=== PATIENT | female | born 1940 | race Caucasian/White ===

== ENCOUNTER 2024-02-14 12:08 | Emergency (ER) | payer MEDICARE, SELFPAY ==
--- NOTE | 2024-02-14 | ECG_ITS ---
Test Reason : WEAKNESS Blood Pressure : / mmHG Vent. Rate : 075 BPM Atrial Rate : 079 BPM P-R Int : 000 ms QRS Dur : 120 ms QT Int : 426 ms P-R-T Axes : 000 266 063 degrees QTc Int : 475 ms Ventricular-paced rhythm Abnormal ECG When compared with ECG of 31-JUL-2003 21:35, Electronic ventricular pacemaker has replaced Sinus rhythm Referred By: Juliana Cunningham Electronically Signed By:Hair Mendoza
--- NOTE | ~2024-02-14 | XR_ITS ---
EXAMINATION: XR CHEST CLINICAL INFORMATION: Weakness COMPARISON: None available. TECHNIQUE: 2 views of the chest were obtained. FINDINGS: No consolidation, pleural effusion or pneumothorax. Low lung volume. Cardiomediastinal silhouette is normal in size. Left-sided pacemaker with intact electrode leads. There is a catheter left in the right hemithorax and right upper abdomen. Multilevel spondylosis and a S-shaped curvature of the thoracolumbar spine. Kyphotic deformity, thoracic spine. Vascular clips right upper quadrant abdomen and likely prior cholecystectomy. XR/XR chest 2V IMPRESSION: No acute airspace disease. Scoliosis and kyphosis. Electronically signed by: Jay Ritchie MD 02/14/2024 03:09 PM EDT RP
--- NOTE | ~2024-02-14 | CT_ITS ---
EXAMINATION: CT HEAD WITHOUT CONTRAST CLINICAL INFORMATION: fall, unknown HS, on thinners COMPARISON: None available. TECHNIQUE: Contiguous axial imaging was performed from the skull base to vertex without intravenous administration of contrast. This CT examination was performed using dose optimization techniques as appropriate, variously including the following: *Automated exposure control *Adjustment of mA and/or kV according to patient size (this includes techniques or standardized protocols for targeted exams where dose is matched to indication/reason for exam; i.e. extremities or head) *Use of iterative reconstruction technique DLP: 584 mGy-cm FINDINGS: No acute intracranial hemorrhage. Status post shunt catheter placement via right parietal miya hole defect extends through the right parietal soft tissues anteriorly to the third ventricle and projecting (midline into the left frontal horn. There is prominent lateral and third ventricles. Focal encephalomalacia at the right parietal deep white matter shunt catheter tract. Bilateral multifocal patchy and confluent deep periventricular white matter hypodensity involving centrum semiovale and pritchard radiata. No midline shift. No herniation. Prominence of the extra-axial CSF spaces cerebral sulci and ventricles. Intracranial vascular calcifications both anterior and posterior circulation. Bony calvarium is intact. Skull base is intact. Fluid levels in the posterior right mastoid air cells. Tympanic cavities are aerated. No air-fluid levels in the paranasal sinuses. CT/CT head/brain wo IV con IMPRESSION: No acute intracranial hemorrhage or acute fracture, bony calvarium. Status post shunt catheter placement with prominent lateral ventricular and third ventricular system. Recommend correlation with prior CT brain. Small vessel occlusive disease. Electronically signed by: Jay Ritchie MD 02/14/2024 02:00 PM EDT
[2024-02-14 12:14] VITALS: BP 146/62; BP 154/60; PULSE 69; PULSE 99; RESP 16; TEMP 36.8; O2SAT 97; O2SAT 98; BMI 32.6
--- NOTE | 2024-02-14 12:22 | ED_ITS ---
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 The fall was unwitnessed and she does not recall falling. Cannot say if she had any preceding symptoms prior to the fall or if she lost balance. The last thing she remembers is sitting on her bedroom floor next to her bed and was unable to stand up secondary to weakness in her lower extremities. Her , whom she lives with, called EMS for further assistance. Patient states she is unsure if she hit her head. She is currently anticoagulated on coumadin. She admits to increasing generalized weakness over the last few weeks. She has seen her primary care physician for this who recommended exercise. She completed a few sessions of physical therapy last week and felt this was helping her. She denies any physical complaints at present. Related Data Home Medications ?Medication ?Instructions ?Recorded ?Confirmed Lactobacillus rhamnosus GG 10 1 cap PO DAILY 02/14/24 02/14/24 billion cell capsule acetaminophen 650 mg tablet 650 mg PO Q6H PRN Pain 02/14/24 02/14/24 aspirin 81 mg capsule,delayed 81 mg PO DAILY 02/14/24 02/14/24 release atorvastatin 40 mg tablet 40 mg PO DAILY 02/14/24 02/14/24 azelaic acid 15 % topical gel 1 appl topical DAILY 02/14/24 02/14/24 calcium carbonate 600 mg PO DAILY 02/14/24 02/14/24 cholecalciferol (vitamin D3) 25 25 mcg PO DAILY 02/14/24 02/14/24 mcg (1,000 unit) capsule (Vitamin D3) cyanocobalamin (vitamin B-12) 1,000 mcg PO DAILY 02/14/24 02/14/24 1,000 mcg tablet famotidine 20 mg tablet 20 mg PO BID 02/14/24 02/14/24 fluticasone propionate 50 1 spray intranasal DAILY 02/14/24 02/14/24 mcg/actuation nasal spray,suspension hydrocortisone 0.25 % topical cream 1 appl topical BID 02/14/24 02/14/24 lactase 9,000 unit tablet 9,000 unit PO DAILY 02/14/24 02/14/24 loperamide 2 mg capsule 2 mg PO DAILY 02/14/24 02/14/24 losartan 25 mg tablet 25 mg PO DAILY 02/14/24 02/14/24 metoprolol succinate 50 mg 50 mg PO DAILY 02/14/24 02/14/24 tablet,extended release 24 hr nitroglycerin 0.4 mg sublingual 0.4 mg sublingual Q5M PRN cp 02/14/24 02/14/24 tablet nystatin 100,000 unit/gram topical 1 appl topical TID 02/14/24 02/14/24 powder polyethylene glycol 1 ea miscellaneous DAILY 02/14/24 02/14/24 polyvinyl alcohol-povidon(PF) 1 drp INTRAOCUL NEEDED 02/14/24 02/14/24 spironolactone 25 mg tablet 25 mg PO DAILY 02/14/24 02/14/24 warfarin 5 mg tablet 5 mg PO DIRECTED 02/14/24 02/14/24 Allergies Allergy/AdvReac Type Severity Reaction Status Date / Time No Known Allergies Allergy Verified 02/14/24 12:24 Review of Systems 2 Review of Systems: Constitutional: No fever, chills, fatigue, night sweats, weight changes ENT/Mouth: No ear pain, hearing loss, nasal congestion, sinus pain, rhinorrhea, sore throat Eyes: No eye pain, swelling, redness, vision changes, discharge Cardio: No chest pain, palpitations, DELUCA, orthopnea, peripheral edema Pulm: No SOB, cough, sputum, wheezing, dyspnea, hemoptysis GI: No nausea, vomiting, hematemesis, abdominal pain, diarrhea, constipation, hematochezia, melena : No irregular bleeding, dysuria, frequency, urgency, hesitancy, hematuria, flank pain, urinary flow changes, urinary incontinence or retention MSK: No back pain, neck pain, joint pain, myalgias Skin: No lesions, rashes Neuro: No weakness, numbness, paresthesias, LOC, dizziness, headache Psych: No anxiety/panic, depression, SI/HI, AH/VH All other systems reviewed and are negative. [facility] Past Medical History Attestation statement: The following information was validated with the patient. Source: old records reviewed and nursing notes reviewed Social History Social History Smoked in Last 30 Days: No Use of substances other than those prescribed or required for medical reasons: No Advance Directives: No Advance Directives Information Provided: Yes Physical Exam ED Vital Signs: Vital Signs - 24 hr 02/14/24 12:14 02/14/24 14:13 02/14/24 16:00 Temperature 98.2 F 97.8 F 98.3 F Pulse Rate 69 72 70 Respiratory Rate 16 16 12 Blood Pressure 146/62 H 147/58 H 131/55 L Pulse Oximetry 97 99 97 Oxygen Delivery Method Room Air Room Air Room Air 02/14/24 18:00 02/14/24 18:26 02/14/24 18:26 Temperature 99.5 F Pulse Rate 70 Respiratory Rate 17 Blood Pressure 173/82 H 173/82 H 173/82 H Pulse Oximetry 98 Oxygen Delivery Method Room Air 02/14/24 18:27 Temperature Pulse Rate 73 Respiratory Rate Blood Pressure 173/82 H Pulse Oximetry Oxygen Delivery Method BMI result Body Mass Index 32.6 General: Well appearing, in no acute distress. Skin: Warm, dry, intact. No rashes or lesions. Head: Normocephalic, atraumatic. no palpable skull fracture or signs of trauma. EENT: Hearing is intact b/l. Conjunctiva clear. Pupils constricted, reactive to light. EOM intact. Moist mucous membranes.? Neck: Supple without LAD. FROM. Trachea midline.? Cardiac: Chest wall symmetric. RRR. No MRG. No JVD. Lungs: Normal respiratory effort without accessory muscle use. CTA bilaterally. Abdomen: Soft, non-tender, non-distended. No rebound tenderness or guarding. Positive BS x4. Back: No midline spinous or paraspinal tenderness. No step off deformity. Ext: Upper and lower extremities atraumatic, without tenderness, deformity, swelling or erythema. Full ROM throughout. Capillary refill <2 seconds in all extremities. Pulses 2+ equal and bilateral. Neuro: AOX2 (person, place). Normal speech.Strength 4/5 throughout. No saddle anesthesia. Sensation intact to light touch. NV intact distally. Psych: Appropriate mood and affect. Responds appropriately to questions. Course Course Course Narrative: 1431 -- CBC without leukocytosis or left shift. No anemia. H&H stable. Chemistry without acute electrolyte abnormality requiring intervention. No ANGELINA. Normal liver function. Troponin 3.2. Will repeat for delta. CK WNL at 61. Rhabdomyolysis unlikely. Urine with moderate amount of leukocyte esterase, 11- 20 WBCs, 6-10 squamous epithelial cells and 1+ urine bacteria. Negative nitrites. will start on ceftin for UTI. negative for COVID, flu, RSV. ekg showing ventricular paced rhythm with a rate of 75 beats per minute, QT 426, QTC 475. No acute ischemic changes or ST elevations. And CTA without intracranial hemorrhage, bony fracture or mass. > will add on CXR to rule out pneumonia. 1522 -- CXR without pneumonia. Given generalized weakness, will place consultation for PT/CM. Physician observation initialed. Medications Administered Generic Name Dose Route Start Last Admin Trade Name Freq PRN Reason Stop Dose Admin Atorvastatin Calcium 40 mg 02/14/24 17:30 02/14/24 18:26 Atorvastatin Calcium 40 Mg Tablet PO 40 mg DAILY BLAIRE Administration Cefuroxime Axetil 500 mg 02/14/24 14:45 02/14/24 15:11 Cefuroxime Axetil 500 Mg Tablet PO 500 mg BID BLAIRE Administration Cyanocobalamin 1,000 mcg 02/14/24 17:30 02/14/24 18:27 Cyanocobalamin (Vitamin B-12) 1,000 Mcg Tablet PO 1,000 mcg DAILY BLAIRE Administration Loperamide HCl 2 mg 02/14/24 17:30 02/14/24 18:26 Loperamide Hcl 2 Mg Capsule PO 2 mg DAILY BLAIRE Administration Losartan Potassium 25 mg 02/14/24 17:30 02/14/24 18:26 Losartan Potassium 25 Mg Tablet PO 25 mg DAILY BLAIRE Administration Protocol Metoprolol Succinate 50 mg 02/14/24 17:30 02/14/24 18:27 Metoprolol Succinate Er 50 Mg Tab.Er.24h PO 50 mg DAILY BLAIRE Administration Protocol Spironolactone 25 mg 02/14/24 17:30 02/14/24 18:26 Spironolactone 25 Mg Tablet PO 25 mg DAILY BLAIRE Administration Protocol Vitamin D 25 mcg 02/14/24 17:30 02/14/24 18:26 Cholecalciferol (Vitamin D3) 25 Mcg Tablet PO 25 mcg DAILY BLAIRE Administration Medical Decision Making Medical Decision Making [facility] Narrative: 83 year old female with pmhx significant for dementia and HTN presents to the ED today from home 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 Hypertensive to 147/58, vitals otherwise wnl. She is nontoxic appearing and in NAD. Pupils are consticted but equal and reactive to light. No palpable skull fracture. No signs of trauma. Exam is nonfocal. She has global weakness w/ 4/5 strength throughout. NV intact distally. Differential diagnosis includes anemia, electrolyte abnormality, dehydration, rhabdomyolysis, ACS, arrhythmia, pneumonia, urinary tract infection. Will obtain CT head/brain to r/o bleed or mass although less likely. Plan for labs, UA, CXR, re-evaluation. Patient will likely require PT/CM. Differential Diagnosis Differential Diagnoses: The differential diagnosis associated with the presentation includes as above. Admission/Observation Consideration of admission/observation: Escalation of care including admission/observation considered Lab Data [facility] Lab Attestation statement: I reviewed the patient's lab results. as above 02/14/24 12:49 02/14/24 12:49 Labs: Lab Results 02/14/24 02/14/24 Range/Units 12:49 13:54 WBC 9.7 (4.8-10.8) X10*3/uL RBC 3.84 L (4.20-5.50) X10*6/uL Hgb 13.2 (12.0-16.0) g/dl Hct 38.6 (37.0-47.0) % MCV 100.5 H (80.0-98.0) fL MCH 34.4 H (27.0-33.0) pg MCHC 34.2 (31.0-35.0) g/dl RDW 12.9 (11.0-16.0) % Plt Count 189 (160-400) X10*3/uL MPV 11.5 (9.4-12.3) fL Immature Gran % (Auto) 0.4 (0.0-0.4) % Neut % (Auto) 77.8 H (45-73) % Lymph % (Auto) 14.7 L (20-40) % Bullitt % (Auto) 4.9 (2-11) % Eos % (Auto) 1.8 (0-4) % Baso % (Auto) 0.4 (0-2) % Lymph # (Auto) 1.4 (1.2-4.9) X10*3/uL Bullitt # (Auto) 0.5 (0.1-1.2) X10*3/uL Eos # (Auto) 0.2 (0.0-0.4) X10*3/uL Baso # (Auto) 0.0 (0.0-0.2) X10*3/uL Abs Immat Gran (auto) 0.04 H (0.00-0.03) X10*3/uL Absolute Neuts (auto) 7.5 (2.0-8.3) x10*3/uL Absolute Nucleated RBC 0.000 (0.0-0.012) X10*3/uL Nucleated RBC % (auto) 0.0 (0.0-0.2) /100WBC PT 20.1 H (10.9-12.4) SEC INR 1.7 H (0.9-1.1) Sodium 141 (135-145) mmol/L Potassium 3.8 (3.3-5.1) mmol/L Chloride 108 (96-108) mmol/L Carbon Dioxide 27 (22-29) mmol/L Anion Gap 10 L (12-20) BUN 14 (9-16) mg/dL Creatinine 0.87 (0.5-1.4) mg/dL Estim Creat Clear Calc 46.1 Estimated GFR > 60 Random Glucose 112 (60-115) mg/dL Calcium 9.6 (8.4-10.2) mg/dL Magnesium 1.9 (1.6-2.6) mg/dL Total Bilirubin 0.5 (0.0-1.0) mg/dL AST 27 (5-31) U/L ALT 20 (0-31) U/L Alkaline Phosphatase 81 (39-117) U/L Total Creatine Kinase 61 (26-140) U/L Troponin I High Sens 3.2 (<3.5-17.0) ng/L Total Protein 6.4 L (6.5-8.0) g/dL Albumin 3.8 (3.5-5.0) g/dL Urine Color Yellow Urine Appearance Clear Urine pH 7.0 (5.0-9.0) Ur Specific [place] 1.020 (1.005-1.025) Urine Protein Negative (Neg-Trace) mg/dL Urine Glucose (UA) Negative (Negative) mg/dL Urine Ketones Negative (Negative) mg/dL Urine Blood Negative (Negative) Urine Nitrite Negative (Negative) Ur Leukocyte Esterase Moderate (2+) H (Negative) Urine RBC 0-2 (0-2) /HPF Urine WBC 11-20 H (0-5) /HPF Ur Squamous Epith Cells 6-10 (0-2) /HPF Urine Bacteria 1+ (None Seen) Hyaline Casts 3-5 (0-2) /LPF Influenza Type A (PCR) NEGATIVE (Negative) Influenza Type B (PCR) NEGATIVE (Negative) RSV RNA Qual (PCR) NEGATIVE (Negative) SARS-CoV-2 RNA (RT-PCR) NEGATIVE (Negative) Independent Interpretation I performed an independent interpretation of an: EKG, Plain X-Ray and CT Scan Interpretation: EKG showing ventricularly paced rhythm with a rate of 75 beats per minute, QT 426, QTC 475, no acute ischemic changes or ST elevations. Chest x-ray without infiltrate or consolidation, agree with radiologist's interpretation. CT head/brain without intracranial bleed, agree with radiologist's interpretation. Radiology Impression Discussion of test interpretation with radiology: I have reviewed the radiologist's reading. Radiologist Impression: EXAMINATION: XR CHEST CLINICAL INFORMATION: Weakness COMPARISON: None available. TECHNIQUE: 2 views of the chest were obtained. FINDINGS: No consolidation, pleural effusion or pneumothorax. Low lung volume. Cardiomediastinal silhouette is normal in size. Left-sided pacemaker with intact electrode leads. There is a catheter left in the right hemithorax and right upper abdomen. Multilevel spondylosis and a S-shaped curvature of the thoracolumbar spine. Kyphotic deformity, thoracic spine. Vascular clips right upper quadrant abdomen and likely prior cholecystectomy. XR/XR chest 2V IMPRESSION: No acute airspace disease. Scoliosis and kyphosis. Electronically signed by: Jay Ritchie MD 02/14/2024 03:09 PM EDT EXAMINATION: CT HEAD WITHOUT CONTRAST CLINICAL INFORMATION: fall, unknown HS, on thinners COMPARISON: None available. TECHNIQUE: Contiguous axial imaging was performed from the skull base to vertex without intravenous administration of contrast. This CT examination was performed using dose optimization techniques as appropriate, variously including the following: *Automated exposure control *Adjustment of mA and/or kV according to patient size (this includes techniques or standardized protocols for targeted exams where dose is matched to indication/reason for exam; i.e. extremities or head) *Use of iterative reconstruction technique DLP: 584 mGy-cm FINDINGS: No acute intracranial hemorrhage. Status post shunt catheter placement via right parietal miya hole defect extends through the right parietal soft tissues anteriorly to the third ventricle and projecting (midline into the left frontal horn. There is prominent lateral and third ventricles. Focal encephalomalacia at the right parietal deep white matter shunt catheter tract. Bilateral multifocal patchy and confluent deep periventricular white matter hypodensity involving centrum semiovale and pritchard radiata. No midline shift. No herniation. Prominence of the extra-axial CSF spaces cerebral sulci and ventricles. Intracranial vascular calcifications both anterior and posterior circulation. Bony calvarium is intact. Skull base is intact. Fluid levels in the posterior right mastoid air cells. Tympanic cavities are aerated. No air-fluid levels in the paranasal sinuses. CT/CT head/brain wo IV con IMPRESSION: No acute intracranial hemorrhage or acute fracture, bony calvarium. Status post shunt catheter placement with prominent lateral ventricular and third ventricular system. Recommend correlation with prior CT brain. Small vessel occlusive disease. Electronically signed by: Jay Ritchie MD 02/14/2024 02:00 PM EDT Independent Historian Clinical information obtained from an independent historian. History obtained from or confirmed by: EMS External Record Review External record reviewed: Inpatient record Prescription Management I considered prescription management with: Antibiotic (Ceftin) Chronic Conditions Patient?s care impacted by: Hypertension and Other (dementia) Social Determinants Patient?s care significantly limited by Social Determinants of Health including: Other Social Determinant of Health Critical Care Time Critical Care Time Critical Care Time: No Discharge Plan Discharge Clinical Impression: Generalized weakness, Urinary tract infection Patient Disposition: Still a Patient Prescriptions: No Action atorvastatin 40 mg Tablet 40 mg PO DAILY cyanocobalamin (vitamin B-12) 1,000 mcg Tablet 1,000 mcg PO DAILY acetaminophen 650 mg Tablet 650 mg PO Q6H PRN (Reason: Pain) aspirin 81 mg Capsule,Delayed Release(Dr/Ec) 81 mg PO DAILY calcium carbonate 600 mg calcium (1,500 mg) Tablet 600 mg PO DAILY lactase 9,000 unit Tablet 9,000 unit PO DAILY hydrocortisone 0.25 % Cream 1 appl TOPICAL BID Lactobacillus rhamnosus GG 10 billion cell Capsule 1 cap PO DAILY fluticasone propionate 50 mcg/actuation Gilson,Suspension 1 spray INTRANASAL DAILY Rx Instructions: administer into each nostril cholecalciferol (vitamin D3) [Vitamin D3] 25 mcg (1,000 unit) Capsule 25 mcg PO DAILY azelaic acid 15 % Gel 1 appl TOPICAL DAILY loperamide 2 mg Capsule 2 mg PO DAILY metoprolol succinate 50 mg Tablet Extended Release 24 Hr 50 mg PO DAILY spironolactone 25 mg Tablet 25 mg PO DAILY warfarin 5 mg Tablet 5 mg PO DIRECTED Rx Instructions: Take 1 tablet (5mg) daily x 3 days/week. Take 1/2 tablet (2.5mg) daily x 4 days/week. losartan 25 mg Tablet 25 mg PO DAILY nitroglycerin 0.4 mg Tablet, Sublingual 0.4 mg SUBLINGUAL Q5M PRN (Reason: cp) Rx Instructions: do not exceed 3 doses per episode polyethylene glycol Powder 1 ea MISCELLANEOUS DAILY polyvinyl alcohol-povidon(PF) 1 drp INTRAOCUL NEEDED famotidine 20 mg Tablet 20 mg PO BID nystatin 100,000 unit/gram Powder 1 appl TOPICAL TID Print Language: Bhutanese
[2024-02-14 13:13] LABS: MANUAL DIFF FLAG NO
[2024-02-14 13:16] LABS: Basophils Percent Auto 0.4 % (0-2); Eosinophils Absolute Auto 0.2 X10*3/uL (0.0-0.4); Eosinophils Percent Auto 1.8 % (0-4); Hematocrit 38.6 % (37.0-47.0); Hemoglobin 13.2 g/dl (12.0-16.0); Imm Gran Abs Auto 0.04 X10*3/uL (0.00-0.03); Imm Gran Pct Auto 0.4 % (0.0-0.4); Lymphocytes Absolute Auto 1.4 X10*3/uL (1.2-4.9); Lymphocytes Percent Auto 14.7 % (20-40); Mean Corpuscular HGB Conc 34.2 g/dl (31.0-35.0); Mean Corpuscular Hemoglobin 34.4 pg (27.0-33.0); Mean Corpuscular Volume 100.5 fL (80.0-98.0); Mean Platelet Volume 11.5 fL (9.4-12.3); Monocytes Absolute Auto 0.5 X10*3/uL (0.1-1.2); Monocytes Percent Auto 4.9 % (2-11); Neutrophils Absolute Auto 7.5 x10*3/uL (2.0-8.3); Neutrophils Percent Auto 77.8 % (45-73); Platelet Count 189 X10*3/uL (160-400); Red Blood Count 3.84 X10*6/uL (4.20-5.50); Red Cell Distribution Width 12.9 % (11.0-16.0); White Blood Count 9.7 X10*3/uL (4.8-10.8)
[2024-02-14 13:20] LABS: INTERNATIONAL NORM RATIO 1.7 (0.9-1.1); Prothrombin Time 20.1 SEC (10.9-12.4)
[2024-02-14 13:31] LABS: Alanine Aminotransferase 20 U/L (0-31); Albumin Level 3.8 g/dL (3.5-5.0); Alkaline Phosphatase 81 U/L (39-117); Anion Gap 10 (12-20); Aspartate Amino Transferase 27 U/L (5-31); Bilirubin Total 0.5 mg/dL (0.0-1.0); Blood Urea Nitrogen 14 mg/dL (9-16); Calcium 9.6 mg/dL (8.4-10.2); Carbon Dioxide 27 mmol/L (22-29); Chloride 108 mmol/L (96-108); Creatinine Clr Calc Pharmacy 46.1; Estimated Glomerular Filt Rate > 60; Glucose Random 112 mg/dL (60-115); Potassium 3.8 mmol/L (3.3-5.1); Sodium 141 mmol/L (135-145); Total Protein 6.4 g/dL (6.5-8.0)
[2024-02-14 13:32] LABS: Magnesium 1.9 mg/dL (1.6-2.6)
[2024-02-14 13:38] LABS: Troponin-I High Sensitivity 3.2 ng/L (<3.5-17.0)
[2024-02-14 13:52] LABS: Influenza A PCR NEGATIVE (Negative); Influenza B PCR NEGATIVE (Negative); Resp Syncy Virus RNA Qual PCR NEGATIVE (Negative); SARS COV2 PCR INHOUSE NEGATIVE (Negative)
--- NOTE | 2024-02-14 14:00 | PC.NURSE ---
pt declined straight cath, one assist onto bedpan, clean catch urine collected and sent to lab. pt pending CT scan results.
[2024-02-14 14:02] LABS: Appearance Urine Clear; Color Urine Yellow; Glucose Urine UA Negative (Negative); Leukocyte Esterase Urine Moderate (2+) (Negative); Nitrite Urine Negative (Negative); UMIC TRIGGER UACC YES; Urine Blood Negative (Negative); Urine Ketones Negative (Negative); Urine Protein Negative (Neg-Trace)
[2024-02-14 14:11] LABS: Bacteria Urine 1+ (None Seen); RBC Urine 0-2 /HPF (0-2); UACC Culture Trigger YES
[2024-02-14 14:13] VITALS: BP 147/58; PULSE 72; RESP 16; TEMP 36.6; O2SAT 99
--- NOTE | 2024-02-14 14:28 | PHA.MEDREC ---
Addendum entered by Kiah Mcdaniel RPh 02/15/24 09:52: called back to confirm Warfarin dosinmg on Sunday, Sunday, Sunday and 2.5mg on Sunday, Sunday, , Sunday Original Note: Pharmacy Consult ? Medication Reconciliation Pharmacy has completed the medication reconciliation, utilized list provided by patient from [facility] medical record.
[2024-02-14] MEDS: cefuroxime axetiL 500 MG TABLET PO ×2 (15:11→20:16)
[2024-02-14 16:00] VITALS: BP 131/55; PULSE 70; RESP 12; TEMP 36.8; O2SAT 97
--- NOTE | 2024-02-14 16:43 | MHC.CM.ED ---
Received case management consult from Juliana CHRIS. Patient came to the ER due to weakness. Physical therapy eval is ordered and pending. Met with patient and , Davon, in regards to discharge planning. Patient lives with Davon and their granddaughter Verónica, uses a walker for mobility and had no services prior to coming to the ER. PCP verified. Both are aware that patient will stay overnight for physical therapy eval. If STR is recommended, patient and Davon are agreeable to referral being broadcasted locally to all facilities contracted with patient's insurance. Patient has never been to STR. Continue to monitor for d/c needs.
--- NOTE | 2024-02-14 17:59 | PC.NURSE ---
Assumed care at 1759. Eriberto placed patient incontinent of urine. Awaiting verification of medications from pharmacy.
[2024-02-14 18:00] VITALS: BP 173/82; PULSE 70; RESP 17; TEMP 37.5; O2SAT 98
[2024-02-14 18:26] VITALS: BP 173/82
[2024-02-14] MEDS: Losartan Potassium 25 MG TABLET PO (18:26)
[2024-02-14] MEDS: Spironolactone 25 MG TABLET PO (18:26)
[2024-02-14] MEDS: Atorvastatin Calcium 40 MG TABLET PO (18:26)
[2024-02-14] MEDS: Cholecalciferol (Vitamin D3) 25 MCG TABLET PO (18:26)
[2024-02-14] MEDS: Loperamide HCl 2 MG CAPSULE PO (18:26)
[2024-02-14 18:27] VITALS: BP 173/82; PULSE 73
[2024-02-14] MEDS: Cyanocobalamin (Vitamin B-12) 1,000 MCG TABLET 1000 MCG PO (18:27)
[2024-02-14] MEDS: Metoprolol Succinate ER 50 MG TAB.ER.24H PO (18:27)
[2024-02-14] MEDS: Fluticasone Propionate Nasal 16 GM SPRAY 1 SPRAY NOSTRIL-B (19:20)
[2024-02-14] MEDS: Famotidine 20 MG TABLET PO (20:16)
[2024-02-14] MEDS: Warfarin Sodium 2.5 MG TABLET PO (21:06)
--- NOTE | 2024-02-14 21:24 | PC.NURSE ---
Assumed care for patient at 1900. Pt resting at the bedside. No apparent distress noted. Reports no pain/discomfort at this time. Medicated as per JUN. Pt tolerated well. Monitoring is ongoing.
[2024-02-15] VITALS: BP 145/66; PULSE 70; RESP 16; TEMP 36.9; O2SAT 98
[2024-02-15 06:00] VITALS: BP 131/63; PULSE 70; RESP 16; TEMP 36.5; O2SAT 97
[2024-02-15 08:42] VITALS: BP 131/63; PULSE 70; O2SAT 97
[2024-02-15] MEDS: Lactase TABLET 3 TAB PO (08:55)
[2024-02-15] MEDS: Famotidine 20 MG TABLET PO ×2 (08:56→20:17)
[2024-02-15] MEDS: Aspirin 81 MG TAB.CHEW PO (08:56)
[2024-02-15] MEDS: Cholecalciferol (Vitamin D3) 25 MCG TABLET PO (08:56)
[2024-02-15] MEDS: Atorvastatin Calcium 40 MG TABLET PO (08:57)
[2024-02-15] MEDS: cefuroxime axetiL 500 MG TABLET PO ×2 (08:57→20:17)
[2024-02-15] MEDS: Cyanocobalamin (Vitamin B-12) 1,000 MCG TABLET 1000 MCG PO (08:57)
[2024-02-15] MEDS: Calcium Carbonate 750 MG TAB.CHEW PO (08:57)
[2024-02-15] MEDS: Spironolactone 25 MG TABLET PO (08:58)
[2024-02-15] MEDS: Metoprolol Succinate ER 50 MG TAB.ER.24H PO (08:58)
[2024-02-15] MEDS: Losartan Potassium 25 MG TABLET PO (08:58)
[2024-02-15 10:32] LABS: INTERNATIONAL NORM RATIO 1.9 (0.9-1.1); Prothrombin Time 21.8 SEC (10.9-12.4)
--- NOTE | 2024-02-15 10:45 | MHC.CM.ED ---
Addendum entered by Chioma Francisco 02/15/24 10:51: Physical therapy eval completed. Short term rehab is recommended. Referral sent to all facilities contracted with patient's insurance within 15 miles of patient's home. Original Note: Patient remains in ER. Physical therapy eval is still pending. New HCP completed, signed and witnessed at patient's request. Original given to patient. Copy placed in chart. Continue to monitor for d/c needs.
--- NOTE | 2024-02-15 12:34 | MHC.CM.ED ---
Spoke with patient's , aDvon, via telephone at [phone]. [facility]. [facility]. [facility], [facility], [facility] on [place], [address], [facility], [facility] and [facility] is able to offer a bed. Davon accepts a bed at [facility]. [facility] has been made aware and asked to obtain insurance auth. Continue to monitor for d/c needs.
[2024-02-15 14:09] VITALS: BP 112/55; PULSE 69; RESP 17; O2SAT 97
[2024-02-15] MEDS: Warfarin Sodium 2.5 MG TABLET PO (17:40)
--- NOTE | 2024-02-15 21:04 | PC.NURSE ---
patient cleansed and linen changed for comfort. Patient alert and oriented x1 at this time.
[2024-02-15 21:09] VITALS: BP 138/67; PULSE 77; RESP 16; TEMP 36.8; O2SAT 96
[2024-02-16 05:49] VITALS: BP 137/68; PULSE 70; RESP 16; TEMP 36.8; O2SAT 97
[2024-02-16 07:11] VITALS: BP 140/71; PULSE 72; RESP 18; TEMP 36.4; O2SAT 97
[2024-02-16] MEDS: Calcium Carbonate 750 MG TAB.CHEW PO (08:34)
[2024-02-16] MEDS: Aspirin 81 MG TAB.CHEW PO (08:34)
[2024-02-16] MEDS: Cholecalciferol (Vitamin D3) 25 MCG TABLET PO (08:35)
[2024-02-16] MEDS: Atorvastatin Calcium 40 MG TABLET PO (08:35)
[2024-02-16 08:36] VITALS: BP 140/71
[2024-02-16] MEDS: Spironolactone 25 MG TABLET PO (08:36)
[2024-02-16] MEDS: Famotidine 20 MG TABLET PO (08:36)
[2024-02-16 08:37] VITALS: BP 140/71; PULSE 72
[2024-02-16] MEDS: Metoprolol Succinate ER 50 MG TAB.ER.24H PO (08:37)
[2024-02-16] MEDS: Losartan Potassium 25 MG TABLET PO (08:37)
[2024-02-16] MEDS: cefuroxime axetiL 500 MG TABLET PO (08:37)
[2024-02-16] MEDS: Cyanocobalamin (Vitamin B-12) 1,000 MCG TABLET 1000 MCG PO (08:38)
[2024-02-16] MEDS: Lactase TABLET 3 TAB PO (08:38)
[2024-02-16] MEDS: Fluticasone Propionate Nasal 16 GM SPRAY 1 SPRAY NOSTRIL-B (08:39)
--- NOTE | 2024-02-16 08:45 | PC.NURSE ---
report received from previous RN, patient resting comfortably on stretcher at this time, provided with breakfast tray and medicated with am medications per MAR, patient remains slightly confused, alert to self but cooperative with care at this time. not offering any complaints to this RN.
[2024-02-16 10:44] LABS: INTERNATIONAL NORM RATIO 2.1 (0.9-1.1)
--- NOTE | 2024-02-16 14:14 | MHC.EDTECH ---
patient 1 assist to camode ADL's were done gave patient a full bed bath changed linen put on a purewick patient comb her own hair and brush her own teeth
[2024-02-16 14:23] VITALS: BP 137/71; PULSE 70; RESP 18; TEMP 36.7; O2SAT 97
[2024-02-16 15:46] VITALS: BP 137/71; PULSE 70; RESP 18; TEMP 36.7; O2SAT 97
== END 2024-02-16 16:08 ==
PROVIDERS: Physician Assistant Medical; Emergency Provider Emergency Medicine; PCP Internal Medicine
DX: N39.0 Urinary tract infection, site not specified (principal); R26.2 Difficulty in walking, not elsewhere classified; R94.31 Abnormal electrocardiogram [ECG] [EKG]; I10 Essential (primary) hypertension; Z03.818 Encounter for observation for suspected exposure to other biological agents ruled out; Z79.899 Other long term (current) drug therapy; Z79.01 Long term (current) use of anticoagulants
CPT/HCPCS: 0241U; 36415; 51701; 70450; 71046; 80053; 81001; 82550; 83735; 84484; 85025; 85610; 87086; 93005; 97161; 99285

== ENCOUNTER → 2024-02-14 12:40 | Outpatient (BNV) | payer MEDICARE, SELFPAY | PROVIDERS: Emergency Provider Emergency Medicine; PCP Internal Medicine; Visit Provider Radiology Diagnostic Radiology | DX: R53.1 Weakness (principal) | CPT/HCPCS: 70450; 71046 ==

== ENCOUNTER → 2024-02-14 12:53 | Outpatient (BNV) | payer MEDICARE, SELFPAY | PROVIDERS: Emergency Provider Emergency Medicine; PCP Internal Medicine; Visit Provider Internal Medicine Cardiovascular Disease | DX: R53.1 Weakness (principal); R94.31 Abnormal electrocardiogram [ECG] [EKG] | CPT/HCPCS: 93010 ==

== ENCOUNTER 2024-07-02 12:51 | Emergency (ER) | payer MEDICARE, SELFPAY ==
--- NOTE | ~2024-07-02 | CT_ITS ---
EXAMINATION: CT HEAD WITHOUT IV CONTRAST HISTORY: fall, on AC. TECHNIQUE: Unenhanced helical CT of the head was performed per standard departmental protocol. Coronal and sagittal reformats of the head were also evaluated. One or more of the following techniques was used for dose reduction: Automated exposure control, adjustment of the mA and/or kV according to patient size, use of iterative reconstruction technique. DLP: 643.33 mGy-cm COMPARISON: Comparison is made with the prior examination dated 02/14/2024. FINDINGS: BRAIN: Again seen is a ventriculostomy catheter from a right parietal approach with its tip in the anterior horn of the left lateral ventricle without change. There is diffuse prominence of the ventricular system and cortical sulci, consistent with atrophy. Periventricular and subcortical white matter hypodensities are noted which are nonspecific, but often seen in the setting of small vessel ischemic disease. There is no mass effect or midline shift. No intra- or extra-axial fluid collections are identified. SINUSES: The visualized paranasal sinuses are clear. The mastoid air cells and middle ear cavities are well pneumatized. ORBITS: The visualized orbits are unremarkable. BONES/SOFT TISSUES: The extracranial soft tissues are unremarkable. The calvarium is intact. No suspicious lytic or sclerotic lesions. CT/CT head/brain wo IV con IMPRESSION: No acute intracranial abnormality. Electronically signed by: Julio Cesar Nguyen MD 07/02/2024 03:20 PM EDT
--- NOTE | ~2024-07-02 | CT_ITS ---
EXAMINATION: CT CERVICAL SPINE WITHOUT IV CONTRAST HISTORY: fall. TECHNIQUE: Helical CT of the cervical spine was performed per standard departmental protocol. Coronal and sagittal reformatted images were also evaluated. One or more of the following techniques was used for dose reduction: Automated exposure control, adjustment of the mA and/or kV according to patient size, use of iterative reconstruction technique. DLP: 351.36 mGy-cm COMPARISON: There are no prior studies for comparison. FINDINGS: CERVICAL SPINE: The vertebral bodies maintain normal height and alignment without evidence of fracture or subluxation. There is diffuse mild to moderate degenerative disc disease with disc space narrowing and osteophyte formation. Evaluation for disc pathology is limited by lack of intrathecal contrast material, however. BRAIN: The visualized portion of the brain is unremarkable. SINUSES: The visualized paranasal sinuses, mastoid air cells and middle ear cavities are unremarkable. LUNG APICES: The visualized lung apices are clear. SOFT TISSUES: There is calcification of the internal carotid arteries. A shunt catheter is seen in the right neck. CT/CT cervical spine wo IV con IMPRESSION: No evidence of fracture or malalignment of the cervical spine. Electronically signed by: Julio Cesar Nguyen MD 07/02/2024 03:23 PM EDT
--- NOTE | 2024-07-02 13:46 | ED.GENADULT ---
HPI - General Adult General Chief complaint: Fall Stated complaint: WEAK,SLIP OOB ,CONFUSED,SLOW ANSWERS PER EMS Time Seen by Provider: 07/02/24 13:46 Source: patient, EMS and RN notes reviewed Mode of arrival: EMS Limitations: no limitations History of Present Illness ED Provider: Kylie [place] PA-C HPI narrative: This is a 83-year-old female, significant for dementia,a fib with pacemaker with stents on coumadin currently being followed by Cardiology at [facility], hypertension, hyperlipidemia, who presents emergency department via EMS with concerns for increased generalized weakness. Pt reports that this morning she was getting up from her bed, and accidentally slid down her bed while trying to get up. She states that her attempted to get her back up from the ground however due to his health he was unable to do so and called 911. Denies hitting her head or having any LOC. She has no current complaints however her , patient has had a decreasing cognitive and mental status, and has increased weakness. Patient reports that she lives at home with her . She does not have any visiting nursing aids that comes to the house. She states that she has family typically helps. She denies any chest pain, shortness of breath, headache, dizziness, blurred vision, abdominal pain, nausea, vomiting or diarrhea. Denies any other complaints or concerns at this time. MD complaint: Generalized weakness, fall Relieving factors: none Exacerbating factors: none Associated symptoms: denies other symptoms Treatments prior to arrival: none Related Data Home Medications ?Medication ?Instructions ?Recorded ?Confirmed Lactobacillus rhamnosus GG 10 1 cap PO DAILY 02/14/24 07/03/24 billion cell capsule atorvastatin 40 mg tablet 40 mg PO DAILY 02/14/24 07/03/24 calcium carbonate 600 mg PO DAILY 02/14/24 07/03/24 cholecalciferol (vitamin D3) 25 25 mcg PO DAILY 02/14/24 07/03/24 mcg (1,000 unit) capsule (Vitamin D3) cyanocobalamin (vitamin B-12) 1,000 mcg PO DAILY 02/14/24 07/03/24 1,000 mcg tablet famotidine 20 mg tablet 20 mg PO BID 02/14/24 07/03/24 loperamide 2 mg capsule 2 mg PO DAILY PRN Diarrhea 02/14/24 07/03/24 metoprolol succinate 50 mg 50 mg PO DAILY 02/14/24 07/03/24 tablet,extended release 24 hr nitroglycerin 0.4 mg sublingual 0.4 mg sublingual Q5M PRN cp 02/14/24 07/03/24 tablet spironolactone 25 mg tablet 25 mg PO DAILY 02/14/24 07/03/24 warfarin 5 mg tablet 5 mg PO MO 02/14/24 07/03/24 acetaminophen 325 mg tablet 650 mg PO Q6H PRN Pain 07/03/24 07/03/24 aspirin 81 mg tablet,delayed 81 mg PO DAILY 07/03/24 07/03/24 release warfarin 5 mg tablet 2.5 mg PO [id number] 07/03/24 07/03/24 Allergies Allergy/AdvReac Type Severity Reaction Status Date / Time No Known Allergies Allergy Verified 07/02/24 14:11 Review of Systems Review of Systems: Yes all other systems are reviewed and are negative Constitutional: Constitutional: Reports as per HPI Neurologic: Denies Abnormal speech present [facility] Past Medical History Attestation statement: The following information was validated with the patient. Social History Social History Smoked in Last 30 Days: No Use of substances other than those prescribed or required for medical reasons: No Advance Directives: No Advance Directives Information Provided: Yes Do you have a plan to hurt others: No Plan Physical Exam ED Vital Signs: Vital Signs - 24 hr 07/02/24 17:25 07/02/24 18:29 07/03/24 03:50 Temperature 98.2 F 97.9 F Pulse Rate 68 92 84 Respiratory Rate 18 18 20 Blood Pressure 140/55 H 140/76 H Pulse Oximetry 97 96 98 Oxygen Delivery Method Room Air Room Air Room Air 07/03/24 05:53 07/03/24 14:25 Temperature 97.5 F 97.3 F Pulse Rate 70 70 Respiratory Rate 14 16 Blood Pressure 157/80 H 133/66 Pulse Oximetry 99 98 Oxygen Delivery Method Room Air Room Air BMI result Body Mass Index 33.5 Const General: cooperative, comfortable and no acute distress Orientation/consciousness: patient oriented x3 Limitations: no limitations HENMT Head: Yes normal to inspection, Yes normocephalic and Yes atraumatic Ears: hearing grossly normal bilaterally General nose exam: Normal external nose present Face and sinus: Yes normal facial exam Mouth: Normal oral and palatal mucosa present, oropharynx normal and moist mucous membranes Throat: Yes posterior oropharynx normal Eyes General: appearance normal, both eyes and all related structures Eyelids: Yes eyelids normal Conjunctivae: conjunctivae normal Sclerae: sclerae normal Pupils: Equal, round and reactive pupils present EOM: EOMs intact bilaterally Neck Neck: Yes normal visual inspection, Yes full ROM and Yes no lymphadenopathy Lymphatic: no lymphadenopathy noted Chest Chest palpation & inspection: normal inspection of the chest Resp Effort & Inspection: normal respiratory effort and able to speak in complete sentences Auscultation: clear to auscultation bilaterally, no crackles, no rales, no rhonchi and no wheezes Cardio Rate: regular rate Rhythm: regular rhythm Heart sounds: S1 normal heart sound present and S2 normal heart sound present GI Inspection: Yes normal to inspection Skin General skin exam: no rashes or lesions noted Trauma: no lacerations or abrasions Wounds: no wounds Neuro General: patient oriented x3, moves all extremities, no focal motor deficits and CN's II-XI intact bilaterally Cranial nerves: Yes CN's II-XII intact bilaterally, Yes Equal, round and reactive pupils present and Yes Midline tongue present Cognition (Neuro): normal cognition Speech: No Abnormal speech present Gait exam (Neuro): Normal gait present Motor exam (neuro): 5/5 motor strength present throughout and Pronator motor function not present Coordination: lapyem-or-lfpy test normal Extrem General: Yes normal to inspection Right upper extremity: normal to inspection Left upper extremity: normal to inspection Right lower extremity: normal to inspection Left lower extremity: normal to inspection Course Reevaluation(s) Reevaluation #1: Attempted to reach out to patient's healthcare proxy to obtain more medical history however no answer. Will try again and 45 minutes. Time: 15:14 Reevaluation #2: CT head and neck with no acute findings. Still awaiting phone call back family member to verify medical history. Still awaiting UA. Patient will likely be made into PT Case Management for further evaluation. Will repeat troponin in 2 hours. We will continue to monitor Time: 15:31 Reevaluation #3: 1537 - attempted to make 2nd call out to patient's for medical history. Awaiting UA and repeat troponin. Additional Reevaluation(s): 1600 -Patient's , Bill at bedside. reports that patient has a pacemaker with stents, currently being followed by Cardiology at [facility], atrial fibrillation on Coumadin, hypertension, hyperlipidemia. She does not have any artificial valves. Discussed overall workup today with patient and . He states that when he has extra help with his niece and fiancee he is able to take care of her however states that this does not always occur as the niece and fiance have jobs during the day. reports that he has noticed a steady decline in her physical health and would benefit from PT evaluation. Discussed that patient will be kept overnight for PT evaluation in the morning. Will also consult with case management. Patient is agreeable. >> does report that he has a eye procedure tomorrow, states that he has an eye injury that occurred several days ago after attempting to pick patient up after a fall. reports that today he was hesitant to pick patient back up due to further injuring himself. He states that he will be back in the ER around early afternoon. His cell phone number is [phone]. 07/03/24--8925--Physician observation completed at 1700. Patient does not meet medical necessity for hospitalization. patient will discharge to [facility] for short-term rehab at 17:00 Final disposition discussed with patient and family who verbalized understanding and are in agreement. Medications Administered Discontinued Medications Generic Name Dose Route Start Last Admin Trade Name Nilam PRN Reason Stop Dose Admin Aspirin 81 mg 07/03/24 16:30 07/03/24 17:12 Aspirin Enteric Coated 81 Mg Tablet. PO 81 mg DAILY BLAIRE Administration Atorvastatin Calcium 40 mg 07/03/24 16:30 07/03/24 17:12 Atorvastatin Calcium 40 Mg Tablet PO 40 mg DAILY BLAIRE Administration Cyanocobalamin 1,000 mcg 07/03/24 16:30 07/03/24 17:12 Cyanocobalamin (Vitamin B-12) 1,000 Mcg Tablet PO 1,000 mcg DAILY BLAIRE Administration Sodium Chloride 500 mls @ 500 mls/hr 07/02/24 17:04 07/02/24 20:55 Ns IV 07/02/24 18:03 Infused .Q1H ONE Infusion Metoprolol Succinate 50 mg 07/03/24 16:30 07/03/24 17:12 Metoprolol Succinate Er 50 Mg Tab.Er.24h PO 50 mg DAILY BLAIRE Administration Protocol Spironolactone 25 mg 07/03/24 16:30 07/03/24 17:12 Spironolactone 25 Mg Tablet PO 25 mg DAILY BLAIRE Administration Protocol Vitamin D 25 mcg 07/03/24 16:30 07/03/24 17:12 Cholecalciferol (Vitamin D3) 25 Mcg Tablet PO 25 mcg DAILY BLAIRE Administration Warfarin Sodium 2.5 mg 07/02/24 18:15 07/02/24 18:41 Warfarin Sodium 2.5 Mg Tablet PO 07/02/24 18:16 2.5 mg ONCE@1800 ONE Administration Warfarin Sodium 2.5 mg 07/03/24 18:00 07/03/24 17:12 Warfarin Sodium 2.5 Mg Tablet PO 2.5 mg [id number]@1800 BLAIRE Administration Medical Decision Making Medical Decision Making [facility] Narrative: This is a 83-year-old female, significant for dementia, and hypertension (unable to report any other past medical history however per EMS note as well as external med list, patient is on warfarin), who presents emergency department via EMS with concerns for increased generalized weakness. On arrival, blood pressure elevated at 188/83, all other vital signs within normal limits. Head is normocephalic atraumatic. Patient has an NIH score of 0. Denies head strike or LOC. She states that she was feeling well. Per EMS, reported that he has had trouble with taking care of patient as at times she does fall and he was unable to pick herself back up. Patient has no current complaints. We will obtain CT head and neck to rule out any intracranial pathology or C-spine fracture. Will also obtain basic labs, coags, EKG. We will continue to closely monitor pending workup Differential Diagnosis Differential Diagnoses: The differential diagnosis associated with the presentation includes ICH, SDH, cervical spine fracture, electrolyte derangement. ACS, ANGELINA, Admission/Observation Consideration of admission/observation: Escalation of care including admission/observation considered Lab Data [facility] Lab Attestation statement: I reviewed the patient's lab results. Patient has no leukocytosis, stable H&H, chemistry with no significant electrolyte derangement. First troponin 5.4. Viral swabs negative. 07/02/24 14:26 07/02/24 14:26 Labs: Lab Results 07/02/24 07/02/24 07/02/24 Range/Units 14:26 19:09 20:20 WBC 10.3 (4.8-10.8) X10*3/uL RBC 4.19 L (4.20-5.50) X10*6/uL Hgb 14.3 (12.0-16.0) g/dl Hct 42.4 (37.0-47.0) % MCV 101.2 H (80.0-98.0) fL MCH 34.1 H (27.0-33.0) pg MCHC 33.7 (31.0-35.0) g/dl RDW 13.3 (11.0-16.0) % Plt Count 215 (160-400) X10*3/uL MPV 10.9 (9.4-12.3) fL Immature Gran % (Auto) 0.5 H (0.0-0.4) % Neut % (Auto) 69.1 (45-73) % Lymph % (Auto) 23.4 (20-40) % Bath % (Auto) 5.4 (2-11) % Eos % (Auto) 0.9 (0-4) % Baso % (Auto) 0.7 (0-2) % Lymph # (Auto) 2.4 (1.2-4.9) X10*3/uL [place] # (Auto) 0.6 (0.1-1.2) X10*3/uL Eos # (Auto) 0.1 (0.0-0.4) X10*3/uL Baso # (Auto) 0.1 (0.0-0.2) X10*3/uL Abs Immat Gran (auto) 0.05 H (0.00-0.03) X10*3/uL Absolute Neuts (auto) 7.1 (2.0-8.3) x10*3/uL Absolute Nucleated RBC 0.000 (0.0-0.012) X10*3/uL Nucleated RBC % (auto) 0.0 (0.0-0.2) /100WBC PT 13.9 H D (10.9-12.4) SEC INR 1.2 H (0.9-1.1) Sodium 144 (135-145) mmol/L Potassium 5.0 D (3.3-5.1) mmol/L Chloride 113 H (96-108) mmol/L Carbon Dioxide 22 (22-29) mmol/L Anion Gap 14 (12-20) BUN 21 H (9-16) mg/dL Creatinine 0.75 (0.5-1.4) mg/dL Estim Creat Clear Calc 54.2 Estimated GFR > 60 Random Glucose 102 (60-115) mg/dL Calcium 9.9 (8.4-10.2) mg/dL Magnesium 2.1 (1.6-2.6) mg/dL Total Bilirubin 0.5 (0.0-1.0) mg/dL Direct Bilirubin 0.1 (0.0-0.5) mg/dL AST 29 (5-31) U/L ALT 24 (0-31) U/L Alkaline Phosphatase 77 (39-117) U/L Total Creatine Kinase 61 (26-140) U/L Troponin I High Sens 5.4 D 7.2 (<3.5-17.0) ng/L Total Protein 7.4 (6.5-8.0) g/dL Albumin 4.0 (3.5-5.0) g/dL Lipase 34 (8-78) U/L Urine Color Yellow Urine Appearance Clear Urine pH 6.5 (5.0-9.0) Ur Specific [place] >= 1.030 H (1.005-1.025) Urine Protein Negative (Neg-Trace) mg/dL Urine Glucose (UA) Negative (Negative) mg/dL Urine Ketones Negative (Negative) mg/dL Urine Blood Negative (Negative) Urine Nitrite Negative (Negative) Ur Leukocyte Esterase Negative (Negative) Influenza Type A (PCR) NEGATIVE (Negative) Influenza Type B (PCR) NEGATIVE (Negative) RSV RNA Qual (PCR) NEGATIVE (Negative) SARS-CoV-2 RNA (RT-PCR) NEGATIVE (Negative) 07/03/24 Range/Units 06:07 WBC (4.8-10.8) X10*3/uL RBC (4.20-5.50) X10*6/uL Hgb (12.0-16.0) g/dl Hct (37.0-47.0) % MCV (80.0-98.0) fL MCH (27.0-33.0) pg MCHC (31.0-35.0) g/dl RDW (11.0-16.0) % Plt Count (160-400) X10*3/uL MPV (9.4-12.3) fL Immature Gran % (Auto) (0.0-0.4) % Neut % (Auto) (45-73) % Lymph % (Auto) (20-40) % Bath % (Auto) (2-11) % Eos % (Auto) (0-4) % Baso % (Auto) (0-2) % Lymph # (Auto) (1.2-4.9) X10*3/uL [place] # (Auto) (0.1-1.2) X10*3/uL Eos # (Auto) (0.0-0.4) X10*3/uL Baso # (Auto) (0.0-0.2) X10*3/uL Abs Immat Gran (auto) (0.00-0.03) X10*3/uL Absolute Neuts (auto) (2.0-8.3) x10*3/uL Absolute Nucleated RBC (0.0-0.012) X10*3/uL Nucleated RBC % (auto) (0.0-0.2) /100WBC PT 12.9 H (10.9-12.4) SEC INR 1.1 (0.9-1.1) Sodium (135-145) mmol/L Potassium (3.3-5.1) mmol/L Chloride (96-108) mmol/L Carbon Dioxide (22-29) mmol/L Anion Gap (12-20) BUN (9-16) mg/dL Creatinine (0.5-1.4) mg/dL Estim Creat Clear Calc Estimated GFR Random Glucose (60-115) mg/dL Calcium (8.4-10.2) mg/dL Magnesium (1.6-2.6) mg/dL Total Bilirubin (0.0-1.0) mg/dL Direct Bilirubin (0.0-0.5) mg/dL AST (5-31) U/L ALT (0-31) U/L Alkaline Phosphatase (39-117) U/L Total Creatine Kinase (26-140) U/L Troponin I High Sens (<3.5-17.0) ng/L Total Protein (6.5-8.0) g/dL Albumin (3.5-5.0) g/dL Lipase (8-78) U/L Urine Color Urine Appearance Urine pH (5.0-9.0) Ur Specific [place] (1.005-1.025) Urine Protein (Neg-Trace) mg/dL Urine Glucose (UA) (Negative) mg/dL Urine Ketones (Negative) mg/dL Urine Blood (Negative) Urine Nitrite (Negative) Ur Leukocyte Esterase (Negative) Influenza Type A (PCR) (Negative) Influenza Type B (PCR) (Negative) RSV RNA Qual (PCR) (Negative) SARS-CoV-2 RNA (RT-PCR) (Negative) Radiology Impression Discussion of test interpretation with radiology: I have reviewed the radiologist's reading. Radiologist Impression: [place] [id number] CT Scan Report Signed Patient: Lita Garrett MR#: [id number] : 1940 Acct:[id number] Age/Sex: 83 / F ADM Date: 07/02/24 Loc: .ED Attending Dr: Ordering Physician: Kylie [place] Date of Service: 07/02/24 Procedure(s): CT cervical spine wo IV con Accession Number(s): [id number] cc: Kylie [place]; Physician,Unknown ~ Report Number: [id number]: Total DLP = 1004.94 mGy-cm EXAMINATION: CT CERVICAL SPINE WITHOUT IV CONTRAST HISTORY: fall. TECHNIQUE: Helical CT of the cervical spine was performed per standard departmental protocol. Coronal and sagittal reformatted images were also evaluated. One or more of the following techniques was used for dose reduction: Automated exposure control, adjustment of the mA and/or kV according to patient size, use of iterative reconstruction technique. DLP: 351.36 mGy-cm COMPARISON: There are no prior studies for comparison. FINDINGS: CERVICAL SPINE: The vertebral bodies maintain normal height and alignment without evidence of fracture or subluxation. There is diffuse mild to moderate degenerative disc disease with disc space narrowing and osteophyte formation. Evaluation for disc pathology is limited by lack of intrathecal contrast material, however. BRAIN: The visualized portion of the brain is unremarkable. SINUSES: The visualized paranasal sinuses, mastoid air cells and middle ear cavities are unremarkable. LUNG APICES: The visualized lung apices are clear. SOFT TISSUES: There is calcification of the internal carotid arteries. A shunt catheter is seen in the right neck. CT/CT cervical spine wo IV con IMPRESSION: No evidence of fracture or malalignment of the cervical spine. Electronically signed by: Julio Cesar Nguyen MD 07/02/2024 03:23 PM EDT RP Dictated By: Julio Cesar Nguyen MD HISTORY: fall, on AC. TECHNIQUE: Unenhanced helical CT of the head was performed per standard departmental protocol. Coronal and sagittal reformats of the head were also evaluated. One or more of the following techniques was used for dose reduction: Automated exposure control, adjustment of the mA and/or kV according to patient size, use of iterative reconstruction technique. DLP: 643.33 mGy-cm COMPARISON: Comparison is made with the prior examination dated 02/14/2024. FINDINGS: BRAIN: Again seen is a ventriculostomy catheter from a right parietal approach with its tip in the anterior horn of the left lateral ventricle without change. There is diffuse prominence of the ventricular system and cortical sulci, consistent with atrophy. Periventricular and subcortical white matter hypodensities are noted which are nonspecific, but often seen in the setting of small vessel ischemic disease. There is no mass effect or midline shift. No intra- or extra-axial fluid collections are identified. SINUSES: The visualized paranasal sinuses are clear. The mastoid air cells and middle ear cavities are well pneumatized. ORBITS: The visualized orbits are unremarkable. BONES/SOFT TISSUES: The extracranial soft tissues are unremarkable. The calvarium is intact. No suspicious lytic or sclerotic lesions. CT/CT head/brain wo IV con IMPRESSION: No acute intracranial abnormality. Electronically signed by: Julio Cesar Nguyen MD 07/02/2024 03:20 PM EDT RP Dictated By: Julio Cesar Nguyen MD Discharge Plan Discharge Clinical Impression: Weakness, Fall Patient Disposition: [facility] Transfer Details: [facility] Additional Instructions: continue home prescribed medications. Follow up with her doctor Prescriptions: No Action atorvastatin 40 mg Tablet 40 mg PO DAILY cyanocobalamin (vitamin B-12) 1,000 mcg Tablet 1,000 mcg PO DAILY calcium carbonate 600 mg calcium (1,500 mg) Tablet 600 mg PO DAILY Lactobacillus rhamnosus GG 10 billion cell Capsule 1 cap PO DAILY cholecalciferol (vitamin D3) [Vitamin D3] 25 mcg (1,000 unit) Capsule 25 mcg PO DAILY loperamide 2 mg Capsule 2 mg PO DAILY PRN (Reason: Diarrhea) metoprolol succinate 50 mg Tablet Extended Release 24 Hr 50 mg PO DAILY spironolactone 25 mg Tablet 25 mg PO DAILY warfarin 5 mg Tablet 5 mg PO MO Rx Instructions: Take 1 tablet (5mg) daily x 3 days/week. Take 1/2 tablet (2.5mg) daily x 4 days/week. nitroglycerin 0.4 mg Tablet, Sublingual 0.4 mg SUBLINGUAL Q5M PRN (Reason: cp) Rx Instructions: do not exceed 3 doses per episode famotidine 20 mg Tablet 20 mg PO BID acetaminophen 325 mg Tablet 650 mg PO Q6H PRN (Reason: Pain) aspirin [Aspir-81] 81 mg Tablet,Delayed Release (Dr/Ec) 81 mg PO DAILY warfarin 5 mg tablet 2.5 mg PO SAM Referrals: Livia Garnica [Outside] Interventions: ED Discharge Assessment Last Done: 07/03/24 17:14 Discharge Date/Time: 07/03/24 17:38 Print Language: Cameroonian
[2024-07-02 13:53] VITALS: BP 188/83; PULSE 71; RESP 16; TEMP 36.6; O2SAT 98; BMI 33.5
--- NOTE | 2024-07-02 14:09 | ECG_ITS ---
Test Reason : fall Blood Pressure : */* mmHG Vent. Rate : 71 BPM Atrial Rate : 357 BPM P-R Int : * ms QRS Dur : 118 ms QT Int : 434 ms P-R-T Axes : * 257 57 degrees QTcB Int : 471 ms Ventricular-paced rhythm Abnormal ECG When compared with ECG of 14-Feb-2024 12:53, Vent. rate has decreased by 4 bpm Referred By: Kylie [place] Electronically Signed By: JULIO C ESTRELLA
[2024-07-02 14:29] LABS: MANUAL DIFF FLAG NO
[2024-07-02 14:31] LABS: Basophils Absolute Auto 0.1 X10*3/uL (0.0-0.2); Basophils Percent Auto 0.7 % (0-2); Eosinophils Absolute Auto 0.1 X10*3/uL (0.0-0.4); Eosinophils Percent Auto 0.9 % (0-4); Hematocrit 42.4 % (37.0-47.0); Hemoglobin 14.3 g/dl (12.0-16.0); Imm Gran Abs Auto 0.05 X10*3/uL (0.00-0.03); Imm Gran Pct Auto 0.5 % (0.0-0.4); Lymphocytes Absolute Auto 2.4 X10*3/uL (1.2-4.9); Lymphocytes Percent Auto 23.4 % (20-40); Mean Corpuscular HGB Conc 33.7 g/dl (31.0-35.0); Mean Corpuscular Hemoglobin 34.1 pg (27.0-33.0); Mean Corpuscular Volume 101.2 fL (80.0-98.0); Mean Platelet Volume 10.9 fL (9.4-12.3); Monocytes Absolute Auto 0.6 X10*3/uL (0.1-1.2); Monocytes Percent Auto 5.4 % (2-11); Neutrophils Absolute Auto 7.1 x10*3/uL (2.0-8.3); Neutrophils Percent Auto 69.1 % (45-73); Platelet Count 215 X10*3/uL (160-400); Red Blood Count 4.19 X10*6/uL (4.20-5.50); Red Cell Distribution Width 13.3 % (11.0-16.0); White Blood Count 10.3 X10*3/uL (4.8-10.8)
[2024-07-02 14:47] LABS: INTERNATIONAL NORM RATIO 1.2 (0.9-1.1); Prothrombin Time 13.9 SEC (10.9-12.4)
[2024-07-02 14:57] LABS: Troponin-I High Sensitivity 5.4 ng/L (<3.5-17.0)
[2024-07-02 15:00] LABS: Alanine Aminotransferase 24 U/L (0-31); Anion Gap 14 (12-20); Aspartate Amino Transferase 29 U/L (5-31); Bilirubin Direct 0.1 mg/dL (0.0-0.5); Bilirubin Total 0.5 mg/dL (0.0-1.0); Blood Urea Nitrogen 21 mg/dL (9-16); Calcium 9.9 mg/dL (8.4-10.2); Carbon Dioxide 22 mmol/L (22-29); Chloride 113 mmol/L (96-108); Creatinine Clr Calc Pharmacy 54.2; Estimated Glomerular Filt Rate > 60; Glucose Random 102 mg/dL (60-115); Lipase 34 U/L (8-78); Magnesium 2.1 mg/dL (1.6-2.6); Sodium 144 mmol/L (135-145); Total Protein 7.4 g/dL (6.5-8.0)
[2024-07-02 15:15] LABS: Influenza A PCR NEGATIVE (Negative); Influenza B PCR NEGATIVE (Negative); Resp Syncy Virus RNA Qual PCR NEGATIVE (Negative); SARS COV2 PCR INHOUSE NEGATIVE (Negative)
[2024-07-02 15:28] LABS: Alkaline Phosphatase 77 U/L (39-117)
--- OUTSIDE RECORDS SUMMARY | 2024-07-02 17:17 | XMS_ITS | Encounter Summary ---
Author Organization [facility] Address [address] [place] [address] Care Team Providers Care Cryogenics Repairer Name Role Phone Mani Nation MD Primary Care Provider [phone] Encounter Details Date Type Department Care Team (Late Contact Info) Description 05/02/2022 myChart Message [facility] [address] [place] [address] Wing Jeffery MD PhD [address] [place] [address] Your Recent Visit Social History Tobacco Use Types Packs/Day Years Used Date Smoking Tobacco: Never Smokeless Tobacco: Never Alcohol Use Standard Drinks/Week Comments No 0 (1 standard drink = 0.6 oz pur e alcohol) Comments No Sex and Gender Information Value Date Recorded Sex Assigned at Female 05/23/2022 6:27 PM EST Legal Sex Female 9:41 AM EDT Gender Identity Female 12/27/2017 4:11 PM EDT Sexual Orientation Straight 05/23/2022 6: 27 PM EST documented as of this encounter Plan of Treatment Upcoming Encounters Date Type Department Care Team (Late Contact Info) Description 08/28/2024 1:00 PM EDT Follow-Up [facility] 4th floor Cardiology Medicine [address] [place] [address] Smoking Tobacco Packer Hand: Abbe Og MD [address] [place] [id number] 05/08/2025 2:15 PM EST Appointment [facility] [address] [place] [address] Wing Jeffery MD PhD [address] [place] [address] Scheduled Procedures Name Priority Associated Diagnoses Date/Ti me COLONOSCOPY SCREENING, HIGH RISK WITH POSSIBLE MODERATE SEDATION Diarrhea, unspecified type documented as of this encounter Visit Diagnoses Not on filedocumented in this encounter Additional Health Concerns Infection Onset Date Last Indicated Resolved Time COVID-19 - Suspected infection 2022 2022 2022 9:55 PM EDT documented as of this encounter Care Teams Cryogenics Repairer Relationship Specialty Start Date End Date Mani Nation MD [address] [place] [address], [address] [place] [address] PCP - General 11/09/16 documented as of this encounter
--- OUTSIDE RECORDS SUMMARY | 2024-07-02 17:17 | XMS_ITS | Encounter Summary ---
Author Organization [facility] Address [address] [place] [address] Care Team Providers Care Career Consultant Name Role Phone Mani Nation MD Primary Care Provider [phone] Reason for Visit * Reason Onset Date Comments PAC RX Refill 06/16/2024 Encounter Details Date Type Department Care Team (Late st Contact Info) Description 06/16/2024 Telephone [facility] 4th floor Cardiology Medicine [address] [place] [address] [phone] Machinist 2Nd Shift: Ana Woods Telephone Intake, Staff PAC RX Refill Social History Tobacco Use Types Packs/Day Years Used Date Smoking Tobacco: Never Passive Smoke Exposure: Past Smokeless Tobacco: Never Comments:Second hand smoke e xposure Alcohol Use Standard Drinks/Week Comments No 0 (1 standard drink = 0.6 oz pur e alcohol) Comments No Sex and Gender Information Value Date Recorded Sex Assigned at Female 05/23/2022 6:27 PM EST Legal Sex Female 9:41 AM EDT Gender Identity Female 12/27/2017 4:11 PM EDT Sexual Orientation Straight 05/23/2022 6: 27 PM EST documented as of this encounter Miscellaneous Notes * Telephone Encounter - Lizz Zamora - 06/16/2024 1:45 PM EST Spoke with patient's and rescheduled appointment to 08/28/2024 * Telephone Encounter - Kelly Hayward - 06/16/2024 1:06 PM EST Hi, Pt of Dr. Batres. I called to book a fu appt for her med refill. Her let me know that BP keo432/113. He would like some BP parameters. He let me know it is very difficult to get her here. They live about 90 [place] away and she has dementia. He would also like to know if the January visit couldbe done in August the same day he will see Dr. Batres. He can be reached at [phone]. Slava, Krupa * Telephone Encounter - Kelly Hayward - 06/16/2024 1:03 PM EST Hi, Pt has dementia and is not able to easily get her here. * Telephone Encounter - Ruth Osorio - 06/16/2024 10:04 AM EST Prescription Request Drug name(s): losartan (COZAAR) 25 mg tablet Date Last Filled: 10/08/23 Quantity: 90 days Ordering provider: Alondra Baker NP Refill? (yes or no): yes [facility]/pharmacy [address] [address] Thank you documented in this encounter Plan of Treatment Upcoming Encounters Date Type Department Care Team (Late st Contact Info) Description 08/28/2024 1:00 PM EDT Follow-Up [facility] 4th floor Cardiology Medicine [address] [place] [address] [phone] Machinist 2Nd Shift: Abbe Og MD [address] [place] [address] 05/08/2025 2:15 PM EST Appointment [facility] Heart Station [address] [place], [place] [phone] Wing Jeffery MD PhD [address] [place], [place] [phone] Scheduled Procedures Name Priority Associated Diagnoses Date/Ti me COLONOSCOPY SCREENING, HIGH RISK WITH POSSIBLE MODERATE SEDATION Diarrhea, unspecified type documented as of this encounter Visit Diagnoses Not on filedocumented in this encounter Care Teams Career Consultant Relationship Specialty Start Date End Date Mani Nation MD [address] [place] [address], [address] [place] [address] PCP - General 11/09/16 documented as of this encounter
--- OUTSIDE RECORDS SUMMARY | 2024-07-02 17:17 | XMS_ITS | Encounter Summary ---
Author Organization [facility] Address [address] [place] [address] Care Team Providers Care Medical Esthetician Name Role Phone Mani Nation MD Primary Care Provider [phone] Encounter Details Date Type Department Care Team (Late Contact Info) Description 05/19/2022 myChart Message [facility] Heart and Vascular Interventional Lab [address] [place] [address] Wing Jeffery MD PhD [address] [place] [address] Your Recent Visit Social History Tobacco Use [...] Info) Description 08/28/2024 1:00 PM EDT Follow-Up [facility] 4th floor Cardiology Medicine [address] [place] [address] Shear Operator: Abbe Og MD [address] [place] [address] 05/08/2025 2:15 PM EST Appointment [facility] Heart [facility] [address] [place] [address] Wing Jeffery MD PhD [address] [place] [address] Scheduled Procedures Name Priority Associated Diagnoses Date/Ti me COLONOSCOPY SCREENING, HIGH RISK WITH POSSIBLE MODERATE SEDATION Diarrhea, unspecified type documented as of this encounter Visit Diagnoses Not on filedocumented in this encounter Additional Health Concerns Infection Onset Date Last Indicated Resolved Time COVID-19 - Suspected infection 2022 2022 2022 9:55 PM EDT documented as of this encounter Care Teams Medical Esthetician Relationship Specialty Start Date End Date Mani Nation MD [address] [place] [address], [address] [place] [address] PCP - General 11/09/16 documented as of this encounter
--- OUTSIDE RECORDS SUMMARY | 2024-07-02 17:17 | XMS_ITS | Clinical Summary ---
Author Organization [address] Address [address] [place] [address] Phone Care Team Providers Care Unified Communications Architect Name Role Phone Huang Oviedo MD Primary Care Provider [phone] Social History Tobacco Use Types Packs/Day Years Used Date Smoking Tobacco: Never Assessed Comments Unknown Sex and Gender Information Value Date Recorded Sex Assigned at Not on file Legal Sex Female 4:03 PM EST Gender Identity Not on file Sexual Orientation Not on file Plan of Treatment Health Maintenance Due Date Last Done Comments DTaP,Tdap,and Td Vaccines (1 - Tdap) 1961 Pneumococcal Vaccine: 50+ Ye ars (1 of 1 - PCV) 1992 Zoster Vaccines (1 of 2) 1992 RSV Immunization Patients 60 + Years Old (1 - 1-dose 75+ series) 2017 COVID-19 Vaccine (2023-2 5 season) 2023 Influenza Vaccine (#1) 2023 Depression Screening 03/10/2024 Falls Risk Assessment 03/10/2024 Medicare Annual Wellness Visit 03/10/2024 Osteoporosis Screening (Bone Density Screening) 03/10/2024 Social Influencers of Health Screening 03/10/2024 HIB Vaccines Aged Out No longer eligi ble based on patient's age to complete this topic HPV Vaccines Aged Out No longer eligi ble based on patient's age to complete this topic Hepatitis A Vaccines Aged Out No long er eligible based on patient's age to complete this topic Hepatitis B Vaccines Aged Out No long er eligible based on patient's age to complete this topic IPV Vaccines Aged Out No longer eligi ble based on patient's age to complete this topic MMR Vaccines Aged Out No longer eligi ble based on patient's age to complete this topic Meningococcal ACWY Vaccine Aged Out N o longer eligible based on patient's age to complete this topic Meningococcal B Vacine Aged Out No lo nger eligible based on patient's age to complete this topic RSV Immunization Patients Un pascale 20 months Aged Out No longer eligible b ased on patient's age to complete this topic Varicella Vaccines Aged Out No longer eligible based on patient's age to complete this topic Insurance [employer] MEDICARE ADVANTAGE Care Teams Unified Communications Architect Relationship Specialty Start Date End Date Huang Oviedo MD [address] [place] [phone] PCP - General Internal Medicine 03/10/24
--- OUTSIDE RECORDS SUMMARY | 2024-07-02 17:17 | XMS_ITS | Encounter Summary ---
Author Organization [facility] Address [address] [place] [address] Care Team Providers Care Exhaust And Muffler Repairer Name Role Phone Mani Nation MD Primary Care Provider [phone] Encounter Details Date Type Department Care Team (Late Contact Info) Description 05/17/2022 myChart Message [facility] Heart and Vascular Interventional Lab [address] [place] [address] Wing Jeffery MD PhD [address] [place] [address] Your Recent Visit Social History Tobacco Use [...] Info) Description 08/28/2024 1:00 PM EDT Follow-Up [facility] 4th floor Cardiology Medicine [address] [place] [address] Forklift Technician: Abbe Og MD [address] [place] [address] 05/08/2025 2:15 PM EST Appointment [facility] Heart [facility] [address] [place] [address] Wing Jeffery MD PhD [address] [place] [address] Scheduled Procedures Name Priority Associated Diagnoses Date/Ti me COLONOSCOPY SCREENING, HIGH RISK WITH POSSIBLE MODERATE SEDATION Diarrhea, unspecified type documented as of this encounter Visit Diagnoses Not on filedocumented in this encounter Additional Health Concerns Infection Onset Date Last Indicated Resolved Time COVID-19 - Suspected infection 2022 2022 2022 9:55 PM EDT documented as of this encounter Care Teams Exhaust And Muffler Repairer Relationship Specialty Start Date End Date Mani Nation MD [address] [place] [address], [address] [place] [address] PCP - General 11/09/16 documented as of this encounter
--- OUTSIDE RECORDS SUMMARY | 2024-07-02 17:17 | XMS_ITS | Encounter Summary ---
Author Organization [facility] Address [address] [place] [address] Care Team Providers Care Drain Cleaner Plumber Name Role Phone Mani Nation MD Primary Care Provider [phone] Encounter Details Date Type Department Care Team (Late Contact Info) Description 05/17/2022 myChart Message [facility] Heart and Vascular Interventional Lab [address] [place] [address] Wing Jeffery MD PhD [address] [place] [address] Your Recent Visit Social History Tobacco Use [...] Info) Description 08/28/2024 1:00 PM EDT Follow-Up [facility] 4th floor Cardiology Medicine [address] [place] [address] Ore Miner: Abbe Og MD [address] [place] [address] 05/08/2025 2:15 PM EST Appointment [facility] Heart [facility] [address] [place] [address] Wing Jeffery MD PhD [address] [place] [address] Scheduled Procedures Name Priority Associated Diagnoses Date/Ti me COLONOSCOPY SCREENING, HIGH RISK WITH POSSIBLE MODERATE SEDATION Diarrhea, unspecified type documented as of this encounter Visit Diagnoses Not on filedocumented in this encounter Additional Health Concerns Infection Onset Date Last Indicated Resolved Time COVID-19 - Suspected infection 2022 2022 2022 9:55 PM EDT documented as of this encounter Care Teams Drain Cleaner Plumber Relationship Specialty Start Date End Date Mani Nation MD [address] [place] [address], [address] [place] [address] PCP - General 11/09/16 documented as of this encounter
--- OUTSIDE RECORDS SUMMARY | 2024-07-02 17:17 | XMS_ITS | Encounter Summary ---
Author Organization [facility] Address [address] [place] [address] Care Team Providers Care Reservations Sales Agent Name Role Phone Mani Nation MD Primary Care Provider [phone] Reason for Visit * Reason Onset Date Comments Needs f/u with Dr Fox after PFT 01/25/2021 Encounter Details Date Type Department Care Team (Late st Contact Info) Description 01/25/2021 Telephone [facility] Central Scheduling Department [address] [place] [phone] Telephone Intake, Staff Needs f/u with Dr Fox after PFT Social History Tobacco Use Types Packs/Day Years Used Date Smoking Tobacco: Never Smokeless Tobacco: Never Alcohol Use Standard Drinks/Week Comments No 0 (1 standard drink = 0.6 oz pur e alcohol) Comments Unknown Sex and Gender Information Value Date Recorded Sex Assigned at Female 05/23/2022 6:27 PM EST Legal Sex Female 9:41 AM EDT Gender Identity Female 12/27/2017 4:11 PM EDT Sexual Orientation Straight 05/23/2022 6: 27 PM EST documented as of this encounter Miscellaneous Notes * Telephone Encounter - Niurka Chen - 01/25/2021 1:19 PM EDT Patient had to reschedule her PFT because she did not have her covid test. First avail was not until 02/21. She now needs to reschedule with Dr Che Collado. Appt's would not populate. She can be reached at [phone] documented in this encounter Plan of Treatment Upcoming Encounters Date Type Department Care Team (Late st Contact Info) Description 08/28/2024 1:00 PM EDT Follow-Up [facility] 4th floor Cardiology Medicine [address] [place] [address] Manager Contract: Abbe Og MD [address] [place] [address] 05/08/2025 2:15 PM EST Appointment [facility] Heart Station [address] [place] [address] Wing Jeffery MD PhD [address] [place] [address] Scheduled Procedures Name Priority Associated Diagnoses Date/Ti me COLONOSCOPY SCREENING, HIGH RISK WITH POSSIBLE MODERATE SEDATION Diarrhea, unspecified type documented as of this encounter Visit Diagnoses Not on filedocumented in this encounter Additional Health Concerns Infection Onset Date Last Indicated Resolved Time R/O C.diff 02/16/2022 02/16/2022 02/23/2022 10:3 2 PM EDT COVID-19 - Suspected infection 2022 2022 2022 9:55 PM EDT documented as of this encounter Care Teams Reservations Sales Agent Relationship Specialty Start Date End Date Mani Nation MD [address] [place] [address], [address] [place] [address] PCP - General 11/09/16 documented as of this encounter
--- OUTSIDE RECORDS SUMMARY | 2024-07-02 17:17 | XMS_ITS | Encounter Summary ---
Author Organization [facility] Address [address] [place] [address] Care Team Providers Care Assistant Principal Name Role Phone Huang Oviedo MD Primary Care Provider [phone] Encounter Details Date Type Department Care Team (Late st Contact Info) Description 02/27/[address] [facility] - Main Lab [address] [facility] [place] [address] Huang Oviedo MD [address] [place], [place] [phone] Unspecified atrial fibrillation (CMS/HCC) Social History Tobacco Use Types Packs/Day Years Used Date Smoking Tobacco: Never Assessed Comments Unknown Sex and Gender Information Value Date Recorded Sex Assigned at Not on file Legal Sex Female 4:03 PM EST Gender Identity Not on file Sexual Orientation Not on file documented as of this encounter Plan of Treatment Not on file documented as of this encounter Visit Diagnoses Diagnosis Unspecified atrial fibrillation (CMS/HCC) documented in this encounter Care Teams Assistant Principal Relationship Specialty Start Date End Date Huang Oviedo MD [address] [place], [place] [phone] PCP - General Internal Medicine 03/10/24 documented as of this encounter
--- OUTSIDE RECORDS SUMMARY | 2024-07-02 17:17 | XMS_ITS | Encounter Summary ---
Author Organization [facility] Address [address] [place] [address] Care Team Providers Care Floor Runner Name Role Phone Huang Oviedo MD Primary Care Provider [phone] Encounter Details Date Type Department Care Team (Late st Contact Info) Description 02/23/2024 Lab Requisition [facility] - Main Lab [address] [place] [address] Huang Oviedo MD [address] [place] [address] [phone] Unspecified atrial fibrillation (CMS/HCC) Social History Tobacco Use Types Packs/Day Years Used Date Smoking Tobacco: Never Assessed Comments Unknown Sex and Gender Information Value Date Recorded Sex Assigned at Not on file Legal Sex Female 4:03 PM EST Gender Identity Not on file Sexual Orientation Not on file documented as of this encounter Plan of Treatment Scheduled Orders Name Type Priority Associated Diagnoses Orde r Schedule Travel phlebotomy fee Lab Routine Unspecified atrial fibrillation (CMS/HCC) Ordered: 02/25/2024 documented as of this encounter Procedures Procedure Name Priority Date/Time Associated Diagnosis Comments PROTHROMBIN TIME WITH INR Routine 02/25/2024 5:38 AM EST Unspecified atrial fibrillation (CMS/HCC) documented in this encounter Results * (ABNORMAL) Prothrombin time with INR (02/25/2024 5:38 AM EST) Protime 24.9(H) 10.6 - 13.9 sec LAB COAGULATION METHOD 02/25/2024 10:40 AM EST [facility] INR 2.0 LAB COAGULATION METHOD 02/25/2024 10:40 AM EST [facility] Blood Venous blood specimen / Unknown Venipuncture / Unknown 02/25/2024 5:38 AM EST 02/25/2024 10:40 AM EST us Huang Oviedo MD LAB BLOOD ORDERABLES Final Res ult [facility] [address] [place] [address], documented in this encounter Visit Diagnoses Diagnosis Unspecified atrial fibrillation (CMS/HCC) documented in this encounter Care Teams Floor Runner Relationship Specialty Start Date End Date Huang Oviedo MD [address] [place] [address] PCP - General Internal Medicine 03/10/24 documented as of this encounter
--- OUTSIDE RECORDS SUMMARY | 2024-07-02 17:17 | XMS_ITS | Clinical Summary ---
Author Organization [facility] Address [address] [place] [address] Care Team Providers Care Pathology Technologist Name Role Phone Mani Nation MD Primary Care Provider [phone] Allergies Active Allergy Reactions Criticality Noted Date Comments Amoxicillin Rash Patient states has currently taking amoxicillan Meclizine Hypersomnolence 07/27/2021 Cevimeline Hcl Unknown 11/21/2016 Other reaction(s): Unknown Lactose Abdominal Pain 10/16/2018 Latex Rash Other Itching 04/25/2022 Electrodes for EKG monitoring/tele monitoring Oxycodone-Acetaminophen Dyspnea High Tetracyclines Unknown Tramadol Vomiting 06/06/2018 Medications cholecalciferol (VITAMIN D3) 1,000 unit tablet Take 1,000 Units by mouth once a day. Active calcium carbonate-vitamin D3 600 mg(1,500mg) -200 unit per tablet Take 1 tablet by mouth daily. Active Lactobacillus rhamnosus GG 15 billion cell capsule, sprinkle Take 1 capsule by mouth once a day. Active cyanocobalamin (VITAMIN B12) 500 mcg tablet Dissolve 500 mcg in the mouth daily. Active acetaminophen (TYLENOL) 325 mg tablet Take 2 tablets (650 mg total) by mouth every 6 hours as needed for pain. 09/02/19 18 Active lactase 9,000 unit tablet Take 9,000 Units by mouth 3 times daily with meals as needed. Active azelaic acid 15 % gel Apply 1 application. topically to the affected area 2 times a day as needed. After skin is thoroughly washed and patted dry, gently but thoroughly massage a thin film of azelaic acid cream into the affected area twice daily, in the morning and evening. Active nitroglycerin (NITROSTAT) 0.[address] 1 tablet (0.4 mg total) under the tongue every 5 minutes as needed for chest pain. May repeat 1 tab every 5 min, up to 3 doses total 25 tablet 1 11/18/19 Active Additional Information Patient not taking.Reported on 06/12/2023 famotidine (PEPCID) 20 mg tablet Take 20 mg by mouth 2 times a day. Active albuterol (ProAir HFA) 90 mcg inhaler Inhale 2 puffs (180 mcg total) by mouth every 4 hours as needed for wheezing or shortness of breath. Use with spacer. 8.5 g 5 08/03/19 Active inhalational spacing device Use as directed. 1 each 1 09/04/19 Active fluticasone propionate (FLONASE) 50 mcg/actuation nasal spray Administer 1 spray into each nostril once a day. Active hydrocortisone 2.5% cream Apply 1 application. topically to the affected area 2 times a day as needed for rash. Active carboxymethylcellu lose (CELLUVISC) 1% ophthalmic solution Instill 1 drop into both eyes 3 times a day. Active nystatin (MYCOSTATIN) 100,000 unit/gram powder Apply 1 application topically to the affected area 2 times a day. Under breasts Active warfarin (COUMADIN) 5 mg tablet Take 5 mg by mouth daily. 11/03/19 Active wheat dextrin (Benefiber Sugar Free, dextrin,) 3 gram/4 gram powder in packet Take by mouth once a day. 05/23/19 23 Active aspirin 81 mg EC tablet Take 1 tablet (81 mg total) by mouth once a day. 30 tablet 01/01/20 23 Active fluticasone propionate (Flovent HFA) 220 mcg inhaler INHALE 2 PUFFS BY MOUTH TWICE A DAY RINSE MOUTH WITH WATER AFTER USE. DO NOT SWALLOW 12 g 5 02/09/20 23 Active losartan (COZAAR) 25 mg tablet TAKE 1 TABLET BY MOUTH ONCE A DAY 90 tablet 1 10/08/19 24 Active atorvastatin (LIPITOR) 40 mg tabletIndications: Mixed hyperlipidemia TAKE 1 TABLET BY MOUTH ONCE A DAY 90 tablet 3 11/15/19 24 Active metoprolol succinate XL (TOPROL XL) 50 mg tablet TAKE 1 TABLET BY MOUTH EVERY DAY 90 tablet 3 11/19/19 24 Active spironolactone (ALDACTONE) 25 mg tablet TAKE 1 TABLET BY MOUTH ONCE A DAY 90 tablet 3 11/19/19 24 Active Active Problems Problem Noted Date Diagnosed Date Dilated cardiomyopathy 01/01/2023 Assessment & Plan (02/20/2023 4:14 PM EDT): 82 year old female with documented history of dilated cardiomyopathy (LVEF 30- 35%) concern for possible leadless PPM dyssynchrony. Now s/p successful Bi-V PPM placement with Dr Jeffery. PT returned to cardiac shortstay in HD stable condition. Left chest wall access site remained complication free, no evidence of oozing ecchymosis or hematoma. Post procedural interrogation finds normal intervals and impedances. Post procedural CXR finds leads in appropriate position, no evidence of pneumothorax (Dr Tyron MD, radiology). - Same day DC per cardiac shortstay protocol - Continue home medications - Anticoagulation: Coumadin per clinic guidance, continue. - Outpatient follow up: Vero Frazier NP 03/07/23 Acute decompensated heart failure 12/24/2022 Assessment & Plan (12/29/2022 3:41 PM EDT): Home medications: Losartan 25mg daily, atorvastatin 40mg daily The patient's last TTE in December 15, 2021 showed low normal LV systolic function with EF 50 to 55% in setting of afib with HR 110s, concentric LV remodeling, mildly dilated LA, and normal RV size and systolic function. She now presents with pulmonary crackles, LE edema, BNP > 600, and CXR w/ bilateral pleural effusions and pulmonary edema consistent with acute decompensated heart failure. Repeat TTE this admission on 12/27 shows decreased LVEF of 30-35% and evidence of ischemic cardiomyopathy. The patient's volume status is now close to euvolemia following diuresis. Plan to start additional GDMT for new HFrEF and perform cardiac cath w/ potential revascularization. - continue diuresis as tolerated; plan to transition to PO regimen - daily weights and I&Os - cardiac diet with 1800 mL fluid restriction - continue losartan 50 mg PO daily - continue spironolactone 25 mg PO daily - continue metoprolol succinate 25 mg PO - high co-pays for SGLT2i, ARNI - cardiac cath planned for 12/29 Heart failure 2022 Atrial fibrillation 11/04/2021 Assessment & Plan (12/27/2022 2:36 PM EDT): Home medication: Warfarin 5 mg daily Patient with history of persistent A-fib refractory to prior ablation in 2015 and escalation of AV chucky blocking agents. Subsequently underwent Micra PPM implant and AV node ablation by Dr. Yonny Jeffery on May 24, 2022. - daily INR - holding warfarin for cardiac cath, trend INR to < 1.7 Assessment & Plan (05/25/2022 8:00 AM EST): Hx persistent A. fib (Eliquis) refractory to prior ablation (2015) and escalation of AV chucky blocking agents. Currently managed on diltiazem ER 300 mg daily, metoprolol succinate 75 mg twice daily, Eliquis 5 mg twice daily. [id number] Score 4 (sex, age, HTN). Followed by Dr. Jeffery. 05/24: s/p successful MICRA PPM implant and AVN ablation via right femoral vein (perclose). CXR: Adequate PPM placement per EP team. Device interrogation showed stable thresholds 0.25V @ 0.24ms. D/C diltiazem. Plan: -Cont Toprol and Eliquis -F/U Marli Ram NP 06/20 Assessment & Plan (04/18/2022 11:57 AM EST): Persistent afib on high doses of cardizem and metoprolol. S/p afib ablation back in apr. We discussed AV node plus pacemaker (MICRA) as well as the WATCHMAN today. Case request sent for av node and micra. Will consider watchman in the future. Case request submitted. Assessment & Plan (01/10/2022 9:20 AM EDT): Poorly tolerated persistent afib with RVR. At this point I suggested that AV node abaltion and pacemaker might be the best option. She is still struggling with diarrhea and is on large doses of metoprolol and cardizem. She remains on eliquis. Assessment & Plan (11/05/2021 7:00 PM EDT): 80-year-old female past medical history CAD as/P stent 2008( NSTEMI 2008 with NARCISO to LAD&PTCA of D2), A. fib( CHADSVASC of 5) not on ac follows with Dr. Fox (s/p succseful cryoablation with Dr. Jeffery 05/08), Sjogren's syndrome, mild obstructive lung disease, systemic sclerosis REHABILITATION DIRECTOR shunt for NPH, pulm htn that presents for rapid heart rate found to be in afib. She reports that she has been under a lot of stress for the past month. For the past 3 days she is felt that she has had a rapid heart rate, she has been speaking with a physician who has been telling her to drink plenty of fluids and take metoprolol and an extra dose last night. She endorses that this morning at 4 AM she was awoken with chest tightness, lasting 5 minutes approximately. She had some associated diaphoresis at that time resolved on its own. She denies any history of any anginal symptoms. She follows with Dr. Batres ordered a 30-day Holter for her and this morning notified her that she was in A. fib. In the ED Patient recievied a 500cc bolus and mutliple doses of iv metoprolol followed by 25mg metoprolol po. When she was seen her telemetry showed a heart rate of 90s in A. fib she was asymptomatic at the time. -Dilttiazem drip - Eliquis 5 mg twice daily - Telemetry - BMP daily: Replete mag to 2 and potassium 4 Spinal stenosis of lumbar region 12/29/2020 Assessment & Plan (04/20/2021 10:16 AM EST): Ongoing issue, MRI with spinal stenosis and is doing better at the present time -continue with daily activity --we have discussed that it is not the speed at which she walks which is important but the fact that she is doing it and also the duration for which she does it -to start PT in new year -re: contribution of vascular issue - we have discussed that the TTE was reassuring but that the LIA while felt not to be a big issue was at the same time not normal so potentially is playing some part in how the LE feel at this point in time Assessment & Plan (12/29/2020 4:58 PM EDT): Ongoing issue, on exam today there is evidence of decreased sensation to light touch in the medial aspect of the calf/thigh but not foot -refer to PT for balance/core strengthening -discussed that given the decreased sensation and in the context of known scoliosis, wonder about if some of this could be coming from the back --reports that has previously had an MRI locally with PCP but cannot remember exactly when --will try to obtain --if not in the past couple of years we will discuss role of repeat to look at relationship between spinal canal, nerve roots and spine Gastroesophageal reflux disease without esophagi tis 12/24/2019 Assessment & Plan (03/31/2020 3:47 PM EST): Sx have resolved with dietary/lifestyle adjustments. 1. Continue reflux measures. 2. Consider EGD if sx recurrent or dysphagia. Assessment & Plan (12/24/2019 10:56 AM EDT): Stable reflux sx. Given motility issues will need to put on PPI to minimize scarring/damage to the LES. 1. Omeprazole 2. EGD -- to exclude barretts Abdominal pain 10/01/2019 Assessment & Plan (12/24/2022 2:27 AM EDT): Patient with longstanding history of intermittent abdominal pain. She does have a REHABILITATION DIRECTOR shunt placed in 2018 that had been thought to be irritating her abdominal viscera. She was previously evaluated by neurosurgery for this. She was recently seen in the emergency room on November [address] scan at the time showed looping of the REHABILITATION DIRECTOR shunt catheter in the anterior subcutaneous region of the RUQ just with entry into the peritoneal cavity. She has an upcoming appointment with neurosurgery on 12/27 for evaluation of REHABILITATION DIRECTOR shunt. Also has a history of GERD and scleroderma. Recently started Benefiber which has improved her symptoms. Abdomen is soft, nontender, nondistended on exam. - Bowel regimen as needed Assessment & Plan (12/08/2019 11:43 AM EDT): Main focus last visit, question over whether the REHABILITATION DIRECTOR shunt tip was irritating her abdominal viscera but neurosurgery felt that this was not the issue. Known GERD and of course scleroderma can have many additional GI manifestations including issues with transit and motility. She does feel that regular bowel regime is helping -continue with docusate/miralax -follow up GI visit next month Assessment & Plan (10/01/2019 3:37 PM EDT): She reports that this started about 4 days ago. Partially relieved by bowel movements. She reports that it feels similar to when she was told that it was related to the shunt tip and contact with the abdominal viscera. -she will call Neurosurgery again and we will also contact office to see if they feel repeat imaging is warranted at this point --if not will plan to increase bowel regime as first step Age-related osteoporosis wit hout current pathological fracture 06/09/2019 Assessment & Plan (11/15/2022 11:27 AM EDT): DXA summer 2021 with osteoporosis by t-score. Reports was on ibandronate for <1 year early 2009 or so. No significant steroids and no fractures. Vit D 43 in May 2019. -continue with ca-vit D supplementation --discussed to aim for 1,000-1,200mg calcium a day -when she next comes to see cardiology, we will check baseline labs -we will refer to PT for core strengthening and balance -we will continue discussion about therapy for fracture risk reduction Assessment & Plan (01/25/2022 5:07 PM EDT): DXA summer 2021 with osteoporosis by t-score. Reports was on ibandronate for <1 year early 2009 or so. No significant steroids and no fractures. Vit D 43 in May 2019. -we will return to this after her cardiac procedures -continue with ca-vit D supplementation Assessment & Plan (07/27/2021 10:52 AM EDT): Reports DXA last at least 3 years ago with osteopenia. No significant steroids and no fractures. Vit D 43 in May 2019. -have asked to discuss with PCP timing of repeat Assessment & Plan (04/20/2021 10:13 AM EST): Reports DXA in the last 2-3 years with osteopenia. No significant steroids and no fractures. Vit D 43 in May 2019. -will return to at subsequent visit but would plan to have locally Assessment & Plan (12/29/2020 4:54 PM EDT): Reports DXA in the last 2-3 years with osteopenia. No significant steroids and no fractures. Vit D 43 in May 2019. -can discuss timing of future DXA with PCP Assessment & Plan (12/08/2019 7:33 AM EDT): Reports DXA in the last 2-3 years with osteopenia. No significant steroids and no fractures. Vit D 43 in May 2019. -can discuss timing of future DXA with PCP in time Assessment & Plan (10/01/2019 3:35 PM EDT): Reports DXA in the last 2-3 years with osteopenia. No significant steroids and no fractures. Vit D 43 in May 2019. -can discuss timing of future DXA with PCP in time Assessment & Plan (06/11/2019 7:14 AM EST): Reports DXA in the last 2-3 years with osteopenia. No significant steroids and no fractures. -check vit D -can discuss timing of future DXA with PCP in time Essential hypertension 03/03/2019 Assessment & Plan (05/25/2022 8:02 AM EST): Chronic, mildly elevated SBP 120-140s. Managed on diltiazem ER 300 mg daily, which was d/c'd post-AVN ablation and MICRA PPM placement. SBP's overnight & this AM 120-130's. Plan: -Cont Toprol -Monitor BP as outpt, consider addition of ACEi/ARB or CCB if needed Assessment & Plan (11/05/2021 7:00 PM EDT): Home: Amlodipine 2.5 mg daily, Lopressor 25 mg twice daily - Hold amlodipine 2.5 mg daily in setting of dilt NPH (normal pressure hydrocephalus) 08/21/2017 Overview (08/21/2017): Added automatically from request for surgery [id number] Assessment & Plan (12/28/2022 7:59 PM EDT): Patient with history of NPH s/p REHABILITATION DIRECTOR shunt placement 2017. Recent abdominal CT showing REHABILITATION DIRECTOR catheter within anterior subcutaneous region of the RUQ. Follows with Dr. Toth in neurosurgery. Missed neurosurgery appointment 12/27 for evaluation of REHABILITATION DIRECTOR shunt - neurosurgery consulted - XR REHABILITATION DIRECTOR shunt series - neurosurgery to coordinate outpatient follow up, no urgent inpatient evaluation necessary Abnormal brain MRI 05/11/2017 Memory problem 05/11/2017 Incontinence 05/11/2017 Sjogrens syndrome 12/01/2016 Hyperlipidemia 09/01/2016 Assessment & Plan (12/24/2022 2:10 AM EDT): Home medication: Atorvastatin 40 mg daily - Continue home medication Assessment & Plan (05/24/2022 6:26 PM EST): Chronic, managed on atorvastatin 40 mg daily >> continue. Hypothyroidism 07/23/2015 Asthma 06/18/2015 Partial tear of rotator cuff 02/25/2015 Left shoulder pain 02/18/2015 Nontoxic nodular goiter 10/10/2013 Scleroderma 07/28/2013 Assessment & Plan (12/24/2022 2:10 AM EDT): Home medication: Famotidine 20 mg twice daily Patient with history of scleroderma diagnosed approximately 10 years ago. Previously seen by Dr. García at . Seronegative. Manifestations include morphea and sclerodactyly of lower extremities as well as GERD. Previously managed on methotrexate however discontinued this medication years ago due to significant side effects. Now presenting with progressive dyspnea with concern for CHF exacerbation. - Continue home medications - TTE pending as above Assessment & Plan (11/15/2022 11:29 AM EDT): Previously seen by Dr. Echevarria at . Seronegative. Manifestations include morphea and sclerodactyly of the lower extremities as well as GERD. TTE with decline in EF but with afib now. -continue famotidine for reflux -continue follow up with pulm and interval PFTs Assessment & Plan (01/25/2022 5:08 PM EDT): Previously seen by Dr. Echevarria at . Seronegative. Manifestations include morphea and sclerodactyly of the lower extremities as well as GERD. PFT Fall 2020 stable. TTE with decline in EF but with afib now -continue famotidine for reflux -has repeat PFT scheduled by pulm for later in the year --they will call given it is only a few days after the ablation/PPM to see if best to postpone by a couple of weeks or similar Assessment & Plan (07/27/2021 10:53 AM EDT): Previously seen by Dr. Echevarria at . Seronegative. Manifestations include morphea and sclerodactyly of the lower extremities as well as GERD. TTE/PFT Fall 2020 stable. -continue famotidine for reflux -will consider repeat labs/TTE/PFT later in the year -continue activity - we have discussed that it is the amount of time that she partakes in the activity rather than a specific distance to cover Assessment & Plan (04/20/2021 10:13 AM EST): Previously seen by Dr. Echevarria at for the last 4-5 years. Seronegative. Manifestations include morphea and sclerodactyly of the lower extremities as well as GERD. TTE/PFT Fall 2020 stable. -continue famotidine for reflux Assessment & Plan (12/29/2020 4:58 PM EDT): Previously seen by Dr. Echevarria at for the last 4-5 years. Seronegative. Manifestations include morphea and sclerodactyly of the lower extremities as well as GERD. -await repeat PFT and TTE in the coming weeks -continue famotidine for reflux Assessment & Plan (12/08/2019 11:44 AM EDT): Previously seen by Dr. Echevarria at for the last 4-5 years. Seronegative. Manifestations include morphea and sclerodactyly of the lower extremities as well as GERD. -pulm already planning for repeat PFT and TTE in the coming months -continue famotidine for reflux -re: ABIs as first step to looking for PAD as a cause for her leg aching --she still reports this but wishes to postpone appointment until the urinary symptoms are settled -she is going to sign up for myChart and ask her daughter to take a picture of the bruising so that she can send it to us Assessment & Plan (10/01/2019 3:35 PM EDT): Previously seen by Dr. Echevarria at for the last 4-5 years. Seronegative. Manifestations include morphea and sclerodactyly of the lower extremities as well as GERD. -pulm already planning for repeat PFT and TTE in the coming months -continue famotidine for reflux -await ABIs as first step to looking for PAD as a cause for her leg aching Assessment & Plan (06/11/2019 7:16 AM EST): Previously seen by Dr. Echevarria at for the last 4-5 years. Manifestations include morphea and sclerodactyly of the lower extremities as well as GERD. Her main complaint today is more so leg pain which given her description sounding like claudication and her history of coronary artery disease could actually be peripheral arterial disease. -will check labs today including serologies -pulm already planning for repeat PFT and TTE in the coming months -continue famotidine for reflux -will check ABIs as first step to looking for PAD Arteriosclerosis of coronary artery 07/02/2012 Assessment & Plan (12/27/2022 2:36 PM EDT): Home medications: Atorvastatin 40 mg daily The patient has a history of NSTEMI in 2008 s/p NARCISO deployment to LAD and angioplasty of second diagonal branch. Nuclear perfusion study at [facility] in December 2018 showed no perfusion abnormalities. Patient was previously on Lopressor until recently when she was having excessive fatigue and this was discontinued. Repeat TTE this admission shows evidence of multi-vessel heart disease. Plan for cardiac catheterization for potential revascularization. - continue home atorvastatin 40 mg daily - no aspirin as patient is on warfarin - cardiac cath procedure once INR < 1.7, holding warfarin Assessment & Plan (11/05/2021 7:00 PM EDT): Home: Atorvastatin 40 mg daily, Lopressor 25 mg twice daily Patient s/p NARCISO to LAD and PTCA of D2 for NSTEMI in 2008. Nuclear perfusion study at [facility] in 2019 showed no perfusion abnormalities. -Atorvastatin 40 mg daily - hear rate control per afib section Abnormal PFT Abnormal PFTs Scleroderma Resolved Problems Problem Noted Date Diagnosed Date Resolved Date Other fatigue 08/23/2022 12/30/2022 Atrial flutter 11/29/2021 12/30/2022 Other constipation 12/24/2019 Assessment & Plan (03/31/2020 3:50 PM EST): Likely related to scleroderma. Doing well with Miralax. Reassured by normal Cologuard. 1. Continue Miralax. 2. Consider colonoscopy or virtual colonoscopy if sx worsen. Assessment & Plan (12/24/2019 10:52 AM EDT): Could be related to motility issues related to scleroderma. Reasonable to perform colonoscopy to make sure no obstructing lesion. 1. Continue colace/PEG 2. Colonoscopy Healthcare maintenance 06/09/201912/30 Assessment & Plan (12/28/2020 1:28 PM EDT): -Vaccines: Prevnar 13: to assess at subsequent visit Pneumovax: to assess at subsequent visit Zoster: to assess at subsequent visit Flu: not yet flu season COVID vaccine Assessment & Plan (12/08/2019 7:33 AM EDT): -Vaccines: Prevnar 13: to assess at subsequent visit Pneumovax: to assess at subsequent visit Zoster: to assess at subsequent visit Flu: not yet flu season Assessment & Plan (10/01/2019 9:10 AM EDT): -Vaccines: Prevnar 13: to assess at subsequent visit Pneumovax: to assess at subsequent visit Zoster: to assess at subsequent visit Flu: not yet flu season Assessment & Plan (06/11/2019 7:13 AM EST): -Vaccines: Prevnar 13: to assess at subsequent visit Pneumovax: to assess at subsequent visit Zoster: to assess at subsequent visit Flu: Jan 2019 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 Albumin and creatinine unrevealing recently. -we will await LE duplex -also await TTE Acute sinusitis 06/18/2015 12/30/2022 Shortness of breath 08/18/2013 12/31/19 23 Edema 05/30/2013 12/30/2022 Encounters Date Type Department Care Team Description 06/16/2024 Telephone [facility] 4th floor Cardiology Medicine [address] [place] [address] Cardboard Cutter: Ana Woods Telephone Intake, Staff PAC RX Refill 05/05/2024 2:45 PM EST - 05/05/2024 11:59 PM EST Hospital Encounter [facility] Heart Station [address] [place] [address] Wing Jeffery MD PhD Atrial fibrillation, unspecified type (HCC) Discharge Disposition: Home or Self Care () 04/22/[address] Cardiology Medicine [address] [place] [address] Cardboard Cutter: Alondra Gill NP from Last 3 Months Immunizations Immunization Administration Dates Next Due Covid-19, Pfizer, mRNA, [place] valent, PF 30 mcg/0.3 mL dose (for ages 12 and older) 06/24/2020,06/02/2020 Covid-19, Pfizer, mRNA, [place] valent, PF, 30 mcg/0.3 mL dose, judith-sucrose (COMIRNATY)(for ages 12 and older) 08/30/2021 Influenza Virus Vaccine, Uns pecified Formulation 02/01/2019,01/27/2010,02/18/2009 Influenza, High Dose Seasona l, Preservative Free 03/05/2015 Influenza, Injectable, Quadr ivalent Preservative Free 03/14/2021,01/07/2020 Influenza, Injectable, Quadr ivalent, Preservative Free 01/30/2018 Influenza, Trivalent, Adjuvanted, PF 01/30/2018, 01/05/2017,02/04/2016 Influenza, Trivalent, MDV, Injectable 01/05/2017 Novel Huxegtiis-[id number], All Formulations 2009 Pneumococcal Conjugate Vaccine, 13 Valent 2015 Pneumococcal Polysaccharide Vaccine, 23 Valent 12/10/2020 Tetanus Toxoid, Reduced Diph theria Toxoid, and Acellular Pertussis Vaccine, Adsorbed 11/06/2017 Family History Medical History Relation Name Comments Dementia Father Emphysema Father Heart disease Father Hyperlipidemia Father Hypertension Father Cancer Mother breast cancer Coronary artery disease Mother Heart disease Mother Hypertension Mother Relation Name Status Comments Father Mother Social History Tobacco Use Types Packs/Day Years Used Date Smoking Tobacco: Never Passive Smoke Exposure: Past Smokeless Tobacco: Never Tobacco Cessation:Counseling Given: Not Answered Comments:Second hand smoke exposure Alcohol Use Standard Drinks/Week Comments No 0 (1 standard drink = 0.6 oz pur e alcohol) Comments No Sex and Gender Information Value Date Recorded Sex Assigned at Female 05/23/2022 6:27 PM EST Legal Sex Female 9:41 AM EDT Gender Identity Female 12/27/2017 4:11 PM EDT Sexual Orientation Straight 05/23/2022 6: 27 PM EST Last Filed Vital Signs Vital Sign Reading Time Taken Comments Blood Pressure 136/77 08/14/2023 3:26 PM EDT Pulse 78 08/14/2023 3:26 PM EDT Temperature 37 ??C (98.6 ??F) 03/07/2023 12: 56 PM EST Respiratory Rate 18 08/14/2023 3:26 PM EDT Oxygen Saturation 98% 08/14/2023 3:26 PM EDT Inhaled Oxygen Concentration - - Weight 70.7 kg (155 lb 13.8 oz) 06/12/2023 3:56 PM EST Height 149.9 cm (4' 11 ) 06/12/2023 3:56 PM EST Body Mass Index 31.48 06/12/2023 3:56 PM EST Plan of Treatment Upcoming Encounters Date Type Department Care Team (Late st Contact Info) Description 08/28/2024 1:00 PM EDT Follow-Up [facility] 4th floor Cardiology Medicine [address], [place] [phone] Cardboard Cutter: Abbe Og MD [address], [place] [phone] 05/08/2025 2:15 PM EST Appointment [facility] Heart Station [address] [place] [address] Wing Jeffery MD PhD [address], [place] [phone] Scheduled Procedures Name Priority Associated Diagnoses Date/Ti me COLONOSCOPY SCREENING, HIGH RISK WITH POSSIBLE MODERATE SEDATION Diarrhea, unspecified type Health Maintenance Due Date Last Done Comments Zoster Vaccines (1 of 2) 1992 RSV Vaccine (60+ years old and patients) (1 - 1-dose 75+ series) 2017 COVID-19 Vaccine ( season) 2023 01/23/2023, 03/30/2022, 08/30/2021, Additional history exists Influenza Vaccine (#1) 2023 , 03/17/2022, 03/14/2021, Additional history exists Alcohol/Substance Use Screening 04/23/2024 Depression Screening and Follow-Up 04/23/2024 Health Care Proxy Review 04/23/2024 Social Drivers of Health Annual Screening 04/23/2024 Basic Metabolic Panel 11/09/2024 11/10/2023 , 07/19/2023, 07/18/2023, Additional history exists DTaP,Tdap,and Td Vaccines (2 - Td or Tdap) 11/07/2027 11/06/2017 Pneumococcal Vaccine: 50+ Years Completed 12/10/2020, 02/04/2016 Osteoporosis Screening Completed 09/28/2021 Hepatitis B Vaccines Aged Out No long er eligible based on patient's age to complete this topic Medical Devices Implanted Type Area Jawbone Puller Device Identifier Shelf Expiration Date Model / Serial / Lot Shunt Valve Programmable - [id number] Implanted:Qty: 1 on 08/29/2017 by Ben Toth MD at [facility] Implant Right: Brain CODMAN 04/22/2022 [id number] / / [id number] System Closure And Repair Suture-Mediated Perclose Prostyle - S0 - [id number] Implanted:Qty: 1 on 05/24/2022 by Wing Jeffery MD PhD at [facility] Implant Right: Groin [employer] [id number] 02/21/2024 35500-71 / 0 / [id number] System Closure And Repair Suture-Mediated Perclose Prostyle - S0 - [id number] Implanted:Qty: 1 on 05/24/2022 by Wing Jeffery MD PhD at [facility] Implant Right: Groin [employer] [id number] 02/21/2024 11901-77 / 0 / [id number] Lead Pacing Bipolare Straight 6fr 52cm Capsurefix Novus - [id number] - [id number] Implanted:Qty: 1 on 02/15/2023 by Wing Jeffery MD PhD at [facility] Lead Left: Right Ventricle Medtronic [id number] 10/16/2024 5076-52 / [id number] V / Lead Left Ventricular Quadripolar 88cm 5.3fr Attain Performa Mri Surescan - [id number] - [id number] Implanted:Qty: 1 on 02/15/2023 by Wing Jeffery MD PhD at [facility] Lead Left: Right Ventricle Medtronic [id number] 08/08/2024 [id number] / [id number] V / Transcatheter Pacing System Medtronic Micra Vr - [id number] - [id number] Implanted:Qty: 1 on 05/24/2022 by Wing Jeffery MD PhD at [facility] Pacemaker Right: Groin Medtronic [id number] 04/19/2023 [id number] / [id number] S / 0 1080 [id number] Micra Vr Tcp [id number] Implanted: 023 (Quantity not on file) Pacemaker Medtronic [id number] MICRA VR TCP / [id number] S / Pacemaker Mri Surescan Dual Chamber Resynchronization 53jsr44.5mm Percepta Quad - [id number] - [id number] Implanted:Qty: 1 on 02/15/2023 by Wing Jeffery MD PhD at [facility] Pacemaker Left: Chest Medtronic [id number] 06/20/2024 [id number] / [id number] S / Description:MICRA DEVICE SET TO VVI @30 Percepta Quad Call Center Director-P W4tr01 [id number] Implanted: 023 (Quantity not on file) Pacemaker Medtronic PERCEPTA QUAD TRANSMISSION SPECIALIST-P [id number] / [id number] S / Procedures * Due to [place] [employer] law, this organization might not be sharing negative HIV tests. Procedure Name Priority Date/Time Associated Diagnosis Comments PACEMAKER DUAL CHAMBER PROGRAMMING Routine 05/05/2024 3:06 PM EST Atrial fibrillation, unspecified type (HCC) PACEMAKER REMOTE ANALYSIS Routine 05/01/2024 11:26 AM EST Atrial fibrillation, unspecified type (HCC) BASIC METABOLIC PANEL Routine 12/30/2022 7:07 AM EDT DEXA BONE DENSITY AXIAL Routine 09/28/2021 1:50 PM EDT Osteopenia of multiple sites from Last 3 Months or Most Recently Relevant to Health Maintenance Results * Due to [place] [employer] law, this organization might not be sharing negative HIV tests. * PACEMAKER DUAL CHAMBER PROGRAMMING (05/05/2024 3:06 PM EST) Date Time Interrogation Session [id number] [facility] Implantable Pulse Generator Jawbone Puller MDT [facility] Implantable Pulse Generator Type Cardiac Resynchronization Therapy - Pacemaker [facility] Implantable Pulse Generator Model Percepta Quad TRANSMISSION SPECIALIST-P W4TR01 [facility] Implantable Pulse Generator Serial Number [id number] [facility] Implantable Pulse Generator Implant Date [id number] [facility] Battery Status SEE PDF [facility] Nathan Statistic RA Percent Paced 0.00 [facility] TRANSMISSION SPECIALIST Statistic TRANSMISSION SPECIALIST Percent Paced 99.90 [facility] Lead Channel Impedance Value 3,000 [facility] Lead Channel Sensing Intrinsic Amplitude 13.000 [facility] Lead Channel Setting Sensing Sensitivity 2.80 [facility] Lead Channel Impedance Value 399 [facility] Lead Channel Pacing Threshold Amplitude 0.630 [facility]CO Lead Channel Pacing Threshold Pulse Width 0.4 [facility] Lead Channel Measurements Date and Time [id number] [facility] Lead Channel Setting Pacing Amplitude 2.000 [facility] Lead Channel Setting Pacing Pulse Width 0.4 [facility] Lead Channel Impedance Value 551 [facility] Lead Channel Pacing Threshold Amplitude 1.250 [facility] Lead Channel Pacing Threshold Pulse Width 0.4 [facility] Lead Channel Measurements Date and Time [id number] [facility] Lead Channel Setting Pacing Amplitude 1.750 [facility] Lead Channel Setting Pacing Pulse Width 0.4 [facility] Nathan Setting Mode (NBG Code) VVIR [facility] Ventricular chambers paced during TRANSMISSION SPECIALIST pacing. LV->RV [facility] Nathan Setting Lower Rate Limit 70 [facility] Nathan Setting Maximum Sensor Rate 120 [facility] Zone Setting Type Category VT [facility] Zone Setting Status Monitor [facility] Zone Identifier 5 [facility] 05/05/2024 Impressions [facility] - 05/13/2024 7:38 AM EST Docket Date: 2024-05-05 Title: Normal In-Office: With Events * Normal VVIR-BIV Device Function * Events or Alerts: 2 * Battery: , 10.6 years * 2 non-sustained events both 1 sec * Possible Opti/Vol fluid accumulation 04/20/23 - ongoing * Biventricular pacing 99.9% Title: Normal In-Office: No Events Normal VVIR function with appropriate sensing and capture. Intrinsic rhythm was atrial fibrillation. Patient is on Warfarin. Battery status 9.9 years. Biv paced 99.8%. No malfunction seen. Narrative [facility] - 05/13/2024 7:38 AM EST This report includes 2 total transmissions that were received between 2023-04-24 and 2024-05-05. Battery was reviewed. Procedure Note Bill Lynch MD - 05/13/2024 This report includes 2 total transmissions that were received [id number] and 2024-05-05. Battery was reviewed. IMPRESSION: Docket Date: 2024-05-05 Title: Normal In-Office: With Events * Normal VVIR-BIV Device Function * Events or Alerts: 2 * Battery: , 10.6 years * 2 non-sustained events both 1 sec * Possible Opti/Vol fluid accumulation 04/20/23 - ongoing * Biventricular pacing 99.9% Title: Normal In-Office: No Events Normal VVIR function with appropriate sensing and capture. Intrinsic rhythm was atrial fibrillation. Patient is on Warfarin. Battery status 9.9 years. Biv paced 99.8%. No malfunction seen. us Wing Jeffery MD PhD CV CARDIAC SERVI REJI PROCEDURES Final Result [facility] * Pacemaker remote analysis (UNV) (05/01/2024 11:26 AM EST) Date Time Interrogation Session [id number] [facility] Type Interrogation Session Remote [facility] Implantable Pulse Generator Jawbone Puller T [facility] Implantable Pulse Generator Type Cardiac Resynchronization Therapy - Pacemaker [facility] Implantable Pulse Generator Model Percepta Quad TRANSMISSION SPECIALIST-P W4TR01 [facility] Implantable Pulse Generator Serial Number [id number] [facility] Implantable Pulse Generator Implant Date 20230215 [facility] Battery Remaining Longevity 117.0 [facility] Battery Voltage 3.020 [facility] Battery PLUGGER TrIgGer 2.595 [facility] Battery Status OK [facility] Nathan Statistic RA Percent Paced 0.00 [facility] Nathan Statistic RV Percent Paced 99.87 [facility] TRANSMISSION SPECIALIST Statistic LV Percent Paced 99.85 [facility] TRANSMISSION SPECIALIST Statistic TRANSMISSION SPECIALIST Percent Paced 99.84 [facility] Lead Channel Impedance Value 3,401 [facility] Lead Channel Sensing Intrinsic Amplitude 13.000 [facility] Lead Channel Setting Sensing Sensitivity 2.80 [facility] Lead Channel Impedance Value 380 [facility] Lead Channel Pacing Threshold Amplitude 0.625 [facility] Lead Channel Pacing Threshold Pulse Width 0.4 [facility] Lead Channel Measurements Date and Time [id number] [facility] Lead Channel Setting Pacing Amplitude 2.000 [facility] Lead Channel Setting Pacing Pulse Width 0.4 [facility] Lead Channel Impedance Value 532 [facility] Lead Channel Pacing Threshold Amplitude 1.125 [facility] Lead Channel Pacing Threshold Pulse Width 0.4 [facility] Lead Channel Measurements Date and Time [id number] [facility] Lead Channel Setting Pacing Amplitude 1.750 [facility] Lead Channel Setting Pacing Pulse Width 0.4 [facility] Nathan Setting Mode (NBG Code) VVIR [facility] Ventricular chambers paced during TRANSMISSION SPECIALIST pacing. BiV [facility] Nathan Setting Lower Rate Limit 70 [facility] Nathan Setting Maximum Sensor Rate 120 [facility] TRANSMISSION SPECIALIST LV-RV Delay 20 [facility] Zone Setting Type Category VT [facility] Rate 1 150 [facility] Zone Setting Status ENABLED [facility] Zone Identifier 6 [facility] 05/01/2024 11:2 6 AM EST Impressions [facility] - 05/13/2024 7:37 AM EST Docket Date: 2024-05-01 Title: Normal Remote: No Events * Normal VVIR Device Function * Alerts or events: None * Battery: OK, 9.75 yrs * No significant changes noted Narrative [facility] - 05/13/2024 7:37 AM EST This report includes 1 transmission that was received on 2024-05-01. Battery was reviewed. Procedure Note Bill Lynch MD - 05/13/2024 This report includes 1 transmission that was received on 2024-05-01.Battery was reviewed. IMPRESSION: Docket Date: 2024-05-01 Title: Normal Remote: No Events * Normal VVIR Device Function * Alerts or events: None * Battery: OK, 9.75 yrs * No significant changes noted us Wing Jeffery MD PhD CV CARDIAC SERVI REJI PROCEDURES Final Result [facility] * Basic Metabolic Panel (12/30/2022 7:07 AM EDT) NA 140 135 - 145 mmol/L 12/30/2022 8:22 AM EDT [facility] K 3.9 3.5 - 5.3 mmol/L 12/30/2022 8:22 AM EDT [facility] Cl 104 97 - 110 mmol/L 12/30/2022 8:22 AM EDT [facility] CO2 26 24 - 32 mmol/L 12/30/2022 8:22 AM EDT [facility] BUN 22 7 - 23 mg/dL 12/30/2022 8:22 AM EDT [facility] Creatinine 0.65 0.50 - 1.20 mg/dL 12/30/2022 8:22 AM EDT [facility] Glucose 96 70 - 99 mg/dL 12/30/2022 8:22 AM EDT [facility] Calcium 9.6 8.7 - 10.7 mg/dL 12/30/2022 8:22 AM EDT [facility] Anion Gap 10 5 - 15 12/30/2022 8:22 AM EDT [facility] eGFR 89 >=60 mL/min/1. 73m2 12/30/2022 8:22 AM EDT [facility] Comment:The estimated glomer ular filtration rate (eGFR) is calculated using a new formula developed by the NKF-ASN task force to eliminate race-based correction factors. The new formula uses serum/plasma creatinine, age, and gender to determine eGFR. A value below 60mls/min might indicate kidney disease and will be flagged. For additional information, see Rebecca et al, Am J Kidney Dis. 2021;79(2):268- 288, A Unifying Approach for GFR estimation: Recommendations of the NKF-ASN Task Force on Reassessing the Inclusion of Race in Diagnosing Kidney Disease . Blood Structure of peripheral vein / Unknown Venipuncture / Unknown 12/30/2022 7:07 AM EDT 12/30/2022 7:27 AM EDT us Shannon Santos MD LAB BLOOD ORDERABLES Final Res ult [facility] [address] [place] [phone], * DEXA Bone Density Axial (09/28/2021 1:50 PM EDT) Anatomical Region Laterality Modality Hip, L-spine Bone Densitometr y 09/28/2021 10:4 8 PM EDT Impressions 09/28/2021 10:49 PM EDT This patient has osteoporosis. Thank you for the courtesy of this referral. If this radiology report contains a blank impression section, it is an incomplete radiology report. ??Please contact the interpreting radiologist or applicable radiology division as soon as possible to obtain the completed interpretation. ? Workstation ID: [id number] Narrative 09/28/2021 10:49 PM EDT EXAM: ??BONE MINERAL DENSITY INDICATION: osteopenia M85.89 - I10 - Other specified disorders of bone density and structure, multiple sites PROCEDURE: ??The bone mineral density (BMD) of the spine and proximal right femur was determined using an external X-ray source([facility]). SITE: [facility] FINDINGS: L1-L4: ??BMD 0.76gm/cm2 ?? T-Score -2.6 ?Z-score: 0.0 Femoral neck: ??BMD 0.60gm/cm2 ?? T-Score -2.2 ?Z-score: 0.0 The World Health Organization (WHO) defines osteoporosis (as studied in post-menopausal women) as a T value of (-)2.5 or less at any site. ??Osteopenia is defined by a T value between (-)1.0 and (-)2.4. In general, it is recommended that patients receive approximately 1000 mg of calcium daily, either from dairy products or supplements (including multiple vitamin). Patients should consider supplementing with vitamin D. Vitamin D recommendations should be discussed with Health Care Provider and measurement of vitamin D levels should be considered. Careful weight-bearing exercise is also useful in maintaining bone mass and to help protect against falls. Resulting Agency Comment [id number] Procedure Note Julio Cesar Gordon MD - 09/28/2021 EXAM: BONE MINERAL DENSITY INDICATION: osteopenia M85.89 - I10 - Other specified disorders of bonedensity and structure, multiple sites PROCEDURE: The bone mineral density (BMD) of the spine and proximal rightfemur was determined using an external X-ray source([facility]). SITE: [place] FINDINGS: L1-L4: BMD 0.76gm/cm2 T-Score -2.6 Z-score: 0.0 Femoral neck: BMD 0.60gm/cm2 T-Score -2.2 Z-score: 0.0 The World Health Organization (WHO) defines osteoporosis (as studied inpost-menopausal women) as a T value of (-)2.5 or less at any site.Osteopenia is defined by a T value between (-)1.0 and (-)2.4. In general, it is recommended that patients receive approximately 1000 mgof calcium daily, either from dairy products or supplements (includingmultiple vitamin). Patients should consider supplementing with vitamin D.Vitamin D recommendations should be discussed with Health Care Providerand measurement of vitamin D levels should be considered. Carefulweight-bearing exercise is also useful in maintaining bone mass and tohelp protect against falls. IMPRESSION: This patient has osteoporosis. Thank you for the courtesy of this referral. If this radiology report contains a blank impression section, it is anincomplete radiology report. Please contact the interpreting radiologistor applicable radiology division as soon as possible to obtain thecompleted interpretation. Workstation ID: [id number] us Austin Mckeon MD IMG DXA PROCEDURES Final Re sult from Last 3 Months or Most Recently Relevant to Health Maintenance Insurance [facility] Advance Directives Documents on File Type Date Recorded Patient It Training Specialist Expl anation Health Care Proxy 05/30/2022 10:08 AM Devic e Implant Health Care Proxy 05/01/2017 10:16 AM Advance Directive 04/30/2015 12:00 AM Advan ce Care Directives Advance Directive 03/12/2015 12:00 AM Adv ance Care Directives Advance Directive 07/31/2014 12:00 AM Adva nce Care Directives Advance Directive 11/03/2013 12:00 AM sf M edical Dec Making (Adv.Dir) Advance Directive 08/13/2013 12:00 AM Adva nce Care Directives Advance Directive 08/12/2013 12:00 AM sf M edical Dec Making (Adv.Dir) Advance Directive 11/19/2007 12:00 AM sf M edical Dec Making (Adv.Dir) * Full Code (Latest Code Status on File) Date Activated Date Inactivated Comments 02/15/2023 8:59 AM 02/15/2023 8:13 PM * DNR/DNI Date Activated Date Inactivated Comments 12/29/2022 7:51 PM 12/30/2022 7:46 PM * Full Code Date Activated Date Inactivated Comments 12/29/2022 10:35 AM 12/29/2022 7:51 PM * DNR/DNI Date Activated Date Inactivated Comments 12/24/2022 4:46 AM 12/29/2022 10:35 AM * Full Code Date Activated Date Inactivated Comments 12/24/2022 12:57 AM 12/24/2022 4:46 AM Healthcare Agents on File Name Relationship Healthcare Agent Relationship Communication Davon Garrett Spouse Health Care Agent Yenijosephine Garrett Relative Alternate Hea lt Care Agent [email or web address] Care Teams Pathology Technologist Relationship Specialty Start Date End Date Mani Nation MD [address] [place] [address], [address] [place] [address] PCP - General 11/09/16
--- OUTSIDE RECORDS SUMMARY | 2024-07-02 17:18 | XMS_ITS | Encounter Summary ---
Author Organization [facility] Address [address] [place] [address] Care Team Providers Care Seedling Sorter Name Role Phone Mani Nation MD Primary Care Provider [phone] Encounter Details Date Type Department Care Team (Late Contact Info) Description 01/16/2023 myChart Message [facility] Interventional Lab [address] [place] [address] Wing Jeffery MD PhD [address] [place] [address] Your Recent Visit Social History Tobacco Use [...] Info) Description 08/28/2024 1:00 PM EDT Follow-Up [facility] 4th floor Cardiology Medicine [address] [place] [address] Inside Sales Supervisor: Abbe Og MD [address] [place] [phone] 05/08/2025 2:15 PM EST Appointment [facility] [address] [place] [address] Wing Jeffery MD PhD [address] [place] [address] Scheduled Procedures Name Priority Associated Diagnoses Date/Ti me COLONOSCOPY SCREENING, HIGH RISK WITH POSSIBLE MODERATE SEDATION Diarrhea, unspecified type documented as of this encounter Visit Diagnoses Not on filedocumented in this encounter Care Teams Seedling Sorter Relationship Specialty Start Date End Date Mani Nation MD [address] [place] [address], [address] [place] [address] PCP - General 11/09/16 documented as of this encounter
--- OUTSIDE RECORDS SUMMARY | 2024-07-02 17:18 | XMS_ITS | Encounter Summary ---
Author Organization [facility] Address [address] [place] [address] Care Team Providers Care Performance Improvement Manager Name Role Phone Mani Nation MD Primary Care Provider [phone] Encounter Details Date Type Department Care Team (Late Contact Info) Description 09/05/2023 [employer] Message [facility] - Actionable Findings [address] [place] [address] Tracsis, Generic Provider [phone] Follow Up [address] Incidental Finding Social History Tobacco Use Types Packs/Day Years [...] [facility] 4th floor Cardiology Medicine [address] [place] [phone] Power Press Supervisor: Abbe Og MD [address] [place] [phone] 05/08/2025 2:15 PM EST Appointment [facility] Heart [facility] [address] [place] [address] Wing Jeffery MD PhD [address] [place] [address] Scheduled Procedures Name Priority Associated Diagnoses Date/Ti me COLONOSCOPY SCREENING, HIGH RISK WITH POSSIBLE MODERATE SEDATION Diarrhea, unspecified type documented as of this encounter Visit Diagnoses Not on filedocumented in this encounter Care Teams Performance Improvement Manager Relationship Specialty Start Date End Date Mani Nation MD [address] [place] [address], [address] [place] [address] PCP - General 11/09/16 documented as of this encounter
--- OUTSIDE RECORDS SUMMARY | 2024-07-02 17:18 | XMS_ITS | Referral Summary ---
Author Organization [facility] Address [address] [place] [address] Care Team Providers Care Metal Fabricator Welder Name Role Phone Mani Nation MD Primary Care Provider [phone] Encounters Date Type Department Care Team Description 06/16/[address] Cardiology Medicine [address] [place] [address] Plant Engineer: Ana Woods Telephone Intake, Staff PAC RX Refill 05/05/2024 2:45 PM EST - 05/05/2024 11:59 PM EST Hospital Encounter [facility] Heart Station [address] [place] [address] Wing Jeffery MD PhD Atrial fibrillation, unspecified type (HCC) Discharge Disposition: Home or Self Care () 04/22/[address] Cardiology Medicine [address] [place] [address] Plant Engineer: Alondra Gill NP from Last 3 Months Allergies Active Allergy Reactions Criticality Noted Date [...] 3 doses total 25 tablet 1 11/18/19 20 Active Additional Information Patient not taking.Reported on 06/12/2023 famotidine (PEPCID) 20 mg tablet Take 20 mg by mouth 2 times a day. Active albuterol (ProAir HFA) 90 mcg inhaler Inhale 2 puffs (180 mcg total) by mouth every 4 hours as needed for wheezing or shortness of breath. Use with spacer. 8.5 g 5 08/03/19 21 Active inhalational spacing device Use as directed. 1 each 1 09/04/19 21 Active fluticasone propionate (FLONASE) 50 mcg/actuation nasal [...] Take by mouth once a day. 05/23/19 Active aspirin 81 mg EC tablet Take 1 tablet (81 mg total) by mouth once a day. 30 tablet 01/01/20 Active fluticasone propionate (Flovent HFA) 220 mcg [...] twice daily, Eliquis 5 mg twice daily. [id number] Score 4 (sex, age, HTN). Followed by [...] syndrome, mild obstructive lung disease, systemic sclerosis PROCESSES CHEMICAL DESIGN ENGINEER shunt for NPH, pulm htn that presents [...] intermittent abdominal pain. She does have a PROCESSES CHEMICAL DESIGN ENGINEER shunt placed in 2017 that had been thought to be irritating her abdominal viscera. She was previously evaluated by neurosurgery for this. She was recently seen in the emergency room on November [address] scan at the time showed looping of the PROCESSES CHEMICAL DESIGN ENGINEER shunt catheter in the anterior subcutaneous region of the RUQ just with entry into the peritoneal cavity. She has an upcoming appointment with neurosurgery on 12/27 for evaluation of PROCESSES CHEMICAL DESIGN ENGINEER shunt. Also has a history of GERD and scleroderma. Recently started Benefiber which has improved her symptoms. Abdomen is soft, nontender, nondistended on exam. 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 Recent abdominal CT showing PROCESSES CHEMICAL DESIGN ENGINEER catheter within anterior subcutaneous region of the RUQ. Follows with Dr. Toth in neurosurgery. Missed neurosurgery appointment 12/27 for evaluation of PROCESSES CHEMICAL DESIGN ENGINEER shunt - neurosurgery consulted - XR PROCESSES CHEMICAL DESIGN ENGINEER shunt series - neurosurgery to coordinate outpatient [...] second diagonal branch. Nuclear perfusion study at [facility] in December 2018 showed no perfusion abnormalities. [...] NSTEMI in 2008. Nuclear perfusion study at [facility] in 2018 showed no perfusion abnormalities. -Atorvastatin 40 mg daily - hear rate control per afib section Abnormal PFT Abnormal PFTs Scleroderma Resolved Problems Problem Noted Date Diagnosed Date Resolved Date Other fatigue 08/23/2022 12/30/2022 Atrial flutter 11/29/2021 12/30/2022 Other constipation 12/24/2019 3 Assessment & Plan (03/31/2020 3:50 PM EST): [...] breath 08/18/2013 12/31/19 23 Edema 05/30/2013 12/30/2022 Immunizations Immunization Administration Dates Next Due Covid-19, Pfizer, mRNA, Nobles valent, PF 30 mcg/0.3 mL dose (for ages 12 and older) 06/24/2020,06/02/2020 Covid-19, Pfizer, mRNA, Nobles valent, PF, 30 mcg/0.3 mL dose, judith-sucrose (COMIRNATY)(for ages 12 and older) 08/30/2021 Influenza Virus Vaccine, Uns pecified Formulation 02/01/2019,01/27/2010,02/18/2009 Influenza, High Dose Seasona l, Preservative Free 03/05/2015 Influenza, Injectable, Quadr ivalent Preservative Free 03/14/2021,01/07/2020 Influenza, Injectable, Quadr ivalent, Preservative Free 01/30/2018 Influenza, Trivalent, Adjuvanted, PF 01/30/2018, 01/05/2017,02/04/2016 Influenza, Trivalent, MDV, Injectable 01/05/2017 Novel Tuonlkyan-[id number], All Formulations 2009 Pneumococcal Conjugate Vaccine, 13 Valent 2015 Pneumococcal Polysaccharide Vaccine, 23 Valent 12/10/2020 Tetanus Toxoid, Reduced Diph theria Toxoid, and Acellular Pertussis Vaccine, Adsorbed 11/06/2017 Social History Tobacco Use Types Packs/Day Years [...] Info) Description 08/28/2024 1:00 PM EDT Follow-Up [facility] 4th floor Cardiology Medicine [address] [place] [address] Plant Engineer: Abbe Og MD [address] [place] [address] 05/08/2025 2:15 PM EST Appointment [facility] Station [address] [place] [address] Wing Jeffery MD PhD [address] [place] [address] [phone] Scheduled Procedures Name Priority Associated Diagnoses Date/Ti me COLONOSCOPY SCREENING, HIGH RISK WITH POSSIBLE MODERATE SEDATION Diarrhea, unspecified type Medical Devices Implanted Type Area Technical Healthcare Consultant Device Identifier Shelf Expiration Date Model / Serial / Lot Shunt Valve Programmable - [id number] Implanted:Qty: 1 on 08/29/2017 by Ben Toth MD at [facility] Implant Right: Brain CODMAN 04/22/2022 [id number] / / [id number] System Closure And Repair Suture-Mediated Perclose Prostyle - S0 - [id number] Implanted:Qty: 1 on 05/24/2022 by Wing Jeffery MD PhD at [facility] Implant Right: Groin [employer] [id number] 02/21/2024 [id number] System Closure And Repair Suture-Mediated Perclose Prostyle - S0 - [id number] Implanted:Qty: 1 on 05/24/2022 by Wing Jeffery MD PhD at [facility] Implant Right: Groin [employer] [id number] 02/21/2024 [id number] Lead Pacing Bipolare Straight 6fr 52cm Capsurefix Novus - [id number] - [id number] Implanted:Qty: 1 on 02/15/2023 by Wing Jeffery MD PhD at [facility] Lead Left: Right Ventricle Medtronic [id number] 10/16/2024 [id number] / [id number] V / Lead Left Ventricular Quadripolar 88cm 5.3fr Attain Performa Mri Surescan - [id number] - [id number] Implanted:Qty: 1 on 02/15/2023 by Wing Jeffery MD PhD at [facility] Lead Left: Right Ventricle Medtronic [id number] 08/08/2024 [id number] / [id number] V / Transcatheter Pacing System Medtronic Micra Vr - [id number] - [id number] Implanted:Qty: 1 on 05/24/2022 by Wing Jeffery MD PhD at [facility] Pacemaker Right: Groin Medtronic [id number] 04/19/2023 [id number] / [id number] S / 0 1080 [id number] Micra Vr Tcp [id number] Implanted: 023 (Quantity not on file) Pacemaker Medtronic [id number] MICRA VR TCP / [id number] S / Pacemaker Mri Surescan Dual Chamber Resynchronization 53ouo23.5mm Percepta Quad - [id number] - [id number] Implanted:Qty: 1 on 02/15/2023 by Wing Jeffery MD PhD at [facility] Pacemaker Left: Chest Medtronic [id number] 06/20/2024 [id number] / [id number] S / Description:MICRA DEVICE SET TO VVI @30 6-74 Percepta Quad Implementation Specialist-P [id number] [id number] Implanted: 023 (Quantity not on file) Pacemaker Medtronic PERCEPTA QUAD FISCAL ACCOUNTING CLERK-P [id number] / [id number] S / Procedures * Due to [place] state law, this organization might not be sharing [...] to Health Maintenance Results * Due to [place] state law, this organization might not be sharing negative HIV tests. * PACEMAKER DUAL CHAMBER PROGRAMMING (05/05/2024 3:06 PM EST) Date Time Interrogation Session [id number] [facility] Implantable Pulse Generator Technical Healthcare Consultant MDT [facility] Implantable Pulse Generator Type Cardiac Resynchronization Therapy - Pacemaker [facility] Implantable Pulse Generator Model Percepta Quad FISCAL ACCOUNTING CLERK-P [id number] [facility] Implantable Pulse Generator Serial Number [id number] [facility] Implantable Pulse Generator Implant Date 20230215 [facility] Battery Status SEE PDF [facility] Nathan Statistic RA Percent Paced 0.00 [facility] FISCAL ACCOUNTING CLERK Statistic FISCAL ACCOUNTING CLERK Percent Paced 99.90 [facility] Lead Channel Impedance Value 3,000 [facility] Lead Channel Sensing Intrinsic Amplitude 13.000 [facility] Lead Channel Setting Sensing Sensitivity 2.80 [facility] Lead Channel Impedance Value 399 [facility] Lead Channel Pacing Threshold Amplitude 0.630 [facility] Lead Channel Pacing Threshold Pulse Width 0.4 [facility] Lead Channel Measurements Date and Time 20240505 [facility] Lead Channel Setting Pacing Amplitude 2.000 [facility] Lead Channel Setting Pacing Pulse Width 0.4 [facility] Lead Channel Impedance Value 551 [facility] Lead Channel Pacing Threshold Amplitude 1.250 [facility] Lead Channel Pacing Threshold Pulse Width 0.4 [facility] Lead Channel Measurements Date and Time 20240505 [facility] Lead Channel Setting Pacing Amplitude 1.750 [facility] Lead Channel Setting Pacing Pulse Width 0.4 [facility] Nathan Setting Mode (NBG Code) VVIR [facility] Ventricular chambers paced during FISCAL ACCOUNTING CLERK pacing. LV->RV [facility] Nathan Setting Lower Rate Limit 70 [facility] Nathan Setting Maximum Sensor Rate 120 [facility] Zone Setting Type Category VT [facility] Zone Setting Status Monitor [facility] Zone Identifier 5 [facility] 05/05/2024 Impressions [facility] - 05/13/2024 7:38 AM EST [...] Biv paced 99.8%. No malfunction seen. Narrative [facility] - 05/13/2024 7:38 AM EST This report includes 2 total transmissions that were received between 2023-04-24 and 2024-05-05. Battery was reviewed. Procedure Note Bill Lynch MD - 05/13/2024 This report includes 2 total transmissions that were received [id number] and 2024-05-05. Battery was reviewed. IMPRESSION: Docket [...] CV CARDIAC SERVI REJI PROCEDURES Final Result [facility] * Pacemaker remote analysis (UNV) (05/01/2024 11:26 AM EST) Date Time Interrogation Session [id number] [facility] Type Interrogation Session Remote [facility] Implantable Pulse Generator Technical Healthcare Consultant MDT [facility] Implantable Pulse Generator Type Cardiac Resynchronization Therapy - Pacemaker [facility] Implantable Pulse Generator Model Percepta Quad FISCAL ACCOUNTING CLERK-P W4TR01 [facility] Implantable Pulse Generator Serial Number [id number] [facility] Implantable Pulse Generator Implant Date 20230215 [facility] Battery Remaining Longevity 117.0 [facility] Battery Voltage 3.020 [facility] Battery OPTIONS ADVISOR TrIgGer 2.595 [facility] Battery Status OK [facility] Nathan Statistic RA Percent Paced 0.00 [facility] Nathan Statistic RV Percent Paced 99.87 [facility] FISCAL ACCOUNTING CLERK Statistic LV Percent Paced 99.85 [facility] FISCAL ACCOUNTING CLERK Statistic FISCAL ACCOUNTING CLERK Percent Paced 99.84 [facility] Lead Channel Impedance Value 3,401 [facility] Lead Channel Sensing Intrinsic Amplitude 13.000 [facility] Lead Channel Setting Sensing Sensitivity 2.80 [facility] Lead Channel Impedance Value 380 [facility] Lead Channel Pacing Threshold Amplitude 0.625 [facility] Lead Channel Pacing Threshold Pulse Width 0.4 [facility] Lead Channel Measurements Date and Time 20240501 [facility] Lead Channel Setting Pacing Amplitude 2.000 [facility] Lead Channel Setting Pacing Pulse Width 0.4 [facility] Lead Channel Impedance Value 532 [facility] Lead Channel Pacing Threshold Amplitude 1.125 [facility] Lead Channel Pacing Threshold Pulse Width 0.4 [facility] Lead Channel Measurements Date and Time 20240501 [facility] Lead Channel Setting Pacing Amplitude 1.750 [facility] Lead Channel Setting Pacing Pulse Width 0.4 [facility] Nathan Setting Mode (NBG Code) VVIR [facility] Ventricular chambers paced during FISCAL ACCOUNTING CLERK pacing. BiV [facility] Nathan Setting Lower Rate Limit 70 [facility] Nathan Setting Maximum Sensor Rate 120 [facility] FISCAL ACCOUNTING CLERK LV-RV Delay 20 [facility] Zone Setting Type Category VT [facility] Rate 1 150 [facility] Zone Setting Status ENABLED [facility] Zone Identifier 6 [facility] 05/01/2024 11:2 6 AM EST Impressions [facility] - 05/13/2024 7:37 AM EST Docket Date: 2024-05-01 Title: Normal Remote: No Events * Normal VVIR Device Function * Alerts or events: None * Battery: OK, 9.75 yrs * No significant changes noted Narrative [facility] - 05/13/2024 7:37 AM EST [...] 9.75 yrs * No significant changes noted Wing Jeffery MD PhD CV CARDIAC SERVI REJI PROCEDURES Final Result [facility] * Basic Metabolic Panel (12/30/2022 7:07 AM EDT) NA 140 135 - 145 mmol/L 12/30/2022 8:22 AM EDT [facility] K 3.9 3.5 - 5.3 mmol/L 12/30/2022 8:22 AM EDT [facility] Cl 104 97 - 110 mmol/L 12/30/2022 8:22 AM EDT [facility] CO2 26 24 - 32 mmol/L 12/30/2022 8:22 AM EDT [facility] BUN 22 7 - 23 mg/dL 12/30/2022 8:22 AM EDT [facility] Creatinine 0.65 0.50 - 1.20 mg/dL 12/30/2022 8:22 AM EDT [facility] Glucose 96 70 - 99 mg/dL 12/30/2022 8:22 AM EDT [facility] Calcium 9.6 8.7 - 10.7 mg/dL 12/30/2022 8:22 AM EDT [facility] Anion Gap 10 5 - 15 12/30/2022 8:22 AM EDT [facility] eGFR 89 >=60 mL/min/1. 73m2 12/30/2022 8:22 AM EDT [facility] Comment:The estimated glomer ular filtration rate (eGFR) is calculated using a new formula developed by the NKF-ASN task force to eliminate race-based correction factors. The new formula uses serum/plasma creatinine, age, and gender to determine eGFR. A value below 60mls/min might indicate kidney disease and will be flagged. For additional information, see Fernandez et al, Am J Kidney Dis. 2021;79(2):268- 288, A Unifying Approach for GFR estimation: Recommendations of the NKF-ASN Task Force on Reassessing the Inclusion of Race in Diagnosing Kidney Disease . Blood Structure of peripheral vein / Unknown Venipuncture / Unknown 12/30/2022 7:07 AM EDT 12/30/2022 7:27 AM EDT us Shannon Santos MD LAB BLOOD ORDERABLES Final Res ult [facility] [address] [place] [address], * DEXA Bone Density Axial (09/28/2021 1:50 [...] obtain the completed interpretation. ? Workstation ID: [id number] Narrative 09/28/2021 10:49 PM EDT EXAM: ??BONE MINERAL DENSITY INDICATION: osteopenia M85.89 - I10 - Other specified disorders of bone density and structure, multiple sites PROCEDURE: ??The bone mineral density (BMD) of the spine and proximal right femur was determined using an external X-ray source([facility]). SITE: [facility] FINDINGS: L1-L4: ??BMD 0.76gm/cm2 ?? T-Score -2.6 [...] help protect against falls. Resulting Agency Comment [id number] Procedure Note Julio Cesar Gordon MD - 09/28/2021 EXAM: BONE MINERAL DENSITY INDICATION: osteopenia M85.89 - I10 - Other specified disorders of bonedensity and structure, multiple sites PROCEDURE: The bone mineral density (BMD) of the spine and proximal rightfemur was determined using an external X-ray source([facility]). SITE: [facility] FINDINGS: L1-L4: BMD 0.76gm/cm2 T-Score -2.6 Z-score: [...] possible to obtain thecompleted interpretation. Workstation ID: [id number] Austin Mckeon MD IMG DXA PROCEDURES Final Re sult from Last 3 Months or Most Recently Relevant to Health Maintenance Insurance [facility] Advance Directives Documents on File Type Date Recorded Patient Valve Steamer Expl anation Health Care Proxy 05/30/2022 10:08 [...] Communication Davon Garrett Spouse Health Care Agent Yeni Garrett Relative Alternate Hea lt Care Agent [email or web address] Care Teams Metal Fabricator Welder Relationship Specialty Start Date End Date Mani Nation MD [address] [place] [address], [address] [place] [address] PCP - General 11/09/16
--- OUTSIDE RECORDS SUMMARY | 2024-07-02 17:18 | XMS_ITS | Encounter Summary ---
Author Organization [facility] Address [address] [place] [address] Care Team Providers Care Boat Tender Name Role Phone Mani Nation MD Primary Care Provider [phone] Reason for Visit * Reason Onset Date Comments new issue 08/02/2020 Encounter Details Date Type Department Care Team (Late st Contact Info) Description 08/02/2020 Telephone [facility] Neurology Clinic [address] [place] [address] Telephone Intake, Staff new issue Social History Tobacco Use Types Packs/Day Years [...] encounter Miscellaneous Notes * Telephone Encounter - Darlene Alfaro - 08/02/2020 3:47 PM EDT Patient seen by Dr. Brooks at [address] [place] [address] previously for tremors. Patient now calling to schedule an appt for limb numbness/neuropathy. Says sometimes she feels like her leg is not there, and alsoher arm. Per DT new issue send TE. Patient cbr at [phone]. documented in this encounter Plan of Treatment Upcoming Encounters Date Type Department Care Team (Late st Contact Info) Description 08/28/2024 1:00 PM EDT Follow-Up [facility] 4th floor Cardiology Medicine [address] [place] [address] Supervisor Fish Processing: Abbe Og MD [address] [place] [address] 05/08/2025 2:15 PM EST Appointment [facility] Heart Station [address] [place] [address] Wing Jeffery MD PhD [address] [place] [address] Scheduled Procedures Name Priority Associated Diagnoses Date/Ti [...] documented as of this encounter Care Teams Boat Tender Relationship Specialty Start Date End Date Mani Nation MD [address] [place] [address], [address] [place] [address] PCP - General 11/09/16 documented as of this encounter
--- OUTSIDE RECORDS SUMMARY | 2024-07-02 17:18 | XMS_ITS | Encounter Summary ---
Author Organization [facility] Address [address] [place] [address] Care Team Providers Care Library Attendant Name Role Phone Mani Nation MD Primary Care Provider [phone] Encounter Details Date Type Department Care Team (Late Contact Info) Description 04/19/2022 myChart Message [facility] Interventional Lab [address] [place] [address] Wing Jeffery MD PhD [address] [place] [address] Your Recent Visit Social History Tobacco Use [...] Info) Description 08/28/2024 1:00 PM EDT Follow-Up [facility] 4th floor Cardiology Medicine [address] [place] [address] Granulator Machine Operator: Abbe Og MD [address] [place] [address] 05/08/2025 2:15 PM EST Appointment [facility] Heart [facility] [address] [place] [address] Wing Jeffery MD PhD [address] [place] [address] Scheduled Procedures Name Priority Associated Diagnoses Date/Ti me COLONOSCOPY SCREENING, HIGH RISK WITH POSSIBLE MODERATE SEDATION Diarrhea, unspecified type documented as of this encounter Visit Diagnoses Not on filedocumented in this encounter Additional Health Concerns Infection Onset Date Last Indicated Resolved Time COVID-19 - Suspected infection 2022 2022 2022 9:55 PM EDT documented as of this encounter Care Teams Library Attendant Relationship Specialty Start Date End Date Mani Nation MD [address] [place] [address], [address] [place] [address] PCP - General 11/09/16 documented as of this encounter
--- OUTSIDE RECORDS SUMMARY | 2024-07-02 17:18 | XMS_ITS | Encounter Summary ---
Author Organization [facility] Address [address] [place] [address] Care Team Providers Care Salt Grinder Name Role Phone Mani Nation MD Primary Care Provider [phone] Encounter Details Date Type Department Care Team (Late Contact Info) Description 04/09/2023 Wearable Intelligence Message [facility] [employer] Revenue [employer] Management [address] [place] [address] Casero, Generic Provider [address] [place], [place] [id number] Payment Agreement Social History Tobacco Use Types Packs/Day Years [...] Info) Description 08/28/2024 1:00 PM EDT Follow-Up [facility] 4th floor Cardiology Medicine [address] [place], [place] [phone] Cableman: Abbe Og MD [address] [place] [address] 05/08/2025 2:15 PM EST Appointment [facility] [address] [place] [address] Wing Jeffery MD PhD [address] [place] [address] Scheduled Procedures Name Priority Associated Diagnoses Date/Ti me COLONOSCOPY SCREENING, HIGH RISK WITH POSSIBLE MODERATE SEDATION Diarrhea, unspecified type documented as of this encounter Visit Diagnoses Not on filedocumented in this encounter Care Teams Salt Grinder Relationship Specialty Start Date End Date Mani Nation MD [address] [place] [address], [address] [place] [address] PCP - General 11/09/16 documented as of this encounter
--- OUTSIDE RECORDS SUMMARY | 2024-07-02 17:18 | XMS_ITS | Encounter Summary ---
Author Organization [facility] Address [address] [place] [address] Care Team Providers Care Extrusion Press Supervisor Name Role Phone Mani Nation MD Primary Care Provider [phone] Encounter Details Date Type Department Care Team (Late st Contact Info) Description 02/21/2021 Orders Only [facility] Pulmonary Function Lab [address] [place] [address] Cecille, Russel Montalvo RRT SOB (shortness of breath) (Primary Dx) Social History Tobacco Use Types Packs/Day Years [...] Info) Description 08/28/2024 1:00 PM EDT Follow-Up [facility] 4th floor Cardiology Medicine [address] [place] [address] General Superintendent: Abbe Og MD [address] [place] [address] 05/08/2025 2:15 PM EST Appointment [facility] Heart Station [address] [place] [address] Wing Jeffery MD PhD [address] [place] [address] Scheduled Procedures Name Priority Associated Diagnoses Date/Ti me COLONOSCOPY SCREENING, HIGH RISK WITH POSSIBLE MODERATE SEDATION Diarrhea, unspecified type documented as of this encounter Visit Diagnoses Diagnosis SOB (shortness of breath)- Primary Shortness of breath documented in this encounter Additional Health Concerns Infection Onset Date Last Indicated Resolved Time R/O C.diff 02/16/2022 02/16/2022 02/23/2022 10:3 2 PM EDT COVID-19 - Suspected infection 2022 2022 2022 9:55 PM EDT documented as of this encounter Care Teams Extrusion Press Supervisor Relationship Specialty Start Date End Date Mani Nation MD [address] [place] [address], [address] [place] [address] PCP - General 11/09/16 documented as of this encounter
--- OUTSIDE RECORDS SUMMARY | 2024-07-02 17:18 | XMS_ITS | Encounter Summary ---
Author Organization [facility] Address [address] [place] [address] Care Team Providers Care Retail Services Professional Name Role Phone Mani Nation MD Primary Care Provider [phone] Encounter Details Date Type Department Care Team (Late Contact Info) Description 11/03/2021 Telephone [facility] [address] [place] [address] Shasta Pedraza DO [address] [place] [address] [phone] Social History Tobacco Use Types Packs/Day Years [...] Info) Description 08/28/2024 1:00 PM EDT Follow-Up [facility] 4th floor Cardiology Medicine [address] [place] [address] [phone] Oracle Manager: Abbe Og MD [address] [place] [id number] 05/08/2025 2:15 PM EST Appointment [facility] [address] [place] [address] Wing Jeffery MD PhD [address] [place] [address] Scheduled Procedures Name Priority Associated Diagnoses Date/Ti [...] documented as of this encounter Care Teams Retail Services Professional Relationship Specialty Start Date End Date Mani Nation MD [address] [place] [address], [address] [place] [address] PCP - General 11/09/16 documented as of this encounter
[2024-07-02 17:25] VITALS: BP 140/55; PULSE 68; RESP 18; TEMP 36.8; O2SAT 97
[2024-07-02] MEDS: 0.9 % Sodium Chloride 500 ML IV (17:39)
[2024-07-02 18:29] VITALS: BP 140/76; PULSE 92; RESP 18; TEMP 36.6; O2SAT 96
[2024-07-02] MEDS: Warfarin Sodium 2.5 MG TABLET PO (18:41)
--- NOTE | 2024-07-02 19:34 | PC.NURSE ---
pt IV noted to be infiltrated in her hand. new iv access obtained, 20G in the right forearm. pt tolerated well. IV fluids continuing to run.
[2024-07-02 19:42] LABS: Troponin-I High Sensitivity 7.2 ng/L (<3.5-17.0)
[2024-07-02 20:30] LABS: Appearance Urine Clear; Color Urine Yellow; Glucose Urine UA Negative (Negative); Leukocyte Esterase Urine Negative (Negative); Nitrite Urine Negative (Negative); PH 6.5 (5.0-9.0); Specific Gravity - Urine >= 1.030 (1.005-1.025); Urine Blood Negative (Negative); Urine Ketones Negative (Negative); Urine Protein Negative (Neg-Trace)
--- NOTE | 2024-07-02 22:34 | PC.NURSE ---
pt noted to be trying to get out of bed. pt noted to be incontinent of stool. pt assisted with cleaning up and radha care. pt placed on hospital bed for comfort and safety. pt reports she has trouble ambulating at baseline. new purewick placed. bed alarm on.
[2024-07-03 03:50] VITALS: PULSE 84; RESP 20; O2SAT 98
--- NOTE | 2024-07-03 03:50 | PC.NURSE ---
pt resting in hospital bed, respirations even and unlabored.
[2024-07-03 05:53] VITALS: BP 157/80; PULSE 70; RESP 14; TEMP 36.4; O2SAT 99
--- NOTE | 2024-07-03 06:19 | PC.NURSE ---
pt assisted with bed change and radha care.
[2024-07-03 06:23] LABS: INTERNATIONAL NORM RATIO 1.1 (0.9-1.1); Prothrombin Time 12.9 SEC (10.9-12.4)
--- NOTE | 2024-07-03 07:58 | MHC.EDTECH ---
Patient ate 75% of breakfast. Call ramirez within reach. Resting, patient states she is comfortable.
--- NOTE | 2024-07-03 12:04 | MHC.CM.ED ---
Addendum entered by Chioma Francisco 07/03/24 12:46: [facility] is able to offer a bed and is in the process of obtaining insurance auth. Original Note: Received case management consult overnight. Paul came to the ER after a fall. Physical therapy eval completed. Short term rehab is recommended. Attempted to meet with patient in regards to discharge planning. Nursing care currently being provided. Spoke with patient's /HCP, Davon, via telephone at [phone]. Patient lives with Davon and their granddaughter, Verónica. PCP verified. Copy of HCP verified to be on file. Patient was at [facility] for short term rehab in the past. Referral made to [facility] via [facility]. Continue to monitor for d/c needs.
--- NOTE | 2024-07-03 13:34 | PHA.MEDREC ---
Addendum entered by Spencer Lopez [facility] 07/03/24 13:38: MED REC CHECKED BY [facility] Original Note: Pharmacy Consult ? Medication Reconciliation Pharmacy has completed the medication reconciliation. Spoke to patient Davon to confirm med list. Davon was able to name all of patients medications. He confirmed Warfarin 5 mg on Mondays and 2.5 mg all other days, however he doesn't know if the dose will be changing.
[2024-07-03 14:25] VITALS: BP 133/66; PULSE 70; RESP 16; TEMP 36.3; O2SAT 98
--- NOTE | 2024-07-03 15:29 | MHC.CM.ED ---
Patient remains in ER overflow. Insurance auth has been obtained by Livia Caceres. Patient can leave at 5pm. Nanci AMOR booked. Med nec with chart. Patient, spouse Basilia Mays RN and Mari CHRIS aware. Continue to monitor for d/c needs.
--- NOTE | 2024-07-03 16:23 | PC.NURSE ---
Report called to [facility] at 1615.
[2024-07-03] MEDS: Warfarin Sodium 2.5 MG TABLET PO (17:12)
[2024-07-03] MEDS: Aspirin Enteric Coated 81 MG TABLET.DR PO (17:12)
[2024-07-03] MEDS: Cholecalciferol (Vitamin D3) 25 MCG TABLET PO (17:12)
[2024-07-03] MEDS: Spironolactone 25 MG TABLET PO (17:12)
[2024-07-03] MEDS: Cyanocobalamin (Vitamin B-12) 1,000 MCG TABLET 1000 MCG PO (17:12)
[2024-07-03] MEDS: Metoprolol Succinate ER 50 MG TAB.ER.24H PO (17:12)
[2024-07-03] MEDS: Atorvastatin Calcium 40 MG TABLET PO (17:12)
[2024-07-03 17:14] VITALS: BP 138/82; PULSE 62; RESP 15; TEMP 36.6; O2SAT 96
== END 2024-07-03 17:38 | disposition skilled nursing facility (03) ==
PROVIDERS: Physician Assistant Medical; Emergency Provider Emergency Medicine Emergency Medical Services; PCP Internal Medicine
DX: R06.02 Shortness of breath (principal); S09.90XA Unspecified injury of head, initial encounter; R94.31 Abnormal electrocardiogram [ECG] [EKG]; F03.90 Unspecified dementia, unspecified severity, without behavioral disturbance, psychotic disturbance, mood disturbance, and anxiety; R51.9 Headache, unspecified; M54.2 Cervicalgia; I48.91 Unspecified atrial fibrillation; R11.0 Nausea; I10 Essential (primary) hypertension; R26.81 Unsteadiness on feet; W06.XXXA Fall from bed, initial encounter; Y93.9 Activity, unspecified; Y92.9 Unspecified place or not applicable; Y99.8 Other external cause status; Z79.899 Other long term (current) drug therapy; Z79.01 Long term (current) use of anticoagulants; Z03.818 Encounter for observation for suspected exposure to other biological agents ruled out
CPT/HCPCS: 0241U; 36415; 70450; 72125; 80048; 80076; 81003; 82550; 83690; 83735; 84484; 85025; 85610; 93005; 96360; 96361; 97162; 99285

== ENCOUNTER → 2024-07-02 14:09 | Outpatient (BNV) | payer MEDICARE, SELFPAY | PROVIDERS: Emergency Provider Emergency Medicine Emergency Medical Services; Visit Provider Radiology Diagnostic Radiology | DX: R53.1 Weakness (principal); R41.0 Disorientation, unspecified | CPT/HCPCS: 70450; 72125 ==

== ENCOUNTER → 2024-07-02 14:09 | Outpatient (BNV) | payer MEDICARE, SELFPAY | PROVIDERS: Emergency Provider Emergency Medicine Emergency Medical Services; Visit Provider Internal Medicine | DX: R94.31 Abnormal electrocardiogram [ECG] [EKG] (principal) | CPT/HCPCS: 93010 ==

== ENCOUNTER 2024-10-30 19:10 | Emergency (ER) | payer MEDICARE, SELFPAY ==
[2024-10-30 19:24] VITALS: BP 131/63; TEMP 37.1; BMI 30.7
--- NOTE | 2024-10-30 19:24 | ED.GENADULT ---
HPI - General Adult General Chief complaint: Fall Stated complaint: fall/lowered to ground by Time Seen by Provider: 10/30/24 19:23 Source: patient and family ( at bedside corroborating history) Mode of arrival: EMS Limitations: other (Dementia) History of Present Illness ED Provider: Radha Pelayo PA-C HPI narrative: 83-year-old female accompanied by , with medical history of significant for dementia,a fib with pacemaker with stents on coumadin currently being followed by Cardiology at [facility], hypertension, hyperlipidemia, who presents to the ED by EMS due to progressive weakness. Patient is poor historian and trails off with ideas. acting as historian as he takes care of patient at home. reports a progressive weakness over the last 3 days with increased difficulty walking. reports tonight after dinner, the patient was using walker to ambulate to the bathroom, when she became fatigued and needed to sit down abruptly while ambulating back to the couch. states he had to matson over to patient to help lower her to the ground when she could not make it to her chair. He states the patient did not fall but was lowered to the ground, did not have head strike and did not have LOC. is concerned over patients weakness and difficulty walking, states he needs help caring for her right now as their granddaughter is out of town and cannot help. is requesting short term rehab stay. Denies chest pain, SOB, nausea, vomiting, black/tarry stool, headache, visual changes Related Data Home Medications ?Medication ?Instructions ?Recorded ?Confirmed Lactobacillus rhamnosus GG 10 1 cap PO DAILY 02/14/24 10/31/24 billion cell capsule atorvastatin 40 mg tablet 40 mg PO DAILY 02/14/24 10/30/24 calcium carbonate 600 mg PO DAILY 02/14/24 10/31/24 cholecalciferol (vitamin D3) 25 25 mcg PO DAILY 02/14/24 10/31/24 mcg (1,000 unit) capsule (Vitamin D3) cyanocobalamin (vitamin B-12) 1,000 mcg PO DAILY 02/14/24 10/31/24 1,000 mcg tablet famotidine 20 mg tablet 20 mg PO DAILY 02/14/24 10/31/24 metoprolol succinate 50 mg 50 mg PO DAILY 02/14/24 10/30/24 tablet,extended release 24 hr spironolactone 25 mg tablet 25 mg PO DAILY 02/14/24 10/30/24 warfarin 5 mg tablet 5 mg PO MOFR@1800 02/14/24 10/31/24 acetaminophen 325 mg tablet 650 mg PO Q6H PRN Pain 07/03/24 10/31/24 aspirin 81 mg tablet,delayed 81 mg PO DAILY 07/03/24 10/31/24 release warfarin 5 mg tablet 2.5 mg PO SUTUWETHSA@1800 07/03/24 10/31/24 vit C 250 mg-E 90 mg-zinc 40 1 cap PO BID 10/31/24 10/31/24 mg-copper 2 mg-lutein 5 mg-zeaxan capsule (Theatro) Allergies Allergy/AdvReac Type Severity Reaction Status Date / Time No Known Allergies Allergy Verified 10/30/24 19:25 Review of Systems Review of Systems: CONST: Negative for fever, body aches and chills. HENT: Negative for neck pain/stiffness, headache, congestion, sore throat, swelling. EYES: Negative for discharge/pain or vision changes. RESP: Negative for cough/hemoptysis and shortness of breath. CV: Negative chest pain, difficulty breathing, palpitations. ABD: Negative pain, nausea, vomiting. : Negative increase frequency, dysuria, blood in urine or stool. MUSC: Negative for muscle aches, edema. SKIN: Negative rash, lesions/sores. NEURO: Negative headache, dizziness. POS weakness Yes all other systems are reviewed and are negative PMFSH Past Medical History Attestation statement: The following information was validated with the patient. Source: old records reviewed, obtained from family ( at bedside corroborating history) and nursing notes reviewed Social History Social History Smoked in Last 30 Days: No Advance Directives: Yes Advance Directives on File: Yes Advance Directives Date on File: 02/15/24 Physical Exam ED Vital Signs: Vital Signs - 24 hr 11/02/24 20:20 11/03/24 07:37 Temperature 98 F 97.1 F Pulse Rate 69 76 Respiratory Rate 17 16 Blood Pressure 147/62 H 149/61 H Pulse Oximetry 96 97 Oxygen Delivery Method Room Air Room Air BMI result Body Mass Index 30.7 GENERAL APPEARANCE: ?AxOx3, but patient trails off with ideas while talking with her and can become confused when asking her questions. Patient is poor historian due to dementia, no acute distress. HEENT: ?NC, AT. MMM. EOMI, clear conjunctiva, oropharynx clear. NECK: ?Supple without lymphadenopathy.? No stiffness or restricted ROM. HEART:? Normal rate and regular rhythm, normal S1/S1, no m/r/g LUNGS:? CTAB, moving air well. No crackles or wheezes are heard. ABDOMEN: ?Soft, nontender, nondistended with good bowel sounds heard. BACK: No CVAT, no obvious deformity. EXTREMITIES: ?Without cyanosis, clubbing or edema. NEUROLOGICAL: ?Grossly nonfocal. Alert and oriented, moving all 4 extremities. Cannot assess gait at this time due to patients weakness and increased difficulty walking. Skin: ?Warm and dry without any rash. Course Reevaluation(s) Reevaluation #1: Received a call from nursing an overflow, the patient has been having daily coags drawn, her INR is not therapeutic. We are changing the order to Q 2 days Time: 20:41 Time: 08:29 Reevaluation #3: 11/03/24 08:29 CRISTOPHER Rubi: Physician observation continued, no overnight events reported by nursing. Case management awaiting insurance authorization for short-term rehab placement, following for disposition. Vital stable. Time: 14:23 Additional Reevaluation(s): 11/03/24 14:23 CRISTOPHER Rubi: Per Chioma from , patient will be discharged to [facility] for short term rehab today. Observation care revealed that patient does not meet medical necessity for hospitalization. Final disposition discussed with patient. The patient completed observation care at 16:00 on 11/03/2024. Medications Administered Discontinued Medications Generic Name Dose Route Start Last Admin Trade Name Freq PRN Reason Stop Dose Admin Aspirin 81 mg 11/01/24 09:00 11/03/24 08:54 Aspirin Enteric Coated 81 Mg Tablet. PO 81 mg DAILY BLAIRE Administration Atorvastatin Calcium 40 mg 10/31/24 09:00 11/03/24 08:55 Atorvastatin Calcium 40 Mg Tablet PO 40 mg DAILY BLAIRE Administration Calcium Carbonate 750 mg 11/01/24 09:00 11/03/24 08:55 Calcium Carbonate 750 Mg Tab.Chew PO 750 mg DAILY BLAIRE Administration Cyanocobalamin 1,000 mcg 11/01/24 09:00 11/03/24 08:55 Cyanocobalamin (Vitamin B-12) 1,000 Mcg Tablet PO 1,000 mcg DAILY BLAIRE Administration Famotidine 20 mg 11/01/24 09:00 11/03/24 08:54 Famotidine 20 Mg Tablet PO 20 mg DAILY BLAIRE Administration Metoprolol Succinate 50 mg 10/31/24 09:00 11/03/24 08:54 Metoprolol Succinate Er 50 Mg Tab.Er.24h PO 50 mg DAILY BLAIRE Administration Protocol Spironolactone 25 mg 10/31/24 09:00 11/03/24 08:53 Spironolactone 25 Mg Tablet PO 25 mg DAILY BLAIRE Administration Protocol Vitamin D 25 mcg 11/01/24 09:00 11/03/24 08:55 Cholecalciferol (Vitamin D3) 25 Mcg Tablet PO 25 mcg DAILY BLAIRE Administration Warfarin Sodium 2.5 mg 11/02/24 18:00 11/02/24 21:19 Warfarin Sodium 2.5 Mg Tablet PO 2.5 mg SUTUWETHSA@1800 BLAIRE Administration Warfarin Sodium 5 mg 11/01/24 18:00 11/01/24 18:40 Warfarin Sodium 5 Mg Tablet PO 11/01/24 18:01 5 mg ONCE ONE Administration Medical Decision Making Medical Decision Making MDM Narrative: 83-year-old female accompanied by , with medical history of significant for dementia,a fib with pacemaker with stents on coumadin currently being followed by Cardiology at [facility], hypertension, hyperlipidemia, who presents to the ED by EMS due to progressive weakness. Patient is poor historian and trails off with ideas. acting as historian as he takes care of patient at home. reports a progressive weakness over the last 3 days with increased difficulty walking. reports tonight after dinner, the patient was using walker to ambulate to the bathroom, when she became fatigued and needed to sit down abruptly while ambulating back to the couch. states he had to matson over to patient to help lower her to the ground when she could not make it to her chair. He states the patient did not fall but was lowered to the ground, did not have head strike and did not have LOC. is concerned over patients weakness and difficulty walking, states he needs help caring for her right now as their granddaughter is out of town and cannot help. is requesting short term rehab stay. Patient has no physical complaints. VSS, in no acute distress, nontoxic appearing. Patient has worsening dementia, is poor historian, is oriented x3, but trails off with ideas and becomes confused while talking. at bedside, states dementia is getting worse. Physical exam benign, lungs clear to auscultation bilaterally, cardiac exam shows a normal rate and rhythm with no murmurs rubs or gallops. There is no lower extremity edema. No focal neurological deficits noted. Can not assess patient's gait as she is weak and having difficulty walking at this time. is requesting short-term rehab stay as he is having increased difficulty caring for her at home. Patient has no physical complaints. EKG shows a ventricular-paced rhythm without ST elevation/depression/T-wave abnormalities, initial troponin WNL- less likely ACS Labs WNL, PT/INR within ideal range. Awaiting UA. Case management and PT eval for A.M. as is requesting short term rehab stay. Course 04:40- Patient care being resumed by my colleague Dr. Sherin Garcia. Patient is sleeping comfortably at this time, awaiting PT eval and case management consult later in the morning. Time: 08:02 Date: 11/01/24 Provider: DOT Goodman Patient in physician observation for case management needs. No acute events reported overnight.? No current issues or complaints. VS stable. Patient was seen by Physical therapy, short-term rehab is recommended. Awaiting insurance authorization. Will continue to monitor pending case management disposition. Time: 15:27 Date: 11/02/24 Provider: DOT Goodman Patient in physician observation for case management needs. No acute events reported overnight.? No current issues or complaints. VS stable. Patient is pending placement at facility. Will continue to monitor. Differential Diagnosis Differential Diagnoses: The differential diagnosis associated with the presentation includes ACS Electrolyte abnormality Advancing dementia Failure to thrive Admission/Observation Consideration of admission/observation: Escalation of care including admission/observation considered Consult Healthcare Provider Management of the patient was discussed with: Chemical Project Engineer (PT eval/ Case management) Lab Data MDM Lab Attestation statement: I reviewed the patient's lab results. 10/30/24 21:10 10/30/24 21:10 Labs: Lab Results 10/30/24 10/31/24 10/31/24 Range/Units 21:10 08:58 10:03 WBC 8.8 (4.8-10.8) X10*3/uL RBC 4.14 L (4.20-5.50) X10*6/uL Hgb 14.3 (12.0-16.0) g/dl Hct 41.5 (37.0-47.0) % MCV 100.2 H (80.0-98.0) fL MCH 34.5 H (27.0-33.0) pg MCHC 34.5 (31.0-35.0) g/dl RDW 13.3 (11.0-16.0) % Plt Count 190 (160-400) X10*3/uL MPV 10.9 (9.4-12.3) fL Immature Gran % (Auto) 0.2 (0.0-0.4) % Neut % (Auto) 69.7 (45-73) % Lymph % (Auto) 22.7 (20-40) % [place] % (Auto) 5.2 (2-11) % Eos % (Auto) 1.6 (0-4) % Baso % (Auto) 0.6 (0-2) % Lymph # (Auto) 2.0 (1.2-4.9) X10*3/uL [place] # (Auto) 0.5 (0.1-1.2) X10*3/uL Eos # (Auto) 0.1 (0.0-0.4) X10*3/uL Baso # (Auto) 0.1 (0.0-0.2) X10*3/uL Abs Immat Gran (auto) 0.02 (0.00-0.03) X10*3/uL Absolute Neuts (auto) 6.2 (2.0-8.3) x10*3/uL Absolute Nucleated RBC 0.000 (0.0-0.012) X10*3/uL Nucleated RBC % (auto) 0.0 (0.0-0.2) /100WBC Hold Purple Top SEE NOTE PT 26.2 H D 21.9 H (10.9-12.4) SEC INR 2.3 H 1.9 H (0.9-1.1) Sodium 143 (135-145) mmol/L Potassium 4.4 (3.3-5.1) mmol/L Chloride 109 H (96-108) mmol/L Carbon Dioxide 25 (22-29) mmol/L Anion Gap 13 (12-20) BUN 24 H (9-16) mg/dL Creatinine 0.90 (0.5-1.4) mg/dL Estim Creat Clear Calc 46.8 Estimated GFR > 60 Random Glucose 128 H (60-115) mg/dL Calcium 9.3 D (8.4-10.2) mg/dL Magnesium 2.1 (1.6-2.6) mg/dL Total Bilirubin 0.2 (0.0-1.0) mg/dL AST 34 H (5-31) U/L ALT 39 H (0-31) U/L Alkaline Phosphatase 88 (39-117) U/L Troponin I High Sens 4.4 (<3.5-17.0) ng/L Total Protein 7.0 (6.5-8.0) g/dL Albumin 4.1 (3.5-5.0) g/dL Urine Color Urine Appearance Urine pH (5.0-9.0) Ur Specific [place] (1.005-1.025) Urine Protein (Neg-Trace) mg/dL Urine Glucose (UA) (Negative) mg/dL Urine Ketones (Negative) mg/dL Urine Blood (Negative) Urine Nitrite (Negative) Ur Leukocyte Esterase (Negative) Urine RBC (0-2) /HPF Urine WBC (0-5) /HPF Ur Squamous Epith Cells (0-2) /HPF Urine Bacteria (None Seen) Hyaline Casts (0-2) /LPF Influenza Type A (PCR) NEGATIVE (Negative) Influenza Type B (PCR) NEGATIVE (Negative) RSV RNA Qual (PCR) NEGATIVE (Negative) SARS-CoV-2 RNA (RT-PCR) NEGATIVE (Negative) 11/01/24 11/02/24 11/02/24 Range/Units 06:36 06:01 06:21 WBC (4.8-10.8) X10*3/uL RBC (4.20-5.50) X10*6/uL Hgb (12.0-16.0) g/dl Hct (37.0-47.0) % MCV (80.0-98.0) fL MCH (27.0-33.0) pg MCHC (31.0-35.0) g/dl RDW (11.0-16.0) % Plt Count (160-400) X10*3/uL MPV (9.4-12.3) fL Immature Gran % (Auto) (0.0-0.4) % Neut % (Auto) (45-73) % Lymph % (Auto) (20-40) % [place] % (Auto) (2-11) % Eos % (Auto) (0-4) % Baso % (Auto) (0-2) % Lymph # (Auto) (1.2-4.9) X10*3/uL [place] # (Auto) (0.1-1.2) X10*3/uL Eos # (Auto) (0.0-0.4) X10*3/uL Baso # (Auto) (0.0-0.2) X10*3/uL Abs Immat Gran (auto) (0.00-0.03) X10*3/uL Absolute Neuts (auto) (2.0-8.3) x10*3/uL Absolute Nucleated RBC (0.0-0.012) X10*3/uL Nucleated RBC % (auto) (0.0-0.2) /100WBC Hold Purple Top PT 17.9 H 15.0 H (10.9-12.4) SEC INR 1.6 H 1.3 H (0.9-1.1) Sodium (135-145) mmol/L Potassium (3.3-5.1) mmol/L Chloride (96-108) mmol/L Carbon Dioxide (22-29) mmol/L Anion Gap (12-20) BUN (9-16) mg/dL Creatinine (0.5-1.4) mg/dL Estim Creat Clear Calc Estimated GFR Random Glucose (60-115) mg/dL Calcium (8.4-10.2) mg/dL Magnesium (1.6-2.6) mg/dL Total Bilirubin (0.0-1.0) mg/dL AST (5-31) U/L ALT (0-31) U/L Alkaline Phosphatase (39-117) U/L Troponin I High Sens (<3.5-17.0) ng/L Total Protein (6.5-8.0) g/dL Albumin (3.5-5.0) g/dL Urine Color Yellow Urine Appearance Clear Urine pH 6.0 (5.0-9.0) Ur Specific [place] 1.025 (1.005-1.025) Urine Protein Negative (Neg-Trace) mg/dL Urine Glucose (UA) Negative (Negative) mg/dL Urine Ketones Trace (Negative) mg/dL Urine Blood Negative (Negative) Urine Nitrite Positive H (Negative) Ur Leukocyte Esterase Negative (Negative) Urine RBC 0-2 (0-2) /HPF Urine WBC 0-5 (0-5) /HPF Ur Squamous Epith Cells 0-2 (0-2) /HPF Urine Bacteria 4+ (None Seen) Hyaline Casts 0-2 (0-2) /LPF Influenza Type A (PCR) (Negative) Influenza Type B (PCR) (Negative) RSV RNA Qual (PCR) (Negative) SARS-CoV-2 RNA (RT-PCR) (Negative) 11/03/24 Range/Units 11:07 WBC (4.8-10.8) X10*3/uL RBC (4.20-5.50) X10*6/uL Hgb (12.0-16.0) g/dl Hct (37.0-47.0) % MCV (80.0-98.0) fL MCH (27.0-33.0) pg MCHC (31.0-35.0) g/dl RDW (11.0-16.0) % Plt Count (160-400) X10*3/uL MPV (9.4-12.3) fL Immature Gran % (Auto) (0.0-0.4) % Neut % (Auto) (45-73) % Lymph % (Auto) (20-40) % [place] % (Auto) (2-11) % Eos % (Auto) (0-4) % Baso % (Auto) (0-2) % Lymph # (Auto) (1.2-4.9) X10*3/uL [place] # (Auto) (0.1-1.2) X10*3/uL Eos # (Auto) (0.0-0.4) X10*3/uL Baso # (Auto) (0.0-0.2) X10*3/uL Abs Immat Gran (auto) (0.00-0.03) X10*3/uL Absolute Neuts (auto) (2.0-8.3) x10*3/uL Absolute Nucleated RBC (0.0-0.012) X10*3/uL Nucleated RBC % (auto) (0.0-0.2) /100WBC Hold Purple Top PT 19.1 H D (10.9-12.4) SEC INR 1.7 H (0.9-1.1) Sodium (135-145) mmol/L Potassium (3.3-5.1) mmol/L Chloride (96-108) mmol/L Carbon Dioxide (22-29) mmol/L Anion Gap (12-20) BUN (9-16) mg/dL Creatinine (0.5-1.4) mg/dL Estim Creat Clear Calc Estimated GFR Random Glucose (60-115) mg/dL Calcium (8.4-10.2) mg/dL Magnesium (1.6-2.6) mg/dL Total Bilirubin (0.0-1.0) mg/dL AST (5-31) U/L ALT (0-31) U/L Alkaline Phosphatase (39-117) U/L Troponin I High Sens (<3.5-17.0) ng/L Total Protein (6.5-8.0) g/dL Albumin (3.5-5.0) g/dL Urine Color Urine Appearance Urine pH (5.0-9.0) Ur Specific [place] (1.005-1.025) Urine Protein (Neg-Trace) mg/dL Urine Glucose (UA) (Negative) mg/dL Urine Ketones (Negative) mg/dL Urine Blood (Negative) Urine Nitrite (Negative) Ur Leukocyte Esterase (Negative) Urine RBC (0-2) /HPF Urine WBC (0-5) /HPF Ur Squamous Epith Cells (0-2) /HPF Urine Bacteria (None Seen) Hyaline Casts (0-2) /LPF Influenza Type A (PCR) (Negative) Influenza Type B (PCR) (Negative) RSV RNA Qual (PCR) (Negative) SARS-CoV-2 RNA (RT-PCR) (Negative) Independent Interpretation I performed an independent interpretation of an: EKG Interpretation: I independently interpreted the EKG: Vent. Rate : 71 BPM Atrial Rate : 72 BPM P-R Int : * ms QRS Dur : 116 ms QT Int : 432 ms P-R-T Axes : 61 -86 68 degrees QTcB Int : 469 ms Ventricular-paced rhythm, no significant change found when comparing with prior EKGs. Independent Historian Clinical information obtained from an independent historian. History obtained from or confirmed by: Spouse ( at bedside corroborating history) External Record Review External record reviewed: Inpatient record, Office record and Outpatient record Chronic Conditions Patient?s care impacted by: Other (AFib on Coumadin, dementia, HLD, HTN) Discharge Plan Discharge Clinical Impression: Weakness Patient Disposition: Xfer Inpatient Rehab Fac Transfer Details: to [facility] for [facility] Additional Instructions: Follow-up with your primary care provider. Return to the emergency department with new or worsening symptoms. Prescriptions: No Action atorvastatin 40 mg Tablet 40 mg PO DAILY cyanocobalamin (vitamin B-12) 1,000 mcg Tablet 1,000 mcg PO DAILY calcium carbonate 600 mg calcium (1,500 mg) Tablet 600 mg PO DAILY Lactobacillus rhamnosus GG 10 billion cell Capsule 1 cap PO DAILY cholecalciferol (vitamin D3) [Vitamin D3] 25 mcg (1,000 unit) Capsule 25 mcg PO DAILY metoprolol succinate 50 mg Tablet Extended Release 24 Hr 50 mg PO DAILY spironolactone 25 mg Tablet 25 mg PO DAILY warfarin 5 mg Tablet 5 mg PO MOFR@1800 Rx Instructions: Take 1 tablet (5mg) daily x 2 days/week on Mon & Sun. Take 1/2 tablet (2.5mg) daily x 5 days/week on ,,,,. famotidine 20 mg Tablet 20 mg PO DAILY acetaminophen 325 mg Tablet 650 mg PO Q6H PRN (Reason: Pain) aspirin [Aspir-81] 81 mg Tablet,Delayed Release (Dr/Ec) 81 mg PO DAILY warfarin 5 mg tablet 2.5 mg PO SUTUWETHSA@1800 Rx Instructions: Take 1 tablet (5mg) daily x 2 days/week on Mon & Fri. Take 1/2 tablet (2.5mg) daily x 5 days/week on ,,,,. Theatro 111-05-22-2-5 mg Capsule 1 cap PO BID Referrals: Lviia Garnica [Outside] Referral Note: [address], [place] [address] Mani Nation MD [Primary Care Provider, Medical] - 1 Week Interventions: ED Discharge Assessment Last Done: 11/03/24 16:47 Discharge Date/Time: 11/03/24 16:50 Print Language: Serbian
[2024-10-30 19:26] VITALS: BP 131/63; PULSE 75; RESP 16; TEMP 37.1; O2SAT 97
--- NOTE | 2024-10-30 19:27 | ECG_ITS ---
Test Reason : WEAKNESS Blood Pressure : */* mmHG Vent. Rate : 71 BPM Atrial Rate : 72 BPM P-R Int : * ms QRS Dur : 116 ms QT Int : 432 ms P-R-T Axes : 61 -86 68 degrees QTcB Int : 469 ms Ventricular-paced rhythm Abnormal ECG When compared with ECG of 02-Jul-2024 15:17, No significant change was found Referred By: Gita Garcia Electronically Signed By: Hair Mendoza
--- NOTE | 2024-10-30 20:59 | MHC.CM.ED ---
Addendum entered by Lyndsey Saleh 10/30/24 21:08: PCP and insurance verified. Pt has [employer] Medicare. Original Note: CM met with patient and her . A&Ox2. Pt has dementia. cares for her with the help of his granddaughter and her fiance. He has no other help in the home. They have been for 64 years last week. She uses a cane, rollator and commode. Pt is unable to answer most questions at this time. reports patient has been getting weaker over the past several days. She eats a regular diet and normally is continent and uses the bathroom independently. She sleeps 12-14 hours a day. HCP on file. /HCP #1 Davon ([phone]) and HCP #2/granddaughter Verónica Krishnamurthy. Verónica and her fiance both live in the home and help to care for this patient. Pt was hospitalized in June at [facility] and went to [facility] for rehab. She then had [facility] at home. is agreeable to PT evaluation in the morning. First choice for STR is [facility]. Will place referrals locally.
--- OUTSIDE RECORDS SUMMARY | 2024-10-30 21:05 | XMS_ITS | Encounter Summary ---
Author Organization [facility] Address [address] [place] [address] Care Team Providers Care Machine Edge Bander Name Role Phone Mani Nation MD Primary Care Provider [phone] Reason for Visit * Reason Onset Date Comments Needs f/u with Dr Fox after PFT 01/25/2021 Encounter Details Date Type Department Care Team (Late st Contact Info) Description 01/25/2021 Telephone [facility] Central Scheduling Department [address] [place] [id number] Telephone Intake, Staff Needs f/u with Dr [...] not populate. She can be reached at [phone] documented in this encounter Plan of Treatment Upcoming Encounters Date Type Department Care Team (Late st Contact Info) Description 05/08/2025 2:15 PM EST Appointment [facility] [address] [place] [address] Wing Jeffery MD PhD [address] [place] [address] Scheduled Procedures Name Priority Associated Diagnoses Date/Ti [...] documented as of this encounter Care Teams Machine Edge Bander Relationship Specialty Start Date End Date Mani Nation MD [address] [place] [address], [address] [place] [address] PCP - General 11/09/16 documented as of this encounter
--- OUTSIDE RECORDS SUMMARY | 2024-10-30 21:05 | XMS_ITS | Encounter Summary ---
Author Organization [facility] Address [address] [place] [address] Care Team Providers Care Supervisor Heat Treating Name Role Phone Huang Oviedo MD Primary Care Provider [phone] Encounter Details Date Type Department Care Team (Late st Contact Info) Description 02/27/2024 Lab Requisition [facility] - Main Lab [address] [facility] [place] [address] Huang Oviedo MD [address] [place] [address] Unspecified atrial fibrillation (CMS/HCC V24, CMS/HCC V28) Social History Tobacco Use Types Packs/Day Years [...] encounter Visit Diagnoses Diagnosis Unspecified atrial fibrillation (CMS/HCC V24, CMS/HCC V28) documented in this encounter Care Teams Supervisor Heat Treating Relationship Specialty Start Date End Date Huang Oviedo MD [address] [place] [address] PCP - General Internal Medicine 03/10/24 documented as of this encounter
[2024-10-30 21:16] LABS: MANUAL DIFF FLAG NO
[2024-10-30 21:17] LABS: Hematocrit 41.5 % (37.0-47.0); Hemoglobin 14.3 g/dl (12.0-16.0); Imm Gran Abs Auto 0.02 X10*3/uL (0.00-0.03); Imm Gran Pct Auto 0.2 % (0.0-0.4); Lymphocytes Absolute Auto 2.0 X10*3/uL (1.2-4.9); Mean Corpuscular HGB Conc 34.5 g/dl (31.0-35.0); Mean Corpuscular Hemoglobin 34.5 pg (27.0-33.0); Mean Corpuscular Volume 100.2 fL (80.0-98.0); NRBC Abs Auto 0.000 X10*3/uL (0.0-0.012); NRBC Pct Auto 0.0 /100WBC (0.0-0.2); Platelet Count 190 X10*3/uL (160-400); Red Blood Count 4.14 X10*6/uL (4.20-5.50); White Blood Count 8.8 X10*3/uL (4.8-10.8)
[2024-10-30 21:22] LABS: INTERNATIONAL NORM RATIO 2.3 (0.9-1.1); Prothrombin Time 26.2 SEC (10.9-12.4)
[2024-10-30 21:30] LABS: Potassium 4.4 mmol/L (3.3-5.1); Sodium 143 mmol/L (135-145)
[2024-10-30 21:31] LABS: Alanine Aminotransferase 39 U/L (0-31); Albumin Level 4.1 g/dL (3.5-5.0); Alkaline Phosphatase 88 U/L (39-117); Anion Gap 13 (12-20); Aspartate Amino Transferase 34 U/L (5-31); Blood Urea Nitrogen 24 mg/dL (9-16); Calcium 9.3 mg/dL (8.4-10.2); Carbon Dioxide 25 mmol/L (22-29); Chloride 109 mmol/L (96-108); Creatinine Clr Calc Pharmacy 46.8; Estimated Glomerular Filt Rate > 60; Magnesium 2.1 mg/dL (1.6-2.6); Total Protein 7.0 g/dL (6.5-8.0)
[2024-10-30 21:37] LABS: Troponin-I High Sensitivity 4.4 ng/L (<3.5-17.0)
[2024-10-31 05:32] VITALS: BP 143/67; PULSE 70; RESP 16; TEMP 36.6; O2SAT 98
[2024-10-31 09:43] LABS: Resp Syncy Virus RNA Qual PCR NEGATIVE (Negative); SARS COV2 PCR INHOUSE NEGATIVE (Negative)
--- NOTE | 2024-10-31 10:24 | PHA.MEDREC ---
Warfarin Dosing Pt has dementia. This [facility] called pt's to confirm warfarin dosinMG ON MO,FR; 2.5MG ON GUERRERO,,,,SA.
[2024-10-31 10:28] LABS: INTERNATIONAL NORM RATIO 1.9 (0.9-1.1); Prothrombin Time 21.9 SEC (10.9-12.4)
[2024-10-31 10:56] VITALS: BP 154/74; PULSE 71; RESP 17; TEMP 36.7; O2SAT 96
[2024-10-31] MEDS: Metoprolol Succinate ER 50 MG TAB.ER.24H PO (10:58)
[2024-10-31 12:30] VITALS: BP 154/74; PULSE 71; O2SAT 96
--- NOTE | 2024-10-31 12:36 | PHA.MEDREC ---
Pharmacy Consult ? Medication Reconciliation Pharmacy has completed the medication reconciliation. Spoke with pt's Davon to confirm medications. He states he may be best contacted at [phone].
--- NOTE | 2024-10-31 13:08 | MHC.CM.ED ---
Patient remains in ER overflow. Physical therapy eval completed. Short term rehab is recommended. [facility] is able to offer a bed and is in the process of obtaining insurance auth. Patient and , Davon aware. Unlikely to get auth today. Possible to obtain on Wednesday 11/01. Otherwise patient will remain in ER until Sunday. Continue to monitor for d/c needs.
--- NOTE | 2024-10-31 13:18 | PC.NURSE ---
83-year-old female with medical history of significant for dementia,a fib with pacemaker with stents on coumadin currently being followed by Cardiology at [facility], hypertension, hyperlipidemia, who presents to the ED by EMS due to progressive weakness. Patient is poor historian and trails off with ideas. acting as historian as he takes care of patient at home. reports a progressive weakness over the last 3 days with increased difficulty walking. reports tonight after dinner, the patient was using walker to ambulate to the bathroom, when she became fatigued and needed to sit down abruptly while ambulating back to the couch. states he had to matson over to patient to help lower her to the ground when she could not make it to her chair. He states the patient did not fall but was lowered to the ground. is concerned over patients weakness and difficulty walking, states he needs help caring for her right now as their granddaughter is out of town and cannot help. is requesting short term rehab stay. Patient alert an confused. Able to follow simple commands. Respirations even and non-labored. Abdomen soft, distened, non-tender with positive bowel sounds. Noted to incontinent of a large amount of urine. Incontinence care provided and purewick applied. Periarea noted to reddened. Positive pedal pulses with some LE edema noted. Pending STR.
[2024-10-31 14:00] VITALS: BP 154/72; PULSE 72; RESP 16; TEMP 36.1; O2SAT 99
--- NOTE | 2024-10-31 21:48 | PC.NURSE ---
assumed care of pt. Pt boosted in bed and reoriented to hospital setting, advised that her is aware she is here and should be back in the morning.
[2024-10-31 21:49] VITALS: BP 155/58; PULSE 80; RESP 18; TEMP 36.9; O2SAT 99
[2024-11-01 06:36] VITALS: BP 158/82; PULSE 73; RESP 18; TEMP 36.5; O2SAT 99
[2024-11-01 06:50] LABS: INTERNATIONAL NORM RATIO 1.6 (0.9-1.1); Prothrombin Time 17.9 SEC (10.9-12.4)
--- NOTE | 2024-11-01 07:24 | PC.NURSE ---
pt sleeping, wakes to verbal stimulus, rr equal/non labored- lungs clear/diminished, vitals previously stable, pure wick patient/draining, fall precautions intact, call ramierz within reach, plan of care ongoing.
[2024-11-01] MEDS: Aspirin Enteric Coated 81 MG TABLET.DR PO (10:18)
[2024-11-01 10:19] VITALS: BP 156/63
[2024-11-01 10:20] VITALS: BP 156/63; PULSE 76
[2024-11-01] MEDS: Metoprolol Succinate ER 50 MG TAB.ER.24H PO (10:20)
--- NOTE | 2024-11-01 12:52 | MHC.CM.PN ---
CM AWAITING INSURANCE AUTH FROM [facility], [facility] FOR STR PLACEMENT AT [facility]. CM CONTINUES TO FOLLOW.
[2024-11-01 14:11] VITALS: BP 155/81; PULSE 72; RESP 14; TEMP 36.2; O2SAT 99
--- NOTE | 2024-11-01 16:30 | PC.NURSE ---
pt awake but confused, pt requesting vodka, at bedside, vitals have been stable, pure wick patient/draining, pt turned/positioned per request, call ramirez within reach, plan of care ongoing.
[2024-11-01 21:56] VITALS: BP 137/78; PULSE 79; RESP 19; TEMP 36.8; O2SAT 95
--- NOTE | 2024-11-01 23:10 | PC.NURSE ---
Pt resting comfortably in bed with call ramirez in place. Pt declines offers of snacks and liquids. Pt confused at times, reoriented pt to time.
[2024-11-02 05:10] VITALS: BP 155/86; PULSE 70; RESP 16; TEMP 36.5; O2SAT 97
[2024-11-02 06:09] LABS: Appearance Urine Clear; Glucose Urine UA Negative (Negative); PH 6.0 (5.0-9.0); Specific Gravity - Urine 1.025 (1.005-1.025); UMIC TRIGGER UACC YES
[2024-11-02 06:14] LABS: UACC Culture Trigger YES
[2024-11-02 06:34] LABS: INTERNATIONAL NORM RATIO 1.3 (0.9-1.1); Prothrombin Time 15.0 SEC (10.9-12.4)
[2024-11-02 07:28] VITALS: BP 165/78; PULSE 69; RESP 14; TEMP 36.3; O2SAT 96
[2024-11-02] MEDS: Aspirin Enteric Coated 81 MG TABLET.DR PO (08:55)
[2024-11-02 08:57] VITALS: BP 166/64; PULSE 72
[2024-11-02] MEDS: Metoprolol Succinate ER 50 MG TAB.ER.24H PO (08:57)
[2024-11-02 09:01] VITALS: BP 166/64; PULSE 72; RESP 16; O2SAT 94
--- NOTE | 2024-11-02 16:15 | MHC.EDTECH ---
Pts skin on her inner thighs and labia area was red and irritated. Patient cleaned and barrier cream applied to the area. New purewick was placed. Pt states that she is more comfortable. RN aware.
[2024-11-02 20:20] VITALS: BP 147/62; PULSE 69; RESP 17; TEMP 36.6; O2SAT 96
--- NOTE | 2024-11-02 23:47 | PC.NURSE ---
Patient is confused to place, time, situation. Pleasant and cooperative with care but forgetful. She is weak and deconditioned and has not been oob d/t high falls risk. No issues swallowing. Her radha area is inflamed/excoriated, swollen labia. Her buttocks has dark pigment color but blanches. She had a cream administered to radha area and buttocks at some point that we wiped off. Will need triad or protective ointment, applied moisture barrier cream for now d/t incontinence. All other systems are neggative. She is currently sleeping. All safety measures are in place, rounding frequently to assess needs.
[2024-11-03 07:37] VITALS: BP 149/61; PULSE 76; RESP 16; TEMP 36.2; O2SAT 97
--- NOTE | 2024-11-03 07:56 | PC.NURSE ---
83-year-old female with medical history of significant for dementia,a fib with pacemaker with stents on coumadin currently being followed by Cardiology at [facility], hypertension, hyperlipidemia, who presents to the ED by EMS due to progressive weakness. Patient is poor historian and trails off with ideas. acting as historian as he takes care of patient at home. reports a progressive weakness over the last 3 days with increased difficulty walking. The patient was using walker to ambulate to the bathroom, when she became fatigued and needed to sit down abruptly while ambulating back to the couch. states he had to matson over to patient to help lower her to the ground when she could not make it to her chair. He states the patient did not fall but was lowered to the ground. is concerned over patients weakness and difficulty walking, states he needs help caring for her right now as their granddaughter is out of town and cannot help. is requesting short term rehab stay. Patient alert an confused. Able to follow simple commands. Respirations even and non-labored. Abdomen soft, distened, non-tender with positive bowel sounds. Noted to incontinent of a large amount of urine. Incontinence care provided. Periarea noted to be reddened. Positive pedal pulses with some LE edema noted. Pending STR.
[2024-11-03] MEDS: Aspirin Enteric Coated 81 MG TABLET.DR PO (08:54)
[2024-11-03] MEDS: Metoprolol Succinate ER 50 MG TAB.ER.24H PO (08:54)
--- NOTE | 2024-11-03 10:56 | MHC.CM.ED ---
Patient remains in ER overflow. Waiting for insurance auth for [facility]. Continue to monitor for d/c needs.
[2024-11-03 11:30] LABS: INTERNATIONAL NORM RATIO 1.7 (0.9-1.1); Prothrombin Time 19.1 SEC (10.9-12.4)
--- NOTE | 2024-11-03 12:07 | PC.NURSE ---
Patient incontinent of a large amount of urine. Incontinence care provided and purewick re-applied.
[2024-11-03 14:00] VITALS: BP 112/63; PULSE 70; RESP 18; TEMP 36.6; O2SAT 98
--- NOTE | 2024-11-03 14:10 | MHC.CM.ED ---
[facility] has obtained insurance auth. Patient can leave at 4pm. Nanci AMOR booked. Med nec with chart. Patient, Merlyn Mays RN and Constance NICHOLAS aware. Continue to monitor for d/c needs.
--- NOTE | 2024-11-03 14:40 | PC.NURSE ---
Report given to Toma TANNER at [facility]. Patient to transition to [facility] at 4pm
[2024-11-03 16:44] VITALS: BP 113/57; PULSE 71; RESP 18; TEMP 36.8; O2SAT 97
[2024-11-03 16:47] VITALS: BP 113/57; PULSE 71; RESP 18; TEMP 36.8; O2SAT 97
== END 2024-11-03 16:50 ==
PROVIDERS: Nurse Practitioner Family; Physician Assistant Medical; Emergency Provider Emergency Medicine Emergency Medical Services; PCP Internal Medicine
DX: R42 Dizziness and giddiness (principal); F03.90 Unspecified dementia, unspecified severity, without behavioral disturbance, psychotic disturbance, mood disturbance, and anxiety; I48.91 Unspecified atrial fibrillation; Z79.01 Long term (current) use of anticoagulants; Z95.0 Presence of cardiac pacemaker; I10 Essential (primary) hypertension; E78.5 Hyperlipidemia, unspecified; Z79.899 Other long term (current) drug therapy; Z03.818 Encounter for observation for suspected exposure to other biological agents ruled out
CPT/HCPCS: 36415; 80053; 81001; 83735; 84484; 85025; 85610; 87086; 87637; 93005; 97162; 99285

== ENCOUNTER → 2024-10-30 19:27 | Outpatient (BNV) | payer MEDICARE, SELFPAY | PROVIDERS: Emergency Provider Emergency Medicine Emergency Medical Services; PCP Internal Medicine; Visit Provider Internal Medicine Cardiovascular Disease | DX: R94.31 Abnormal electrocardiogram [ECG] [EKG] (principal); Z95.0 Presence of cardiac pacemaker | CPT/HCPCS: 93010 ==

== ENCOUNTER 2024-12-04 14:04 | Emergency (ER) | payer MEDICARE, SELFPAY ==
--- NOTE | ~2024-12-04 | XR_ITS ---
Examination: Chest 1 view sitting. Right forearm 2 views. Right wrist with scaphoid 4 views. CLINICAL INDICATION: Weakness. COMPARISON: Chest x-ray 02/14/2024. FINDINGS: Right wrist: 4 views of right wrist reveals no visible acute fracture or dislocation. There is calcification of triangle fibrocartilage. There is mild loss of first carpometacarpal joint space with periarticular spurring. Chest: The lungs are hypoexpanded and clear acute process. There is a right central venous catheter with its tip in mid to distal SVC. There are dual pacer electrodes in right atrium and right ventricle. There is a right anterior chest wall loop recorder. The lungs are expanded and clear. Heart size and pulmonary vascularity is normal. There is mild dextroscoliosis. No gross bony abnormality seen. Right forearm: Visualized entire radius and ulna appears intact. There is no visible acute fracture or bony abnormality. Mild vascular calcifications are present. XR/XR forearm RT 2V IMPRESSION: Unremarkable right forearm exam. 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 No acute fracture or dislocation seen. Unremarkable chest exam. Electronically signed by: Marino Mcclelland MD 12/04/2024 04:16 PM EDT
--- NOTE | ~2024-12-04 | XR_ITS ---
Examination: Chest 1 view sitting. Right forearm 2 views. Right wrist with scaphoid 4 views. CLINICAL INDICATION: Weakness. COMPARISON: Chest x-ray 02/14/2024. FINDINGS: Right wrist: 4 views of right wrist reveals no visible acute fracture or dislocation. There is calcification of triangle fibrocartilage. There is mild loss of first carpometacarpal joint space with periarticular spurring. Chest: The lungs are hypoexpanded and clear acute process. There is a right central venous catheter with its tip in mid to distal SVC. There are dual pacer electrodes in right atrium and right ventricle. There is a right anterior chest wall loop recorder. The lungs are expanded and clear. Heart size and pulmonary vascularity is normal. There is mild dextroscoliosis. No gross bony abnormality seen. Right forearm: Visualized entire radius and ulna appears intact. There is no visible acute fracture or bony abnormality. Mild vascular calcifications are present. XR/XR chest 1V IMPRESSION: Unremarkable right forearm exam. 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 No acute fracture or dislocation seen. Unremarkable chest exam. Electronically signed by: Marino Mcclelland MD 12/04/2024 04:16 PM EDT
--- NOTE | ~2024-12-04 | CT_ITS ---
CLINICAL HISTORY: fall on thinners CT head without contrast Comparison: CT/REG/AL/SR - CT HEAD WITHOUT IV CONTRAST - 07/02/24 14:44 EDT Findings: Right parietal approach ventriculostomy catheter with the tip in the left lateral ventricle, similar to prior. No acute intracranial hemorrhage, transcortical infarct or mass effect. Stable size and configuration of the ventricles. Diffuse volume loss. Periventricular and subcortical white matter hypoattenuation likely chronic small-vessel ischemic changes. Intracranial atherosclerosis. The visualized paranasal sinuses and mastoid air cells are normal. The orbits are unremarkable. No skull fracture. IMPRESSION: 1. No acute intracranial findings. This document has been electronically signed by: Gladis Frederick MD on 12/04/2024 18:20:19
--- NOTE | ~2024-12-04 | XR_ITS ---
Examination: Chest 1 view sitting. Right forearm 2 views. Right wrist with scaphoid 4 views. CLINICAL INDICATION: Weakness. COMPARISON: Chest x-ray 02/14/2024. FINDINGS: Right wrist: 4 views of right wrist reveals no visible acute fracture or dislocation. There is calcification of triangle fibrocartilage. There is mild loss of first carpometacarpal joint space with periarticular spurring. Chest: The lungs are hypoexpanded and clear acute process. There is a right central venous catheter with its tip in mid to distal SVC. There are dual pacer electrodes in right atrium and right ventricle. There is a right anterior chest wall loop recorder. The lungs are expanded and clear. Heart size and pulmonary vascularity is normal. There is mild dextroscoliosis. No gross bony abnormality seen. Right forearm: Visualized entire radius and ulna appears intact. There is no visible acute fracture or bony abnormality. Mild vascular calcifications are present. XR/XR wrist RT w scaphoid IMPRESSION: Unremarkable right forearm exam. 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 No acute fracture or dislocation seen. Unremarkable chest exam. Electronically signed by: Marino Mcclelland MD 12/04/2024 04:16 PM EDT
--- NOTE | 2024-12-04 14:22 | ED.GENADULT ---
HPI - General Adult General Chief complaint: General Medical Stated complaint: generalized weakness Time Seen by Provider: 12/04/24 14:12 Source: patient and family (Called on phone for more information) Mode of arrival: EMS Limitations: altered mental status (Dementia) History of Present Illness ED Provider: Radha Pelayo PA-C HPI narrative: 83-year-old female with medical history of dementia, a fib with pacemaker and stents on coumadin currently being followed by Cardiology at [facility], hypertension, hyperlipidemia, who presents to the ED by EMS due to progressive weakness. Patient is poor historian and trails off with ideas, she does not know what happened today. I called who was at home and is her caregiver, has been said patient has progressive weakness, was seen in the department recently for same and had a 3 week stay in short-term rehab, patient has been home for 2 weeks. states today when patient was walking to the bathroom she became weak and needed to sit down he could not get to her fast enough with the chair put his hands underneath her armpits to help lower her to the ground but she sat down with force onto her right arm, was complaining of right arm pain to has been. Has been states she did not hit her head or lose consciousness. Has been reports he has noticed a new tremor in her left hand over the last 3 days. is requesting long-term shelter as he is unable to care for her at home anymore. complaint: weakness Related Data Home Medications ?Medication ?Instructions ?Recorded ?Confirmed Lactobacillus rhamnosus GG 10 1 cap PO DAILY 02/14/24 12/05/24 billion cell capsule atorvastatin 40 mg tablet 40 mg PO DAILY 02/14/24 12/05/24 calcium carbonate 600 mg PO DAILY 02/14/24 12/05/24 cholecalciferol (vitamin D3) 25 25 mcg PO DAILY 02/14/24 12/05/24 mcg (1,000 unit) capsule (Vitamin D3) cyanocobalamin (vitamin B-12) 1,000 mcg PO DAILY 02/14/24 12/05/24 1,000 mcg tablet famotidine 20 mg tablet 20 mg PO DAILY 02/14/24 12/05/24 metoprolol succinate 50 mg 50 mg PO DAILY 02/14/24 12/05/24 tablet,extended release 24 hr spironolactone 25 mg tablet 25 mg PO DAILY 02/14/24 12/05/24 warfarin 5 mg tablet 5 mg PO MOFR@1800 02/14/24 12/05/24 acetaminophen 325 mg tablet 650 mg PO Q6H PRN Pain 07/03/24 12/05/24 aspirin 81 mg tablet,delayed 81 mg PO DAILY 07/03/24 12/05/24 release warfarin 5 mg tablet 2.5 mg PO SUTUWETHSA@1800 07/03/24 12/05/24 vit C 250 mg-E 90 mg-zinc 40 1 cap PO BID 10/31/24 12/05/24 mg-copper 2 mg-lutein 5 mg-zeaxan capsule (TVDeck) Allergies Allergy/AdvReac Type Severity Reaction Status Date / Time No Known Allergies Allergy Verified 12/04/24 14:29 Review of Systems Review of Systems: Unable to obtain accurate ROS as patient is demented, patient confused, states she does not have any physical complaints. Yes all other systems are reviewed and are negative PMFSH Past Medical History Attestation statement: The following information was validated with the patient. Source: old records reviewed and nursing notes reviewed Social History Social History Unable to assess alcohol history related to: Unknown Use of substances other than those prescribed or required for medical reasons: Unknown Advance Directives: Yes Advance Directives on File: Yes Advance Directives Date on File: 02/15/24 Physical Exam ED Vital Signs: Vital Signs - 24 hr 12/09/24 08:20 12/09/24 08:23 12/09/24 08:23 Temperature 97.8 F Pulse Rate 68 68 Respiratory Rate 16 Blood Pressure 132/55 L 132/55 L 132/55 L Pulse Oximetry 98 Oxygen Delivery Method Room Air 12/09/24 14:00 12/09/24 21:42 Temperature 97.9 F 97.3 F Pulse Rate 85 89 Respiratory Rate 16 17 Blood Pressure 115/66 115/53 L Pulse Oximetry 95 95 Oxygen Delivery Method Room Air Room Air BMI result Body Mass Index 28.9 GENERAL APPEARANCE: ?AxOx2 oriented to self, and place only, no acute distress. HEENT: ?NC, AT. MMM. EOMI, clear conjunctiva, oropharynx clear. Very small abrasion on the right cheek, patient does not know how she got this scratch. NECK: ?Supple without lymphadenopathy.? No stiffness or restricted ROM. HEART:? Normal rate and regular rhythm, normal S1/S2, no m/r/g LUNGS:? CTAB, moving air well. No crackles or wheezes are heard. ABDOMEN: ?Soft, nontender, nondistended with good bowel sounds heard. BACK: No CVAT, no obvious deformity. EXTREMITIES: ?Without cyanosis, clubbing or edema. TTP over right proximal radius, small ecchymosis over this area, no scaphoid tenderness, no bony abnormalities palpated. NEUROLOGICAL: ?Grossly nonfocal. Alert and oriented to self and place, moving all 4 extremities. Patient with weakness, uses walker at baseline. Skin: ?Warm and dry without any rash. Course Reevaluation(s) Reevaluation #1: Physician observation continued. Uneventful night. Vital signs stable. No complaints from nursing overnight. Med reconciliation reviewed and done. Pending disposition. Will continue to monitor. 12/06/2024 0909 Cora Stuart PA-C ---> Observation continues. Case management continues to follow. 12/07/2024 0921 Cora Stuart PA-C ---> Observation continues. Case management continues to follow. 9:30 AM 12/08/2024 (Kylie Patel PA-C): Physician observation continued, we will continue to monitor pending case management disposition. 11:17 AM 12/09/2024 (Kylie Patel PA-C): Physician observation continued, no overnight events per nursing staff. We will continue to monitor pending case management disposition. 12/10/2024 0808 Cora Stuart PA-C ---> Observation care revealed the the patient does not meet medical necessity for hospitalization. Final disposition [facility] discharge to [facility] discussed with the patient. Patient completed observation care at 0808 on 12/10/2024, total time spent in observation care was 5 days, 14 hours, and 41 minutes. Medications Administered Generic Name Dose Route Start Last Admin Trade Name Freq PRN Reason Stop Dose Admin Aspirin 81 mg 12/06/24 09:00 12/09/24 08:22 Aspirin Enteric Coated 81 Mg Tablet. PO 81 mg DAILY [facility] Administration Atorvastatin Calcium 40 mg 12/06/24 09:00 12/09/24 08:22 Atorvastatin Calcium 40 Mg Tablet PO 40 mg DAILY [facility] Administration Calcium Carbonate 750 mg 12/06/24 09:00 12/09/24 08:21 Calcium Carbonate 750 Mg Tab.Chew PO 750 mg DAILY [facility] Administration Cefuroxime Axetil 250 mg 12/05/24 21:00 12/09/24 21:25 Cefuroxime Axetil 250 Mg Tablet PO 250 mg BID [facility]LAIRE Administration Cyanocobalamin 1,000 mcg 12/06/24 09:00 12/09/24 08:22 Cyanocobalamin (Vitamin B-12) 1,000 Mcg Tablet PO 1,000 mcg DAILY [facility] Administration Famotidine 20 mg 12/06/24 06:30 12/10/24 06:19 Famotidine 20 Mg Tablet PO 20 mg DAILY@0630 [facility] Administration Metoprolol Succinate 50 mg 12/06/24 09:00 12/09/24 08:23 Metoprolol Succinate Er 50 Mg Tab.Er.24h PO 50 mg DAILY [facility] Administration Protocol Multivitamins/Vitamin C 1 tab 12/05/24 21:00 12/09/24 08:23 Multivitamin Tablet PO 1 tab DAILY [facility] Administration Spironolactone 25 mg 12/06/24 09:00 12/09/24 08:23 Spironolactone 25 Mg Tablet PO 25 mg DAILY [facility] Administration Protocol Vitamin D 25 mcg 12/06/24 09:00 12/09/24 08:21 Cholecalciferol (Vitamin D3) 25 Mcg Tablet PO 25 mcg DAILY [facility] Administration Warfarin Sodium 5 mg 12/08/24 18:00 12/08/24 18:26 Warfarin Sodium 5 Mg Tablet PO 5 mg MOFR@1800 [facility] Administration Warfarin Sodium 2.5 mg 12/06/24 18:00 12/09/24 19:06 Warfarin Sodium 2.5 Mg Tablet PO 2.5 mg SUTUWETHSA@1800 [facility] Administration Discontinued Medications Generic Name Dose Route Start Last Admin Trade Name Freq PRN Reason Stop Dose Admin Ceftriaxone Sodium 1 gm 12/04/24 16:29 12/04/24 17:49 Ceftriaxone Sodium 1 Gm Vial IVPUSH 12/04/24 16:30 1 gm ONCE ONE Administration Warfarin Sodium 5 mg 12/05/24 20:30 12/05/24 21:51 Warfarin Sodium 5 Mg Tablet PO 12/05/24 20:31 5 mg ONCE ONE Administration Medical Decision Making Medical Decision Making MDM Narrative: 83-year-old female with medical history of dementia, a fib with pacemaker and stents on coumadin currently being followed by Cardiology at [facility], hypertension, hyperlipidemia, who presents to the ED by EMS due to progressive weakness. Patient is poor historian and trails off with ideas, she does not know what happened today. I called who was at home and is her caregiver, has been said patient has progressive weakness, was seen in the department recently for same and had a 3 week stay in short-term rehab, patient has been home for 2 weeks. states today when patient was walking to the bathroom she became weak and needed to sit down he could not get to her fast enough with the chair put his hands underneath her armpits to help lower her to the ground but she sat down with force onto her right arm, was complaining of right arm pain to has been. Has been states she did not hit her head or lose consciousness. Has been reports he has noticed a new tremor in her left hand over the last 3 days. is requesting long-term shelter as he is unable to care for her at home anymore. Patient poor historian, poor insight to what happened today, or her progressive weakness. Plan: Labs, UA, wrist/forearm XR, CXR, CT head/brain Course 16:27- Labs reveal mild leukocytosis of 11.1, H&H stable, no evidence of electrolyte abnormality. UA with positive urine nitrites, 0-5 urine WBCs, 4+ urine bacteria- will treat with 1 g IV ceftriaxone now, and start cefuroxime 250 b.i.d. for treatment tomorrow. EKG shows a ventricular paced rhythm, no ST-elevation/depression, T-wave abnormality, initial troponin 5.3, will obtain 2nd troponin Viral serology negative CXR negative for acute cardiopulmonary processes, right wrist/forearm x-ray negative for fracture/dislocation Patient awaiting PT case management due to weakness, has been requesting placement in long-term nursing facility. Differential Diagnosis Differential Diagnoses: The differential diagnosis associated with the presentation includes Failure to thrive Electrolyte abnormality UTI Radial/ulnar fracture Admission/Observation Consideration of admission/observation: Escalation of care including admission/observation considered Lab Data [facility] Lab Attestation statement: I reviewed the patient's lab results. 12/04/24 15:36 12/04/24 15:36 Labs: Lab Results 12/04/24 12/05/24 12/06/24 Range/Units 15:36 05:47 10:30 WBC 11.1 H (4.8-10.8) X10*3/uL RBC 3.96 L (4.20-5.50) X10*6/uL Hgb 13.5 (12.0-16.0) g/dl Hct 40.1 (37.0-47.0) % MCV 101.3 H (80.0-98.0) fL MCH 34.1 H (27.0-33.0) pg MCHC 33.7 (31.0-35.0) g/dl RDW 13.8 (11.0-16.0) % Plt Count 209 (160-400) X10*3/uL MPV 11.0 (9.4-12.3) fL Immature Gran % (Auto) 0.3 (0.0-0.4) % Neut % (Auto) 81.7 H (45-73) % Lymph % (Auto) 11.6 L (20-40) % [place] % (Auto) 5.3 (2-11) % Eos % (Auto) 0.7 (0-4) % Baso % (Auto) 0.4 (0-2) % Lymph # (Auto) 1.3 (1.2-4.9) X10*3/uL [place] # (Auto) 0.6 (0.1-1.2) X10*3/uL Eos # (Auto) 0.1 (0.0-0.4) X10*3/uL Baso # (Auto) 0.1 (0.0-0.2) X10*3/uL Abs Immat Gran (auto) 0.03 (0.00-0.03) X10*3/uL Absolute Neuts (auto) 9.1 H (2.0-8.3) x10*3/uL Absolute Nucleated RBC 0.000 (0.0-0.012) X10*3/uL Nucleated RBC % (auto) 0.0 (0.0-0.2) /100WBC PT 24.6 H D 17.5 H D (10.9-12.4) SEC INR 2.1 H 1.5 H (0.9-1.1) Sodium 141 (135-145) mmol/L Potassium 4.4 (3.3-5.1) mmol/L Chloride 108 (96-108) mmol/L Carbon Dioxide 25 (22-29) mmol/L Anion Gap 12 (12-20) BUN 23 H (9-16) mg/dL Creatinine 1.00 (0.5-1.4) mg/dL Estim Creat Clear Calc 42.4 Estimated GFR 53 Random Glucose 110 (60-115) mg/dL Calcium 9.1 (8.4-10.2) mg/dL Magnesium 2.1 (1.6-2.6) mg/dL Total Bilirubin 0.3 (0.0-1.0) mg/dL AST 31 (5-31) U/L ALT 26 (0-31) U/L Alkaline Phosphatase 85 (39-117) U/L Troponin I High Sens 5.3 (<3.5-17.0) ng/L Total Protein 6.5 (6.5-8.0) g/dL Albumin 3.9 (3.5-5.0) g/dL Urine Color Yellow Urine Appearance Clear Urine pH 6.5 (5.0-9.0) Ur Specific [place] >= 1.030 H (1.005-1.025) Urine Protein Trace (Neg-Trace) mg/dL Urine Glucose (UA) Negative (Negative) mg/dL Urine Ketones 15 (Negative) mg/dL Urine Blood Negative (Negative) Urine Nitrite Negative (Negative) Ur Leukocyte Esterase Trace H (Negative) Urine RBC 0-2 (0-2) /HPF Urine WBC 0-5 (0-5) /HPF Ur Squamous Epith Cells 0-2 (0-2) /HPF Urine Bacteria None Seen (None Seen) Hyaline Casts 0-2 (0-2) /LPF Influenza Type A (PCR) NEGATIVE (Negative) Influenza Type B (PCR) NEGATIVE (Negative) RSV RNA Qual (PCR) NEGATIVE (Negative) SARS-CoV-2 RNA (RT-PCR) NEGATIVE (Negative) 12/07/24 12/08/24 12/09/24 Range/Units 07:30 09:48 11:19 WBC (4.8-10.8) X10*3/uL RBC (4.20-5.50) X10*6/uL Hgb (12.0-16.0) g/dl Hct (37.0-47.0) % MCV (80.0-98.0) fL MCH (27.0-33.0) pg MCHC (31.0-35.0) g/dl RDW (11.0-16.0) % Plt Count (160-400) X10*3/uL MPV (9.4-12.3) fL Immature Gran % (Auto) (0.0-0.4) % Neut % (Auto) (45-73) % Lymph % (Auto) (20-40) % [place] % (Auto) (2-11) % Eos % (Auto) (0-4) % Baso % (Auto) (0-2) % Lymph # (Auto) (1.2-4.9) X10*3/uL [place] # (Auto) (0.1-1.2) X10*3/uL Eos # (Auto) (0.0-0.4) X10*3/uL Baso # (Auto) (0.0-0.2) X10*3/uL Abs Immat Gran (auto) (0.00-0.03) X10*3/uL Absolute Neuts (auto) (2.0-8.3) x10*3/uL Absolute Nucleated RBC (0.0-0.012) X10*3/uL Nucleated RBC % (auto) (0.0-0.2) /100WBC PT 23.7 H D 25.7 H 28.1 H (10.9-12.4) SEC INR 2.1 H 2.2 H 2.4 H (0.9-1.1) Sodium (135-145) mmol/L Potassium (3.3-5.1) mmol/L Chloride (96-108) mmol/L Carbon Dioxide (22-29) mmol/L Anion Gap (12-20) BUN (9-16) mg/dL Creatinine (0.5-1.4) mg/dL Estim Creat Clear Calc Estimated GFR Random Glucose (60-115) mg/dL Calcium (8.4-10.2) mg/dL Magnesium (1.6-2.6) mg/dL Total Bilirubin (0.0-1.0) mg/dL AST (5-31) U/L ALT (0-31) U/L Alkaline Phosphatase (39-117) U/L Troponin I High Sens (<3.5-17.0) ng/L Total Protein (6.5-8.0) g/dL Albumin (3.5-5.0) g/dL Urine Color Urine Appearance Urine pH (5.0-9.0) Ur Specific [place] (1.005-1.025) Urine Protein (Neg-Trace) mg/dL Urine Glucose (UA) (Negative) mg/dL Urine Ketones (Negative) mg/dL Urine Blood (Negative) Urine Nitrite (Negative) Ur Leukocyte Esterase (Negative) Urine RBC (0-2) /HPF Urine WBC (0-5) /HPF Ur Squamous Epith Cells (0-2) /HPF Urine Bacteria (None Seen) Hyaline Casts (0-2) /LPF Influenza Type A (PCR) (Negative) Influenza Type B (PCR) (Negative) RSV RNA Qual (PCR) (Negative) SARS-CoV-2 RNA (RT-PCR) (Negative) 12/10/24 Range/Units 06:19 WBC (4.8-10.8) X10*3/uL RBC (4.20-5.50) X10*6/uL Hgb (12.0-16.0) g/dl Hct (37.0-47.0) % MCV (80.0-98.0) fL MCH (27.0-33.0) pg MCHC (31.0-35.0) g/dl RDW (11.0-16.0) % Plt Count (160-400) X10*3/uL MPV (9.4-12.3) fL Immature Gran % (Auto) (0.0-0.4) % Neut % (Auto) (45-73) % Lymph % (Auto) (20-40) % [place] % (Auto) (2-11) % Eos % (Auto) (0-4) % Baso % (Auto) (0-2) % Lymph # (Auto) (1.2-4.9) X10*3/uL [place] # (Auto) (0.1-1.2) X10*3/uL Eos # (Auto) (0.0-0.4) X10*3/uL Baso # (Auto) (0.0-0.2) X10*3/uL Abs Immat Gran (auto) (0.00-0.03) X10*3/uL Absolute Neuts (auto) (2.0-8.3) x10*3/uL Absolute Nucleated RBC (0.0-0.012) X10*3/uL Nucleated RBC % (auto) (0.0-0.2) /100WBC PT 28.5 H (10.9-12.4) SEC INR 2.5 H (0.9-1.1) Sodium (135-145) mmol/L Potassium (3.3-5.1) mmol/L Chloride (96-108) mmol/L Carbon Dioxide (22-29) mmol/L Anion Gap (12-20) BUN (9-16) mg/dL Creatinine (0.5-1.4) mg/dL Estim Creat Clear Calc Estimated GFR Random Glucose (60-115) mg/dL Calcium (8.4-10.2) mg/dL Magnesium (1.6-2.6) mg/dL Total Bilirubin (0.0-1.0) mg/dL AST (5-31) U/L ALT (0-31) U/L Alkaline Phosphatase (39-117) U/L Troponin I High Sens (<3.5-17.0) ng/L Total Protein (6.5-8.0) g/dL Albumin (3.5-5.0) g/dL Urine Color Urine Appearance Urine pH (5.0-9.0) Ur Specific [place] (1.005-1.025) Urine Protein (Neg-Trace) mg/dL Urine Glucose (UA) (Negative) mg/dL Urine Ketones (Negative) mg/dL Urine Blood (Negative) Urine Nitrite (Negative) Ur Leukocyte Esterase (Negative) Urine RBC (0-2) /HPF Urine WBC (0-5) /HPF Ur Squamous Epith Cells (0-2) /HPF Urine Bacteria (None Seen) Hyaline Casts (0-2) /LPF Influenza Type A (PCR) (Negative) Influenza Type B (PCR) (Negative) RSV RNA Qual (PCR) (Negative) SARS-CoV-2 RNA (RT-PCR) (Negative) Independent Interpretation I performed an independent interpretation of an: EKG Interpretation: I personally interpreted the EKG which shows a ventricular paced rhythm without ST elevation/depression, T-wave abnormality Vent. Rate : 100 BPM Atrial Rate : 100 BPM P-R Int : * ms QRS Dur : 112 ms QT Int : 378 ms P-R-T Axes : * 248 56 degrees QTcB Int : 487 ms Ventricular-paced rhythm Abnormal ECG When compared with ECG of 30-Oct-2024 19:35, Vent. rate has increased by 29 bpm I personally interpreted the CXR which did not reveal cardiomegaly, pleural effusion, pulmonary edema, infiltrates or consolidations, I agree with the radiologist's interpretation I personally interpreted the right forearm/wrist XR which was negative for dislocation or fracture, I agree with the radiologist's interpretation Radiology Impression Discussion of test interpretation with radiology: I have reviewed the radiologist's reading. Radiologist Impression: Right forearm XR Right wrist: 4 views of right wrist reveals no visible acute fracture or dislocation. There is calcification of triangle fibrocartilage. There is mild loss of first carpometacarpal joint space with periarticular spurring. Chest: The lungs are hypoexpanded and clear acute process. There is a right central venous catheter with its tip in mid to distal SVC. There are dual pacer electrodes in right atrium and right ventricle. There is a right anterior chest wall loop recorder. The lungs are expanded and clear. Heart size and pulmonary vascularity is normal. There is mild dextroscoliosis. No gross bony abnormality seen. Right forearm: Visualized entire radius and ulna appears intact. There is no visible acute fracture or bony abnormality. Mild vascular calcifications are present. XR/XR forearm RT 2V IMPRESSION: Unremarkable right forearm exam. 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 No acute fracture or dislocation seen. Unremarkable chest exam. Electronically signed by: Marino Mcclelland MD 12/04/2024 04:16 PM EDT Dictated By: Marino Mcclelland MD Signed By: <Electronically signed by Marino Mcclelland MD in OV> 12/04/24 1616 Right wrist XR FINDINGS: Right wrist: 4 views of right wrist reveals no visible acute fracture or dislocation. There is calcification of triangle fibrocartilage. There is mild loss of first carpometacarpal joint space with periarticular spurring. Chest: The lungs are hypoexpanded and clear acute process. There is a right central venous catheter with its tip in mid to distal SVC. There are dual pacer electrodes in right atrium and right ventricle. There is a right anterior chest wall loop recorder. The lungs are expanded and clear. Heart size and pulmonary vascularity is normal. There is mild dextroscoliosis. No gross bony abnormality seen. Right forearm: Visualized entire radius and ulna appears intact. There is no visible acute fracture or bony abnormality. Mild vascular calcifications are present. XR/XR wrist RT w scaphoid IMPRESSION: Unremarkable right forearm exam. 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 No acute fracture or dislocation seen. Unremarkable chest exam. Electronically signed by: Marino Mcclelland MD 12/04/2024 04:16 PM EDT Dictated By: Marino Mcclelland MD Signed By: <Electronically signed by Marino Mcclelland MD in OV> 12/04/24 1616 CXR FINDINGS: Right wrist: 4 views of right wrist reveals no visible acute fracture or dislocation. There is calcification of triangle fibrocartilage. There is mild loss of first carpometacarpal joint space with periarticular spurring. Chest: The lungs are hypoexpanded and clear acute process. There is a right central venous catheter with its tip in mid to distal SVC. There are dual pacer electrodes in right atrium and right ventricle. There is a right anterior chest wall loop recorder. The lungs are expanded and clear. Heart size and pulmonary vascularity is normal. There is mild dextroscoliosis. No gross bony abnormality seen. Right forearm: Visualized entire radius and ulna appears intact. There is no visible acute fracture or bony abnormality. Mild vascular calcifications are present. XR/XR chest 1V IMPRESSION: Unremarkable right forearm exam. 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 No acute fracture or dislocation seen. Unremarkable chest exam. Electronically signed by: Marino Mcclelland MD 12/04/2024 04:16 PM EDT Dictated By: Marino Mcclelland MD Signed By: <Electronically signed by Marino Mcclelland MD in OV> 12/04/24 [id number] External Record Review External record reviewed: Inpatient record, Office record and Outpatient record Chronic Conditions Patient?s care impacted by: Other (Dementia, AFib with pacemaker, HTN, HLD,) Discharge Plan Discharge Clinical Impression: Weakness Patient Disposition: Xfer Inpatient Rehab Fac Transfer Details: TO: [facility] Instructions: Weakness (ED) Additional Instructions: IF you are prescribed home medications and/or you are taking over the counter medications at home - it is very important you continue to do so as prescribed / directed unless told otherwise. Follow up with your primary care provider. Return to the emergency department immediately if your symptoms worsen or if you develop any numbness, tingling, dizziness, shortness of breath, difficulty breathing, chest pain, blurry vision, loss of vision, nausea, vomiting, abdominal pain, fever, chills, back pain, or any other complaints. Prescriptions: No Action atorvastatin 40 mg Tablet 40 mg PO DAILY cyanocobalamin (vitamin B-12) 1,000 mcg Tablet 1,000 mcg PO DAILY calcium carbonate 600 mg calcium (1,500 mg) Tablet 600 mg PO DAILY Lactobacillus rhamnosus GG 10 billion cell Capsule 1 cap PO DAILY cholecalciferol (vitamin D3) [Vitamin D3] 25 mcg (1,000 unit) Capsule 25 mcg PO DAILY metoprolol succinate 50 mg Tablet Extended Release 24 Hr 50 mg PO DAILY spironolactone 25 mg Tablet 25 mg PO DAILY warfarin 5 mg Tablet 5 mg PO MOFR@1800 Rx Instructions: Take 1 tablet (5mg) daily x 2 days/week on Sun & Sun. Take 1/2 tablet (2.5mg) daily x 5 days/week on ,,,,. famotidine 20 mg Tablet 20 mg PO DAILY acetaminophen 325 mg Tablet 650 mg PO Q6H PRN (Reason: Pain) aspirin [Aspir-81] 81 mg Tablet,Delayed Release (Dr/Ec) 81 mg PO DAILY warfarin 5 mg tablet 2.5 mg PO SUTUWETHSA@1800 Rx Instructions: Take 1 tablet (5mg) daily x 2 days/week on Mon & Sun. Take 1/2 tablet (2.5mg) daily x 5 days/week on ,,,,. TVDeck [id number] mg Capsule 1 cap PO BID Referrals: [facility] [place] [Outside] Mani Nation MD [Physician, Medical] Print Language: British
[2024-12-04 14:27] VITALS: BP 162/110; PULSE 94; O2SAT 95; BMI 28.9
[2024-12-04 14:28] VITALS: BP 149/58; PULSE 96; RESP 18; TEMP 36.6; O2SAT 93
--- NOTE | 2024-12-04 14:54 | ECG_ITS ---
Test Reason : fall Blood Pressure : */* mmHG Vent. Rate : 100 BPM Atrial Rate : 100 BPM P-R Int : * ms QRS Dur : 112 ms QT Int : 378 ms P-R-T Axes : * 248 56 degrees QTcB Int : 487 ms Ventricular-paced rhythm Abnormal ECG When compared with ECG of 30-Oct-2024 19:35, Vent. rate has increased by 29 bpm Referred By: Gita Garcia Electronically Signed By: Hair Mendoza
--- OUTSIDE RECORDS SUMMARY | 2024-12-04 15:39 | XMS_ITS | Encounter Summary ---
Author Organization [facility] Address [address] [place] [address] Care Team Providers Care [place] Supervisor Name Role Phone Huang Oviedo MD Primary Care Provider [phone] Encounter Details Date Type Department Care Team (Late st Contact Info) Description 02/27/2024 Lab Requisition [facility] - Main Lab [address] [facility] [employer] [place] [address] Huang Oviedo MD [address] [place] [address] Unspecified atrial fibrillation (CMS/HCC V24, CMS/HCC V28) [...] V28) documented in this encounter Care Teams [place] Supervisor Relationship Specialty Start Date End Date Huang Oviedo MD [address] [place] [address] PCP - General Internal Medicine 03/10/24 documented as of this encounter
--- OUTSIDE RECORDS SUMMARY | 2024-12-04 15:39 | XMS_ITS | Encounter Summary ---
Author Organization [facility] Address [address] [address] Phone Care Team Providers Care Geometry Professor Name Role Phone Mani Nation MD Primary Care Provider Mani Nation MD Unavailable [phone] Vero Marshall RN Unavailable Savannah Fontana Unavailable [phone] Mirian Locke RN Unavailable [phone] Vanessa Malik Unavailable [email or web address] Encounter Details Date Type Department Care Team (Late st Contact Info) Description 12/17/2017 Procedure Pass [facility], Ct Scan - [address] [address] Social History Tobacco Use Types Packs/Day Years [...] AM EDT documented as of this encounter Plan of [...] COVID-19 11/09/2023 11/09/2023 11/30/2023 1:22 AM EDT documented as of this encounter Care Teams Geometry Professor Relationship Specialty Start Date End Date Mani Nation MD [address] [place] [address], [address] [place] [address] PCP - General 02/08/17 Mani Nation MD [address] [place] [address] Insurance Assigned Provider 07/21/1701/01 Vero Marshall RN [address] [place] [address] [facility]/09[facility]19 Savannah Fontana [address] [place] [address] [facility] Community Health Worker 06/30/20 07/11/20 Mirian Locke RN [address] [place] [address] Registered Nurse 10/16/22 Vanessa Malik [address] [place] [id number] [email or web address] [facility] Community Maritime Engineer 06/12/24 06/12/24 documented as of this encounter Additional Source Comments The information contained in this document represents components of the legal health record. It is not the complete legal health record.[facility]
--- OUTSIDE RECORDS SUMMARY | 2024-12-04 15:39 | XMS_ITS | Encounter Summary ---
Author Organization [facility] Address [address] [place] [address] Care Team Providers Care Forge Press Operator Name Role Phone Mani Nation MD Primary Care Provider [phone] Encounter Details Date Type Department Care Team (Late Contact Info) Description 05/17/2022 myChart Message [facility] Heart [facility] Vascular Interventional Lab [address] [place] [address] Wing Jeffery MD PhD [address] [place] [address] Your Recent Visit Social History Tobacco Use [...] Department Care Team (Late Contact Info) Description 05/08/2025 2:15 PM EST Appointment [facility] Heart Station [address] [place] [address] Wing Jeffery MD PhD [address] [place] [address] Scheduled Procedures Name Priority Associated Diagnoses Date/Ti me COLONOSCOPY SCREENING, HIGH RISK WITH POSSIBLE MODERATE SEDATION Diarrhea, unspecified type documented as of this encounter Visit Diagnoses Not on filedocumented in this encounter Additional Health Concerns Infection Onset Date Last Indicated Resolved Time COVID-19 - Suspected infection 2022 2022 2022 9:55 PM EDT documented as of this encounter Care Teams Forge Press Operator Relationship Specialty Start Date End Date Mani Nation MD [address] [place] [address], [address] [place] [address] PCP - General 11/09/16 documented as of this encounter
[2024-12-04 15:42] LABS: MANUAL DIFF FLAG NO
[2024-12-04 15:49] LABS: Hematocrit 40.1 % (37.0-47.0); Hemoglobin 13.5 g/dl (12.0-16.0); INTERNATIONAL NORM RATIO 2.1 (0.9-1.1); Imm Gran Abs Auto 0.03 X10*3/uL (0.00-0.03); Imm Gran Pct Auto 0.3 % (0.0-0.4); Lymphocytes Absolute Auto 1.3 X10*3/uL (1.2-4.9); Mean Corpuscular HGB Conc 33.7 g/dl (31.0-35.0); Mean Corpuscular Hemoglobin 34.1 pg (27.0-33.0); Mean Corpuscular Volume 101.3 fL (80.0-98.0); NRBC Abs Auto 0.000 X10*3/uL (0.0-0.012); NRBC Pct Auto 0.0 /100WBC (0.0-0.2); Platelet Count 209 X10*3/uL (160-400); Prothrombin Time 24.6 SEC (10.9-12.4); Red Blood Count 3.96 X10*6/uL (4.20-5.50); White Blood Count 11.1 X10*3/uL (4.8-10.8)
[2024-12-04 15:56] LABS: Alanine Aminotransferase 26 U/L (0-31); Albumin Level 3.9 g/dL (3.5-5.0); Alkaline Phosphatase 85 U/L (39-117); Anion Gap 12 (12-20); Aspartate Amino Transferase 31 U/L (5-31); Blood Urea Nitrogen 23 mg/dL (9-16); Calcium 9.1 mg/dL (8.4-10.2); Carbon Dioxide 25 mmol/L (22-29); Chloride 108 mmol/L (96-108); Creatinine Clr Calc Pharmacy 42.4; Estimated Glomerular Filt Rate 53; Magnesium 2.1 mg/dL (1.6-2.6); Potassium 4.4 mmol/L (3.3-5.1); Sodium 141 mmol/L (135-145); Total Protein 6.5 g/dL (6.5-8.0)
[2024-12-04 16:04] LABS: Troponin-I High Sensitivity 5.3 ng/L (<3.5-17.0)
[2024-12-04 16:22] LABS: Resp Syncy Virus RNA Qual PCR NEGATIVE (Negative); SARS COV2 PCR INHOUSE NEGATIVE (Negative)
[2024-12-04 16:52] VITALS: BP 126/79; PULSE 90; RESP 18; TEMP 36.1; O2SAT 96
[2024-12-04 18:21] VITALS: BP 126/81; PULSE 67; RESP 18; TEMP 36.1; O2SAT 98
--- NOTE | 2024-12-04 18:42 | MHC.CM.ED ---
CM met with patient. She has dementia. She struggles to answer questions. Her memory is poor. She is able to answer about 50% of questions without prompting. She knows she fell today. She know her birthday-month and day only. She knows her PCP is Dr. Mani Nation. HCP is on file. HCP#1/ Davon Garrett. and HCP #2 Verónica Krishnamurthy ([phone]). JESUS called and spoke with Davon. He is very overwhelmed with caring for his . States he can no longer care for her. He wants her to live in a residential. He has no payor source. He cannot private pay. He thought his [employer] Medicare would pay for it. CM spoke to him about private pay and MH application. Davon states he has no funds to pay. CM referred him to [facility] financial services via E-mail. Davon tells CM he owns his home. His has S.S> $1200/month. There is no pension, no savings, no penitentiary accounts. JESUS explained that there is process to complete application and that he should receive a phone call for our financial services. PT is pending. If STR is recommended, he would like [facility] as his first choice. Pt will probably transition to LTC. Will place local referrals with [facility] #1.
[2024-12-04 19:50] VITALS: BP 133/65; PULSE 73; RESP 16; TEMP 36.9; O2SAT 97
[2024-12-04 21:56] VITALS: BP 112/68; PULSE 72; RESP 16; TEMP 36.9; O2SAT 98
[2024-12-05 01:53] VITALS: BP 141/49; PULSE 69; RESP 16; O2SAT 97
[2024-12-05 05:52] VITALS: BP 138/59; PULSE 69; RESP 16; TEMP 36.4; O2SAT 97
[2024-12-05 05:59] LABS: Appearance Urine Clear; Glucose Urine UA Negative (Negative); PH 6.5 (5.0-9.0); Specific Gravity - Urine >= 1.030 (1.005-1.025); UMIC TRIGGER UACC YES
--- NOTE | 2024-12-05 09:34 | MHC.CM.ED ---
Patient remains in ER overflow. Physical therapy eval completed. Short term rehab is recommended. [facility] is not able to offer a bed at this time. [facility], [facility], [facility], [facility], [facility], [facility] and [facility] are all still reviewing. [facility] has requested financial form be completed. Spoke with patient's , Davon, via telephone at [phone]. Davon will be on-site this morning. Will complete form then. Continue to monitor for d/c needs.
[2024-12-05 11:36] VITALS: BP 121/49; PULSE 69; RESP 15; TEMP 36.7; O2SAT 99
--- NOTE | 2024-12-05 12:03 | MHC.CM.ED ---
[facility], [facility] and [facility] are able to offer a bed. Spoke with patient's , Jose Armando, via telephone at [phone]. Bed offers presented to Jose Armando. Jose Armando accepts bed at [facility]. Facility made aware and asked to obtain insurance auth. Continue to monitor for d/c needs.
--- NOTE | 2024-12-05 12:10 | PC.NURSE ---
Spoke to PT Davon he stated she was DNR/DNI, pt to bring DNR/DNI form to give to provider.
--- NOTE | 2024-12-05 13:45 | PC.NURSE ---
patient was brought over from main ED to OF bed 3, provider was notified that the patient needs a code status. pharmacy to do med req. Patient awake/alert to person at times place. rr equal/non labored, denies pain/discomfort, fall precautions/bed alarm in tact, pure wick patient/draining call ramirez within reach, plan of care ongoing
[2024-12-05 14:00] VITALS: BP 123/58; PULSE 68; RESP 16; TEMP 37; O2SAT 98
--- NOTE | 2024-12-05 14:46 | PHA.MEDREC ---
Pharmacy Consult ? Medication Reconciliation Pharmacy has completed the medication reconciliation. Spoke with patient's spouse over the phone, he was able to confirm all their meds and states she last had them on Sunday.
--- NOTE | 2024-12-05 14:50 | PC.NURSE ---
med req provider notified med req was completed by the pharmacy and can order the patients home medications.
--- NOTE | 2024-12-05 15:00 | PC.NURSE ---
Addendum entered by Chiquita Doss RN 12/05/24 18:20: vitals are stable Original Note: patient brought over from ED to OF 3, pt awake/alert to person only, she is aware she is not at home but is unsure where she is at. rr equal/non labored, denies pain/discomfort purewick patient/draining, skin intact, fall precautions/bed alarm intact, call ramirez within reach, plan of care ongoing
--- NOTE | 2024-12-05 15:30 | MHC.EDTECH ---
pt was incontinent of urine was cleaned up
--- NOTE | 2024-12-05 18:54 | MHC.EDTECH ---
pt voided 100 ml with the assistance of the aurora
[2024-12-05 23:14] VITALS: BP 111/53; PULSE 76; RESP 17; TEMP 36.3; O2SAT 97
[2024-12-06 04:00] VITALS: BP 120/62; PULSE 71; RESP 17; TEMP 36.3; O2SAT 98
[2024-12-06] MEDS: Metoprolol Succinate ER 50 MG TAB.ER.24H PO (09:14)
[2024-12-06] MEDS: Aspirin Enteric Coated 81 MG TABLET.DR PO (09:14)
[2024-12-06 10:46] LABS: INTERNATIONAL NORM RATIO 1.5 (0.9-1.1); Prothrombin Time 17.5 SEC (10.9-12.4)
[2024-12-06 12:00] VITALS: BP 128/76; PULSE 72; RESP 15; TEMP 36.9; O2SAT 99
--- NOTE | 2024-12-06 13:59 | MHC.CM.PN ---
CM CONTINUES TO AWAIT INSURANCE AUTH FOR ADMISSION TO [facility]. CM WILL CONT. TO FOLLOW.
[2024-12-06 16:00] VITALS: BP 126/70; PULSE 70; RESP 15; TEMP 36.9; O2SAT 100
--- NOTE | 2024-12-06 18:33 | PC.NURSE ---
Pharmacy notified of missing coumadin dose. Dose requested
[2024-12-06 20:00] VITALS: BP 144/68; PULSE 69; RESP 16; TEMP 36.6; O2SAT 97
[2024-12-07] VITALS (7 sets, daily range): BP systolic 104–156; BP diastolic 53–76; PULSE 69–83; RESP 15–18; TEMP 36.1–36.8; O2SAT 96–100
[2024-12-07 07:49] LABS: INTERNATIONAL NORM RATIO 2.1 (0.9-1.1); Prothrombin Time 23.7 SEC (10.9-12.4)
[2024-12-07] MEDS: Metoprolol Succinate ER 50 MG TAB.ER.24H PO (09:47)
[2024-12-07] MEDS: Aspirin Enteric Coated 81 MG TABLET.DR PO (09:48)
--- NOTE | 2024-12-07 10:35 | PC.NURSE ---
Pt resting quietly in room; pt is alert, pleasantly confused, cooperative with care; skin intact; purewick in place; awaiting placement in LTC
[2024-12-08] VITALS (7 sets, daily range): BP systolic 93–140; BP diastolic 48–71; PULSE 61–84; RESP 14–18; TEMP 36.1–36.8; O2SAT 96–99
[2024-12-08] MEDS: Aspirin Enteric Coated 81 MG TABLET.DR PO (08:31)
[2024-12-08] MEDS: Metoprolol Succinate ER 50 MG TAB.ER.24H PO (08:33)
[2024-12-08 10:15] LABS: INTERNATIONAL NORM RATIO 2.2 (0.9-1.1); Prothrombin Time 25.7 SEC (10.9-12.4)
--- NOTE | 2024-12-08 10:52 | MHC.CM.ED ---
Patient remains in ER overflow. Will d/c to [facility] when ins auth obtained. Continue to monitor for d/c needs.
--- NOTE | 2024-12-08 12:49 | MHC.EDTECH ---
pt ate 100% of lunch tray
[2024-12-09 06:00] VITALS: BP 108/61; PULSE 71; RESP 16; TEMP 36.2; O2SAT 98
[2024-12-09 08:20] VITALS: BP 132/55; PULSE 68; RESP 16; TEMP 36.6; O2SAT 98
[2024-12-09] MEDS: Aspirin Enteric Coated 81 MG TABLET.DR PO (08:22)
[2024-12-09 08:23] VITALS: BP 132/55; PULSE 68
[2024-12-09] MEDS: Metoprolol Succinate ER 50 MG TAB.ER.24H PO (08:23)
--- NOTE | 2024-12-09 09:04 | MHC.CM.ED ---
Addendum entered by Chioma Francisco 12/09/24 15:04: Insurance auth obtained. Patient will d/c to [facility] via BLS tomorrow 12/10 at 9am. Nanci JACQUESS booked. Med [facility] with chart. Patient, Tj Suárez RN and Kylie CHRIS aware. Original Note: Patient remains in ER overflow. Waiting for ins auth for [facility]. Continue to monitor for d/c needs.
[2024-12-09 11:41] LABS: INTERNATIONAL NORM RATIO 2.4 (0.9-1.1); Prothrombin Time 28.1 SEC (10.9-12.4)
--- NOTE | 2024-12-09 13:24 | MHC.EDTECH ---
Pt ate 100% of lunch tray
[2024-12-09 14:00] VITALS: BP 115/66; PULSE 85; RESP 16; TEMP 36.6; O2SAT 95
--- NOTE | 2024-12-09 18:00 | PC.NURSE ---
Pharmacy contacted for warfarin dose, confirmed dosage and INR. Awaiting arrival of medication. Pt resting comfortably in bed, care ongoing.
[2024-12-09 21:42] VITALS: BP 115/53; PULSE 89; RESP 17; TEMP 36.3; O2SAT 95
--- NOTE | 2024-12-09 23:47 | PC.NURSE ---
assumed care for pt at this time. pt noted to be sleeping in the bed, symmetrical rise and fall of chest and unlabored respirations noted. plan of care ongoing
[2024-12-10 06:41] LABS: INTERNATIONAL NORM RATIO 2.5 (0.9-1.1); Prothrombin Time 28.5 SEC (10.9-12.4)
--- NOTE | 2024-12-10 07:38 | PC.NURSE ---
Patient is a 83-year-old female with medical history of dementia, a fib with pacemaker and stents on coumadin currently being followed by Cardiology at [facility], hypertension, hyperlipidemia, who presents to the ED by EMS due to progressive weakness. Patient is poor historian and trails off with ideas, she does not know what happened today. Patient has progressive weakness, was seen in the department recently for same and had a 3 week stay in short-term rehab, patient has been home for 2 weeks. states today when patient was walking to the bathroom she became weak and helped lower her to the ground but she sat down. is requesting long-term penitentiary as he is unable to care for her at home anymore. MD complaint: weakness. Patient alert and coopertive. Respirations even and non-labored. Abdomen soft, non-tender with positive bowel sounds. Purewick patent and draining yellow urine. Positive pedal pulses with no edema.
--- NOTE | 2024-12-10 07:48 | PC.NURSE ---
Report given to Tia RN at [facility]
[2024-12-10 08:00] VITALS: BP 132/62; PULSE 70; RESP 14; TEMP 36.3; O2SAT 97
[2024-12-10] MEDS: Metoprolol Succinate ER 50 MG TAB.ER.24H PO (08:40)
[2024-12-10] MEDS: Aspirin Enteric Coated 81 MG TABLET.DR PO (08:40)
== END 2024-12-10 10:35 ==
PROVIDERS: Emergency Provider Emergency Medicine
DX: R53.1 Weakness (principal); I48.91 Unspecified atrial fibrillation; I10 Essential (primary) hypertension; E78.5 Hyperlipidemia, unspecified; F03.90 Unspecified dementia, unspecified severity, without behavioral disturbance, psychotic disturbance, mood disturbance, and anxiety; Z79.01 Long term (current) use of anticoagulants; Z95.0 Presence of cardiac pacemaker; Z79.899 Other long term (current) drug therapy
CPT/HCPCS: 36415; 70450; 71045; 73090; 73110; 80053; 81001; 81003; 83735; 84484; 85025; 85610; 87637; 93005; 96374; 97162; 99285; J0696

== ENCOUNTER → 2024-12-04 14:54 | Outpatient (BNV) | payer MEDICARE, SELFPAY | PROVIDERS: Emergency Provider Emergency Medicine; Visit Provider Radiology Diagnostic Radiology | DX: S09.90XA Unspecified injury of head, initial encounter (principal); R53.1 Weakness; M18.11 Unilateral primary osteoarthritis of first carpometacarpal joint, right hand; M79.631 Pain in right forearm | CPT/HCPCS: 70450; 71045; 73090; 73110 ==

== ENCOUNTER → 2024-12-04 14:54 | Outpatient (BNV) | payer MEDICARE, SELFPAY | PROVIDERS: Emergency Provider Emergency Medicine; Visit Provider Internal Medicine Cardiovascular Disease | DX: R94.31 Abnormal electrocardiogram [ECG] [EKG] (principal); Z95.0 Presence of cardiac pacemaker | CPT/HCPCS: 93010 ==

== ENCOUNTER 2025-02-18 12:36 | Emergency (ER) | payer MEDICARE, SELFPAY ==
--- OUTSIDE RECORDS SUMMARY | 2022-12-19 18:10 | XMS_ITS | Encounter Summary ---
Author Organization [facility] Address [address] [place] [address] Phone Care Team Providers Care Legal Coordinator Name Role Phone Mani Nation MD Primary Care Provider [phone] Vero Marshall RN Unavailable [email or web address] Mirian Locke RN Unavailable [phone] Encounter Details Date Type Department Care Team (Late st Contact Info) Description 12/19/2022 6:10 PM EDT Hospital Encounter [facility] [address] [place] [address] [phone] Viviana Baron, LEAD PROGRAMMER [address] [place] [address] [email or web address] Social History Tobacco Use Types Packs/Day Years [...] 12:43 AM EDT Anu Galarza RN * [place] Suicide Severity Rating Scale (Screener/Recent Self-Report) Question [...] or pulmonary vascular congestion. us Viviana Baron LEAD PROGRAMMER IMG XR CHEST Final Resul t documented [...] documented as of this encounter Care Teams Legal Coordinator Relationship Specialty Start Date End Date Mani Nation MD [address] [facility] [place] [address] [email or web address] PCP - General 02/08/17 Vero Marshall, FLORES [address] [facility] [place] [address] [email or web address] Formula Clerk 04/09/19 Mirian Locke RN [address] [place] [address] Registered Nurse 10/16/22 documented as of this encounter Additional Source Comments The information contained in this document represents components of the legal health record. It is not the complete legal health record.[facility]
--- NOTE | 2025-02-18 | ECG_ITS ---
Test Reason : FALL/WEAKNESS Blood Pressure : */* mmHG Vent. Rate : 99 BPM Atrial Rate : 113 BPM P-R Int : * ms QRS Dur : 116 ms QT Int : 404 ms P-R-T Axes : * 254 65 degrees QTcB Int : 518 ms Artifact in tracing Ventricular-paced rhythm Premature ventricular complexes Abnormal ECG When compared with ECG of 04-Dec-2024 15:17, No significant changes seen Referred By: Generic ED Physician Electronically Signed By: JULIO C ESTRELLA
--- NOTE | ~2025-02-18 | XR_ITS ---
EXAMINATION: XR BILATERAL HIPS WITH AP PELVIS CLINICAL INFORMATION: b/l hip pain, weakness COMPARISON: None available. TECHNIQUE: AP view pelvis. AP and oblique views both hips. FINDINGS: Degenerative changes in the symphysis pubis. Bony pelvis is intact. Sclerosis and the sacroiliac joints. Degenerative changes in the hips without acute cortical disruption or gross malalignment. No lytic or blastic lesions. Spondylosis, L4-5 and L5-S1. There is a catheter in the lower abdomen and pelvis likely intraperitoneal. There is a urethral catheter. XR/XR hip BI w PEL1V IMPRESSION: Osteoarthrosis/osteoarthritis both hips without acute fracture or dislocation. Electronically signed by: Jay Ritchie MD 02/18/2025 03:16 PM EDT
--- NOTE | ~2025-02-18 | XR_ITS ---
EXAMINATION: XR CHEST CLINICAL INFORMATION: weakness COMPARISON: 12/04/2024 TECHNIQUE: Frontal view of the chest was obtained. FINDINGS: Right IJ central line terminates in the right atrium above the inferior cavoatrial junction. Defibrillating right ventricular pacer is present. Heart size is within normal limits. Lungs are clear. There is no sign of pleural effusion. XR/XR chest 1V IMPRESSION: No acute disease. Right IJ central line terminates in the right atrium above the inferior cavoatrial junction. Electronically signed by: Nader Brewer MD 02/18/2025 02:28 PM EDT
[2025-02-18 12:41] VITALS: BP 124/70; BP 180/98; PULSE 66; PULSE 72; RESP 17; TEMP 37; O2SAT 94
[2025-02-18 13:21] LABS: MANUAL DIFF FLAG NO
[2025-02-18 13:29] LABS: Hematocrit 41.9 % (37.0-47.0); Hemoglobin 13.9 g/dl (12.0-16.0); Imm Gran Abs Auto 0.03 X10*3/uL (0.00-0.03); Imm Gran Pct Auto 0.3 % (0.0-0.4); Lymphocytes Absolute Auto 1.8 X10*3/uL (1.2-4.9); Mean Corpuscular HGB Conc 33.2 g/dl (31.0-35.0); Mean Corpuscular Hemoglobin 34.1 pg (27.0-33.0); Mean Corpuscular Volume 102.7 fL (80.0-98.0); NRBC Abs Auto 0.000 X10*3/uL (0.0-0.012); NRBC Pct Auto 0.0 /100WBC (0.0-0.2); Platelet Count 230 X10*3/uL (160-400); Red Blood Count 4.08 X10*6/uL (4.20-5.50); White Blood Count 9.2 X10*3/uL (4.8-10.8)
--- NOTE | 2025-02-18 13:32 | ED.WEAKNESS ---
HPI - Weakness General Chief complaint: Weakness Stated complaint: INCREASED WEAKNESS,H/O DEMENTIA PER EMS Time Seen by Provider: 02/18/25 13:24 Source: patient, family () and EMS Mode of arrival: EMS Limitations: no limitations History of Present Illness ED Provider: JULIANA CUNNINGHAM PA-C HPI Narrative: 84 year old female with pmhx significant for HTN, HLD, atrial fibrillation s/p pacemaker and stenting, on Coumadin followed by cardiology at [facility], and dementia presents to the ED today via EMS for evaluation of generalized weakness x1 week. Patient is a poor historian secondary to her dementia. I have contacted her via telephone for collateral information. Her states that over the past week, she has been increasingly more weak. Complaining of bilateral hip pain. No injury/trauma/falls. Her states that he was assisting patient from her bed to the commode when she stated that she felt too weak to stand. He assisted her to the floor onto her bottom. No head strike. No LOC. She is anticoagulant on warfarin. Her checks her INR weekly at home. Her last INR one week ago was within therapeutic levels at 2.3. She currently lives with her , grand daughter and grand daughter's . Her reports it is becoming more difficult to care for her at home. He is requesting services and/brandin placement at facility. He verbalizes that she is a DNR/DNI with MOLST form on file. Related Data Home Medications ?Medication ?Instructions ?Recorded ?Confirmed Lactobacillus rhamnosus GG 10 1 cap PO DAILY 02/14/24 02/19/25 billion cell capsule atorvastatin 40 mg tablet 40 mg PO BEDTIME 02/14/24 02/19/25 cholecalciferol (vitamin D3) 25 25 mcg PO DAILY 02/14/24 02/19/25 mcg (1,000 unit) capsule (Vitamin D3) cyanocobalamin (vitamin B-12) 1,000 mcg PO DAILY 02/14/24 02/19/25 1,000 mcg tablet famotidine 20 mg tablet 20 mg PO DAILY 02/14/24 02/19/25 metoprolol succinate 50 mg 50 mg PO DAILY 02/14/24 02/19/25 tablet,extended release 24 hr spironolactone 25 mg tablet 25 mg PO DAILY 02/14/24 02/19/25 warfarin 5 mg tablet 5 mg PO MO@1800 02/14/24 02/19/25 acetaminophen 325 mg tablet 650 mg PO Q6H PRN Pain 07/03/24 02/19/25 aspirin 81 mg tablet,delayed 81 mg PO DAILY 07/03/24 02/19/25 release warfarin 5 mg tablet 2.5 mg PO SUTUWETHFRSA@1800 07/03/24 02/19/25 vit C 250 mg-E 90 mg-zinc 40 1 cap PO BID 10/31/24 02/19/25 mg-copper 2 mg-lutein 5 mg-zeaxan capsule ([employer]) Allergies Allergy/AdvReac Type Severity Reaction Status Date / Time No Known Allergies Allergy Verified 02/18/25 12:44 Review of Systems Review of Systems: Yes all other systems are reviewed and are negative [facility] Past Medical History Attestation statement: The following information was validated with the patient. Source: old records reviewed, obtained from family and nursing notes reviewed Social History Social History Smoked in Last 30 Days: No Use of substances other than those prescribed or required for medical reasons: No Advance Directives: Yes Advance Directives on File: Yes Advance Directives Date on File: 02/15/24 Do you have a plan to hurt others: No Plan Physical Exam Vital Signs: Vital Signs: Last Vital Signs Temp 97.1 F 02/20/25 06:02 Pulse 78 02/20/25 06:02 Resp 16 02/20/25 06:02 BP 139/69 02/20/25 06:02 Pulse Ox 96 02/20/25 06:02 O2 Del Method Room Air 02/20/25 06:02 BMI result Body Mass Index 30.0 Vital signs stable, afebrile General: Well appearing, in no acute distress Skin: Warm, dry, intact. No rashes or lesions. Head: Normocephalic, atraumatic. EENT: Hearing is intact b/l. Conjunctiva clear. Sclera is anicteric. PERRLA. EOM intact. Moist mucous membranes.? Neck: Supple without LAD. FROM. Trachea midline.? Cardiac: Chest wall symmetric. RRR Lungs: Normal respiratory effort without accessory muscle use. CTA bilaterally Abdomen: Soft, non-tender, non-distended. No rebound tenderness or guarding. Positive BS x4. Back: No midline spinous or paraspinal tenderness. No step off deformity. Ext: Upper and lower extremities atraumatic, without tenderness, deformity, swelling or erythema. Full ROM throughout. Neuro: Alert, oriented to person/place. No facial droop, slurred speech, pronator drift. global weakness, 3/5 throughout. Course Course Course Narrative: CBC without leukocytosis or left shift. No anemia. H&H stable. Chemistry without acute electrolyte abnormality requiring intervention. Renal function around baseline. Troponin WNL at 5. initial EKG reading concerning for complete heart block. I did discuss with my attending dr. grullon - given rate of 99 bpm, unlikely. there are no acute ischemic changes. we did repeat EKG which shows ventricular paced rhythm in the 70s. No heart block. UA without infection. negative viral swabs. CXR without infiltrate or consolidation. xr hips showing OA without fracture. > patient has been medically cleared. Discussed disposition with / patient. requesting PT/CM evals which I feel is reasonable. these have been ordered. patient placed in physician observation at this time. Reevaluation(s) Reevaluation #1: Time: 08:11 Date: 02/19/25 Provider: DOT Sarkar Patient in physician observation for case management needs. No acute events reported overnight.? No current issues or complaints. VS stable. Patient is pending PT/CM eval. Will continue to monitor. DOT Sarkar 02/19/25 1440 per case management, plan to discharge patient to [facility] tomorrow at 9:00 a.m. - [facility] rec reviewed and completed. Reevaluation #2: Time: 07:43 Date: 02/20/25 Provider: Ann Melgar PA-C Physician observation ended at 9 am. Patient has been cleared for discharge by the CARE team. Patient to be placed at a [facility] facility. Medications Administered Generic Name Dose Route Start Last Admin Trade Name Freq PRN Reason Stop Dose Admin Atorvastatin Calcium 40 mg 02/19/25 21:00 02/19/25 20:37 Atorvastatin Calcium 40 Mg Tablet PO 40 mg BEDTIME BLAIRE Administration Warfarin Sodium 2.5 mg 02/19/25 18:00 02/19/25 20:37 Warfarin Sodium 2.5 Mg Tablet PO 2.5 mg SAM@1800 [facility] Administration Medical Decision Making Medical Decision Making MDM Narrative: 84 year old female with pmhx significant for HTN, HLD, atrial fibrillation s/p pacemaker and stenting, on Coumadin followed by cardiology at [facility], and dementia presents to the ED today via EMS for evaluation of generalized weakness x1 week. Differential diagnosis includes anemia, electrolyte abnormality, dehydration, physical deconditioning, failure to thrive, dementia, UTI, pneumonia Plan for labs, UA, CXR, ekg, and re-evaluation. Differential Diagnosis Differential Diagnoses: The differential diagnosis associated with the presentation includes as above. Admission/Observation Consideration of admission/observation: Escalation of care including admission/observation considered Lab Data [facility] Lab Attestation statement: I reviewed the patient's lab results. as above. 02/18/25 13:14 02/18/25 13:14 Labs: Lab Results 02/18/25 02/18/25 02/18/25 Range/Units 13:14 14:29 14:30 WBC 9.2 (4.8-10.8) X10*3/uL RBC 4.08 L (4.20-5.50) X10*6/uL Hgb 13.9 (12.0-16.0) g/dl Hct 41.9 (37.0-47.0) % MCV 102.7 H (80.0-98.0) fL MCH 34.1 H (27.0-33.0) pg MCHC 33.2 (31.0-35.0) g/dl RDW 13.0 (11.0-16.0) % Plt Count 230 (160-400) X10*3/uL MPV 11.1 (9.4-12.3) fL Immature Gran % (Auto) 0.3 (0.0-0.4) % Neut % (Auto) 72.9 (45-73) % Lymph % (Auto) 19.5 L (20-40) % Avery % (Auto) 5.1 (2-11) % Eos % (Auto) 1.7 (0-4) % Baso % (Auto) 0.5 (0-2) % Lymph # (Auto) 1.8 (1.2-4.9) X10*3/uL Avery # (Auto) 0.5 (0.1-1.2) X10*3/uL Eos # (Auto) 0.2 (0.0-0.4) X10*3/uL Baso # (Auto) 0.1 (0.0-0.2) X10*3/uL Abs Immat Gran (auto) 0.03 (0.00-0.03) X10*3/uL Absolute Neuts (auto) 6.7 (2.0-8.3) x10*3/uL Absolute Nucleated RBC 0.000 (0.0-0.012) X10*3/uL Nucleated RBC % (auto) 0.0 (0.0-0.2) /100WBC PT 32.2 H (10.9-12.4) SEC INR 2.8 H (0.9-1.1) Sodium 142 (135-145) mmol/L Potassium 4.2 (3.3-5.1) mmol/L Chloride 112 H (96-108) mmol/L Carbon Dioxide 22 (22-29) mmol/L Anion Gap 12 (12-20) BUN 19 H (9-16) mg/dL Creatinine 0.78 (0.5-1.4) mg/dL Estim Creat Clear Calc 58.7 Estimated GFR > 60 Random Glucose 104 (60-115) mg/dL Calcium 9.3 (8.4-10.2) mg/dL Troponin I High Sens 5.0 (<3.5-17.0) ng/L Urine Color Urine Appearance Urine pH (5.0-9.0) Ur Specific Berne (1.005-1.025) Urine Protein (Neg-Trace) mg/dL Urine Glucose (UA) (Negative) mg/dL Urine Ketones (Negative) mg/dL Urine Blood (Negative) Urine Nitrite (Negative) Ur Leukocyte Esterase (Negative) Urine RBC (0-2) /HPF Urine WBC (0-5) /HPF Ur Squamous Epith Cells (0-2) /HPF Calcium Oxalate Crystal Urine Bacteria (None Seen) Hyaline Casts (0-2) /LPF COVID-19 (ABHINAV) Negative (Negative) COVID-19 Clin Com See Note Influenza Type A (DANIEL) Negative (Negative) Influenza Type B (DANIEL) Negative (Negative) Influenza A & B Note See Note 02/18/25 Range/Units 16:28 WBC (4.8-10.8) X10*3/uL RBC (4.20-5.50) X10*6/uL Hgb (12.0-16.0) g/dl Hct (37.0-47.0) % MCV (80.0-98.0) fL MCH (27.0-33.0) pg MCHC (31.0-35.0) g/dl RDW (11.0-16.0) % Plt Count (160-400) X10*3/uL MPV (9.4-12.3) fL Immature Gran % (Auto) (0.0-0.4) % Neut % (Auto) (45-73) % Lymph % (Auto) (20-40) % Avery % (Auto) (2-11) % Eos % (Auto) (0-4) % Baso % (Auto) (0-2) % Lymph # (Auto) (1.2-4.9) X10*3/uL Avery # (Auto) (0.1-1.2) X10*3/uL Eos # (Auto) (0.0-0.4) X10*3/uL Baso # (Auto) (0.0-0.2) X10*3/uL Abs Immat Gran (auto) (0.00-0.03) X10*3/uL Absolute Neuts (auto) (2.0-8.3) x10*3/uL Absolute Nucleated RBC (0.0-0.012) X10*3/uL Nucleated RBC % (auto) (0.0-0.2) /100WBC PT (10.9-12.4) SEC INR (0.9-1.1) Sodium (135-145) mmol/L Potassium (3.3-5.1) mmol/L Chloride (96-108) mmol/L Carbon Dioxide (22-29) mmol/L Anion Gap (12-20) BUN (9-16) mg/dL Creatinine (0.5-1.4) mg/dL Estim Creat Clear Calc Estimated GFR Random Glucose (60-115) mg/dL Calcium (8.4-10.2) mg/dL Troponin I High Sens (<3.5-17.0) ng/L Urine Color Yellow Urine Appearance Cloudy Urine pH 7.5 (5.0-9.0) Ur Specific Berne >= 1.030 H (1.005-1.025) Urine Protein Negative (Neg-Trace) mg/dL Urine Glucose (UA) Negative (Negative) mg/dL Urine Ketones Trace (Negative) mg/dL Urine Blood Negative (Negative) Urine Nitrite Negative (Negative) Ur Leukocyte Esterase Trace H (Negative) Urine RBC 0-2 (0-2) /HPF Urine WBC 0-5 (0-5) /HPF Ur Squamous Epith Cells 0-2 (0-2) /HPF Calcium Oxalate Crystal Present Urine Bacteria None Seen (None Seen) Hyaline Casts 0-2 (0-2) /LPF COVID-19 (ABHINAV) (Negative) COVID-19 Clin Com Influenza Type A (DANIEL) (Negative) Influenza Type B (DANIEL) (Negative) Influenza A & B Note Independent Interpretation I performed an independent interpretation of an: EKG and Plain X-Ray Interpretation: EKG showing ventricular paced rhythm, rate of 75 beats per minute, QT 430, QTC 480 Chest x-ray without infiltrate or consolidation xr bilateral hips without fracture Radiology Impression Discussion of test interpretation with radiology: I have reviewed the radiologist's reading. Radiologist Impression: Procedure(s): XR chest 1V Accession Number(s): [id number] cc: BETTINA MAKI MD; Juliana Cunningham~ Reason for Exam: weakness EXAMINATION: XR CHEST CLINICAL INFORMATION: weakness COMPARISON: 12/04/2024 TECHNIQUE: Frontal view of the chest was obtained. FINDINGS: Right IJ central line terminates in the right atrium above the inferior cavoatrial junction. Defibrillating right ventricular pacer is present. Heart size is within normal limits. Lungs are clear. There is no sign of pleural effusion. XR/XR chest 1V IMPRESSION: No acute disease. Right IJ central line terminates in the right atrium above the inferior cavoatrial junction. Electronically signed by: Nader Brewer MD 02/18/2025 02:28 PM EDT Procedure(s): XR hip BI w PEL1V Accession Number(s): [id number] cc: BETTINA MAKI MD; Juliana Cunningham~ Reason for Exam: b/l hip pain, weakness EXAMINATION: XR BILATERAL HIPS WITH AP PELVIS CLINICAL INFORMATION: b/l hip pain, weakness COMPARISON: None available. TECHNIQUE: AP view pelvis. AP and oblique views both hips. FINDINGS: Degenerative changes in the symphysis pubis. Bony pelvis is intact. Sclerosis and the sacroiliac joints. Degenerative changes in the hips without acute cortical disruption or gross malalignment. No lytic or blastic lesions. Spondylosis, L4-5 and L5-S1. There is a catheter in the lower abdomen and pelvis likely intraperitoneal. There is a urethral catheter. XR/XR hip BI w PEL1V IMPRESSION: Osteoarthrosis/osteoarthritis both hips without acute fracture or dislocation. Electronically signed by: Jay Ritchie MD 02/18/2025 03:16 PM EDT RP Independent Historian Clinical information obtained from an independent historian. History obtained from or confirmed by: Spouse and EMS External Record Review External record reviewed: Inpatient record Chronic Conditions Patient?s care impacted by: Other (dementia) Social Determinants Patient?s care significantly limited by Social Determinants of Health including: Other Social Determinant of Health Critical Care Time Critical Care Time Critical Care Time: No Discharge Plan Discharge Clinical Impression: Generalized weakness Patient Disposition: Xfer Inpatient Rehab Fac Instructions: Weakness (ED) Additional Instructions: YOu have been cleared medically. Due to you generalized weakness, you have been approved for a short term rehab. Prescriptions: No Action atorvastatin 40 mg Tablet 40 mg PO BEDTIME cyanocobalamin (vitamin B-12) 1,000 mcg Tablet 1,000 mcg PO DAILY Lactobacillus rhamnosus GG 10 billion cell Capsule 1 cap PO DAILY cholecalciferol (vitamin D3) [Vitamin D3] 25 mcg (1,000 unit) Capsule 25 mcg PO DAILY metoprolol succinate 50 mg Tablet Extended Release 24 Hr 50 mg PO DAILY spironolactone 25 mg Tablet 25 mg PO DAILY warfarin 5 mg Tablet 5 mg PO MO@1800 famotidine 20 mg Tablet 20 mg PO DAILY acetaminophen 325 mg Tablet 650 mg PO Q6H PRN (Reason: Pain) aspirin [Aspir-81] 81 mg Tablet,Delayed Release (Dr/Ec) 81 mg PO DAILY warfarin 5 mg tablet 2.5 mg PO SUTUWETHFRSA@1800 [employer] [id number] mg Capsule 1 cap PO BID Referrals: Livia Garnica [Outside] Referral Note: [phone] Print Language: Occitan
[2025-02-18 13:40] LABS: Anion Gap 12 (12-20); Blood Urea Nitrogen 19 mg/dL (9-16); Calcium 9.3 mg/dL (8.4-10.2); Carbon Dioxide 22 mmol/L (22-29); Chloride 112 mmol/L (96-108); Creatinine Clr Calc Pharmacy 58.7; Estimated Glomerular Filt Rate > 60; Potassium 4.2 mmol/L (3.3-5.1); Sodium 142 mmol/L (135-145)
[2025-02-18 14:31] VITALS: BP 128/47; PULSE 70; RESP 14; TEMP 36.8; O2SAT 96
[2025-02-18 14:50] LABS: COVID-19 Test Negative (Negative); IDNOW Serial# 58CA691E
[2025-02-18 14:51] LABS: INTERNATIONAL NORM RATIO 2.8 (0.9-1.1); Prothrombin Time 32.2 SEC (10.9-12.4)
[2025-02-18 14:54] LABS: IDNOW Serial# 55D5AD1C; Influenza B2 Negative (Negative)
--- NOTE | 2025-02-18 14:58 | ECG_ITS ---
Test Reason : WEAKNESS Blood Pressure : */* mmHG Vent. Rate : 75 BPM Atrial Rate : 500 BPM P-R Int : * ms QRS Dur : 102 ms QT Int : 430 ms P-R-T Axes : * -75 70 degrees QTcB Int : 480 ms Ventricular-paced rhythm Abnormal ECG When compared with ECG of 18-Feb-2025 12:56, Vent. rate has decreased by 24 bpm Referred By: Juliana Cunningham Electronically Signed By: JULIO C ESTRELLA
[2025-02-18 15:24] LABS: Troponin-I High Sensitivity 5.0 ng/L (<3.5-17.0)
[2025-02-18 16:39] LABS: Appearance Urine Cloudy; Glucose Urine UA Negative (Negative); PH 7.5 (5.0-9.0); Specific Gravity - Urine >= 1.030 (1.005-1.025); UMIC TRIGGER UACC YES
--- OUTSIDE RECORDS SUMMARY | 2025-02-18 17:15 | XMS_ITS | Encounter Summary ---
Author Organization [facility] Address [address] [place] [address] Care Team Providers Care Wage Conciliator Name Role Phone Mani Nation MD Primary Care Provider Encounter Details Date Type Department Care Team (Late Contact Info) Description 05/17/2022 myChart Message [facility] Heart and Vascular Interventional Lab [address] [place] [address] Wing Jeffery MD PhD [address] [place] [address] Your Recent Visit Social History Tobacco Use [...] Info) Description 05/08/2025 2:15 PM EST Appointment [facility] Heart Station [address] [place] [address] Wing Jeffery MD PhD [address] [place] [address] Scheduled Procedures Name Priority Associated Diagnoses Date/Ti me COLONOSCOPY SCREENING, HIGH RISK WITH POSSIBLE MODERATE SEDATION Diarrhea, unspecified type documented as of this encounter Visit Diagnoses Not on filedocumented in this encounter Additional Health Concerns Infection Onset Date Last Indicated Resolved Time COVID-19 - Suspected infection 2022 2022 2022 9:55 PM EDT documented as of this encounter Care Teams Wage Conciliator Relationship Specialty Start Date End Date Mani Nation MD [address] [place] [address], [address] [place] [address] PCP - General 11/09/16 documented as of this encounter
--- OUTSIDE RECORDS SUMMARY | 2025-02-18 17:15 | XMS_ITS | Encounter Summary ---
Author Organization [facility] Address [address] [place] [address] Care Team Providers Care Display Coordinator Name Role Phone Huang Oviedo MD Primary Care Provider [phone] Encounter Details Date Type Department Care Team (Late st Contact Info) Description 02/23/2024 Lab Requisition [facility] - Main Lab [address] [place] [address] Huang Oviedo MD [address] [place] [address] [phone] Unspecified atrial fibrillation (CMS/HCC V24, CMS/HCC V28) [...] LAB COAGULATION METHOD 02/25/2024 10:40 AM EST [facility] LAB INR 2.0 LAB COAGULATION METHOD 02/25/2024 10:40 AM EST [facility] Blood Venous blood specimen / Unknown Venipuncture / Unknown 02/25/2024 5:38 AM EST 02/25/2024 10:40 AM EST Huang Oviedo MD LAB BLOOD ORDERABLES Final Res ult [facility] LAB [address] [place] [address], documented in this encounter Visit Diagnoses Diagnosis Unspecified atrial fibrillation (CMS/HCC V24, CMS/HCC V28) documented in this encounter Care Teams Display Coordinator Relationship Specialty Start Date End Date Huang Oviedo MD [address] [place] [id number] PCP - General Internal Medicine 03/10/24 documented as of this encounter
--- OUTSIDE RECORDS SUMMARY | 2025-02-18 17:15 | XMS_ITS | Encounter Summary ---
Author Organization [facility] Address [address] [address] Phone Care Team Providers Care Bark Press Operator Name Role Phone Mani Nation MD Primary Care Provider [phone] Vero Marshall RN Unavailable [email or web address] Mirian Locke RN Unavailable [phone] Vanessa Malik Unavailable [email or web address] Naila Brandt RN Unavailable [phone] Encounter Details Date Type Department Care Team (Latest Contact Info) Description 01/23/2023 Transcribe Orders [facility] Laboratory [address] [place] [address] Oly Cali NP [address] [place] [address] Paroxysmal atrial fibrillation (Primary Dx); Acute heart failure, unspecified heart failure type; Cardiomyopathy, unspecified type Social History Tobacco Use Types Packs/Day Years [...] with a working camera? Not on file Comments Unknown Sex and Gender Information Value Date Recorded Sex Assigned at Female 08/11/2017 5:18 AM EDT Legal Sex Female 6:38 PM EST Gender Identity Female 08/11/2017 5:18 AM EDT Sexual Orientation Straight 08/11/2017 5: 18 AM EDT documented as of this encounter Plan of Treatment Not on file documented as of this encounter Results * (ABNORMAL) CBC (01/23/2023 2:08 PM EDT) WBC 8.06 4.00 - 11.00 K/uL [facility] RBC 4.55 3.72 - 5.30 M/uL [facility] HGB 14.5 11.4 - 15.9 g/dL [facility] HCT 44.7 34.2 - 46.8 % [facility] PLT 208 140 - 430 K/uL [facility] MCV 98.2(H) 78.0 - 97.0 fL [facility] MCH 31.9 25.0 - 33.0 pg [facility] MCHC 32.4 32.0 - 36.0 g/dL [facility] RDW 14.4 11.0 - 16.0 % [facility] MPV 11.9 8.4 - 12.8 [facility] Blood 01/23/2023 2:08 PM EDT 01/23/2023 2:13 PM EDT us Oly Cali [facility] LAB BLOOD ORDERABLES Final Result [facility] [address] [place] [address] * (ABNORMAL) Basic metabolic panel (01/23/2023 2:08 PM EDT) SODIUM 142 133 - 146 mmol/L [facility] CHLORIDE 101 96 - 108 mmol/L [facility] POTASSIUM 4.2 3.3 - 5.1 mmol/L [facility] CO2 30 21 - 35 mmol/L [facility] BUN 20(H) 6 - 19 mg/dL [facility] CREATININE 0.80 0.5 - 1.5 mg/dL [facility] GLUCOSE 82 70 - 99 mg/dL [facility] CALCIUM 9.7 8.4 - 10.3 mg/dL [facility] EGFR 74 >59 mL/min/1.7 3m2 [facility] Comment:Estimated glomerular filtration rate calculated using the CKD-EPI refit equation. ANION GAP 15 10 - 20 mmol/L [facility] Blood 01/23/2023 2:08 PM EDT 01/23/2023 2:13 PM EDT us Oly Cali NP LAB BLOOD ORDERABLES Final Result Performing Organization Address City/State/[facility] Co de Phone Number [facility] [address] [place] [address] documented in this encounter Visit Diagnoses Diagnosis Paroxysmal atrial fibrillation- Primary Atrial fibrillation Acute heart failure, unspecified heart failure type Cardiomyopathy, unspecified type documented in this encounter Additional Health Concerns [...] documented as of this encounter Care Teams Bark Press Operator Relationship Specialty Start Date End Date Mani Nation MD [address] [facility], [address] [place] [address] [email or web address] PCP - General 02/08/17 Vero Marshall, FLORES [address] [facility] [place] [address] [email or web address] PHCM Behavioral Health Aide 04/09/19 Mirian Locke RN [address] [place] [address] Registered Nurse 10/16/22 Vanessa Malik [address] [place] [address] [email or web address] PHCM [employer] Monitor 06/12/24 06/12/24 Naila Brandt, FLORES [address] [place] [address] [phone] [email or web address] PHCM Behavioral Health AideSearch Analyst 12/25/24 02/08/25 documented as of this encounter Additional Source Comments The information contained in this document represents components of the legal health record. It is not the complete legal health record.[facility]
--- OUTSIDE RECORDS SUMMARY | 2025-02-18 17:15 | XMS_ITS | Encounter Summary ---
Author Organization [facility] Address [address] [place] [address] Care Team Providers Care Stranding Supervisor Name Role Phone Huang Oviedo MD Primary Care Provider [phone] Encounter Details Date Type Department Care Team (Late st Contact Info) Description 02/27/2024 Lab Requisition [facility] - Main Lab [address] [facility] [place] [address] Huang Oviedo MD [address] [place] [address] Unspecified atrial fibrillation (CMS/HCC V24, CMS/HCC V28) [...] V28) documented in this encounter Care Teams Stranding Supervisor Relationship Specialty Start Date End Date Huang Oviedo MD [address] [place] [address] PCP - General Internal Medicine 03/10/24 documented as of this encounter
--- OUTSIDE RECORDS SUMMARY | 2025-02-18 17:15 | XMS_ITS | Encounter Summary ---
Author Organization [facility] Address [address] [place] [address] Care Team Providers Care Garbage Collector Driver Name Role Phone Mani Nation MD Primary Care Provider [phone] Encounter Details Date Type Department Care Team (Late st Contact Info) Description 01/28/2025 Telephone [facility] Heart Station [address] [place], [place] [phone] Abbe Batres MD [address] [place] [address] [phone] Social History Tobacco Use Types Packs/Day Years [...] encounter Miscellaneous Notes * Telephone Encounter - Emily Mcfadden Herman - 01/28/2025 8:20 AM EDT Alert from [email or web address] received 01/28/25- Possible OptiVol fluid accumulation: 17-Jan-2025 -- ongoing. A PDF copy of this result has been uploaded to [employer]. documented in this encounter Plan of Treatment Upcoming Encounters Date Type Department Care Team (Late st Contact Info) Description 05/08/2025 2:15 PM EST Appointment [facility] Heart Station [address] [place] [address] Wing Jeffery MD PhD [address] [place] [address] Scheduled Procedures Name Priority Associated Diagnoses Date/Ti me COLONOSCOPY SCREENING, HIGH RISK WITH POSSIBLE MODERATE SEDATION Diarrhea, unspecified type documented as of this encounter Visit Diagnoses Not on filedocumented in this encounter Care Teams Garbage Collector Driver Relationship Specialty Start Date End Date Mani Nation MD [address] [place] [address], [address] [place] [address] PCP - General 11/09/16 documented as of this encounter
--- OUTSIDE RECORDS SUMMARY | 2025-02-18 17:15 | XMS_ITS | Encounter Summary ---
Author Organization [facility] Address [address] [facility] [address] [place] [address] Phone Care Team Providers Care Supervisor Cereal Name Role Phone Mani Nation MD Primary Care Provider [phone] Vero Marshall RN Unavailable [email or web address] Mirian Locke RN Unavailable [phone] Vanessa Malik Unavailable [email or web address] Naila Brandt RN Unavailable Reason for Visit * Reason Onset Date Comments Breathing Problem 12/20/2022 Encounter Details Date Type Department Care Team (Late st Contact Info) Description 12/20/2022 Nurse Triage [address] [address] Mani Nation MD [address] [facility] [place] [address] [email or web address] Breathing Problem Social History Tobacco Use Types Packs/Day Years [...] AM EDT documented as of this encounter Progress Notes * Victoria Lynch, RN - 12/20/2022 10:29 AM EDT This RN spoke with pt last seen in yesterday 12/20/22 for cough and SOB, xray completed revealed pleural effusions. Pt reports she continues with ongoing non productive cough and SOB at rest despite compliance with prescribed inhaler. Pt denied fever, no known covid exposure, reports she has not tested at home for covid and also was never tested at urgent care as she reports they did not test because she did not have a fever. Pt was able to complete sentences over the phone however was coughing and reports continued wheezing and increased SOB, denied hemoptysis. Pt informed due to SOB at rest and worsening symptoms s/p eval yesterday advised to go to ED forurgent evaluation and treatment as soon as possible. Pt verbalized understanding, will transport her to [facility] ED, emergency expect note sent. Nurse Triage Encounter Note Reason for Triage Lita Salinas contacted office for Breathing Problem Call Disposition Go To Ed Now Patient/caregiver understands and will follow disposition: Yes Patient/caregiver understands and will follow care advice: Yes, Plans To Follow Advice Disposition Comments: Protocols used: Breathing Faowvbfvkq-Cydwm-Lh Initial Symptom Screening and Assessment IA None Care Advice Given Care Advice Patient/Caregiver understands and will follow care advice?: Yes, plans to follow advice GO TO ED NOW: * You need to be seen in the Emergency Department. * Go to the ED at [facility]. * Leave now. Drive carefully. FIRST AID ADVICE - BREATHING STOPPED OR CARDIAC ARREST HANDS-ONLY CPR * Call 911. * Push hard and fast on the center of the chest. Special Notes: * High quality CPR: Rescuers should push hard to a depth of at least 2 inches (5 cm), at a rate of 100-120 compressions per minute, allow full chest recoil, and minimize interruptions in chest compressions. The disco song 'Stayin' Alive' has the right beat for CPR. * The [place] [employer] provides a 1-minute instructional video on Hands-Only CPR at: https://cpr.heart.org/en/. Be prepared. Watch it now, before you need it! * The [place] [employer] provides a free Hands-Only CPR Efraín for the iPhone, PalmPre, and Android. * You are strongly encouraged to get training in CPR from the [place] or the [place] [employer]. 'It is critical for community members to recognize cardiac arrest, phone (or the local emergency response number), perform CPR (including, for untrained lay rescuers, compression-only CPR, and use an AED.' Source: 2020 AHA Guidelines for Cardiopulmonary Resuscitation and Emergency Cardiovascular Care. CPR BY TRAINED RESCUERS Trained (confident) rescuers should add ventilations to chest compressions while waiting for paramedics to arrive: * Call 911. * Perform chest compressions and dhxvy-qr-yqykh breathing in cycles of 30 compressions and then 2 breaths. Special Notes: * Rescuers should push hard to a depth of at least 2 inches (5 cm), at a rate of 100-120 compressions per minute, allow full chest recoil, and minimize interruptions in chest compressions. FIRST AID ADVICE FOR ANAPHYLAXIS - EPINEPHRINE * If the patient has an epinephrine autoinjector, GIVE IT NOW. Do not delay. * Use the autoinjector on the upper outer thigh. You may give it through clothing if needed. * Give epinephrine first, then call 911. Epinephrine is available in autoinjectors under trade names: EpiPen, EpiPen Jr, and Auvi-Q (Allerject in [place]). Auvi-Q has an audio chip and talks patients and caregivers through injection process. You may give a second (repeat) dose of epinephrine 10-15 minutes later, IF the person with anaphylaxis does not respond to the first dose AND ambulance arrival takes longer than 10 minutes. FIRST AID ADVICE FOR ANAPHYLAXIS - BENADRYL * Give antihistamine by mouth now if able to swallow. * Use Benadryl (diphenhydramine; adult dose 50 mg) or any other available antihistamine. FIRST AID ADVICE FOR CHOKING IF COUGHING AND BREATHING, encourage coughing. * As long as the adult is breathing and coughing, just encourage him to cough the material up by himself. (Reason: the cough reflex can usually clear the windpipe) * Don't offer anything to drink. (Reason: fluids take up space needed for air passage) IF BREATHING STOPS, perform ABDOMINAL THRUST (Heimlich) maneuver. * If the adult can't breathe, cough, or make a sound, proceed with high abdominal thrusts. * Grasp the adult from behind, just below the lower ribs but above the navel, in bear-hug fashion. Make a fist with one hand and fold the other hand over it. * Give a sudden upward and backward jerk (at a 45 angle) to try to squeeze all the air out of the chest and pop the lodged object out of the windpipe. * Repeat this upward abdominal thrust 10 times in rapid succession, until the object comes out. * If the adult is too heavy for you to suspend from your arms, lay him on his back on the floor. Put your hands on both sides of the abdomen, just below the ribs, and apply sudden, strong bursts of upward pressure. IF THE ADULT PASSES OUT, give ufveq-hz-oscxx breathing. * Quickly open the mouth and look inside to see if there is any object that can be removed with a sweep of your finger (usually there is not). Avoid 'blind' sweeps. * Then begin resuscitation. Air can usually be forced past the foreign object temporarily until help arrives. * If yayyv-il-finww breathing doesn't move the chest, repeat the abdominal thrusts or chest compressions. GENERAL CARE ADVICE FOR BREATHING DIFFICULTY: * Find position of greatest comfort. For most patients the best position is semi-upright (e.g., sitting up in a comfortable chair or lying back against pillows). * Elevate head of bed (e.g., use pillows or place blocks under bed). * Avoid smoke or fume exposure. * Create a draft (e.g., use a fan directed at the face, or open a window). * Keep room temperature slightly on the cool side. * Limit activities or space activities apart during the day. Prioritize activities. * Use a humidifier. FEVER MEDICINES: * For fevers above 101 F (38.3 C) take either acetaminophen or ibuprofen. * They are wuqw-fjz-gjraxep (OTC) drugs that help treat both fever and pain. You can buy them at the drugstore. * The goal of fever therapy is to bring the fever down to a comfortable level. Remember that fever medicine usually lowers fever 2 degrees F (1 - 1 1/2 degrees C). * ACETAMINOPHEN REGULAR STRENGTH TYLENOL: Take 650 mg (two 325 mg pills) by mouth every 4 to 6 hours as needed. Each Regular Strength Tylenol pill has 325 mg of acetaminophen. The most you should take each day is 3,250 mg (10 pills a day). * ACETAMINOPHEN - EXTRA STRENGTH TYLENOL: Take 1,000 mg (two 500 mg pills) every 8 hours as needed.Each Extra Strength Tylenol pill has 500 mg of acetaminophen. The most you should take each day is 3,000 mg (6 pills a day). * IBUPROFEN (E.G., MOTRIN, ADVIL): Take 400 mg (two 200 mg pills) by mouth every 6 hours. The most you should take each day is 1,200 mg (six 200 mg pills), unless your doctor has told you to take more. FEVER MEDICINES - EXTRA NOTES AND WARNINGS: * Use the lowest amount of medicine that makes your fever better. * Acetaminophen is thought to be safer than ibuprofen or naproxen in people over 65 years old. Acetaminophen is in many OTC and prescription medicines. It might be in more than one medicine that you are taking. You need to be careful and not take an overdose. An acetaminophen overdose can hurt the liver. * [employer], the company that makes Tylenol, has different dosage instructions for Tylenol in [place] and the [place]. In [place], the maximum recommended dose per day is 4,000 mg or twelve Regular-Strength (325 mg) pills. In the [place], [employer] recommends a maximum dose of ten Regular-Strength (325 mg) pills. * CAUTION: Do not take acetaminophen if you have liver disease. * CAUTION: Do not take ibuprofen if you have stomach problems, kidney disease, are , or have been told by your doctor to avoid this type of anti- inflammatory drug. Do not take ibuprofen for more than 7 days without consulting your doctor. * Before taking any medicine, read all the instructions on the package. CALL BACK IF: * Severe difficulty breathing occurs * Fever more than 100.4 F (38.0 C) * You become worse Patient will call back with additional questions or if symptoms change or worsen Victoria Lynch RN Reason for Disposition and Assessment Reason for Disposition ??? MODERATE difficulty breathing (e.g., speaks in phrases, SOB even at rest, pulse 100-120) of new-onset or worse than normal Protocols used: BREATHING [id number] * Prema Trejo - 12/20/2022 10:06 AM EDT Pt LVM stating she had been advised to follow up with her PCP after her UC visit. Pt stated that the xray showed fluid around her lungs and she is still having trouble breathing. Dr. Nation's next available FUV is 01/04. Please advise. documented in this encounter Plan of Treatment Not on [...] documented as of this encounter Care Teams Supervisor Cereal Relationship Specialty Start Date End Date Mani Nation MD [address] [facility], [address] [place] [address] PCP - General 02/08/17 Vero Marshall, FLORES [address] [facility] [place] [address] [email or web address] PHCM Guest Service Manager 04/09/19 Mirian Locke RN [address] [place] [address] Registered Nurse 10/16/22 Vanessa Malik [address] [place] [address] [email or web address] PHCM Community Irrigation Foreman 06/12/24 06/12/24 Naila Brandt, FLORES [address] [place] [address] [phone] [email or web address] PHCM Guest Service ManagerClinical Team Lead 12/25/24 02/08/25 documented as of this encounter Additional Source Comments The information contained in this document represents components of the legal health record. It is not the complete legal health record.[facility]
--- OUTSIDE RECORDS SUMMARY | 2025-02-18 17:15 | XMS_ITS | Encounter Summary ---
Author Organization [facility] Address [address] [place] [address] Care Team Providers Care System Development Engineer Name Role Phone Mani Nation MD Primary Care Provider [phone] Encounter Details Date Type Department Care Team (Late Contact Info) Description 04/19/2022 myChart Message [facility] Heart and Vascular Interventional Lab [address] [place] [address] Wing Jeffery MD PhD [address] [place] [address] Your Recent Visit Social History Tobacco Use [...] Info) Description 05/08/2025 2:15 PM EST Appointment [facility] Heart Station [address] [place] [address] Wing Jeffery MD PhD [address] [place] [address] Scheduled Procedures Name Priority Associated Diagnoses Date/Ti me COLONOSCOPY SCREENING, HIGH RISK WITH POSSIBLE MODERATE SEDATION Diarrhea, unspecified type documented as of this encounter Visit Diagnoses Not on filedocumented in this encounter Additional Health Concerns Infection Onset Date Last Indicated Resolved Time COVID-19 - Suspected infection 2022 2022 2022 9:55 PM EDT documented as of this encounter Care Teams System Development Engineer Relationship Specialty Start Date End Date Mani Nation MD [address] [place] [address], [address] [place] [address] PCP - General 11/09/16 documented as of this encounter
--- OUTSIDE RECORDS SUMMARY | 2025-02-18 17:15 | XMS_ITS | Encounter Summary ---
Author Organization [facility] Address [address] [place] [address] Care Team Providers Care Graduate Assistant Athletic Trainer Name Role Phone Mani Nation MD Primary Care Provider [phone] Encounter Details Date Type Department Care Team (Late st Contact Info) Description 02/11/2025 Telephone [facility] Heart Station [address] [place], [place] [phone] Crys Madsen NP [address] [place], [place] [phone] Social History Tobacco Use Types Packs/Day Years [...] encounter Miscellaneous Notes * Telephone Encounter - Sabina Dixon - 02/11/2025 10:09 AM EDT Pacemaker remote today reveals High Opti-Vol Fluid - ongoing. Sent to entertainment & media correspondent. documented in this encounter Plan of Treatment Upcoming Encounters Date Type Department Care Team (Late st Contact Info) Description 05/08/2025 2:15 PM EST Appointment [facility] Heart Station [address] [place] [address] Wing Jeffery MD PhD [address] [place] [address] Scheduled Procedures Name Priority Associated Diagnoses Date/Ti me COLONOSCOPY SCREENING, HIGH RISK WITH POSSIBLE MODERATE SEDATION Diarrhea, unspecified type documented as of this encounter Visit Diagnoses Not on filedocumented in this encounter Care Teams Graduate Assistant Athletic Trainer Relationship Specialty Start Date End Date Mani Nation MD [address] [place] [address], [address] [place] [address] PCP - General 11/09/16 documented as of this encounter
--- OUTSIDE RECORDS SUMMARY | 2025-02-18 17:15 | XMS_ITS | Encounter Summary ---
Author Organization [facility] Address [address] [place] [address] Phone Care Team Providers Care Roof Mechanic Name Role Phone Mani Nation MD Primary Care Provider [phone] Mani Nation MD Unavailable Vero Marshall RN Unavailable [email or web address] Savannah Fontana Unavailable [phone] Mirian Locke RN Unavailable [phone] Vanessa Malik Unavailable [email or web address] Naila Brandt RN Unavailable [phone] Encounter Details Date Type Department Care Team (Late st Contact Info) Description 12/17/2017 Procedure Pass [facility], Ct Scan - [address] [address] Social History Tobacco Use Types Packs/Day Years [...] documented as of this encounter Care Teams Roof Mechanic Relationship Specialty Start Date End Date Mani Nation MD [address] [place] [address], [address] [place] [address] [email or web address] PCP - General 02/08/17 Mani Nation MD [address] [place] [address], [address] [place] [address] [email or web address] Insurance Assigned Provider 07/21/1701/01 Vero Marshall, FLORES [address] [place] [address], [address] [address] [email or web address] PHCM Pouncing Machine Operator 04/09/19 Savannah Fontana [address] [place] [address] PHCM Community Health Worker 06/30/20 07/11/20 Mirian Locke RN [address] [place] [address] Registered Nurse 10/16/22 Vanessa Malik [address] [place] [address] [email or web address] PHCM Community Philatelic Consultant 06/12/24 06/12/24 Naila Brandt, RN [address] [place] [address] PHCM Pouncing Machine OperatorTire Finisher 12/25/24 02/08/25 documented as of this encounter Additional Source Comments The information contained in this document represents components of the legal health record. It is not the complete legal health record.[facility]
--- OUTSIDE RECORDS SUMMARY | 2025-02-18 17:15 | XMS_ITS | Encounter Summary ---
Author Organization [facility] Address [address] [place] [address] Care Team Providers Care Avionics Supervisor Name Role Phone Mani Nation MD Primary Care Provider [phone] Encounter Details Date Type Department Care Team (Late Contact Info) Description 05/02/2022 myChart Message [facility] Heart and Vascular Interventional Lab [address] [place] [address] Wing Jeffery MD PhD [address] [place] [address] Your Recent Visit Social History Tobacco Use [...] Info) Description 05/08/2025 2:15 PM EST Appointment [facility] Heart Station [address] [place] [address] Wing Jeffery MD PhD [address] [place] [address] Scheduled Procedures Name Priority Associated Diagnoses Date/Ti me COLONOSCOPY SCREENING, HIGH RISK WITH POSSIBLE MODERATE SEDATION Diarrhea, unspecified type documented as of this encounter Visit Diagnoses Not on filedocumented in this encounter Additional Health Concerns Infection Onset Date Last Indicated Resolved Time COVID-19 - Suspected infection 2022 2022 2022 9:55 PM EDT documented as of this encounter Care Teams Avionics Supervisor Relationship Specialty Start Date End Date aMni Nation MD [address] [place] [address], [address] [place] [address] PCP - General 11/09/16 documented as of this encounter
--- OUTSIDE RECORDS SUMMARY | 2025-02-18 17:15 | XMS_ITS | Encounter Summary ---
Author Organization [facility] Address [address] [place] [address] Care Team Providers Care Edi Programmer Analyst Name Role Phone Mani Nation MD Primary Care Provider [phone] Encounter Details Date Type Department Care Team (Late Contact Info) Description 11/03/2021 Telephone [facility] Heart [facility] [address] [place] [address] Shasta Pedraza DO [address] [place] [address] Social History Tobacco Use Types Packs/Day Years [...] Info) Description 05/08/2025 2:15 PM EST Appointment [facility] Heart Station [address] [place] [address] Wing Jeffery MD PhD [address] [place], [place] [phone] Scheduled Procedures Name Priority Associated Diagnoses Date/Ti [...] documented as of this encounter Care Teams Edi Programmer Analyst Relationship Specialty Start Date End Date Mani Nation MD [address] [place] [address], [address] [place] [address] PCP - General 11/09/16 documented as of this encounter
--- OUTSIDE RECORDS SUMMARY | 2025-02-18 17:15 | XMS_ITS | Encounter Summary ---
Author Organization [facility] Address [address] [place] [address] Care Team Providers Care Die Storage Clerk Name Role Phone Mani Nation MD Primary Care Provider [phone] Encounter Details Date Type Department Care Team (Late Contact Info) Description 05/19/2022 myChart Message [facility] Heart and Vascular Interventional Lab [address] [place] [address] Wing Jeffery MD PhD [address] [place] [address] Your Recent Visit Social History Tobacco Use [...] Info) Description 05/08/2025 2:15 PM EST Appointment [facility] Heart Station [address] [place] [address] Wing Jeffery MD PhD [address] [place] [address] Scheduled Procedures Name Priority Associated Diagnoses Date/Ti me COLONOSCOPY SCREENING, HIGH RISK WITH POSSIBLE MODERATE SEDATION Diarrhea, unspecified type documented as of this encounter Visit Diagnoses Not on filedocumented in this encounter Additional Health Concerns Infection Onset Date Last Indicated Resolved Time COVID-19 - Suspected infection 2022 2022 2022 9:55 PM EDT documented as of this encounter Care Teams Die Storage Clerk Relationship Specialty Start Date End Date Mani Nation MD [address] [place] [address], [address] [place] [address] PCP - General 11/09/16 documented as of this encounter
--- OUTSIDE RECORDS SUMMARY | 2025-02-18 17:15 | XMS_ITS | Encounter Summary ---
Author Organization [facility] Address [address] [place] [address] Care Team Providers Care Spinning Bath Person Name Role Phone Mani Nation MD Primary Care Provider [phone] Encounter Details Date Type Department Care Team (Late Contact Info) Description 05/17/2022 myChart Message [facility] V[facility] Interventional Lab [address] [place] [address] Wing Jeffery MD PhD [address] [place] [address] Your Recent Visit Social History Tobacco Use [...] Info) Description 05/08/2025 2:15 PM EST Appointment [facility] Heart Station [address] [place] [address] Wing Jeffery MD PhD [address] [place] [address] Scheduled Procedures Name Priority Associated Diagnoses Date/Ti me COLONOSCOPY SCREENING, HIGH RISK WITH POSSIBLE MODERATE SEDATION Diarrhea, unspecified type documented as of this encounter Visit Diagnoses Not on filedocumented in this encounter Additional Health Concerns Infection Onset Date Last Indicated Resolved Time COVID-19 - Suspected infection 2022 2022 2022 9:55 PM EDT documented as of this encounter Care Teams Spinning Bath Person Relationship Specialty Start Date End Date Mani Nation MD [address] [place] [address], [address] [place] [address] PCP - General 11/09/16 documented as of this encounter
--- OUTSIDE RECORDS SUMMARY | 2025-02-18 17:15 | XMS_ITS | Encounter Summary ---
Author Organization [facility] Address [address] [facility] [address] [place] [address] Phone Care Team Providers Care Debrander Name Role Phone Mani Nation MD Primary Care Provider [phone] Mirian Locke RN Unavailable [phone] Naila Brandt RN Unavailable [phone] Reason for Visit * Reason Onset Date Comments Forms & Paperwork 01/06/2025 Home Health Re ferral Caretenders Encounter Details Date Type Department Care Team (Late st Contact Info) Description 01/06/2025 Telephone [facility] [address] [place] [address] Darlene Naranjo MA [address] [place] [address] [email or web address] Forms & Paperwork (Home Health Referral Caretenders) Social History Tobacco Use Types Packs/Day Years [...] as of this encounter Progress Notes * Darlene Naranjo MA - 02/18/2025 12:51 PM EDT Faxed signed order [id number]. Placed in scan bin to be scanned into chart. * Darlene Naranjo MA - 02/17/2025 3:16 PM EDT Faxed signed order # [id number]. Placed in scan bin to be scanned into chart. * Darlene Naranjo MA - 02/16/2025 1:25 PM EDT Received order # [id number]. Placed in provider basket for signature. * Darlene Naranjo MA - 02/16/2025 1:22 PM EDT Received order # [id number]. Placed in provider basket for signature. * Darlene Naranjo MA - 01/22/2025 9:42 AM EDT Faxed signed order # [id number]. Placed in scan bin to be scanned into chart. * Darlene Naranjo MA - 01/21/2025 3:37 PM EDT Received order # [id number]. Placed in provider basket for signature. * Darlene Naranjo MA - 01/16/2025 10:38 AM EDT Received order # [id number]. Placed in provider basket for signature. * Darlene Naranjo MA - 01/13/2025 3:46 PM EDT Received order # [id number]. Placed in provider basket for signature. * Jessica Talamantes - 01/06/2025 1:00 PM EDT Care tenders call said pt is already on service. Central Support Supervisor Maintenance (Please do not reply to this user; this inbox is not monitored.) Thank you. * Darlene Naranjo MA - 01/06/2025 12:38 PM EDT Received forms from [facility] care tenders rapid referral for PT and OT services. Provider completed and signed. Faxed back. Placed in scan bin to be scanned into chart. documented in this encounter Plan of Treatment Not on file documented as of this encounter Visit Diagnoses Not on filedocumented in this encounter Additional Health Concerns Assessment Noted Time PHQ-2 Depression Total Score: 0 12/14/19 22 11:15 AM EDT documented as of this encounter Care Teams Debrander Relationship Specialty Start Date End Date Mani Nation MD 22 [facility], [address] [place] [address] PCP - General 02/08/17 Mirian Locke RN [address] [place] [address] Registered Nurse 10/16/22 Naila Brandt, RN [address] [place] [address] PHCM Beater LeadAssembly Member 12/25/24 02/08/25 documented as of this encounter Additional Source Comments The information contained in this document represents components of the legal health record. It is not the complete legal health record.[facility]
--- OUTSIDE RECORDS SUMMARY | 2025-02-18 17:15 | XMS_ITS | Clinical Summary ---
Author Organization 299 [facility] Address [address] [place] [address] Phone Care Team Providers Care Survey Researcher Name Role Phone Huagn Oviedo MD Primary Care Provider [phone] Encounters Date Type Department Care Team Description 11/26/2024 Lab Requisition [facility] Lab [address] [place] [phone] Yola Linares MD Unspecified atrial fibrillation (CMS/HCC V24, CMS/HCC V28) 11/24/2024 Lab Requisition [facility] Lab [address] [place] [phone] Yola Linares MD Unspecified atrial fibrillation (CMS/HCC V24, CMS/HCC V28) 11/21/2024 Lab Requisition [facility] Lab [address] [place] [phone] Yola Linares MD group home (current) use of anticoagulants from Last 3 Months Social History Tobacco Use Types Packs/Day Years Used Date Smoking Tobacco: Never Assessed Comments Unknown Sex and Gender Information Value Date Recorded Sex Assigned at Not on file Legal Sex Female 4:03 PM EST Gender Identity Not on file Sexual Orientation Not on file Plan of Treatment Health Maintenance Due Date Last Done Comments Zoster Vaccines (1 of 2) 1992 RSV Immunization Adult Patients (1 - 1-dose 75+ series) 2017 Falls Risk Assessment 03/10/2024 Medicare Annual Wellness Visit 03/10/2024 Social Influencers of Health Screening 03/10/2024 Depression Screening 04/23/2024 COVID-19 Vaccine ( season) 2024 08/30/2021, 06/24/2020, 06/02/2020 Influenza Vaccine (#1) 2024 2, 03/14/2021, 01/07/2020, Additional history exists Hypertension/CHF/CAD Annual BMP Blood Test 11/04/2025 11/04/2024, 07/11/2024, 07/04/2024, Additional history exists DTaP,Tdap,and Td Vaccines (2 - Td or Tdap) 11/07/2027 11/06/2017 Cholesterol Screening (Lipid Panel) 11/04/2029 11/04/2024, 07/04/2024 Osteoporosis Screening (Bone Density Screening) 09/29/2031 09/28/2021, 09/28/2021 Pneumococcal Vaccine: 50+ Years Completed 12/10/2020, 02/04/2016 HIB Vaccines Aged Out No longer eligi [...] age to complete this topic Meningococcal B Vaccine Aged Out No l onger eligible based on patient's age to complete this topic RSV Immunization Patients Under 20 months Aged Out No longer eligible based on patient's age to complete this topic Varicella Vaccines Aged Out No longer eligible based on patient's age to complete this topic Procedures Procedure Name Priority Date/Time Associated Diagnosis Comments PROTHROMBIN TIME WITH INR Routine 11/26/2024 6:51 AM EDT Unspecified atrial fibrillation (CMS/HCC V24, CMS/HCC V28) PROTHROMBIN TIME WITH INR Routine 11/24/2024 10:24 AM EDT Unspecified atrial fibrillation (CMS/HCC V24, CMS/HCC V28) PROTHROMBIN TIME WITH INR Routine 11/21/2024 6:03 AM EDT group home (current) use of anticoagulants COMPREHENSIVE METABOLIC PANEL Routine 11/04/2024 7:04 AM EDT Unspecified [facility] fibrillation ([facility], [facility] V28) Hyperlipidemia, unspecified Vitamin D deficiency, unspecified LIPID PANEL WITH REFLEX TO DIRECT LDL Routine 11/04/2024 7:04 AM EDT Unspecified atrial fibrillation ([facility] V24, [facility] V28) Hyperlipidemia, unspecified Vitamin D deficiency, unspecified from Last 3 Months or Most Recently Relevant to Health Maintenance Results * (ABNORMAL) Prothrombin time with INR (11/26/2024 6:51 AM EDT) Only the most recent of3 resultswithin the time period is included. Pathologist [facility] Protime 30.7(H) 10.6 - 13.9 sec LAB COAGULATION METHOD 11/26/2024 10:53 AM EDT [facility] INR 2.5 LAB COAGULATION METHOD 11/26/2024 10:53 AM EDT [facility] Blood Venous blood specimen / Unknown Venipuncture / Unknown 11/26/2024 6:51 AM EDT 11/26/2024 10:03 AM EDT us Yola Linares MD LAB BLOOD ORDERABLES Final Resul t [facility] [address] [place] [address], * (ABNORMAL) Lipid panel with reflex to direct LDL (11/04/2024 7:04 AM EDT) Pathologist [facility] Cholesterol 141 0 - 200 mg/dL LAB CHEMISTRY METHOD 11/04/2024 1:45 PM EDT [facility] Triglycerides 160(H) 0 - 150 mg/dL LAB CHEMISTRY METHOD 11/04/2024 1:45 PM EDT [facility] HDL 35(L) >=40 mg/dL LAB CHEMISTRY METHOD 11/04/2024 1:45 PM EDT [facility] LDL Calculated 74 0 - 100 mg/dL LAB CHEMISTRY METHOD 11/04/2024 1:45 PM EDT [facility] VLDL Cholesterol Rupesh 32 mg/dL LAB CHEMISTRY METHOD 11/04/2024 1:45 PM EDT [facility] Non HDL Chol. (LDL+VLDL) 106 <145 mg/dL LAB CHEMISTRY METHOD 11/04/2024 1:45 PM EDT [facility] Chol/HDL Ratio 4.0 0.0 - 4.4 LAB CHEMISTRY METHOD 11/04/2024 1:45 PM EDT [facility] Blood Venous blood specimen / Unknown Venipuncture / Unknown 11/04/2024 7:04 AM EDT 11/04/2024 11:12 AM EDT us Yola Linares MD LAB BLOOD ORDERABLES Final Resul t [facility] [address] [place] [address], * (ABNORMAL) Comprehensive metabolic panel (11/04/2024 7:04 AM EDT) Sodium 139 133 - 145 mmol/L LAB CHEMISTRY METHOD 11/04/2024 2:12 PM T [facility] Potassium 4.6 3.5 - 5.5 mmol/L LAB CHEMISTRY METHOD 11/04/2024 2:12 PM T [facility] Chloride 106 96 - 110 mmol/L LAB CHEMISTRY METHOD 11/04/2024 2:12 PM T [facility] CO2 27 21 - 32 mmol/L LAB CHEMISTRY METHOD 11/04/2024 2:12 PM [facility] Anion Gap 6 3 - 11 LAB CHEMISTRY METHOD 11/04/2024 2:12 PM EDT [facility] Glucose 85 70 - 100 mg/dL LAB CHEMISTRY METHOD 11/04/2024 2:12 PM [facility] BUN 17 5 - 25 mg/dL LAB CHEMISTRY METHOD 11/04/2024 2:12 PM [facility] Creatinine 0.82 0.50 - 1.10 mg/dL LAB CHEMISTRY METHOD 11/04/2024 2:12 PM [facility] eGFR 72 >=60 mL/min/1. 73m2 LAB CHEMISTRY METHOD 11/04/2024 2:12 PM [facility] Comment:Calculation based on the Chronic Kidney Disease Epidemiology Collaboration (CKD-EPI) equation refit without adjustment for race. BUN/Creatinine Ratio 20.7 LAB CHEMISTRY METHOD 11/04/2024 2:12 PM [facility] Calcium 9.5 8.5 - 10.5 mg/dL LAB CHEMISTRY METHOD 11/04/2024 2:12 PM [facility] AST (SGOT) 37 10 - 42 unit/L LAB CHEMISTRY METHOD 11/04/2024 2:12 PM [facility] ALT (SGPT) 61(H) 10 - 60 unit/L LAB CHEMISTRY METHOD 11/04/2024 2:12 PM [facility] Alkaline Phosphatase 100 42 - 121 unit/L LAB CHEMISTRY METHOD 11/04/2024 2:12 PM [facility] Total Protein 6.7 6.0 - 8.0 g/dL LAB CHEMISTRY METHOD 11/04/2024 2:12 PM [facility] Albumin 3.6 3.2 - 5.0 g/dL LAB CHEMISTRY METHOD 11/04/2024 2:12 PM [facility] Total Bilirubin 0.5 0.0 - 1.4 mg/dL LAB CHEMISTRY METHOD 11/04/2024 2:12 PM [facility] Blood Venous blood specimen / Unknown Venipuncture / Unknown 11/04/2024 7:04 AM EDT 11/04/2024 11:12 AM EDT us Yola Linares MD LAB BLOOD ORDERABLES Final Resul t [facility] [address] [place] [address], from Last 3 Months or Most Recently Relevant to Health Maintenance Insurance [employer] MED[employer]ARE [employer]VANTAGE Care Teams Survey Researcher Relationship Specialty Start Date End Date Huang Oviedo MD [address] [place] [address] PCP - General Internal Medicine 03/10/24
--- OUTSIDE RECORDS SUMMARY | 2025-02-18 17:15 | XMS_ITS | Encounter Summary ---
Author Organization [facility] Address [address] [place] [address] Care Team Providers Care Flap Lining Binder Name Role Phone Mani Nation MD Primary Care Provider [phone] Encounter Details Date Type Department Care Team (Late st Contact Info) Description 02/21/2021 Orders Only [facility] Pulmonary Function Lab [address] [place] [address] May, Russel Montalvo RRT SOB (shortness of breath) [...] Info) Description 05/08/2025 2:15 PM EST Appointment [facility] [address] [place] [address] Wing Jeffery MD PhD [address] [place] [address] Scheduled Procedures Name Priority Associated Diagnoses Date/Ti [...] documented as of this encounter Care Teams Flap Lining Binder Relationship Specialty Start Date End Date Mani Nation MD [address] [place] [address], [address] [place] [address] PCP - General 11/09/16 documented as of this encounter
--- OUTSIDE RECORDS SUMMARY | 2025-02-18 17:16 | XMS_ITS | Encounter Summary ---
Author Organization [facility] Address [address] [place] [address] Care Team Providers Care Apple Picker Name Role Phone Huang Oviedo MD Primary Care Provider [phone] Encounter Details Date Type Department Care Team (Late st Contact Info) Description 11/21/[address] [facility] - Main Lab [address] [facility] [place] [address] Yola Linares MD [address] [place], [place] [phone] residential (current) use of anticoagulants Social History Tobacco Use Types Packs/Day Years [...] Diagnosis Comments PROTHROMBIN TIME WITH INR Routine 11/21/2024 6:03 AM EDT residential (current) use of anticoagulants documented in this encounter Results * (ABNORMAL) Prothrombin time with INR (11/21/2024 6:03 AM EDT) Protime 14.5(H) 10.6 - 13.9 sec LAB COAGULATION METHOD 11/21/2024 11:58 AM EDT [facility] INR 1.2 LAB COAGULATION METHOD 11/21/2024 11:58 AM T [facility] Blood Venous blood specimen / Unknown Venipuncture / Unknown 11/21/2024 6:03 AM EDT 11/21/2024 10:52 AM EDT us Yoal Linares MD LAB BLOOD ORDERABLES Final Resul t 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
--- OUTSIDE RECORDS SUMMARY | 2025-02-18 17:16 | XMS_ITS | Encounter Summary ---
Author Organization [facility] Address [address] [place] [address] Care Team Providers Care Collaborative Physician Name Role Phone Huang Oviedo MD Primary Care Provider [phone] Encounter Details Date Type Department Care Team (Late st Contact Info) Description 07/19/2024 Lab Requisition [facility] - Main Lab 299 [facility] [place] [address] Yola Linares MD [address] [place], [place] [phone] Weakness; Unspecified atrial fibrillation (CMS/HCC V24, CMS/HCC V28); Unspecified dementia, unspecified severity, without behavioral disturbance, psychotic disturbance, mood disturbance, and anxiety (CMS/HCC V24, CMS/HCC V28) Social History Tobacco [...] as of this encounter Visit Diagnoses Diagnosis Weakness Other malaise and fatigue Unspecified atrial fibrillation (CMS/HCC V24, CMS/HCC V28) Unspecified dementia, unspecified severity, without behavioral disturbance, psychotic disturbance, mood disturbance, and anxiety (CMS/HCC V24, CMS/HCC V28) documented in this encounter Care Teams Collaborative Physician Relationship Specialty Start Date End Date Huang Oviedo MD [address] [place] [address] PCP - General Internal Medicine 03/10/24 documented as of this encounter
--- OUTSIDE RECORDS SUMMARY | 2025-02-18 17:16 | XMS_ITS | Encounter Summary ---
Author Organization [facility] Address [address] [address] Phone Care Team Providers Care Filing Clerk Name Role Phone Mani Nation MD Primary Care Provider [phone] Mani Nation MD Unavailable [phone] Vero Marshall RN Unavailable [email or web address] Mirian Locke RN Unavailable [phone] Vanessa Malik Unavailable [email or web address] Naila Brandt RN Unavailable [phone] Reason for Referral * Physical Therapy (Routine) - Closed Specialty Diagnoses / Procedures Referred By Ant finn Referred To Contact Physical Therapy Diagnoses Encounter for rehabilitation [place] Mckeon MD Phone: tel: fax: [facility] [address] [place] [address] Phone: tel: Referral ID Status Reason Start Date Expiration Date Visits Re quested Visits Authorized [id number] Closed 12/30/2020 12/30/2021 1 1 Encounter Details Date Type Department Care Team (Latest Contact Info) Description 12/30/2020 Transcribe Orders [facility] [address] [place] [address] [place] Mckeon MD [address] [place] [address] Encounter for rehabilitation (Primary Dx) Social History Tobacco Use Types [...] of this encounter Plan of Treatment Scheduled Referrals Name Type Priority Associated Diagnoses Orde r Schedule Ambulatory referral to [facility] Physical Therapy Outpatient Referral Routine Encounter for rehabilitation Ordered: 12/30/2020 documented as of this encounter Visit Diagnoses Diagnosis Encounter for rehabilitation- Primary documented in this encounter Additional Health Concerns [...] Noted Time PHQ-2 Depression Total Score: 0 05/08/19 1:55 PM EST documented as of this encounter Care Teams Filing Clerk Relationship Specialty Start Date End Date Mani Nation MD [address] [place] [address], [address] [place] [address] [email or web address] PCP - General 02/08/17 Mani Nation MD [address] [place] [address], [address] [place] [address] [email or web address] Insurance Assigned Provider 07/21/1701/01 Vero Marshall, FLORES [address] [place] [address], [address] [place] [address] [email or web address] PHCM Overhauler Helper 04/09/19 Mirian Locke RN [address] [place], [place] [phone] Registered Nurse 10/16/22 Vanessa Malik [address] [place] [address] [email or web address] PHCM Community Gum Mixer 06/12/24 06/12/24 Naila Brandt, FLORES [address] [place] [phone] [email or web address] PHCM Overhauler HelperJavascript Engineer 12/25/24 02/08/25 documented as of this encounter Additional Source Comments The information contained in this document represents components of the legal health record. It is not the complete legal health record.[facility]
--- OUTSIDE RECORDS SUMMARY | 2025-02-18 17:16 | XMS_ITS | Encounter Summary ---
Author Organization [facility] Address [address] [place] [address] Care Team Providers Care Gas Engine Operator Compressors Name Role Phone Huang Oviedo MD Primary Care Provider [phone] Encounter Details Date Type Department Care Team (Late st Contact Info) Description 11/26/2024 Lab Requisition [facility] - Main Lab 299 [facility] [place] [address] Yola Linares MD [address] [place], [place] [phone] Unspecified atrial fibrillation (CMS/HCC V24, CMS/HCC V28) [...] V24, CMS/HCC V28) documented in this encounter Results * (ABNORMAL) Prothrombin time with INR (11/26/2024 6:51 AM EDT) Protime 30.7(H) 10.6 - 13.9 sec LAB COAGULATION METHOD 11/26/2024 10:53 AM [facility] INR 2.5 LAB COAGULATION METHOD 11/26/2024 10:53 AM [facility] Blood Venous blood specimen / Unknown Venipuncture / Unknown 11/26/2024 6:51 AM EDT 11/26/2024 10:03 AM EDT Yola Linares MD LAB BLOOD ORDERABLES Final Resul t Performing Organization Address City/[facility]/ZIP Co de Phone Number [facility] [address] [place] [address], documented in this encounter Visit Diagnoses Diagnosis Unspecified atrial fibrillation (CMS/HCC V24, CMS/HCC V28) documented in this encounter Care Teams Gas Engine Operator Compressors Relationship Specialty Start Date End Date Huang Oviedo MD [address] [place] [address] PCP - General Internal Medicine 03/10/24 documented as of this encounter
--- OUTSIDE RECORDS SUMMARY | 2025-02-18 17:16 | XMS_ITS | Encounter Summary ---
Author Organization [facility] Address [address] [place] [address] Care Team Providers Care Pruner Name Role Phone Huang Oviedo MD Primary Care Provider [phone] Encounter Details Date Type Department Care Team (Late st Contact Info) Description 11/15/2024 Lab Requisition [facility] - Main Lab [address] [facility] [address] Yola Linares MD [address] [place], [place] [phone] Unspecified atrial fibrillation (CMS/HCC V24, CMS/HCC V28) [...] Diagnosis Comments PROTHROMBIN TIME WITH INR Routine 11/17/2024 6:11 AM EDT Unspecified atrial fibrillation (CMS/HCC V24, CMS/HCC V28) documented in this encounter Results * (ABNORMAL) Prothrombin time with INR (11/17/2024 6:11 AM EDT) Protime 21.9(H) 10.6 - 13.9 sec LAB COAGULATION METHOD 11/17/2024 11:04 AM [facility] INR 1.8 LAB COAGULATION METHOD 11/17/2024 11:04 AM [facility] Blood Venous blood specimen / Unknown Venipuncture / Unknown 11/17/2024 6:11 AM EDT 11/17/2024 10:14 AM EDT Yola Linares MD LAB BLOOD ORDERABLES Final Resul t Performing Organization Address City/[facility]/ZIP Co de Phone Number [facility] [address] [place] [address], documented in this encounter Visit Diagnoses Diagnosis Unspecified atrial fibrillation (CMS/HCC V24, CMS/HCC V28) documented in this encounter Care Teams Pruner Relationship Specialty Start Date End Date Huang Oviedo MD [address] [place] [address] PCP - General Internal Medicine 03/10/24 documented as of this encounter
--- OUTSIDE RECORDS SUMMARY | 2025-02-18 17:16 | XMS_ITS | Encounter Summary ---
Author Organization [facility] Address [address] [address] Phone Care Team Providers Care Dry Wall Installations Mechanic Name Role Phone Mani Nation MD Primary Care Provider [phone] Mani Nation MD Unavailable [phone] Vero Marshall RN Unavailable [email or web address] Unavailable [phone] Mirian Locke RN Unavailable Vanessa Malik Unavailable [email or web address] Naila Brandt RN Unavailable [phone] Encounter Details Date Type Department Care Team (Latest Contact Info) Description 10/09/2017 Transcribe Orders [facility] Specimen Processing [address] [place] [address] Sreedhar Mcmanus MD 22 [facility] Floor 1 [place] [address] [email or web address] Urinary frequency (Primary Dx) Social History Tobacco Use Types [...] documented as of this encounter Results * Urine culture (10/09/2017 6:34 PM EDT) Specimen Source/ Description URINE CLEAN CATCH URINE [facility] Special Requests None [facility] GRAM STAIN NO ORGANISMS SEEN [facility] Culture/Test 10,000 to 100,000 colony forming units per ml MIXED GIORGIO (3 OR MORE COLONY TYPES) Culture indicates contamination . Please resubmit if necessary. [facility] Report Status 10/11/2017 FINAL [facility] Urine (Urine) 10/09/2017 6:3 4 PM EDT 10/09/2017 6:45 PM EDT us Sreedhar Mcmanus MD MICROBIOLOGY - GENERA L ORDERABLES Final Result Performing Organization Address City/State/[facility] Co de Phone Number [address] [address] documented in this encounter Visit Diagnoses Diagnosis Urinary frequency- Primary documented in this encounter Additional Health [...] documented as of this encounter Care Teams Dry Wall Installations Mechanic Relationship Specialty Start Date End Date Mani Nation MD [address] [place] [address], [address] [place] [address] PCP - General 02/08/17 Mani Nation MD [address] [place] [address], [address] [place] [address] Insurance Assigned Provider 07/21/1701/01 Vero Marshall, FLORES [address] [place] [address], [address] [place] [address] [email or web address] PHCM Deck Hand 04/09/19 Savannah Fontana [address] [place] [phone] PHCM Community Health Worker 06/30/20 07/11/20 Mirian Locke RN [address] [place] [address] Registered Nurse 10/16/22 Vanessa Malik [address] [place] [address] [email or web address] Community Dry Cell Assembly Supervisor 06/12/24 06/12/24 Naila Brandt, RN [address] [place] [address] [phone] PHCM Deck HandWood Crafter 12/25/24 02/08/25 documented as of this encounter Additional Source Comments The information contained in this document represents components of the legal health record. It is not the complete legal health record.[facility]
--- OUTSIDE RECORDS SUMMARY | 2025-02-18 17:16 | XMS_ITS | Encounter Summary ---
Author Organization [facility] Address [address] [place] [address] Care Team Providers Care Bottle Sorter Name Role Phone Huang Oviedo MD Primary Care Provider [phone] Encounter Details Date Type Department Care Team (Late st Contact Info) Description 07/10/[address] [facility] - Main Lab [address] [facility] [place] [address] Yola Linares MD [address] [place], [place] [phone] Weakness; Unspecified atrial fibrillation (CMS/HCC V24, CMS/HCC [...] Diagnosis Comments PROTHROMBIN TIME WITH INR Routine 07/11/2024 8:21 AM EDT Weakness Unspecified atrial fibrillation (CMS/HCC) Unspecified dementia, unspecified severity, without behavioral disturbance, psychotic disturbance, mood disturbance, and anxiety (CMS/HCC) COMPLETE BLOOD COUNT Routine 07/11/2024 8:21 AM EDT Weakness Unspecified atrial fibrillation (CMS/HCC) Unspecified dementia, unspecified severity, without behavioral disturbance, psychotic disturbance, mood disturbance, and anxiety (CMS/HCC) BASIC METABOLIC PANEL Routine 07/11/2024 8:21 AM EDT Weakness Unspecified atrial fibrillation (CMS/HCC) Unspecified dementia, unspecified severity, without behavioral disturbance, psychotic disturbance, mood disturbance, and anxiety (CMS/HCC) documented in this encounter Results * (ABNORMAL) Prothrombin time with INR (07/11/2024 8:21 AM EDT) Protime 48.5(H) 10.6 - 13.9 sec LAB COAGULATION METHOD 07/11/2024 10:06 AM EDT [facility] INR 4.0 LAB COAGULATION METHOD 07/11/2024 10:06 AM [facility] Blood Venous blood specimen / Unknown Venipuncture / Unknown 07/11/2024 8:21 AM EDT 07/11/2024 9:52 AM EDT Yola Linares MD LAB BLOOD ORDERABLES Final Resul t [facility] [address] [place] [address], * (ABNORMAL) Basic metabolic panel (07/11/2024 8:21 AM EDT) Sodium 141 133 - 145 mmol/L LAB CHEMISTRY METHOD 07/11/2024 11:14 AM [facility] Potassium 4.0 3.5 - 5.5 mmol/L LAB CHEMISTRY METHOD 07/11/2024 11:14 AM [facility] Chloride 109 96 - 110 mmol/L LAB CHEMISTRY METHOD 07/11/2024 11:14 AM [facility] CO2 26 21 - 32 mmol/L LAB CHEMISTRY METHOD 07/11/2024 11:14 AM [facility] Anion Gap 6 3 - 11 LAB CHEMISTRY METHOD 07/11/2024 11:14 AM [facility] Glucose 102(H) 70 - 100 mg/dL LAB CHEMISTRY METHOD 07/11/2024 11:14 AM EDT [facility] BUN 14 5 - 25 mg/dL LAB CHEMISTRY METHOD 07/11/2024 11:14 AM EDT [facility] Creatinine 0.80 0.50 - 1.10 mg/dL LAB CHEMISTRY METHOD 07/11/2024 11:14 AM T [facility] eGFR 74 >=60 mL/min/1. 73m2 LAB CHEMISTRY METHOD 07/11/2024 11:14 AM EDT [facility] Comment:Calculation based on the Chronic Kidney Disease Epidemiology Collaboration (CKD-EPI) equation refit without adjustment for race. BUN/Creatinine Ratio 17.5 LAB CHEMISTRY METHOD 07/11/2024 11:14 AM [facility] Calcium 8.8 8.5 - 10.5 mg/dL LAB CHEMISTRY METHOD 07/11/2024 11:14 AM [facility] Blood Venous blood specimen / Unknown Venipuncture / Unknown 07/11/2024 8:21 AM EDT 07/11/2024 9:52 AM EDT us Yola Linares MD LAB BLOOD ORDERABLES Final Resul t [facility] [address] [place] [address], * (ABNORMAL) Complete blood count (07/11/2024 8:21 AM EDT) WBC 6.3 4.8 - 10.8 K/mcL LAB HEMETOLOGY METHOD 07/11/2024 10:05 AM EDT [facility] RBC 3.80 3.80 - 4.80 M/mcL LAB HEMETOLOGY METHOD 07/11/2024 10:05 AM T [facility] Hemoglobin 13.1 11.5 - 16.0 g/dL LAB HEMETOLOGY METHOD 07/11/2024 10:05 AM EDT [facility] Hematocrit 39.9 35.0 - 47.0 % LAB HEMETOLOGY METHOD 07/11/2024 10:05 AM EDT [facility] MCV 104.2(H) 79.0 - 98.0 FL LAB HEMETOLOGY METHOD 07/11/2024 10:05 AM [facility] MCH 34.2(H) 27.0 - 32.0 pcg LAB HEMETOLOGY METHOD 07/11/2024 10:05 AM EDT [facility] MCHC 32.8 32.0 - 37.0 g/dL LAB HEMETOLOGY METHOD 07/11/2024 10:05 AM [facility] RDW 13.3 11.0 - 15.0 % LAB HEMETOLOGY METHOD 07/11/2024 10:05 AM [facility] Platelets 214 130 - 400 K/mcL LAB HEMETOLOGY METHOD 07/11/2024 10:05 AM [facility] MPV 11.7(H) 7.0 - 11.0 FL LAB HEMETOLOGY METHOD 07/11/2024 10:05 AM [facility] NRBC 0.0 <1.0 % LAB HEMETOLOGY METHOD 07/11/2024 10:05 AM [facility] NRBC Absolute 0.00 <0.10 K/mcL LAB HEMETOLOGY METHOD 07/11/2024 10:05 AM [facility] Blood Venous blood specimen / Unknown Venipuncture / Unknown 07/11/2024 8:21 AM EDT 07/11/2024 9:52 AM EDT us Yola Linares MD LAB BLOOD ORDERABLES Final Resul t [facility] [address] [place] [address], [place] [phone] documented in this encounter Visit Diagnoses Diagnosis Weakness Other malaise and fatigue Unspecified atrial fibrillation ([facility] V24, [facility] V28) Unspecified dementia, unspecified severity, without behavioral disturbance, psychotic disturbance, mood disturbance, and anxiety ([facility] V24, [facility] V28) documented in this encounter Care Teams Bottle Sorter Relationship Specialty Start Date End Date Huang Oviedo MD [address] [place] [id number] PCP - General Internal Medicine 03/10/24 documented as of this encounter
--- OUTSIDE RECORDS SUMMARY | 2025-02-18 17:16 | XMS_ITS | Encounter Summary ---
Author Organization [facility] Address [address] [place] [address] Care Team Providers Care Manager Paid Name Role Phone Huang Oviedo MD Primary Care Provider [phone] Encounter Details Date Type Department Care Team (Late st Contact Info) Description 07/17/2024 Lab Requisition [facility] - Main Lab [address] [facility] [place] [address] Yola Linares MD [address] [place], [place] [phone] Weakness; Unspecified atrial fibrillation (CMS/HCC V24, CMS/HCC [...] Diagnosis Comments PROTHROMBIN TIME WITH INR Routine 07/18/2024 5:16 AM EDT Weakness Unspecified atrial fibrillation (CMS/HCC) Unspecified dementia, unspecified severity, without behavioral disturbance, psychotic disturbance, mood disturbance, and anxiety (CMS/HCC) documented in this encounter Results * (ABNORMAL) Prothrombin time with INR (07/18/2024 5:16 AM EDT) Protime 23.6(H) 10.6 - 13.9 sec LAB COAGULATION METHOD 07/18/2024 11:11 AM EDT [facility] INR 1.9 LAB COAGULATION METHOD 07/18/2024 11:11 AM EDT [facility] Blood Venous blood specimen / Unknown Venipuncture / Unknown 07/18/2024 5:16 AM EDT 07/18/2024 10:29 AM EDT us Yola Linares MD LAB BLOOD ORDERABLES Final Resul t [facility] [address] [place] [address], documented in this encounter Visit Diagnoses Diagnosis Weakness Other malaise and fatigue Unspecified atrial fibrillation (CMS/HCC V24, CMS/HCC V28) Unspecified dementia, unspecified severity, without behavioral disturbance, psychotic disturbance, mood disturbance, and anxiety (CMS/HCC V24, CMS/HCC V28) documented in this encounter Care Teams Manager Paid Relationship Specialty Start Date End Date Huang Oviedo MD [address] [place] [address] PCP - General Internal Medicine 03/10/24 documented as of this encounter
--- OUTSIDE RECORDS SUMMARY | 2025-02-18 17:16 | XMS_ITS | Encounter Summary ---
Author Organization [facility] Address [address] [place] [address] Care Team Providers Care Electrician Apprentice Name Role Phone Huang Oviedo MD Primary Care Provider [phone] Encounter Details Date Type Department Care Team (Late st Contact Info) Description 07/04/2024 Lab Requisition [facility] - Main Lab [address] [facility] [place] [address] Yola Linares MD [address] [place], [place] [phone] Essential (primary) hypertension; Unspecified atrial fibrillation (CMS/HCC V24, CMS/HCC V28); Vitamin D deficiency, unspecified; Weakness; Hyperlipidemia, unspecified; Vitamin B12 deficiency anemia, unspecified Social History Tobacco Use Types Packs/Day Years [...] Procedure Name Priority Date/Time Associated Diagnosis Comments LIPID PANEL WITH REFLEX TO DIRECT LDL Routine 07/04/2024 6:26 AM EDT Essential (primary) hypertension Unspecified atrial fibrillation (CMS/HCC V24, CMS/HCC V28) Vitamin D deficiency, unspecified Weakness Hyperlipidemia, unspecified Vitamin B12 deficiency anemia, unspecified CBC WITH AUTO DIFFERENTIAL Routine 07/04/2024 6:26 AM EDT Essential (primary) hypertension Unspecified atrial fibrillation (CMS/HCC V24, CMS/HCC V28) Vitamin D deficiency, unspecified Weakness Hyperlipidemia, unspecified Vitamin B12 deficiency anemia, unspecified VITAMIN D 25 HYDROXY Routine 07/04/2024 6:26 AM EDT Essential (primary) hypertension Unspecified atrial fibrillation (CMS/HCC V24, CMS/HCC V28) Vitamin D deficiency, unspecified Weakness Hyperlipidemia, unspecified Vitamin B12 deficiency anemia, unspecified PROTHROMBIN TIME WITH INR Routine 07/04/2024 6:26 AM EDT Essential (primary) hypertension Unspecified atrial fibrillation (CMS/HCC V24, CMS/HCC V28) Vitamin D deficiency, unspecified Weakness Hyperlipidemia, unspecified Vitamin B12 deficiency anemia, unspecified CBC AND DIFFERENTIAL Routine 07/04/2024 6:26 AM EDT Essential (primary) hypertension Unspecified atrial fibrillation (CMS/HCC V24, CMS/HCC V28) Vitamin D deficiency, unspecified Weakness Hyperlipidemia, unspecified Vitamin B12 deficiency anemia, unspecified FOLATE Routine 07/04/2024 6:26 AM EDT Essential (primary) hypertension Unspecified atrial fibrillation (CMS/HCC V24, CMS/HCC V28) Vitamin D deficiency, unspecified Weakness Hyperlipidemia, unspecified Vitamin B12 deficiency anemia, unspecified VITAMIN B12 Routine 07/04/2024 6:26 AM EDT Essential (primary) hypertension Unspecified atrial fibrillation (CMS/HCC V24, CMS/HCC V28) Vitamin D deficiency, unspecified Weakness Hyperlipidemia, unspecified Vitamin B12 deficiency anemia, unspecified COMPREHENSIVE METABOLIC PANEL Routine 07/04/2024 6:26 AM EDT Essential (primary) hypertension Unspecified atrial fibrillation (CMS/HCC V24, CMS/HCC V28) Vitamin D deficiency, unspecified Weakness Hyperlipidemia, unspecified Vitamin B12 deficiency anemia, unspecified documented in this encounter Results * (ABNORMAL) CBC auto differential (07/04/2024 6:26 AM EDT) [facility] WBC 6.4 4.8 - 10.8 K/[facility] LAB HEMETOLOGY METHOD 07/04/2024 11:10 AM EDT [facility] RBC 3.90 3.80 - 4.80 M/[facility] LAB HEMETOLOGY METHOD 07/04/2024 11:10 AM [facility] Hemoglobin 13.3 11.5 - 16.0 g/dL LAB HEMETOLOGY METHOD 07/04/2024 11:10 AM [facility] Hematocrit 40.8 35.0 - 47.0 % LAB HEMETOLOGY METHOD 07/04/2024 11:10 AM [facility] MCV 104.3(H) 79.0 - 98.0 FL LAB HEMETOLOGY METHOD 07/04/2024 11:10 AM [facility] MCH 34.0(H) 27.0 - 32.0 pcg LAB HEMETOLOGY METHOD 07/04/2024 11:10 AM [facility] MCHC 32.6 32.0 - 37.0 g/dL LAB HEMETOLOGY METHOD 07/04/2024 11:10 AM [facility] RDW 13.4 11.0 - 15.0 % LAB HEMETOLOGY METHOD 07/04/2024 11:10 AM [facility] Platelets 211 130 - 400 K/mcL LAB HEMETOLOGY METHOD 07/04/2024 11:10 AM [facility] MPV 11.7(H) 7.0 - 11.0 FL LAB HEMETOLOGY METHOD 07/04/2024 11:10 AM [facility] NRBC 0.0 <1.0 % LAB HEMETOLOGY METHOD 07/04/2024 11:10 AM [facility] NRBC Absolute 0.00 <0.10 K/mcL LAB HEMETOLOGY METHOD 07/04/2024 11:10 AM [facility] Neutrophils Relative 55.2 % LAB HEMETOLOGY METHOD 07/04/2024 11:10 AM [facility] Lymphocytes Relative 33.2 % LAB HEMETOLOGY METHOD 07/04[facility]2024 [facility] Monocytes Relative 7.0 % LAB HEMETOLOGY METHOD 07/04/2024 11:10 AM EDT [facility] Eosinophils Relative 3.6 % LAB HEMETOLOGY METHOD 07/04/2024 11:10 AM [facility] Basophils Relative 0.8 % LAB HEMETOLOGY METHOD 07/04/2024 11:10 [facility] Immature Granulocytes Relative 0.2 % LAB HEMETOLOGY METHOD 07/04/2024 11:10 [facility] Neutrophils Absolute 3.55 1.50 - 7.00 K/mcL LAB HEMETOLOGY METHOD 07/04/2024 11:10 AM [facility] Lymphocytes Absolute 2.13 1.00 - 5.00 K/mcL LAB HEMETOLOGY METHOD 07/04/2024 11:10 AM [facility] Monocytes Absolute 0.45 0.20 - 1.00 K/mcL LAB HEMETOLOGY METHOD 07/04/2024 11:10 AM [facility] Eosinophils Absolute 0.23 0.00 - 0.50 K/mcL LAB HEMETOLOGY METHOD 07/04/2024 11:10 AM [facility] Basophils Absolute 0.05 0.00 - 0.20 K/mcL LAB HEMETOLOGY METHOD 07/04/2024 11:10 AM [facility] Immature Granulocytes Absolute 0.01 0.00 - 0.03 K/mcL LAB HEMETOLOGY METHOD 07/04/2024 11:10 AM [facility] Blood Venous blood specimen / Unknown Venipuncture / Unknown 07/04/2024 6:26 AM EDT 07/04/2024 10:49 AM EDT Yola Linares MD LAB BLOOD ORDERABLES Final Resul t [facility] [address] [place] [address], [place] [phone] * Folate (07/04/2024 6:26 AM EDT) Folate 9.9 2.8 - 17.0 ng/ml LAB CHEMISTRY METHOD 07/04/2024 12:01 PM EDT [facility] Blood Venous blood specimen / Unknown Venipuncture / Unknown 07/04/2024 6:26 AM EDT 07/04/2024 10:49 AM EDT us Yola Linares MD LAB BLOOD ORDERABLES Final Resul t Performing Organization Address [facility] Co de Phone Number [facility] [address] [place] [address], [place] [phone] * Vitamin D 25 hydroxy (07/04/2024 6:26 AM EDT) Pathologist [facility] [place] Vit D, 25-Hydroxy 30.6 30.0 - 80.0 ng/mL LAB CHEMISTRY METHOD 07/04/2024 11:48 AM EDT [facility] Blood Venous blood specimen / Unknown Venipuncture / Unknown 07/04/2024 6:26 AM EDT 07/04/2024 10:49 AM EDT us Yola Linares MD LAB BLOOD ORDERABLES Final Resul t Performing Organization Address City/[facility]/ZIP Co de Phone Number [facility] [address] [place] [address], [place] [phone] * Vitamin B12 (07/04/2024 6:26 AM EDT) Pathologist [facility] [place] Vitamin B-12 785 250 - 900 pcg/mL LAB CHEMISTRY METHOD 07/04/2024 12:01 PM EDT [facility] Blood Venous blood specimen / Unknown Venipuncture / Unknown 07/04/2024 6:26 AM EDT 07/04/2024 10:49 AM EDT us Yola Linares MD LAB BLOOD ORDERABLES Final Resul t Performing Organization Address City/[facility]/ZIP Co de Phone Number [facility] [address] [place] [address], [place] [phone] * (ABNORMAL) Lipid panel with reflex to direct LDL (07/04/2024 6:26 AM EDT) Cholesterol 161 0 - 200 mg/dL LAB CHEMISTRY METHOD 07/04/2024 11:40 AM EDT [facility] Triglycerides 217(H) 0 - 150 mg/dL LAB CHEMISTRY METHOD 07/04/2024 11:40 AM EDT [facility] HDL 31(L) >=40 mg/dL LAB CHEMISTRY METHOD 07/04/2024 11:40 AM EDT [facility] LDL Calculated 87 0 - 100 mg/dL LAB CHEMISTRY METHOD 07/04/2024 11:40 AM EDT [facility] VLDL Cholesterol Rupesh 43.4 mg/dL LAB CHEMISTRY METHOD 07/04/2024 11:40 AM T [facility] Non HDL Chol. (LDL+VLDL) 130 <145 mg/dL LAB CHEMISTRY METHOD 07/04/2024 11:40 AM EDT [facility] Chol/HDL Ratio 5.2(H) 0.0 - 4.4 LAB CHEMISTRY METHOD 07/04/2024 11:40 AM T [facility] Blood Venous blood specimen / Unknown Venipuncture / Unknown 07/04/2024 6:26 AM EDT 07/04/2024 10:49 AM EDT us Yola Linares MD LAB BLOOD ORDERABLES Final Resul t [facility] [address] [place] [address], [place] [phone] * Comprehensive metabolic panel (07/04/2024 6:26 AM EDT) Sodium 141 133 - 145 mmol/L LAB CHEMISTRY METHOD 07/04/2024 11:40 AM [facility] Potassium 4.2 3.5 - 5.5 mmol/L LAB CHEMISTRY METHOD 07/04/2024 11:40 AM [facility] Chloride 108 96 - 110 mmol/L LAB CHEMISTRY METHOD 07/04/2024 11:40 AM [facility] CO2 26 21 - 32 mmol/L LAB CHEMISTRY METHOD 07/04/2024 11:40 AM [facility] Anion Gap 7 3 - 11 LAB CHEMISTRY METHOD 07/04/2024 11:40 AM [facility] Glucose 92 70 - 100 mg/dL LAB CHEMISTRY METHOD 07/04/2024 11:40 AM [facility] BUN 13 5 - 25 mg/dL LAB CHEMISTRY METHOD 07/04/2024 11:40 AM [facility] Creatinine 0.76 0.50 - 1.10 mg/dL LAB CHEMISTRY METHOD 07/04/2024 11:40 AM [facility] eGFR 79 >=60 mL/min/1. 73m2 LAB CHEMISTRY METHOD 07/04/2024 11:40 AM [facility] Comment:Calculation based on the Chronic Kidney Disease Epidemiology Collaboration (CKD-EPI) equation refit without adjustment for race. BUN/Creatinine Ratio 17.1 LAB CHEMISTRY METHOD 07/04/2024 11:40 AM [facility] Calcium 9.0 8.5 - 10.5 mg/dL LAB CHEMISTRY METHOD 07/04/2024 11:40 AM [facility] AST (SGOT) 20 10 - 42 unit/L LAB CHEMISTRY METHOD 07/04/2024 11:40 AM [facility] ALT (SGPT) 23 10 - 60 unit/L LAB CHEMISTRY METHOD 07/04/2024 11:40 AM EDT [facility] Alkaline Phosphatase 77 42 - 121 unit/L LAB CHEMISTRY METHOD 07/04/2024 11:40 AM EDT [facility] Total Protein 6.1 6.0 - 8.0 g/dL LAB CHEMISTRY METHOD 07/04/2024 11:40 AM EDT [facility] Albumin 3.3 3.2 - 5.0 g/dL LAB CHEMISTRY METHOD 07/04/2024 11:40 AM EDT [facility] Total Bilirubin 0.5 0.0 - 1.4 mg/dL LAB CHEMISTRY METHOD 07/04/2024 11:40 AM EDT [facility] Blood Venous blood specimen / Unknown Venipuncture / Unknown 07/04/2024 6:26 AM EDT 07/04/2024 10:49 AM EDT us Yola Linares MD LAB BLOOD ORDERABLES Final Resul t Performing Organization Address City/[facility]/ZIP Co de Phone Number [facility] [address] [place] [address], [place] [phone] * Prothrombin time with INR (07/04/2024 6:26 AM EDT) Protime 13.6 10.6 - 13.9 sec LAB COAGULATION METHOD 07/04/2024 11:22 AM EDT [facility] INR 1.1 LAB COAGULATION METHOD 07/04/2024 11:22 AM EDT [facility] Blood Venous blood specimen / Unknown Venipuncture / Unknown 07/04/2024 6:26 AM EDT 07/04/2024 10:49 AM EDT us Yola Linares MD LAB BLOOD ORDERABLES Final Resul t [facility] [address] [place] [address], documented in this encounter Visit Diagnoses Diagnosis Essential (primary) hypertension Unspecified essential hypertension Unspecified atrial fibrillation (CMS/HCC V24, CMS/[facility] V28) Vitamin D deficiency, unspecified Weakness Other malaise and fatigue Hyperlipidemia, unspecified Vitamin B12 deficiency anemia, unspecified documented in this encounter Care Teams Electrician Apprentice Relationship Specialty Start Date End Date Huang Oviedo MD [address] [place] [id number] PCP - General Internal Medicine 03/10/24 documented as of this encounter
--- OUTSIDE RECORDS SUMMARY | 2025-02-18 17:16 | XMS_ITS | Encounter Summary ---
Author Organization [facility] Address [address] [place] [address] Care Team Providers Care Recovery Operator Helper Name Role Phone Huang Oviedo MD Primary Care Provider [phone] Encounter Details Date Type Department Care Team (Late st Contact Info) Description 11/04/2024 Lab Requisition [facility] - Main Lab [address] [facility] [place] [address] Yola Linares MD [address] [place], [place] [phone] Unspecified atrial fibrillation (CMS/HCC V24, CMS/HCC V28) [...] Diagnosis Comments PROTHROMBIN TIME WITH INR Routine 11/05/2024 6:44 AM EDT Unspecified atrial fibrillation (CMS/HCC V24, CMS/HCC V28) documented in this encounter Results * (ABNORMAL) Prothrombin time with INR (11/05/2024 6:44 AM EDT) Protime 16.6(H) 10.6 - 13.9 sec LAB COAGULATION METHOD 11/05/2024 9:25 AM [facility] INR 1.3 LAB COAGULATION METHOD 11/05/2024 9:25 AM [facility] Blood Venous blood specimen / Unknown Venipuncture / Unknown 11/05/2024 6:44 AM EDT 11/05/2024 9:02 AM EDT Yola Linares MD LAB BLOOD ORDERABLES Final Resul t Performing Organization Address City/[facility]/ZIP Co de Phone Number [facility] [address] [place] [address], documented in this encounter Visit Diagnoses Diagnosis Unspecified atrial fibrillation (CMS/HCC V24, CMS/HCC V28) documented in this encounter Care Teams Recovery Operator Helper Relationship Specialty Start Date End Date Huang Oviedo MD [address] [place] [id number] PCP - General Internal Medicine 03/10/24 documented as of this encounter
--- OUTSIDE RECORDS SUMMARY | 2025-02-18 17:16 | XMS_ITS | Encounter Summary ---
Author Organization [facility] Address [address] [place] [address] Care Team Providers Care X Ray Equipment Servicer Name Role Phone Huang Oviedo MD Primary Care Provider [phone] Encounter Details Date Type Department Care Team (Late st Contact Info) Description 07/16/2024 Lab Requisition [facility] - Main Lab 299 [facility] [place] [address] Yola Linares MD [address] [place], [place] [phone] Unspecified atrial fibrillation (CMS/HCC V24, CMS/HCC V28) [...] Diagnosis Comments PROTHROMBIN TIME WITH INR Routine 07/16/2024 6:25 AM EDT Unspecified atrial fibrillation (CMS/HCC) documented in this encounter Results * (ABNORMAL) Prothrombin time with INR (07/16/2024 6:25 AM EDT) Protime 20.6(H) 10.6 - 13.9 sec LAB COAGULATION METHOD 07/16/2024 10:24 AM [facility] INR 1.7 LAB COAGULATION METHOD 07/16/2024 10:24 AM [facility] Blood Venous blood specimen / Unknown Venipuncture / Unknown 07/16/2024 6:25 AM EDT 07/16/2024 9:44 AM EDT us Yola Linares MD LAB BLOOD ORDERABLES Final Resul t [facility] [address] [place] [address], documented in this encounter Visit Diagnoses Diagnosis Unspecified atrial fibrillation (CMS/HCC V24, CMS/HCC V28) documented in this encounter Care Teams X Ray Equipment Servicer Relationship Specialty Start Date End Date Huang Oviedo MD [address] [place] [phone] PCP - General Internal Medicine 03/10/24 documented as of this encounter
--- OUTSIDE RECORDS SUMMARY | 2025-02-18 17:16 | XMS_ITS | Encounter Summary ---
Author Organization [facility] Address [address] [place] [address] Care Team Providers Care Faculty I On Call Medical Assistant Name Role Phone Huang Oviedo MD Primary Care Provider [phone] Encounter Details Date Type Department Care Team (Late st Contact Info) Description 11/24/2024 Lab Requisition [facility] - Main Lab [address] [facility] [place] [address] Yola Linares MD [address] [place], [place] [id number] Unspecified atrial fibrillation (CMS/HCC V24, CMS/HCC V28) [...] Diagnosis Comments PROTHROMBIN TIME WITH INR Routine 11/24/2024 10:24 AM EDT Unspecified atrial fibrillation (CMS/HCC V24, CMS/HCC V28) documented in this encounter Results * (ABNORMAL) Prothrombin time with INR (11/24/2024 10:24 AM EDT) Protime 15.6(H) 10.6 - 13.9 sec LAB COAGULATION METHOD 11/24/2024 12:00 PM [facility] INR 1.2 LAB COAGULATION METHOD 11/24/2024 12:00 PM [facility] Blood Venous blood specimen / Unknown Venipuncture / Unknown 11/24/2024 10:24 AM EDT 11/24/2024 11:29 AM EDT Yola Linares MD LAB BLOOD ORDERABLES Final Resul t Performing Organization Address City/[facility]/ZIP Co de Phone Number [facility] ([facility]) [facility] [address] [place] [address], documented in this encounter Visit Diagnoses Diagnosis Unspecified atrial fibrillation (CMS/HCC V24, CMS/HCC V28) documented in this encounter Care Teams Faculty I On Call Medical Assistant Relationship Specialty Start Date End Date Huang Oviedo MD [address] [place] [id number] PCP - General Internal Medicine 03/10/24 documented as of this encounter
--- OUTSIDE RECORDS SUMMARY | 2025-02-18 17:16 | XMS_ITS | Encounter Summary ---
Author Organization [facility] Address [address] [address] Phone Care Team Providers Care Wheelman Name Role Phone Mani Nation MD Primary Care Provider [phone] Vero Marshall RN Unavailable [email or web address] Mirian Locke RN Unavailable [phone] Vanessa Malik Unavailable [email or web address] Naila Brandt RN Unavailable [phone] Encounter Details Date Type Department Care Team (Late st Contact Info) Description 07/18/2023 Procedure Pass [facility], Ct Scan - [address] [address] Social History Tobacco Use Types Packs/Day Years [...] Date of Assessment Author No Risk Indicated 07/19/2023 1:00 AM EDT Ariadne Wolf RN * [place] Suicide Severity Rating Scale (Screener/Recent Self-Report) Question Answer Date of Assessment Author 1. Wish to be (Past 1 Month) No 024 1:00 AM EDT Ariadne Wolf RN 2. Non-Specific Active Suici sara Thoughts (Past 1 Month) No 07/19/2023 1:00 AM EDT Jolie Wolf RN 6. Suicidal Behavior (Lifetime) No 4 1:00 AM EDT Ariadne Wolf RN documented as of this encounter Plan of Treatment Not on file documented as of this encounter Visit Diagnoses Not on filedocumented in this encounter Additional Health Concerns Infection Onset Date Last Indicated Resolved Time CoV-Risk Comment:Per note documentation 07/18/2023 07/18/2023 7:16 [...] documented as of this encounter Care Teams Wheelman Relationship Specialty Start Date End Date Mani Nation MD [address] [place] [address], [address] [place] [address] PCP - General 02/08/17 Vero Marshall, RN [address] [facility], [address] [place] [address] [email or web address] PHCM Stereo Equipment Repairer 04/09/19 Mirian Locke RN [address] [place] [address] Registered Nurse 10/16/22 Vanessa Malik [address] [place] [id number] [email or web address] PHCM Community Computational Linguist 06/12/24 06/12/24 Naila Brandt, FLORES [address] [place] [address] [id number] PHCM Stereo Equipment RepairerStenotypist 12/25/24 02/08/25 documented as of this encounter Additional Source Comments The information contained in this document represents components of the legal health record. It is not the complete legal health record.[facility]
--- OUTSIDE RECORDS SUMMARY | 2025-02-18 17:16 | XMS_ITS | Encounter Summary ---
Author Organization [facility] Address [address] [place] [address] Care Team Providers Care Financial Accounting Manager Name Role Phone Huang Oviedo MD Primary Care Provider [phone] Encounter Details Date Type Department Care Team (Late st Contact Info) Description 07/14/2024 Lab Requisition [facility] - Main Lab 299 [facility] [place] [address] Yola Linares MD [address] [place], [place] [phone] Unspecified atrial fibrillation (CMS/HCC V24, CMS/HCC V28) [...] Diagnosis Comments PROTHROMBIN TIME WITH INR Routine 07/14/2024 7:42 AM EDT Unspecified atrial fibrillation (CMS/HCC) documented in this encounter Results * (ABNORMAL) Prothrombin time with INR (07/14/2024 7:42 AM EDT) Protime 29.0(H) 10.6 - 13.9 sec LAB COAGULATION METHOD 07/14/2024 11:33 AM [facility] INR 2.3 LAB COAGULATION METHOD 07/14/2024 11:33 AM [facility] Blood Venous blood specimen / Unknown Venipuncture / Unknown 07/14/2024 7:42 AM EDT 07/14/2024 10:41 AM EDT us Yola Linares MD LAB BLOOD ORDERABLES Final Resul t [facility] ([facility]) [facility] [address] [place] [address], documented in this encounter Visit Diagnoses Diagnosis Unspecified atrial fibrillation (CMS/HCC V24, CMS/HCC V28) documented in this encounter Care Teams Financial Accounting Manager Relationship Specialty Start Date End Date Huang Oviedo MD [address] [place] [address] PCP - General Internal Medicine 03/10/24 documented as of this encounter
--- OUTSIDE RECORDS SUMMARY | 2025-02-18 17:16 | XMS_ITS | Encounter Summary ---
Author Organization [facility] Address [address] [place] [address] Care Team Providers Care Seat Joiner Chainstitch Name Role Phone Huang Oviedo MD Primary Care Provider [phone] Encounter Details Date Type Department Care Team (Late st Contact Info) Description 07/09/2024 Lab Requisition [facility] - Main Lab 299 [facility] [place] [address] Yola Linares MD [address] [place], [place] [phone] Unspecified atrial fibrillation (CMS/HCC V24, CMS/HCC V28) [...] Diagnosis Comments PROTHROMBIN TIME WITH INR Routine 07/09/2024 6:23 AM EDT Unspecified atrial fibrillation (CMS/HCC) documented in this encounter Results * (ABNORMAL) Prothrombin time with INR (07/09/2024 6:23 AM EDT) Protime 39.9(H) 10.6 - 13.9 sec LAB COAGULATION METHOD 07/09/2024 11:46 AM [facility] INR 3.2 LAB COAGULATION METHOD 07/09/2024 11:46 AM [facility] Blood Venous blood specimen / Unknown Venipuncture / Unknown 07/09/2024 6:23 AM EDT 07/09/2024 10:37 AM EDT us Yola Linares MD LAB BLOOD ORDERABLES Final Resul t [facility] ([facility]) [facility] [address] [place] [address], documented in this encounter Visit Diagnoses Diagnosis Unspecified atrial fibrillation (CMS/HCC V24, CMS/HCC V28) documented in this encounter Care Teams Seat Joiner Chainstitch Relationship Specialty Start Date End Date Huang Oviedo MD [address] [place] [address] PCP - General Internal Medicine 03/10/24 documented as of this encounter
--- OUTSIDE RECORDS SUMMARY | 2025-02-18 17:17 | XMS_ITS | Encounter Summary ---
Author Organization [facility] Address [address] [place] [address] Care Team Providers Care Director Channel Name Role Phone Huang Oviedo MD Primary Care Provider [phone] Encounter Details Date Type Department Care Team (Late st Contact Info) Description 11/07/[address] [facility] - Main Lab 299 [facility] [place] [address] Yola Linares MD [address] [place], [place] [phone] Unspecified atrial fibrillation (CMS/HCC V24, CMS/HCC V28) [...] Diagnosis Comments PROTHROMBIN TIME WITH INR Routine 11/07/2024 6:52 AM EDT Unspecified atrial fibrillation (CMS/HCC V24, CMS/HCC V28) documented in this encounter Results * (ABNORMAL) Prothrombin time with INR (11/07/2024 6:52 AM EDT) Protime 25.0(H) 10.6 - 13.9 sec LAB COAGULATION METHOD 11/07/2024 10:10 AM [facility] INR 2.0 LAB COAGULATION METHOD 11/07/2024 10:10 AM [facility] LAB Blood Venous blood specimen / Unknown Venipuncture / Unknown 11/07/2024 6:52 AM EDT 11/07/2024 8:55 AM EDT Yola Linares MD LAB BLOOD ORDERABLES Final Resul t Performing Organization Address City/[facility]/ZIP Co de Phone Number [facility] [address] [place] [address], documented in this encounter Visit Diagnoses Diagnosis Unspecified atrial fibrillation (CMS/HCC V24, CMS/HCC V28) documented in this encounter Care Teams Director Channel Relationship Specialty Start Date End Date Huang Oviedo MD [address] [place] [address] PCP - General Internal Medicine 03/10/24 documented as of this encounter
--- OUTSIDE RECORDS SUMMARY | 2025-02-18 17:17 | XMS_ITS | Encounter Summary ---
Author Organization [facility] Address [address] [place] [address] Care Team Providers Care Certified Professional Controller Name Role Phone Huang Oviedo MD Primary Care Provider [phone] Encounter Details Date Type Department Care Team (Late st Contact Info) Description 11/04/[address] [facility] - Main Lab 299 [facility] [place] [address] Yola Linares MD [address] [place], [place] [phone] Unspecified atrial fibrillation (CMS/HCC V24, CMS/HCC V28); Hyperlipidemia, unspecified; Vitamin D deficiency, unspecified Social History Tobacco Use Types Packs/Day [...] 11/04/2024 7:04 AM EDT Unspecified atrial fibrillation (CMS/HCC V24, CMS/HCC V28) Hyperlipidemia, unspecified Vitamin D deficiency, unspecified IRON AND TIBC Routine 11/04/2024 7:04 AM EDT Unspecified atrial fibrillation (CMS/HCC V24, CMS/HCC V28) Hyperlipidemia, unspecified Vitamin D deficiency, unspecified VITAMIN D 25 HYDROXY Routine 11/04/2024 7:04 AM EDT Unspecified atrial fibrillation (CMS/HCC V24, CMS/HCC V28) Hyperlipidemia, unspecified Vitamin D deficiency, unspecified COMPLETE BLOOD COUNT Routine 11/04/2024 7:04 AM EDT Unspecified atrial fibrillation (CMS/HCC V24, CMS/HCC V28) Hyperlipidemia, unspecified Vitamin D deficiency, unspecified MAGNESIUM Routine 11/04/2024 7:04 AM EDT Unspecified atrial fibrillation (CMS/HCC V24, CMS/HCC V28) Hyperlipidemia, unspecified Vitamin D deficiency, unspecified FOLATE Routine 11/04/2024 7:04 AM EDT Unspecified atrial fibrillation (CMS/HCC V24, CMS/HCC V28) Hyperlipidemia, unspecified Vitamin D deficiency, unspecified FERRITIN Routine 11/04/2024 7:04 AM EDT Unspecified atrial fibrillation (CMS/HCC V24, CMS/HCC V28) Hyperlipidemia, unspecified Vitamin D deficiency, unspecified VITAMIN B12 Routine 11/04/2024 7:04 AM EDT Unspecified atrial fibrillation (CMS/HCC V24, CMS/HCC V28) Hyperlipidemia, unspecified Vitamin D deficiency, unspecified COMPREHENSIVE METABOLIC PANEL Routine 11/04/2024 7:04 AM EDT Unspecified atrial fibrillation (CMS/HCC V24, CMS/HCC V28) Hyperlipidemia, unspecified Vitamin D deficiency, unspecified documented in this encounter Results * Ferritin (11/04/2024 7:04 AM EDT) Ferritin 144 8 - 252 ng/mL LAB CHEMISTRY METHOD 11/04/2024 2:12 PM EDT [facility] Blood Venous blood specimen / Unknown Venipuncture / Unknown 11/04/2024 7:04 AM EDT 11/04/2024 11:12 AM EDT us Yola Linares MD LAB BLOOD ORDERABLES Final Resul t [facility]) [facility] [address] [place] [address], [place] [phone] * Magnesium (11/04/2024 7:04 AM EDT) Pathologist [facility] Magnesium 2.3 1.9 - 2.6 mg/dL LAB CHEMISTRY METHOD 11/04/2024 1:45 PM EDT [facility] Blood Venous blood specimen / Unknown Venipuncture / Unknown 11/04/2024 7:04 AM EDT 11/04/2024 11:12 AM EDT us Yola Linares MD LAB BLOOD ORDERABLES Final Resul t Performing Organization Address [facility]/ZIP Co de Phone Number [facility] [address] [place] [address], [place] [phone] * Iron and TIBC (11/04/2024 7:04 AM EDT) [facility] Iron 83 40 - 150 mcg/dL LAB CHEMISTRY METHOD 11/04/2024 1:45 PM EDT [facility] TIBC 271 250 - 450 mcg/dL LAB CHEMISTRY METHOD 11/04/2024 1:45 PM EDT [facility] Iron Saturation 31 15 - 50 % LAB CHEMISTRY METHOD 11/04/2024 1:45 PM EDT [facility] Blood Venous blood specimen / Unknown Venipuncture / Unknown 11/04/2024 7:04 AM EDT 11/04/2024 11:12 AM EDT us Yola Linares MD LAB BLOOD ORDERABLES Final Resul t [facility] [address] [place] [address], [place] [phone] * Folate (11/04/2024 7:04 AM EDT) Folate 11.8 2.8 - 17.0 ng/ml LAB CHEMISTRY METHOD 11/04/2024 2:12 PM EDT [facility] Blood Venous blood specimen / Unknown Venipuncture / Unknown 11/04/2024 7:04 AM EDT 11/04/2024 11:12 AM EDT us Yola Linares MD LAB BLOOD ORDERABLES Final Resul t Performing Organization Address City/[facility]/ZIP Co de Phone Number [facility] [address] [place] [address], [place] [phone] * Vitamin D 25 hydroxy (11/04/2024 7:04 AM EDT) Pathologist [facility] Vit D, 25-Hydroxy 40.4 30.0 - 80.0 ng/mL LAB CHEMISTRY METHOD 11/04/2024 3:16 PM EDT [facility] Blood Venous blood specimen / Unknown Venipuncture / Unknown 11/04/2024 7:04 AM EDT 11/04/2024 11:12 AM EDT us Yola Linares MD LAB BLOOD ORDERABLES Final Resul t Performing Organization Address [facility] de Phone Number [facility] [address] [place] [address], [place] [phone] * (ABNORMAL) Vitamin B12 (11/04/2024 7:04 AM EDT) Pathologist [facility] Vitamin B-12 1,098(H) 250 - 900 pcg/mL LAB CHEMISTRY METHOD 11/04/2024 2:12 PM EDT [facility] Blood Venous blood specimen / Unknown Venipuncture / Unknown 11/04/2024 7:04 AM EDT 11/04/2024 11:12 AM EDT us Yola Linares MD LAB BLOOD ORDERABLES Final Resul t Performing Organization Address City/[facility]/ZIP Co de Phone Number [facility] [address] [place] [address], [place] [phone] * (ABNORMAL) Lipid panel with reflex to direct LDL (11/04/2024 7:04 AM EDT) Cholesterol 141 0 - 200 mg/dL LAB CHEMISTRY METHOD 11/04/2024 1:45 PM EDT [facility] Triglycerides 160(H) 0 - 150 mg/dL LAB CHEMISTRY METHOD 11/04/2024 1:45 PM EDT [facility] HDL 35(L) >=40 mg/dL LAB CHEMISTRY METHOD 11/04/2024 1:45 PM EDT [facility] LDL Calculated 74 0 - 100 mg/dL LAB CHEMISTRY METHOD 11/04/2024 1:45 PM EDT [facility] VLDL Cholesterol Rupesh 32 mg/dL LAB CHEMISTRY METHOD 11/04/2024 1:45 PM EDT [facility] Non HDL Chol. (LDL+VLDL) 106 <145 mg/dL LAB CHEMISTRY METHOD 11/04/2024 1:45 PM EDT [facility] Chol/HDL Ratio 4.0 0.0 - 4.4 LAB CHEMISTRY METHOD 11/04/2024 1:45 PM EDT [facility] Blood Venous blood specimen / Unknown Venipuncture / Unknown 11/04/2024 7:04 AM EDT 11/04/2024 11:12 AM EDT Yola Linares MD LAB BLOOD ORDERABLES Final Resul t [facility] [address] [place] [address], [place] [phone] * (ABNORMAL) Comprehensive metabolic panel (11/04/2024 7:04 AM EDT) Sodium 139 133 - 145 mmol/L LAB CHEMISTRY METHOD 11/04/2024 2:12 PM EDT [facility] Potassium 4.6 3.5 - 5.5 mmol/L LAB CHEMISTRY METHOD 11/04/2024 2:12 PM [facility] Chloride 106 96 - 110 mmol/L LAB CHEMISTRY METHOD 11/04/2024 2:12 PM [facility] CO2 27 21 - 32 mmol/L LAB CHEMISTRY METHOD 11/04/2024 2:12 PM [facility] Anion Gap 6 3 - 11 LAB CHEMISTRY METHOD 11/04/2024 2:12 PM [facility] Glucose 85 70 - 100 mg/dL LAB CHEMISTRY METHOD 11/04/2024 2:12 PM [facility] BUN 17 5 - 25 mg/dL LAB CHEMISTRY METHOD 11/04/2024 2:12 PM [facility] Creatinine 0.82 0.50 - 1.10 mg/dL LAB CHEMISTRY METHOD 11/04/2024 2:12 PM [facility] eGFR 72 >=60 mL/min/1. 73m2 LAB CHEMISTRY METHOD 11/04/2024 2:12 PM [facility] Comment:Calculation based on the Chronic Kidney Disease Epidemiology Collaboration (CKD-EPI) equation refit without adjustment for race. BUN/Creatinine Ratio 20.7 LAB CHEMISTRY METHOD 11/04/2024 2:12 PM [facility] Calcium 9.5 8.5 - 10.5 mg/dL LAB CHEMISTRY METHOD 11/04/2024 2:12 PM [facility] AST (SGOT) 37 10 - 42 unit/L LAB CHEMISTRY METHOD 11/04/2024 2:12 PM [facility] ALT (SGPT) 61(H) 10 - 60 unit/L LAB CHEMISTRY METHOD 11/04/2024 2:12 PM [facility] Alkaline Phosphatase 100 42 - 121 unit/L LAB CHEMISTRY METHOD 11/04/2024 2:12 PM [facility] Total Protein 6.7 6.0 - 8.0 g/dL LAB CHEMISTRY METHOD 11/04/2024 2:12 PM EDT [facility] Albumin 3.6 3.2 - 5.0 g/dL LAB CHEMISTRY METHOD 11/04/2024 2:12 PM EDT [facility] Total Bilirubin 0.5 0.0 - 1.4 mg/dL LAB CHEMISTRY METHOD 11/04/2024 2:12 PM EDT [facility] Blood Venous blood specimen / Unknown Venipuncture / Unknown 11/04/2024 7:04 AM EDT 11/04/2024 11:12 AM EDT Yola Linares MD LAB BLOOD ORDERABLES Final Resul t [facility] [address] [place] [address], * (ABNORMAL) Complete blood count (11/04/2024 7:04 AM EDT) WBC 8.5 4.8 - 10.8 K/mcL LAB HEMETOLOGY METHOD 11/04/2024 12:22 PM EDT [facility] RBC 4.40 3.80 - 4.80 M/mcL LAB HEMETOLOGY METHOD 11/04/2024 12:22 PM EDT [facility] Hemoglobin 14.4 11.5 - 16.0 g/dL LAB HEMETOLOGY METHOD 11/04/2024 12:22 PM EDT [facility] Hematocrit 45.5 35.0 - 47.0 % LAB HEMETOLOGY METHOD 11/04/2024 12:22 PM EDT [facility] MCV 104.6(H) 79.0 - 98.0 FL LAB HEMETOLOGY METHOD 11/04/2024 12:[facility] MCH 33.1(H) 27.0 - 32.0 pcg LAB HEMETOLOGY METHOD 11/04/2024 12:22 PM EDT [facility] MCHC 31.6(L) 32.0 - 37.0 g/dL LAB HEMETOLOGY METHOD 11/04/2024 12:22 PM EDT [facility] RDW 13.4 11.0 - 15.0 % LAB HEMETOLOGY METHOD 11/04/2024 12:22 PM EDT [facility] Platelets 227 130 - 400 K/mcL LAB HEMETOLOGY METHOD 11/04/2024 12:22 PM EDT [facility] MPV 11.9(H) 7.0 - 11.0 FL LAB HEMETOLOGY METHOD 11/04/2024 12:22 PM EDT [facility] NRBC 0.0 <1.0 % LAB HEMETOLOGY METHOD 11/04/2024 12:22 PM EDT [facility] NRBC Absolute 0.00 <0.10 K/mcL LAB HEMETOLOGY METHOD 11/04/2024 12:22 PM EDT [facility] Blood Venous blood specimen / Unknown Venipuncture / Unknown 11/04/2024 7:04 AM EDT 11/04/2024 11:12 AM EDT us Yola Linares MD LAB BLOOD ORDERABLES Final Resul t [facility] [address] [place] [address], [place] [phone] documented in this encounter Visit Diagnoses Diagnosis Unspecified atrial fibrillation (CMS/HCC V24, CMS/HCC V28) Hyperlipidemia, unspecified Vitamin D deficiency, unspecified documented in this encounter Care Teams Certified Professional Controller Relationship Specialty Start Date End Date Huang Oviedo MD [address] [place] [phone] PCP - General Internal Medicine 03/10/24 documented as of this encounter
--- OUTSIDE RECORDS SUMMARY | 2025-02-18 17:17 | XMS_ITS | Encounter Summary ---
Author Organization [facility] Address [address] [place] [address] Phone Care Team Providers Care Crutching Contractor Name Role Phone Mani Nation MD Primary Care Provider [phone] Mani Nation MD Unavailable [phone] Vero Marshall RN Unavailable [email or web address] [email or web address] Fontana Unavailable [phone] Mirian Locke RN Unavailable Vanessa Malik Unavailable [email or web address] Naila Brandt RN Unavailable [phone] Encounter Details Date Type Department Care Team (Latest Contact Info) Description 06/20/2017 Transcribe Orders [facility] Laboratory [address] [place] [address] Ben Toth MD [address] [place] [address] Normal pressure hydrocephalus (Primary Dx); Personal history of spine surgery Social History Tobacco Use Types Packs/Day Years Used Date Smoking Tobacco: Never Smokeless Tobacco: Never Comments Unknown Sex and Gender Information Value Date Recorded Sex Assigned at Female 08/11/2017 5:18 AM EDT Legal Sex Female 6:38 PM EST Gender Identity Female 08/11/2017 5:18 AM EDT Sexual Orientation Straight 08/11/2017 5: 18 AM EDT documented as of this encounter Plan of Treatment Not on file documented as of this encounter Results * PT-INR (06/20/2017 3:40 PM EST) PT 11.9 10.2 - 12.9 sec [facility] INR 1.0 0.9 - 1.1 [facility] Comment:Therapeutic range fo r oral Vitamin K antagonists: 2.0-3.5 Blood 06/20/2017 3:40 PM EST 06/20/2017 3:45 PM EST us Ben Toth MD LAB BLOOD ORDERABLES Maria A l Result Performing Organization Address City/[facility]/ZIP Co de Phone Number [address] [address] * (ABNORMAL) CBC (06/20/2017 3:40 PM EST) WBC 8.25 3.40 - 11.20 K/uL [facility] RBC 4.24 3.80 - 4.80 M/uL [facility] HGB 14.2 12.0 - 15.0 g/dL [facility] HCT 42.8 36.0 - 46.0 % [facility] PLT 227 130 - 400 K/uL [facility] MCV 100.9(H) 79.0 - 98.0 fL [facility] MCH 33.5 27.0 - 34.8 pg [facility] MCHC 33.2 31.5 - 36.0 g/dL [facility] RDW 13.2 10.8 - 14.6 % [facility] MPV 10.5 9.4 - 12.4 fl [facility] NRBC 0.00 /100 WBCs [facility] ABSOLUTE NRBC 0.00 K/uL [facility] Blood 06/20/2017 3:40 PM EST 06/20/2017 3:45 PM EST us Ben Toth MD LAB BLOOD ORDERABLES Maria A l Result [address] [address] * PTT (06/20/2017 3:40 PM EST) APTT 29.3 25.1 - 36.5 sec [facility] Comment:APTT response to unf ractionated heparin concentrations between 0.3 and 0.7 IU/mL is typically 54.0-94.0 seconds in uncomplicated cases. The Anti-Xa assay is the preferred method. Blood 06/20/2017 3:40 PM EST 06/20/2017 3:45 PM EST us Ben Toth MD LAB BLOOD ORDERABLES Maria A crespo Result [facility] [address] [place], [place] [id number] documented in this encounter Visit Diagnoses Diagnosis Normal pressure hydrocephalus- Primary Idiopathic normal pressure hydrocephalus (INPH) Personal history of spine surgery Other postprocedural status documented in this encounter Additional Health Concerns [...] documented as of this encounter Care Teams Crutching Contractor Relationship Specialty Start Date End Date Mani Nation MD [address] [place] [address], [address] [place] [address] [email or web address] PCP - General 02/08/17 Mani Nation MD [address] [facility], [address] [place] [address] Insurance Assigned Provider 07/21/1701/01 Vero Marshall, FLORES [address] [facility], [address] [place] [address] [email or web address] PHCM President And Chief Operating Officer 04/09/19 Savannah Fontana [address] [place] [address] PHCM Community Health Worker 06/30/20 07/11/20 Mirian Locke RN [address] [place] [address] Registered Nurse 10/16/22 Vanessa Malik [address] [place] [address] [email or web address] PHCM Community Maintenance Mechanic Helper 06/12/24 06/12/24 Naila Brandt, RN [address] [place] [address] [phone] [email or web address] PHCM President And Chief Operating OfficerImmunology Teacher 12/25/24 02/08/25 documented as of this encounter Additional Source Comments The information contained in this document represents components of the legal health record. It is not the complete legal health record.[facility]
--- OUTSIDE RECORDS SUMMARY | 2025-02-18 17:17 | XMS_ITS | Encounter Summary ---
Author Organization [facility] Address [address] [place] [address] Care Team Providers Care Bark Spudder Name Role Phone Huang Oviedo MD Primary Care Provider [phone] Encounter Details Date Type Department Care Team (Late st Contact Info) Description 11/10/2024 Lab Requisition [facility] - Main Lab [address] [facility] [place] [address] Yola Linares MD [address] [place], [place] [phone] Unspecified atrial fibrillation (CMS/HCC V24, CMS/HCC V28) [...] Diagnosis Comments PROTHROMBIN TIME WITH INR Routine 11/10/2024 6:28 AM EDT Unspecified atrial fibrillation (CMS/HCC V24, CMS/HCC V28) documented in this encounter Results * (ABNORMAL) Prothrombin time with INR (11/10/2024 6:28 AM EDT) Protime 19.6(H) 10.6 - 13.9 sec LAB COAGULATION METHOD 11/10/2024 10:37 AM [facility] INR 1.6 LAB COAGULATION METHOD 11/10/2024 10:37 AM [facility] Blood Venous blood specimen / Unknown Venipuncture / Unknown 11/10/2024 6:28 AM EDT 11/10/2024 9:41 AM EDT Yola Linares MD LAB BLOOD ORDERABLES Final Resul t Performing Organization Address City/[facility]/ZIP Co de Phone Number [facility] [address] [place] [address], documented in this encounter Visit Diagnoses Diagnosis Unspecified atrial fibrillation (CMS/HCC V24, CMS/HCC V28) documented in this encounter Care Teams Bark Spudder Relationship Specialty Start Date End Date Huang Oviedo MD [address] [place] [address] PCP - General Internal Medicine 03/10/24 documented as of this encounter
--- OUTSIDE RECORDS SUMMARY | 2025-02-18 17:19 | XMS_ITS | Encounter Summary ---
Author Organization [facility] Address [address] [address] Phone Care Team Providers Care Chassis Wirer Name Role Phone Mani Nation MD Primary Care Provider [phone] Vero Marshall RN Unavailable [email or web address] Mirian Locke RN Unavailable [phone] Vanessa Malik Unavailable [email or web address] Naila Brandt RN Unavailable [phone] Encounter Details Date Type Department Care Team (Late st Contact Info) Description 11/21/2022 Procedure Pass [facility], Ct Scan - [address] [address] Social History Tobacco Use Types Packs/Day Years [...] Date of Assessment Author No Risk Indicated 11/21/2022 10:25 PM EDT Silvana Borrego, FLORES * [place] Suicide Severity Rating Scale (Screener/Recent Self-Report) Question Answer Date of Assessment Author 1. Wish to be (Past 1 Month) No 11/21/2022 10:25 PM EDT Muna Zamora RN 2. Non-Specific Active Suici sara Thoughts (Past 1 Month) No 11/21/2022 10:25 PM EDT Daniela Zamora, FLORES 6. Suicidal Behavior (Lifetime) No 10:25 PM EDT Silvana Zamora, FLORES documented as of this encounter Plan of [...] documented as of this encounter Care Teams Chassis Wirer Relationship Specialty Start Date End Date Mani Nation MD [address] [facility], [address] [place] [address] [email or web address] PCP - General 02/08/17 Vero Marshall, FLORES [address] [facility], [address] [place] [address] [email or web address] PHCM Dinkey Operator Slag 04/09/19 Mirian Locke RN [address] [place] [address] Registered Nurse 10/16/22 Vanessa Malik [address] [place] [address] [email or web address] PHCM Community Art Preparator 06/12/24 06/12/24 Naila Brandt, FLORES [address] [place] [phone] [email or web address] PHCM Dinkey Operator SlagLedge Man 12/25/24 02/08/25 documented as of this encounter Additional Source Comments The information contained in this document represents components of the legal health record. It is not the complete legal health record.[facility]
--- OUTSIDE RECORDS SUMMARY | 2025-02-18 17:19 | XMS_ITS | Encounter Summary ---
Author Organization [facility] Address [address] [place] [address] Care Team Providers Care Contract Clerk Name Role Phone Mani Nation MD Primary Care Provider [phone] Encounter Details Date Type Department Care Team (Late Contact Info) Description 04/09/2023 [facility] Message [facility] [employer] [address] [place] [address] [employer], Generic Provider [address] [place], [place] [phone] Payment Agreement Social History Tobacco Use Types [...] Info) Description 05/08/2025 2:15 PM EST Appointment [facility] Heart Station [address] [place] [address] Wing Jeffery MD PhD [address] [place] [address] Scheduled Procedures Name Priority Associated Diagnoses Date/Ti me COLONOSCOPY SCREENING, HIGH RISK WITH POSSIBLE MODERATE SEDATION Diarrhea, unspecified type documented as of this encounter Visit Diagnoses Not on filedocumented in this encounter Care Teams Contract Clerk Relationship Specialty Start Date End Date Mani Nation MD [address] [place] [address], [address] [place] [address] PCP - General 11/09/16 documented as of this encounter
--- OUTSIDE RECORDS SUMMARY | 2025-02-18 17:19 | XMS_ITS | Encounter Summary ---
Author Organization [facility] Address [address] [place] [address] Care Team Providers Care Centrifuge Operator Name Role Phone Mani Nation MD Primary Care Provider [phone] Encounter Details Date Type Department Care Team (Late Contact Info) Description 09/05/2023 [place] Message [facility] - Actionable Findings [address] [place] [address] [employer], Generic Provider [phone] Up CT Incidental Finding Social History [...] Info) Description 05/08/2025 2:15 PM EST Appointment [facility] Station [address] [place] [address] Wing Jeffery MD PhD [address] [place] [address] Scheduled Procedures Name Priority Associated Diagnoses Date/Ti me COLONOSCOPY SCREENING, HIGH RISK WITH POSSIBLE MODERATE SEDATION Diarrhea, unspecified type documented as of this encounter Visit Diagnoses Not on filedocumented in this encounter Care Teams Centrifuge Operator Relationship Specialty Start Date End Date Mani Nation MD [address] [place] [address], [address] [place] [address] PCP - General 11/09/16 documented as of this encounter
--- OUTSIDE RECORDS SUMMARY | 2025-02-18 17:19 | XMS_ITS | Clinical Summary ---
Author Organization [facility] Address [address] [place] [address] Care Team Providers Care Pulling Machine Operator Name Role Phone Mani Nation MD Primary Care Provider [phone] Allergies Active Allergy Reactions Criticality Noted Date [...] twice daily, Eliquis 5 mg twice daily. [id number] Score 4 (sex, age, HTN). Followed by [...] syndrome, mild obstructive lung disease, systemic sclerosis GLOBAL MANAGER shunt for NPH, pulm htn that presents [...] intermittent abdominal pain. She does have a GLOBAL MANAGER shunt placed in 2018 that had been thought to be irritating her abdominal viscera. She was previously evaluated by neurosurgery for this. She was recently seen in the emergency room on November [address] scan at the time showed looping of the GLOBAL MANAGER shunt catheter in the anterior subcutaneous region of the RUQ just with entry into the peritoneal cavity. She has an upcoming appointment with neurosurgery on 12/27 for evaluation of GLOBAL MANAGER shunt. Also has a history of GERD and scleroderma. Recently started Benefiber which has improved her symptoms. Abdomen is soft, nontender, nondistended on exam. - Bowel regimen as needed Assessment & Plan (12/08/2019 11:43 AM EDT): Main focus last visit, question over whether the GLOBAL MANAGER shunt tip was irritating her abdominal viscera [...] (08/21/2017): Added automatically from request for surgery [id number] Assessment & Plan (12/28/2022 7:59 PM EDT): Patient with history of NPH s/p GLOBAL MANAGER shunt placement 2017. Recent abdominal CT showing GLOBAL MANAGER catheter within anterior subcutaneous region of the RUQ. Follows with Dr. Toth in neurosurgery. Missed neurosurgery appointment 12/27 for evaluation of GLOBAL MANAGER shunt - neurosurgery consulted - XR GLOBAL MANAGER shunt series - neurosurgery to coordinate outpatient [...] second diagonal branch. Nuclear perfusion study at [facility] in December 2018 showed no perfusion [...] NSTEMI in 2008. Nuclear perfusion study at [facility] in 2019 showed no perfusion abnormalities. -Atorvastatin [...] Encounters Date Type Department Care Team Description 02/11/2025 Telephone [facility] Station [address] [place] [address] Crys Madsen NP 01/28/2025 Telephone [facility] Station [address] [place] [address] Abbe Batres MD from Last 3 Months Immunizations Immunization Administration Dates Next Due Covid-19, Pfizer, mRNA, [place] valent, PF 30 mcg/0.3 mL dose (for ages 12 and older) 06/24/2020,06/02/2020 Covid-19, Pfizer, mRNA, [place] valent, PF, 30 mcg/0.3 mL dose, judith-sucrose (COMIRNATY)(for ages 12 and older) 08/30/2021 Influenza Virus Vaccine, Uns pecified Formulation 02/01/2019,01/27/2010,02/18/2009 Influenza, High Dose Seasona l, Preservative Free (FLUZONE HIGH-DOSE) 03/05/2015 Influenza, Injectable, Quadr ivalent Preservative Free 03/14/2021,01/07/2020 Influenza, Injectable, Quadr ivalent, Preservative Free 01/30/2018 Influenza, Trivalent, Adjuva nted, PF (FLUAD) 01/30/2018,01/05/2017,02/04/2016 Influenza, Trivalent, MDV, Injectable 01/05/2017 Novel [id number], All Formulations 2009 Pneumococcal Conjugate Vaccine, 13 [...] 78 08/14/2023 3:26 PM EDT Temperature 37 C (98.6 F) 03/07/2023 12:56 PM EST Respiratory Rate 18 08/14/2023 3:26 [...] Info) Description 05/08/2025 2:15 PM EST Appointment [facility] Station [address] [place] [address] Wing Jeffery MD PhD [address] [place] [address] Scheduled Procedures Name Priority Associated Diagnoses Date/Ti me COLONOSCOPY SCREENING, HIGH RISK WITH POSSIBLE MODERATE SEDATION Diarrhea, unspecified type Health Maintenance Due Date Last Done Comments Zoster Vaccines (1 of 2) 1992 RSV Vaccine (60+ years old and patients) (1 - 1-dose 75+ series) 2017 Alcohol/Substance Use Screening 04/23/2024 Depression Screening and Follow-Up 04/23/2024 Health Care Proxy Review 04/23/2024 Social Drivers of Health Annual Screening 04/23/2024 Basic Metabolic Panel 11/09/2024 11/10/2023 , 07/19/2023, 07/18/2023, Additional history exists COVID-19 Vaccine ( season) 2024 01/23/2023, 03/30/2022, 08/30/2021, Additional history exists Influenza Vaccine (#1) 2024 , 03/17/2022, 03/14/2021, Additional history exists DTaP,Tdap,and Td Vaccines (2 - Td or Tdap) 11/07/2027 11/06/2017 Pneumococcal Vaccine: 50+ Years Completed 12/10/2020, 02/04/2016 Osteoporosis Screening Completed 09/28/2021 Hepatitis B Vaccines Aged Out No long er eligible based on patient's age to complete this topic Medical Devices Implanted Type Area Model Engine Mechanic Device Identifier Shelf Expiration Date Model / Serial / Lot Shunt Valve Programmable - [id number] Implanted:Qty: 1 on 08/29/2017 by Ben Toth MD at [facility] Implant Right: Brain CODMAN 04/22/2022 [id number] / / [id number] System Closure And Repair Suture-Mediated Perclose Prostyle - S0 - [id number] Implanted:Qty: 1 on 05/24/2022 by Wing Jeffery MD PhD at [facility] Implant Right: Groin [employer] [id number] 02/21/2024 System Closure And Repair Suture-Mediated Perclose Prostyle - S0 - [id number] Implanted:Qty: 1 on 05/24/2022 by Wing Jeffery MD PhD at [facility] Implant Right: Groin [employer] [id number] 02/21/2024 Lead Pacing Bipolare Straight 6fr 52cm Capsurefix Novus - [id number] - [id number] Implanted:Qty: 1 on 02/15/2023 by Wing Jeffery MD PhD at [facility] Lead Left: Right Ventricle Medtronic [id number] 10/16/2024 [id number] / [id number] V / Lead Left Ventricular Quadripolar 88cm 5.3fr Attain Performa Mri Surescan - [id number] - [id number] Implanted:Qty: 1 on 02/15/2023 by Wing Jeffery MD PhD at [facility] Lead Left: Right Ventricle Medtronic [id number] 08/08/2024 [id number] / [id number] V / Transcatheter Pacing System Medtronic Micra Vr - [id number] - [id number] Implanted:Qty: 1 on 05/24/2022 by Wing Jeffery MD PhD at [facility] Pacemaker Right: Groin Medtronic [id number] 04/19/2023 [id number] / [id number] S / 0 1080 [id number] Micra Vr Tcp [id number] Implanted: 023 (Quantity not on file) Pacemaker Medtronic [id number] MICRA VR TCP / [id number] S / Pacemaker Mri Surescan Dual Chamber Resynchronization 60xac75.5mm Percepta Quad - [id number] - [id number] Implanted:Qty: 1 on 02/15/2023 by Wing Jeffery MD PhD at [facility] Pacemaker Left: Chest Medtronic [id number] 06/20/2024 [id number] / [id number] S / Description:MICRA DEVICE SET TO VVI @30 6-74 Percepta Quad Marble Carver-P [id number] Implanted: 023 (Quantity not on file) Pacemaker Medtronic PERCEPTA QUAD CYLINDER HONER-P [id number] / [id number] S / Procedures * Due to [place] [employer] law, this organization might not be sharing negative HIV tests. Procedure Name Priority Date/Time Associated Diagnosis Comments PACEMAKER REMOTE ANALYSIS Routine 01/28/2025 1:20 AM EDT Atrial fibrillation, unspecified type BASIC METABOLIC PANEL Routine 12/30/2022 7:07 AM EDT DEXA BONE DENSITY AXIAL Routine 09/28/2021 1:50 PM EDT Osteopenia of multiple sites from Last 3 Months or Most Recently Relevant to Health Maintenance Results * Due to [place] [employer] law, this organization might not be sharing negative HIV tests. * Basic Metabolic Panel (12/30/2022 7:07 AM EDT) NA 140 135 - 145 mmol/L 12/30/2022 8:22 AM EDT [facility] K 3.9 3.5 - 5.3 mmol/L 12/30/2022 8:22 AM EDT [facility] Cl 104 97 - 110 mmol/L 12/30/2022 8:22 AM EDT [facility] CO2 26 24 - 32 mmol/L 12/30/2022 8:22 AM EDT [facility] BUN 22 7 - 23 mg/dL 12/30/2022 8:22 AM EDT [facility] Creatinine 0.65 0.50 - 1.20 mg/dL 12/30/2022 8:22 AM EDT [facility] Glucose 96 70 - 99 mg/dL 12/30/2022 8:22 AM EDT [facility] Calcium 9.6 8.7 - 10.7 mg/dL 12/30/2022 8:22 AM EDT [facility] Anion Gap 10 5 - 15 12/30/2022 8:22 AM EDT [facility] eGFR 89 >=60 mL/min/1. 73m2 12/30/2022 8:22 AM EDT [facility] Comment:The estimated glomer ular [...] MD LAB BLOOD ORDERABLES Final Res ult [facility] [address] [place] [address], [place] * DEXA Bone Density Axial (09/28/2021 1:50 PM EDT) Anatomical Region Laterality Modality Hip, L-spine Bone Densitometr y 09/28/2021 10:4 8 PM EDT Impressions 09/28/2021 10:49 PM EDT This patient has osteoporosis. Thank you for the courtesy of this referral. If this radiology report contains a blank impression section, it is an incomplete radiology report. Please contact the interpreting radiologist or applicable radiology division as soon as possible to obtain the completed interpretation. Workstation ID: [id number] Narrative 09/28/2021 10:49 PM EDT EXAM: BONE MINERAL DENSITY INDICATION: osteopenia M85.89 - I10 - Other specified disorders of bone density and structure, multiple sites PROCEDURE: The bone mineral density (BMD) of the spine and proximal right femur was determined using an external X-ray source([employer]). SITE: [place] FINDINGS: L1-L4: BMD 0.76gm/cm2 T-Score -2.6 Z-score: 0.0 Femoral neck: BMD 0.60gm/cm2 T-Score -2.2 Z-score: 0.0 The World Health Organization (WHO) defines osteoporosis (as studied in post-menopausal women) as a T value of (-)2.5 or less at any site. Osteopenia is defined by a T value between [...] help protect against falls. Resulting Agency Comment [id number] Procedure Note Julio Cesar Gordon MD - 09/28/2021 EXAM: BONE MINERAL DENSITY INDICATION: osteopenia M85.89 - I10 - Other specified disorders of bonedensity and structure, multiple sites PROCEDURE: The bone mineral density (BMD) of the spine and proximal rightfemur was determined using an external X-ray source([employer]). SITE: [place] FINDINGS: L1-L4: BMD 0.76gm/cm2 T-Score -2.6 Z-score: [...] possible to obtain thecompleted interpretation. Workstation ID: [id number] Austin Mckeon MD IMG DXA PROCEDURES Final Re sult from Last 3 Months or Most Recently Relevant to Health Maintenance Insurance [employer] [facility] Advance Directives Documents on File Type Date Recorded Patient Histology Assistant Expl anation Health Care Proxy 05/30/2022 10:08 [...] Davon Garrett Spouse Health Care Agent Yeni Haji Talibgage Relative [facility] Care Agent [email or web address] Care Teams Pulling Machine Operator Relationship Specialty Start Date End Date Mani Nation MD [address] [place] [address], [address] [place] [address] PCP - General 11/09/16
--- OUTSIDE RECORDS SUMMARY | 2025-02-18 17:19 | XMS_ITS | Encounter Summary ---
Author Organization [facility] Address [address] [place] [address] Phone Care Team Providers Care Director Pharmacy Services Name Role Phone Mani Nation MD Primary Care Provider [phone] Mani Nation MD Unavailable [phone] Vero Marshall RN Unavailable [email or web address] Savannah Fontana Unavailable [phone] Mirian Locke RN Unavailable Vanessa Malik Unavailable [email or web address] Naila Brandt RN Unavailable [phone] Encounter Details Date Type Department Care Team (Late st Contact Info) Description 11/19/2018 Transcribe Orders Virtual Department [address] [place] [phone] Che Collado MD [address] [place] [address] [phone] Choking, initial encounter (Primary Dx) Social History Tobacco Use Types [...] documented as of this encounter Results * FL (Speech) Video Swallow Study (12/03/2018 10:54 AM EDT) Anatomical Region Laterality Modality Radiographic Lovely ging 12/03/2018 10:3 6 AM EDT Impressions 12/03/2018 11:05 AM EDT Normal modified barium swallow. FLUOROSCOPY TIME: 1 min. 8 sec; 1753 IMAGES/FRAMES POS - [id number] Narrative 12/03/2018 11:05 AM EDT COMPARISON: None. MODIFIED BARIUM SWALLOW FINDINGS: Rasper Machine Operator lateral neck radiograph was obtained. Bones and soft tissues are within normal limits. A modified barium swallow was performed with speech therapy. Patient ingested multiple consistencies of barium. Swallowing is within normal limits. Procedure Note Elle Galvez MD - 12/03/2018 COMPARISON: None. MODIFIED BARIUM SWALLOW FINDINGS: Rasper Machine Operator lateral neck radiograph was obtained. Bones and soft tissues arewithin normal limits. A modified barium swallow was performed with speechtherapy. Patient ingested multiple consistencies of barium. Swallowingis within normal limits. IMPRESSION: Normal modified barium swallow. FLUOROSCOPY TIME: 1 min. 8 sec; 1753 IMAGES/FRAMES POS - [id number] Che Collado MD IMG FL EXAMS Final Res ult documented in this encounter Visit Diagnoses Diagnosis Choking, initial encounter- Primary Dysphagia, unspecified type- Primary Choking, initial encounter documented in this encounter Additional Health Concerns [...] documented as of this encounter Care Teams Director Pharmacy Services Relationship Specialty Start Date End Date Mani Nation MD [address] [place] [address], [address] [place] [address] PCP - General 02/08/17 Mani Nation MD [address] [place] [address], [address] [place] [address] Insurance Assigned Provider 07/21/1701/01 Vero Marshall, FLORES [address] [place] [address], [address] [place] [address] [email or web address] PHCM Dance Critic 04/09/19 Savannah Fontana [address] [place] [phone] PHCM Community Health Worker 06/30/20 07/11/20 Mirian Locke RN [address] [place] [address] Registered Nurse 10/16/22 Vanessa Malik [address] [place] [phone] [email or web address] PHCM Community Thermostat Machine Tender 06/12/24 06/12/24 Naila Brandt, RN [address] [place] [phone] PHCM Dance CriticExport Agent 12/25/24 02/08/25 documented as of this encounter Additional Source Comments The information contained in this document represents components of the legal health record. It is not the complete legal health record.[facility]
--- OUTSIDE RECORDS SUMMARY | 2025-02-18 17:19 | XMS_ITS | Encounter Summary ---
Author Organization [facility] Address [address] [place] [address] Care Team Providers Care Chalk Machine Operator Name Role Phone Mani Nation MD Primary Care Provider [phone] Encounter Details Date Type Department Care Team (Late Contact Info) Description 01/16/2023 myChart Message [facility] [address] [place] [address] Wing Jeffery MD PhD [address] [place] [address] Your Recent Visit Social History Tobacco Use [...] Info) Description 05/08/2025 2:15 PM EST Appointment [facility] [address] [place] [address] Wing Jeffery MD PhD [address] [place] [address] Scheduled Procedures Name Priority Associated Diagnoses Date/Ti me COLONOSCOPY SCREENING, HIGH RISK WITH POSSIBLE MODERATE SEDATION Diarrhea, unspecified type documented as of this encounter Visit Diagnoses Not on filedocumented in this encounter Care Teams Chalk Machine Operator Relationship Specialty Start Date End Date Mani Nation MD [address] [place] [address], [address] [place] [address] PCP - General 11/09/16 documented as of this encounter
--- OUTSIDE RECORDS SUMMARY | 2025-02-18 17:19 | XMS_ITS | Encounter Summary ---
Author Organization [facility] Address [address] [place] [address] Care Team Providers Care Advertising Writer Name Role Phone Mani Nation MD Primary Care Provider [phone] Reason for Visit * Reason Onset Date Comments Needs f/u with Dr Fox after PFT 01/25/2021 Encounter Details Date Type Department Care Team (Late st Contact Info) Description 01/25/2021 Telephone [facility] Central Scheduling Department [address] [place] [address] Telephone Intake, Staff Needs f/u with Dr [...] not populate. She can be reached at [phone] documented in this encounter Plan of Treatment Upcoming Encounters Date Type Department Care Team (Late st Contact Info) Description 05/08/2025 2:15 PM EST Appointment [facility] Heart Station [address] [place] [address] Wing Jeffery MD PhD [address] [place] [address] Scheduled Procedures Name Priority Associated Diagnoses Date/Ti [...] documented as of this encounter Care Teams Advertising Writer Relationship Specialty Start Date End Date Mani Nation MD [address] [place] [address], [address] [place] [address] PCP - General 11/09/16 documented as of this encounter
--- OUTSIDE RECORDS SUMMARY | 2025-02-18 17:19 | XMS_ITS | Encounter Summary ---
Author Organization [facility] Address [address] [place] [address] Care Team Providers Care Partner Manager Name Role Phone Mani Nation MD Primary Care Provider [phone] Reason for Visit * Reason Onset Date Comments new issue 08/02/2020 Encounter Details Date Type Department Care Team (Late st Contact Info) Description 08/02/2020 Telephone [facility] [address] [place] [address] Telephone Intake, Staff new issue Social History [...] EDT Patient seen by Dr. Brooks at [address] [place] [address] previously for tremors. Patient now calling to schedule an appt for limb numbness/neuropathy. Says sometimes she feels like her leg is not there, and alsoher arm. Per DT new issue send TE. Patient cbr at [phone]. documented in this encounter Plan of Treatment Upcoming Encounters Date Type Department Care Team (Late st Contact Info) Description 05/08/2025 2:15 PM EST Appointment [facility] Heart Station [address] [place] [address] Wing Jeffery MD PhD [address] [place] [address] Scheduled Procedures Name Priority Associated Diagnoses Date/Ti [...] documented as of this encounter Care Teams Partner Manager Relationship Specialty Start Date End Date Mani Nation MD [address] [place] [address], [address] [place] [address] PCP - General 11/09/16 documented as of this encounter
--- OUTSIDE RECORDS SUMMARY | 2025-02-18 17:19 | XMS_ITS | Clinical Summary ---
Author Organization [facility] Address [address] [address] Phone Care Team Providers Care Sticker Machine Operator Name Role Phone Mani Nation MD Primary Care Provider [phone] Mirian Locke RN Unavailable [phone] Allergies Active Allergy Reactions Criticality Noted Date Comments Cevimeline Hcl 11/21/2016 Other reaction(s): Unknown Lactose 10/16/2018 Latex Rash Low Latex, Natural Rubber 04/25/2017 Meclizine 07/27/2021 Other reaction(s): Hypersomnolence Other Itching 04/25/2022 Electrodes for EKG monitoring/tele monitoring Oxycodone-Acetaminophe n Shortness Of Breath High 04/25/2017 Tetracycline 04/25/2017 Tetracyclines Unknown Medications atorvastatin (LIPITOR) 40 MG tablet Take 40 mg by mouth nightly at bedtime. Active aspirin 81 MG EC tablet Take 81 mg by mouth daily. Active metoprolol succinate (TOPROL-XL) 25 MG 24 hr tablet Take 50 mg by mouth daily. Active spironolactone (ALDACTONE) 25 MG tablet Take 25 mg by mouth daily. Active calcium carbonate-vitam in D3 1,500 mg (600 mg elemental)-200 units Tab Take 1 tablet by mouth daily. Active Lactobacillus rhamnosus GG (CULTURELLE PROBIOTIC) 15 billion cell CpSP Take 1 capsule by mouth daily. Active warfarin (COUMADIN) 5 MG tabletIndicatio ns:Medication refill TAKE 1 TABLET BY MOUTH 3 DAYS A WEEK AND 1/2 TABLET FOUR TIMES A DAY 90 tablet 3 Active Additional Information Patient taking differently: Maintenance plan:5 mg every Mon; 2.5 mg all other days, Reported on 01/13/2025 cholecalciferol (VITAMIN D3) 25 MCG (1,000 unit) tablet Take 1,000 Units by mouth daily. Active cyanocobalamin, vitamin B-12, 1000 MCG tablet Take 1,000 mcg by mouth daily. Active famotidine (PEPCID) 20 MG tablet Take 20 mg by mouth daily. Active vitamins A,C,E-zinc-camden er (PRESERVISION AREDS) 4,296 mcg-226 mg-90 mg Cap Take 1 capsule by mouth 2 (two) times a day with meals. Active Active Problems Problem Noted Date Diagnosed Date DNR (do not resuscitate) 01/13/2025 Overview (01/13/2025): DNR per her , has POLST at home. Dementia without behavioral disturbance 11/29/19 Overview (01/13/2025): Sig decline in 2024, now at home, DNR. Very weak, has VNA/PT COVID-19 11/12/2023 Weakness 11/10/2023 Assessment & Plan (11/10/2023 12:43 PM EDT): -Patient presenting with generalized weakness in the setting of acute COVID-19 infection with underlying scleroderma that causes her to have chronic lower extremity weakness. -Increased generalized weakness since coming down with COVID-19, has had difficulty to lower herself down to the ground at home multiple times, family having difficulty caring for the patient at home -Treating COVID with remdesivir, 3-day course -PT/OT evaluations recommended short-term rehab stay -Case management was consulted and patient was accepted to [facility] pending insurance authorization on Sunday Viral sepsis 07/18/2023 Assessment & Plan (07/18/2023 10:43 PM EDT): Low-grade fever, productive cough, positive influenza A. Early sepsis, potential for superimposed bacterial infection. Follow up blood cultures Influenza A with pneumonia 07/18/2023 Assessment & Plan (07/18/2023 11:45 PM EDT): Atypical presentation due to asthma and age. Noted productive cough, trace rales in right lung cano, low-grade fever. Unclear start of symptoms potentially 1 week prior. Collateral history has been would be helpful. Continue oseltamivir 75 mg twice daily for 5 days Avoid anti-tussives. Maximize airway clearance. Encourage hdyration. Duo-Nebulizer BID for mobilization of secretions. Continue home ICS If failure to improve, spikes high grade fever or significant leukocytosis consider antimicrobial coverage for superimposed bacterial infection. Class 1 obesity due to exces s calories with serious comorbidity and body mass index (BMI) of 32.0 to 32.9 in adult 07/18/2023 HFrEF (heart failure with reduced ejection fract ion) 07/18/2023 Assessment & Plan (11/11/2023 4:04 PM EDT): -Per records patient has an EF of approximately 30 to 35% since her echocardiogram 12/2022 at [facility], also has pacemaker -Appears euvolemic at the time of admission, still euvolemic Plan: -Continue usual aspirin -Continue usual spironolactone 25 mg daily -Continue usual metoprolol succinate 50 mg daily -Continue usual losartan 25 mg daily -Hold parameters on all medications for systolic blood pressure less than 100, heart rate less than 55 Assessment & Plan (07/18/2023 10:34 PM EDT): Currently compensated. Not in exacerbation Continue Toprol 50 mg daily Continue losartan 25 mg Continue Aldactone 25 mg Continue maintenance furosemide Maintain euvolemia during acute infection, encourage fluids by mouth. Daily weights, intake and output Chronic anticoagulation 11/20/2022 Overview (11/20/2022): Afib Prev on eliquis, switched back to warfarin September 2022 Pacemaker 11/20/2022 Overview (11/20/2022): [facility] Dr atkins Pacemaker started after unsuccessful AV chucky ablation for A-fib, followed by increasing AV chucky blocking agents Spinal stenosis of lumbar region 12/29/2020 Overview (09/27/2021): Last Assessment & Plan: Ongoing issue, MRI with spinal stenosis and [...] LE feel at this point in time Chronic anxiety 05/13/2019 Overview (05/13/2019): Restart zoloft, low dose. Has had SE at higher doses. Pre-diabetes 02/17/2019 Overview (02/17/2019): a1c 5.8% Dec 2018 Essential hypertension 02/17/2019 Overview (12/10/2020): Restarted metoprolol at [facility] January 2019. F/u BPs normal after dc. Amlodipine added by [facility] cardiology, Dr. Batres in February 2018. Apr 2019: Doing well, tolerate systolic 130-140 Chronic constipation 01/10/2019 Overview (01/13/2022): Dt Scleroderma Last Assessment & Plan: Likely related to scleroderma. Doing well with Miralax. Reassured by normal Cologuard. Dec 2021: Improved with BRAT, fiber, and probiotics Assessment & Plan (11/20/2022 2:45 PM EDT): Try miralax May need f/u with [facility] dt having discomfort where her V-P shunt drains Lactose intolerance in adult 10/03/2018 Physical deconditioning 10/03/2018 Overview (11/28/2024): Worsening In rehab for a month October 2024 Now has PT/VNA at home Assessment & Plan (07/18/2023 10:25 PM EDT): Patient having trouble ambulating with walker lately. Has been mostly bedbound, slid out of bed. Requiring 3 person assist PT/OT consult Primary osteoarthritis of both knees 06/21/2017 Atherosclerotic heart diseas e of [place] coronary artery without angina pectoris 06/21/2017 Gastroesophageal reflux disease without esophagi tis 06/21/2017 Overview (12/10/2020): Last Assessment & Plan: Sx have resolved with dietary/lifestyle adjustments. 1. Continue reflux measures. 2. Consider EGD if sx recurrent or dysphagia. Left thyroid nodule 06/21/2017 Overview (10/03/2018): Normal thyroid per pt on w/u at [facility] Endo. Osteopenia of multiple sites 06/21/2017 Overview (12/10/2020): Last Assessment & Plan: Reports DXA in the last 2-3 years with osteopenia. No significant steroids and no fractures. Vit D 43 in May 2019. -can discuss timing of future DXA with PCP in time Pulmonary HTN 06/21/2017 Sjogren's syndrome 06/21/2017 Asthma 06/21/2017 Overview (11/20/2022): Mgmt by Dr Collado at [facility] Had PFTs reportedly showing typical prolonged exp Now on Flovent Assessment & Plan (07/18/2023 10:36 PM EDT): Not in exacerbation, no significant wheezing Continue fluticasone daily Atrial fibrillation 06/21/2017 Overview (01/13/2022): Refractory to simple ablation. Is followed by [facility] cardiology. Will have AV chucky ablation and pacemaker at [facility] the last week of December. Assessment & Plan (11/10/2023 12:40 PM EDT): -History of AV chucky ablation at [facility] with subsequent pacemaker placement 05/24/2022 -On varying doses of Coumadin 5 mg and 2.5 mg -INR on 11/08 was 3.0 Plan: -Daily INR monitoring Assessment & Plan (07/19/2023 12:00 AM EDT): Currently rate controlled, Admission EKG with normal sinus rhythm Coumadin dosing, last recorded 5 mg 4 times a week, 4 mg 3 times a week. Pharmacy reviewed coumadin clinic records. Currently at 5 mg three days a week and 2.5 mg 4 days a week, currently at 25 mg weekly. We will confirm with of any changes. NPH (normal pressure hydrocephalus) 06/21/2017 Overview (12/10/2020): Overview: Added automatically from request for surgery [id number] She recently underwent evaluation at [facility], and has a therapeutic and diagnostic lumbar puncture planned for the middle of June,. She had shunt placement August 2017 at [facility] Followed by neurology Added automatically from request for surgery [id number] Assessment & Plan (09/10/2017 5:15 PM EDT): Suture removal later this week. She is doing great. Hyperlipidemia 09/01/2016 Non-toxic nodular goiter 10/10/2013 Scleroderma 07/28/2013 Overview (12/13/2021): Followed at [facility], Pulm, Gen Surg, GI, Rheum Last Assessment & Plan: Previously seen by Dr. Echevarria at for [...] that she can send it to us Dr Austin Mckeon at [facility] Assessment & Plan (07/22/2024 2:48 PM EDT): No longer being followed at [facility], not on active treatments. Assessment & Plan (11/10/2023 1:49 AM EDT): -BUN 17, creatinine 0.7, EGFR 87, creatinine appears to be within normal range Assessment & Plan (07/18/2023 10:31 PM EDT): Creatinine within normal range, no concern for crisis Resolved Problems Problem Noted Date Diagnosed Date Resolved Date COVID-19 03/21/2023 07/18/2023 Acute systolic CHF (congestive heart failure) 01/13/2007/18/2023 Overview (01/12/2023): Acute systolic heart failure EF 30 to 35% December 2022 at [facility]. Admitted for CHF symptoms. Cardiac cath showed 40% LAD stenosis but other arteries clear. She is now being scheduled for replacement of her pacemaker, as symptoms were attributed to likely ventricular dyssynchrony. Symptoms much improved on Lasix and low-dose Aldactone Paronychia of great toe 05/03/202206/22 Assessment & Plan (05/03/2022 12:27 PM EST): Given patient report most likely paronychia. Pt did three days of warm soaks and symptoms resolved.No erythema, edema or area of fluctuance noted on exam today. Advised to continue monitoring toe and complete warm soaks and topical antibiotic ointment as needed for increased erythema, edema or pain. Pt verbalized understanding, agreeable to plan. Hearing loss 05/03/2022 07/18/2023 Assessment & Plan (05/03/2022 12:26 PM EST): Patient notes she lost her right hearing aid at cardiology appointment. It was found to give it to security but. Was picked up by another patient. Patient needs reevaluation for new hearing aid. Referral requested and placed today. Bicipital tendinitis of left shoulder 06/21/2017 07/18/2023 Nontraumatic incomplete tear of left rotator cuff 06/21/2017 07/18/2023 Reactive depression 06/21/2017 07/18/19 24 Overview (12/13/2021): Didn't tolerate zoloft dt diarrhea November 2021: Try low dose celexa 10mg. F/u 4 wks. Bilateral leg edema 05/10/2017 07/18/19 24 Lower extremity edema 05/10/20172023 Overview (09/27/2021): Last Assessment & Plan: Has had LIA which has been felt to not reveal significant arterial insufficiency and is planned for assessment of venous system by PCP. Albumin and creatinine unrevealing recently. -we will await LE duplex -also await TTE Hypothyroidism 07/23/2015 10/03/2018 Overview (10/03/2018): Normal thyroid per pt on w/u at [facility] Endo. Partial tear of rotator cuff 02/25/2015 07/18/2023 Left shoulder pain 02/18/2015 4 Encounters Date Type Department Care Team Description 02/10/2025 Telephone Anticoagulation Clinic [address] [place] [id number] Mirian Locke RN INR Check (/) 02/09/2025 Episode Documentatio n Update [facility] [address] [place] [address] 02/09/2025 Patient Outreach [facility] [address] [place] [address] Naila Brandt, FLORES Program Discharge (Discharge) 01/27/2025 Telephone [facility] Family [facility] [address] [place] [address] Mani Nation MD Request For Order(s) 01/27/2025 Telephone Anticoagulation Clinic [address] [place] [address] Mirian Locke RN INR Check (/) 01/20/2025 Telephone [facility]ticoagulation Clinic [address] [place] [address] Mirian Locke RN INR Check (/) 01/20/2025 Telephone Anticoagulation Clinic [address] [place] [address] Mirian Locke RN 01/19/2025 Enrollment [facility] [address] [place] [address] 01/13/2025 1:00 PM EDT Telemedicine - audio only [address] [place] [address] Mani Nation MD Dementia without behavioral disturbance (Primary Dx); Physical deconditioning; DNR (do not resuscitate); Atrial fibrillation, unspecified type 01/13/[address] [place] [address] Mani Nation MD Triage (VNA Verbal orders) 01/13/2025 Telephone Anticoagulation Clinic [address] [place] [address] Mirian Locke RN INR Check (/) 01/08/2025 Telephone Anticoagulation Clinic [address] [place] [address] Mirian Locke RN INR Check (/) 01/07/[address] [place] [address] Mani Nation MD VNA Update 01/06/[address] [place] [address] Darlene Naranjo MA Forms & Paperwork (Home Health Referral Caretenders) 01/06/[address] [place] [address] Mani Nation MD TCM Visit 12/11/2024 Patient Outreach [facility] [address] [place] [phone] Vero Marshall, FLORES Care Coordination ([facility] Follow up outreach, [facility] transition information ) 12/09/2024 Telephone Anticoagulation Clinic [address] [place] [address] Mirian Locke RN 11/28/2024 11:30 AM EDT Telemedicine - audio only [facility] [address] [place] [address] Mani Nation MD Physical deconditioning (Primary Dx); Sjogren's syndrome, with unspecified organ involvement; Chronic constipation; Cognitive decline 11/27/2024 Patient Outreach [facility] [address] [place] [address] Vero Marshall RN Care Coordination ([facility] Follow up outreach ) 11/26/2024 Telephone [facility] [address] [place] [address] Priyanka King Verbal orders 11/20/2024 Telephone [facility] [address] [place] [address] Mani Nation MD TCM Visit (Booked) 11/18/2024 Telephone Anticoagulation Clinic [address] [place] [address] Mirian Locke, FLORES from Last 3 Months Immunizations Immunization Administration Dates Next Due COVID-19 (Pre-02/12) Pfizer Vaccine, mRNA, PF 06/24/2020,06/02/2020 COVID-19 (Pre-02/12) Pfizer Vaccine, mRNA, judith-sucrose, PF 08/30/2021 [id number] FORMULATION 04/30/2009 INFLUENZA, SPLIT VIRUS, TRIV ALENT W/ PRESERVATIVE IM 01/05/2017 Influenza High-Dose Quadriva lent Preservative Free IM 03/17/2022 Influenza High-Dose Trivalen t Preservative Free IM 03/05/2015 Influenza Quadrivalent Adjuv anted Preservative Free IM 02/06/2023,03/14/2021,01/07/2020 Influenza Quadrivalent Preservative Free IM 01/21 Influenza Trivalent Adjuvant ed Preservative free IM 02/04/2016 Influenza, Unspecified Formulation 02/01/2019,,02/18/2009 Pneumococcal conjugate PCV13 02/04/2016 Pneumococcal polysaccharide PPSV23 12/10/2020 Tdap 11/06/2017 Social History Tobacco Use Types Packs/Day Years Used Date Smoking Tobacco: Never Smokeless Tobacco: Never Tobacco Cessation:Counseling Given: Not Answered Alcohol Use Standard Drinks/Week Comments No 0 [...] Orientation Straight 08/11/2017 5: 18 AM EDT Last Filed Vital Signs Vital Sign Reading Time Taken Comments Blood Pressure 126/78 03/07/2024 2:17 PM EST Pulse 74 03/07/2024 2:17 PM EST Temperature 36.6 C (97.9 F) 03/07/2024 2:17 PM EST Respiratory Rate 18 11/12/2023 4:05 PM EDT Oxygen Saturation 98% 03/07/2024 2:17 PM EST Inhaled Oxygen Concentration - - Weight 73 kg (160 lb 15 oz) 11/09/2023 9:00 PM E DT Height 149.9 cm (4' 11 ) 11/09/2023 9:00 PM EDT Body Mass Index 32.51 11/09/2023 9:00 PM EDT Plan of Treatment Health Maintenance Due Date Last Done Comments ZOSTER VACCINES (1 of 2) 1992 RSV VACCINE (1 - 1-dose 75+ series) 2017 DEPRESSION SCREENING 12/13/2022 12/13/2021 BLOOD PRESSURE 09/04/2024 03/07/2024 POTASSIUM LEVEL 11/09/2024 11/10/2023, 10/21, 07/19/2023, Additional history exists INFLUENZA VACCINE (#1) 2024 , 03/17/2022, 03/14/2021, Additional history exists COVID-19 VACCINE ( season) 2024 01/23/2023, 03/30/2022, 08/30/2021, Additional history exists Adult Td,Tdap Booster 11/07/2027 11/06/2017 PNEUMOCOCCAL VACCINES (50+ years) Completed 12/10/2020, 02/04/2016 OSTEOPOROSIS SCREENING INITIAL (ONE-TIME) Completed 09/28/2021, 09/28/2021 HEPATITIS A VACCINES Aged Out No long er eligible based on patient's age to complete this topic HIB VACCINES Aged Out No longer eligi ble based on patient's age to complete this topic MENINGOCOCCAL VACCINES (ACWY) Aged Out No longer eligible based on patient's age to complete this topic MENINGOCOCCAL VACCINES (B) Aged Out N o longer eligible based on patient's age to complete this topic Medical Devices Not on file Procedures Procedure Name Priority Date/Time Associated Diagnosis Comments PT-INR Routine 02/10/2025 PT-INR Routine 01/27/2025 PT-INR Routine 01/20/2025 PT-INR Routine 01/13/2025 PT-INR Routine 01/08/2025 BASIC METABOLIC PANEL Routine 11/10/2023 6:40 AM EDT DEXA SCAN Routine 09/28/2021 from Last 3 Months or Most Recently Relevant to Health Maintenance Results * PT-INR (02/10/2025) Only the most recent of5 resultswithin the time period is included. External Or Transcribed PT-INR 2.3 Historical Provider LAB BLOOD ORDERABLES Edit ed Result - Final * (ABNORMAL) Basic metabolic panel (11/10/2023 6:40 AM EDT) SODIUM 139 133 - 146 mmol/L [facility] CHLORIDE 105 96 - 108 mmol/L [facility] POTASSIUM 4.7 3.3 - 5.1 mmol/L [facility] CO2 24 21 - 35 mmol/L [facility] BUN 15 6 - 19 mg/dL [facility] CREATININE 0.70 0.5 - 1.5 mg/dL [facility] GLUCOSE 105(H) 70 - 99 mg/dL [facility] CALCIUM 9.0 8.4 - 10.3 mg/dL [facility] EGFR 87 >59 mL/min/1.7 3m2 [facility] Comment:Estimated glomerular filtration rate calculated using the CKD-EPI refit equation. ANION GAP 15 10 - 20 mmol/L [facility] Blood 11/10/2023 6:40 AM EDT 11/10/2023 6:50 AM EDT Giovanna Patricio PA-C LAB BLOOD ORDERABLES Final Result [facility] [address] [place] [address] * DEXA SCAN (09/28/2021) Historical Provider HEALTH MAINTENANCE Edited Result - Final from Last 3 Months or Most Recently Relevant to Health Maintenance Insurance [facility] MEDICARE PART A & B [employer] MEDICARE REPLACEMENT MEDICARE PART A & [facility] RE[facility] MEDICARE PART A & B [employer] [employer] MEDICARE REPLACEMENT MEDICARE PART A & B [facility] MEDICARE REPLAC[facility] MEDICARE PART [facility] & [facility] RE[facility] MEDICARE PART A & B MEDICARE REPLACEMENT MEDICARE PART A & [facility] & [facility] Advance Directives For more information, please contact: [phone] (9AM - 5PM Tiffanie/[facility], Sunday-Sunday) Documents on File Type Date Recorded Patient Pharmacy Order Entry Technician Expl [employer] [employer] Proxy 11/14/2023 1:40 PM * Full Code (Latest Code Status on File) Date Activated Date Inactivated Comments 11/10/2023 1:43 AM Question Answer Comments Code Status Confirmed With: Patient * Full Code Date Activated Date Inactivated Comments 07/18/2023 8:58 PM 11/10/2023 1:43 AM Question Answer Comments Code Status Confirmed With: Patient Care Teams Sticker Machine Operator Relationship Specialty Start Date End Date Mani Nation MD [address] [place] [address], [address] [place] [address] PCP - General 02/08/17 Mirian Locke, RN [address] [place] [address] Registered Nurse 10/16/22 Additional Source Comments The information contained in this document represents components of the legal health record. It is not the complete legal health record.[facility]
--- OUTSIDE RECORDS SUMMARY | 2025-02-18 17:19 | XMS_ITS | Encounter Summary ---
Author Organization [facility] Address [address] [place] [address] Phone Care Team Providers Care Estate Administrator Name Role Phone Mani Nation MD Primary Care Provider [phone] Vero Marshall RN Unavailable [email or web address] Mirian Locke RN Unavailable Vanessa Malik Unavailable [email or web address] Naila Brandt RN Unavailable [phone] Encounter Details Date Type Department Care Team (Latest Contact Info) Description 02/20/2022 Transcribe Orders [facility] [address] [place] [address] Yeni Rosen MD [address] [place] [phone] Diarrhea, unspecified type (Primary Dx) Social History Tobacco Use Types [...] as of this encounter Visit Diagnoses Diagnosis Diarrhea, unspecified type- Primary documented in this encounter Additional Health [...] documented as of this encounter Care Teams Estate Administrator Relationship Specialty Start Date End Date Mani Nation MD [address] [facility], [address] [place] [address] PCP - General 02/08/17 Vero Marshall, FLORES [address] [place] [address], [address] [place] [address] [email or web address] Chronometer Assembler And Adjuster 04/09/19 Mirian Locke RN [address] [place] [address] Registered Nurse 10/16/22 Vanessa Malik [address] [place] [address] [email or web address] PHCM Community Therapeutic Radiologist 06/12/24 06/12/24 Naila Brandt, FLORES [address] [place] [address] PHCM Chronometer Assembler And AdjusterCase Planner 12/25/24 02/08/25 documented as of this encounter Additional Source Comments The information contained in this document represents components of the legal health record. It is not the complete legal health record.[facility]
--- NOTE | 2025-02-18 18:33 | MHC.CM.ED ---
CM met with patient and her , Davon. Pt has dementia and is a very poor historian. Davon cares for her with the help of his granddaughter and her fiance. They live with him and his . She has a walker, a transport chair and a commode. She has had increasing weakness and today could not transfer from commode to transfer chair. PCP is Mani Nation. HCP and MOLST on file. Pt is DNR/DNI with hydration. PT is pending. agreeable to STR. First choice is [facility]. Second choice is [facility]. states they had an intake with [facility] services. They have no services because his income was to high and he would need to pay 40 dollars/hour for home care. is aware of [facility]. Unsure if they will qualify, as there is some money in the bank, but he says he needs it to pay debts. is in interested in [facility]. CM offered to call them tomorrow, however Davon states he will call. CM suggested that Davon make those calls when his is in rehab, as he states he is just too busy now. Davon is not interested in LTC at this time. He hopes his will get a bit stronger in rehab. Will make local referrals.
[2025-02-18 18:38] VITALS: BP 137/56; PULSE 87; RESP 12; TEMP 36.9; O2SAT 96
[2025-02-19 05:29] VITALS: BP 120/71; PULSE 79; RESP 13; TEMP 36.6; O2SAT 96
--- NOTE | 2025-02-19 08:32 | MHC.CM.ED ---
Addendum entered by Chioma Francisco 02/19/25 12:57: Received notification that patient is active with [facility]. Return referral made in [facility]. Original Note: Patient remains in ER. Physical therapy eval ordered and pending. [facility] is able to offer a bed with PT eval and ins auth. Continue to monitor for d/c needs.
--- NOTE | 2025-02-19 11:11 | PHA.MEDREC ---
Addendum entered by Irma Woody RPh 02/19/25 11:30: reviewed by ashley Original Note: Pharmacy Consult ? Medication Reconciliation Pharmacy has completed the medication reconciliation. Spoke with pt spouse over the phone and he was able to confirm pt medications and confirmed they have an over abundance due to pt being in and out of hospital and longterm.
--- NOTE | 2025-02-19 13:38 | MHC.CM.ED ---
Insurance auth obtained by [facility]. [facility] booked for tomorrow, 02/20 at 9am. [facility] with chart. Patient, Milly Mays RN and Juliana CHRIS aware. Continue to monitor for d/c needs.
[2025-02-19 15:28] VITALS: BP 123/72; PULSE 70; RESP 13; TEMP 36.6; O2SAT 96
[2025-02-19 19:51] VITALS: BP 138/85; PULSE 69; RESP 17; TEMP 36.7; O2SAT 98
--- NOTE | 2025-02-19 23:13 | PC.NURSE ---
This RN coming in at 2300 noted 1445 medications were never administered to pt.
[2025-02-20 06:02] VITALS: BP 139/69; PULSE 78; RESP 16; TEMP 36.2; O2SAT 96
[2025-02-20 08:53] VITALS: BP 120/59; PULSE 68
[2025-02-20] MEDS: Aspirin Enteric Coated 81 MG TABLET.DR PO (08:53)
[2025-02-20] MEDS: Metoprolol Succinate ER 50 MG TAB.ER.24H PO (08:53)
--- NOTE | 2025-02-20 09:20 | PC.NURSE ---
Care of Pt assumed at change of shift. Pt rests comfortably in bed. PT feeds independently and uses bed arechiga for BM. [place] VSS AM medications given whole with water without difficulty. Pt is scheduled to depart for [facility] today at approx. 0930. Call placed to V and spoke with FLORES Cheung for RN to RN report. Jonatan given opportunity for questions and all questions and answered to satisfaction. IV access removed. Pt awaiting transportation.
[2025-02-20 09:43] VITALS: BP 120/59; PULSE 68; RESP 16; TEMP 36.2; O2SAT 96
--- NOTE | 2025-02-20 09:56 | PC.NURSE ---
[facility] arrives to transport Pt. RN report given to EMS staff Care of Pt relinquished to [facility] staff at this time
== END 2025-02-20 10:06 ==
PROVIDERS: Physician Assistant Medical; Emergency Provider Emergency Medicine; PCP Internal Medicine
DX: R53.1 Weakness (principal); I10 Essential (primary) hypertension; I48.91 Unspecified atrial fibrillation; F03.90 Unspecified dementia, unspecified severity, without behavioral disturbance, psychotic disturbance, mood disturbance, and anxiety; M25.552 Pain in left hip; M25.551 Pain in right hip; Z79.01 Long term (current) use of anticoagulants; Z79.899 Other long term (current) drug therapy; Z95.0 Presence of cardiac pacemaker
CPT/HCPCS: 36415; 71045; 73521; 80048; 81001; 84484; 85025; 85610; 87502; 87635; 93005; 97162; 99285

== ENCOUNTER → 2025-02-18 12:56 | Outpatient (BNV) | payer MEDICARE, SELFPAY | PROVIDERS: Emergency Provider Emergency Medicine; PCP Internal Medicine; Visit Provider Internal Medicine | DX: R94.31 Abnormal electrocardiogram [ECG] [EKG] (principal); Z95.0 Presence of cardiac pacemaker | CPT/HCPCS: 93010 ==

== ENCOUNTER → 2025-02-18 13:44 | Outpatient (BNV) | payer MEDICARE, SELFPAY | PROVIDERS: Emergency Provider Emergency Medicine; PCP Internal Medicine; Visit Provider Radiology Diagnostic Radiology | DX: M25.551 Pain in right hip (principal); M25.552 Pain in left hip; R53.1 Weakness; Z45.2 Encounter for adjustment and management of vascular access device | CPT/HCPCS: 71045; 73521 ==

== ENCOUNTER 2025-03-21 10:32 | Emergency (ER) | payer MEDICARE, SELFPAY ==
--- OUTSIDE RECORDS SUMMARY | 2022-12-19 17:10 | XMS_ITS | Encounter Summary ---
Author Organization [facility] Address [address] [place] [address] Phone Care Team Providers Care Delivery Driver/Supervisor Name Role Phone Mani Nation MD Primary Care Provider [phone] Vero Marshall RN Unavailable [email or web address] Mirian Locke RN Unavailable [phone] Encounter Details Date Type Department Care Team (Late st Contact Info) Description 12/19/2022 6:10 PM EDT Hospital Encounter [facility] [address] [place] [address] [phone] Viviana Baron, ASSISTANT PROFESSOR OF SURGERY [address] [place] [address] [email or web address] Social History Tobacco Use Types Packs/Day Years Used Date Smoking Tobacco: Never Smokeless Tobacco: Never Alcohol Use Standard Drinks/Week Comments No 0 (1 standard drink = 0.6 oz pur e alcohol) Education Answer Date Recorded Are you interested in more education? Not on carson e 08/20/2022 Are you concerned about learning? Not on file 08/20/2022 No 08/20/2022 No 08/20/2022 Digital Access Answer Date Recorded No 09/15/2022 No 09/15/2022 Reliable internet access at home? Not on file 09/15/2022 Device with a working camera? Not on file Intimate Partner Violence Answer Date R ecorded Are you denied basic needs s uch as food, clothing, or medical care? No 11/09/2023 In the past 12 months have y ou been in a relationship with a person who hurts, threatens, or tries to control you? No 11/09/2023 Are you denied basic needs s uch as food, clothing, or medical care? No 11/09/2023 In the past 12 months have y ou been in a relationship with a person who hurts, threatens, or tries to control you? No 11/09/2023 Comments Unknown Sex and Gender Information Value Date Recorded Sex Assigned at Female 08/11/2017 5:18 AM EDT Legal Sex Female 6:38 PM EST Gender Identity Female 08/11/2017 5:18 AM EDT Sexual Orientation Straight 08/11/2017 5: 18 AM EDT documented as of this encounter Functional Status * Calculated C-SSRS Risk Score (Lifetime/Recent) Answer Date of Assessment Author No Risk Indicated 11/09/2023 12:43 AM EDT Anu Galarza RN * [place] Suicide Severity Rating Scale (Screener/Recent Self-Report) Question Answer Date of Assessment Author 1. Wish to be (Past 1 Month) No 11/09/2023 12:43 AM EDT Anu Mott RN 2. Non-Specific Active Suici sara Thoughts (Past 1 Month) No 11/09/2023 12:43 AM EDT Brigida Mott RN 6. Suicidal Behavior (Lifetime) No 12:43 AM EDT Anu Mott RN documented as of this encounter Plan of Treatment Not on file documented as of this encounter Procedures Procedure Name Priority Date/Time Associated Diagnosis Comments XR CHEST PA AND LATERAL 2 VIEWS Urgent/patient waiting 12/19/2022 6:17 PM EDT Dyspnea on exertion documented in this encounter Results * XR CHEST PA AND LATERAL 2 VIEWS (12/19/2022 6:17 PM EDT) Anatomical Region Laterality Modality Chest Computed Radiogr aphy 12/19/2022 6:24 PM EDT Impressions 12/19/2022 6:27 PM EDT Bibasilar pleural opacity, very likely layering effusions. No discernible lung consolidation or pulmonary vascular congestion. Narrative 12/19/2022 6:27 PM EDT History: Cough. Shortness of breath. Dyspnea on exertion. COMPARISON: Two-view chest x-ray 06/09/2016. FINDINGS: PA and lateral views of the chest. Since preceding study cardiac monitoring device has been placed overlying anterior inferior medial left chest. Mild cardiomegaly. No mediastinal widening or pulmonary vascular congestion. There is bibasilar opacity blunting costophrenic angles, appearance strongly suggestive of layering effusions (less likely pleural thickening). Mild basilar haziness. Mid upper chest clear bilaterally. Shunt tubing crosses anterior medial aspect of the chest and right side of the neck entering abdomen and coiled on the right-sided of the abdomen. Procedure Note Thiago Weir MD - 12/19/2022 History: Cough. Shortness of breath. Dyspnea on exertion. COMPARISON: Two-view chest x-ray 06/09/2016. FINDINGS: PA and lateral views of the chest. Since preceding study cardiac monitoring device has been placed overlyinganterior inferior medial left chest. Mild cardiomegaly. No mediastinalwidening or pulmonary vascular congestion. There is bibasilar opacityblunting costophrenic angles, appearance strongly suggestive of layeringeffusions (less likely pleural thickening). Mild basilar haziness. Midupper chest clear bilaterally. Shunt tubing crosses anterior medial aspect of the chest and right side ofthe neck entering abdomen and coiled on the right-sided of the abdomen. IMPRESSION: Bibasilar pleural opacity, very likely layering effusions. No discerniblelung consolidation or pulmonary vascular congestion. us Viviana Baron ASSISTANT PROFESSOR OF SURGERY IMG XR CHEST Final Resul t documented in this encounter Visit Diagnoses Not on filedocumented in this encounter Additional Health Concerns Infection Onset Date Last Indicated Resolved Time CoV-Risk 03/21/2023 03/21/2023 03/21/2023 5:33 PM EST COVID-19 03/21/2023 03/21/2023 04/11/2023 1:21 AM EST CoV-Risk Comment:Per note documentation 07/18/2023 07/18/2023 7:16 AM EDT Influenza A 07/18/2023 07/18/2023 07/25/2023 1:22 AM EDT CoV-Exposed Comment:Recent close contact documented in the Travel/Symptom Screening Form 07/19/2023 07/19/2023 07/30/2023 1:23 AM E DT CoV-Risk 11/09/2023 11/09/2023 11/09/2023 1:34 AM EDT COVID-19 11/09/2023 11/09/2023 11/30/2023 1:22 AM EDT Assessment Noted Time PHQ-2 Depression Total Score: 0 12/14/19 11:15 AM EDT documented as of this encounter Care Teams Delivery Driver/Supervisor Relationship Specialty Start Date End Date Mani Nation MD [address] [facility] [place] [address] [email or web address] PCP - General 02/08/17 Vero Marshall, FLORES [address] [facility] [place] [address] [email or web address] Outboard Motorboat Operator 04/09/19 Mirian Locke RN [address] [place] [address] Registered Nurse 10/16/22 documented as of this encounter Additional Source Comments The information contained in this document represents components of the legal health record. It is not the complete legal health record.[facility]
--- NOTE | ~2025-03-21 | XR_ITS ---
CLINICAL HISTORY: fall 2 view chest x-ray Comparison: CT/SR - CT CERVICAL SPINE WO IV CON - 03/21/25 11:03 EST Findings: Dual-chamber pacemaker overlies the left chest wall with leads terminating in the right heart. No consolidation or effusion. Heart size is normal. Diffuse osteopenia is demonstrated throughout the thoracic spine. No definite acute fracture. IMPRESSION: No acute cardiopulmonary findings. This document has been electronically signed by: Edgar Clinton MD on 03/21/2025 11:54:12
--- NOTE | ~2025-03-21 | CT_ITS ---
CLINICAL HISTORY: trauma CT head without contrast Comparison: CT/SR - CT HEAD/BRAIN WO IV CON - 12/04/24 17:20 EDT Findings: Right posterior parietal approach ventriculostomy catheter terminates in the left lateral ventricle, stable in position from prior. No intra-axial mass, midline shift, hydrocephalus, or acute hemorrhage. Prominence of the sulci and ventricles are compatible with age-related volume loss. Periventricular white matter hypodensities are nonspecific though likely reflect chronic sequelae of microangiopathic etiology. Right maxillary mucosal thickening is present. The remaining visualized paranasal sinuses and mastoid air cells are normal. The orbits are within normal limits. No skull fracture. IMPRESSION: No acute intracranial findings. This document has been electronically signed by: Edgar Clinton MD on 03/21/2025 12:07:00
--- NOTE | ~2025-03-21 | CT_ITS ---
CLINICAL HISTORY: trauma CT cervical spine without contrast Comparison: CT/[place]/SR - CT CERVICAL SPINE WITHOUT IV CONTRAST - 07/02/24 14:44 EDT Findings: Normal vertebral body alignment. Multilevel degenerative changes are visualized throughout the cervical spine most prominent at C4 through T1 with intervertebral disc height loss, osteophyte formation, and uncovertebral vertebral hypertrophy resulting in no significant canal stenosis though multiple levels of adzy-zb-bhosgira neural foraminal stenosis are present. No acute fractures or dislocations. No acute findings on limited view of the intracranial contents. Soft tissues of the neck are normal. Lung apices are clear. IMPRESSION: No acute cervical spine findings. This document has been electronically signed by: Edgar Clinton MD on 03/21/2025 12:11:09
[2025-03-21 10:38] VITALS: BP 118/85; BP 140/98; PULSE 60; PULSE 89; RESP 18; TEMP 36.3; O2SAT 98; BMI 25.2
--- NOTE | 2025-03-21 10:41 | ECG_ITS ---
Test Reason : TRAUMA Blood Pressure : */* mmHG Vent. Rate : 70 BPM Atrial Rate : 65 BPM P-R Int : * ms QRS Dur : 128 ms QT Int : 458 ms P-R-T Axes : * 254 57 degrees QTcB Int : 494 ms Ventricular-paced rhythm Abnormal ECG When compared with ECG of 18-Feb-2025 16:29, No significant changes seen Referred By: Kalin Eugene Electronically Signed By: JULIO C ESTRELLA
--- NOTE | 2025-03-21 10:43 | ED.FALL ---
HPI - Fall General Chief Complaint: Fall Stated Complaint: FALL, -LOC PER EMS Mode of arrival: EMS Limitations: other (Dementia) History of Present Illness HPI Narrative: This is 84 years old female with a history of atrial fibrillation on warfarin, history of dementia history of pacemaker presented to emergency room after a fall from the bed. The patient is unable to give any history because of the dementia. Per EMS lives with family MD complaint: fall Onset (ago): hour(s) (1) Fall from: other (bed) Place fall occurred: home Loss of consciousness: none Prolonged down time: no Context: tripped/slipped Severity: mild Associated symptoms (after fall): denies Related Data Home Medications ?Medication ?Instructions ?Recorded ?Confirmed Lactobacillus rhamnosus GG 10 1 cap PO DAILY 02/14/24 03/21/25 billion cell capsule atorvastatin 40 mg tablet 40 mg PO BEDTIME 02/14/24 03/21/25 cholecalciferol (vitamin D3) 25 25 mcg PO DAILY 02/14/24 03/21/25 mcg (1,000 unit) capsule (Vitamin D3) cyanocobalamin (vitamin B-12) 1,000 mcg PO DAILY 02/14/24 03/21/25 1,000 mcg tablet famotidine 20 mg tablet 20 mg PO DAILY 02/14/24 03/21/25 metoprolol succinate 50 mg 50 mg PO DAILY 02/14/24 03/21/25 tablet,extended release 24 hr spironolactone 25 mg tablet 25 mg PO DAILY 02/14/24 03/21/25 warfarin 5 mg tablet 5 mg PO MOFR@1800 02/14/24 03/21/25 acetaminophen 325 mg tablet 650 mg PO Q6H PRN Pain 07/03/24 03/21/25 aspirin 81 mg tablet,delayed 81 mg PO DAILY 07/03/24 03/21/25 release warfarin 5 mg tablet 2.5 mg PO SUTUWETHSA@1800 07/03/24 03/21/25 vit C 250 mg-E 90 mg-zinc 40 1 cap PO BID 10/31/24 03/21/25 mg-copper 2 mg-lutein 5 mg-zeaxan capsule (PlaceVine) Allergies Allergy/AdvReac Type Severity Reaction Status Date / Time No Known Allergies Allergy Verified 03/21/25 10:41 Review of Systems Constitutional: Constitutional: Reports no additional constitutional complaints Respiratory: Respiratory: Reports as per [facility] Past Medical History Attestation statement: The following information was validated with the patient. Social History Social History Smoked in Last 30 Days: No Use of substances other than those prescribed or required for medical reasons: No Advance Directives: Yes Advance Directives on File: Yes Advance Directives Date on File: 02/15/24 service: No Physical Exam Exam: Exam: No acute distress comfortable in the stretcher Vital Signs: Vital Signs: Last Vital Signs Temp 97.1 F 03/26/25 06:00 Pulse 73 03/26/25 06:00 Resp 16 03/26/25 06:00 BP 139/67 03/26/25 09:55 Pulse Ox 98 03/26/25 06:00 O2 Del Method Room Air 03/26/25 06:00 BMI result Body Mass Index 25.2 Const: General: cooperative, comfortable, no acute distress and well developed Nutritional Appearance: average body habitus HEENT: Head: Yes normal to inspection Ears: hearing grossly normal bilaterally Face and sinus: Yes normal facial exam Neck: Neck: Yes normal visual inspection Chest: Chest palpation & inspection: normal inspection of the chest Resp: Effort & Inspection: normal respiratory effort Auscultation: clear to auscultation bilaterally Cardio: Jugular venous distension: no JVD Rate: regular rate Rhythm: regular rhythm GI: Inspection: Yes normal to inspection Palpation (GI): Soft to palpation, not firm and nontender Auscultation: normal bowel sounds Skin: General skin exam: no rashes or lesions noted Rashes: no rashes Trauma: no lacerations or abrasions Course Reevaluation(s) Reevaluation #1: A CT C-spine negative I called the of the patient he is not comfortable to take the patient back home he will like her to go to rehab Time: 13:30 Reevaluation #2: waiting for case management signed out to Dr Luís Lake Time: 16:39 Reevaluation #3: 5:57 PM 03/22/2025 (Constance Rubi SAP MOBILITY ARCHITECT): Physician observation continued, no overnight events reported by nursing. Vital signs stable. PT recommending short-term rehab at this time, case management following for disposition. Time: 14:03 Date: 03/23/25 Provider: DTO Goodman Patient in physician observation for case management needs. No acute events reported overnight.? Will continue to monitor pending case management disposition. Time: 08:37 Date: 03/24/25 Provider: iGta Garcia PA-C And physician observation for case management needs. No overnight events reported by nursing. VS. Currently awaiting insurance authorization for [facility] for STR placement. No current complaints. Will continue to monitor as we await disposition. Time: 14:59 Date: 03/25/25 Provider: Gita Garcia PA-C Patient in physician observation for case management needs. No acute events reported overnight.? No current issues or complaints. VS stable. Awating insurance authorization for placement at [facility]. Will continue to monitor as we await approval for placement. Time: 09:04 Date: 03/26/25 Provider: DOT Goodman Patient in physician observation for case management needs. No acute events reported overnight.? Awaiting case management disposition. We will continue to monitor. Time: 10:04 Date: 03/26/25 Provider: DOT Goodman Peer to peer through [employer] required. Time: 14:13 Date: 03/26/25 Provider: DOT Goodman Physician observation ended at 1413. Authorization was approved through [employer] via [place] to peer. Patient will be discharged to [facility] at 2:30 p.m. via BLS. Time: 17:51 Additional Reevaluation(s): I was asked by nursing staff if the patient should continue her Coumadin 2.5 mg today as her INR was noted to be 3.1 this morning. When I reviewed her chart it appears that she takes Coumadin 2.5 mg on Sunday, Sunday, Sunday, , and Sunday. She gets 5 mg on Sunday and Sunday. Given that she is in her low dose for the next 2 days we will give her Coumadin and recheck an INR on Sunday before her 5 mg dose. Medications Administered Generic Name Dose Route Start Last Admin Trade Name Freq PRN Reason Stop Dose Admin Aspirin 81 mg 03/21/25 18:15 03/26/25 08:39 Aspirin Enteric Coated 81 Mg Tablet. PO 81 mg DAILY BLAIRE Administration Atorvastatin Calcium 40 mg 03/21/25 21:00 12/03/25 19:38 Atorvastatin Calcium 40 Mg Tablet PO 40 mg BEDTIME BLAIRE Administration Cyanocobalamin 1,000 mcg 03/21/25 18:15 03/26/25 08:39 Cyanocobalamin (Vitamin B-12) 1,000 Mcg Tablet PO 1,000 mcg DAILY BLAIRE Administration Famotidine 20 mg 03/21/25 18:15 03/26/25 08:38 Famotidine 20 Mg Tablet PO 20 mg DAILY BLAIRE Administration Metoprolol Succinate 50 mg 03/21/25 18:15 03/26/25 08:39 Metoprolol Succinate Er 50 Mg Tab.Er.24h PO 50 mg DAILY BLAIRE Administration Protocol Multivitamins/Vitamin C 1 tab 03/22/25 09:00 03/26/25 08:39 Multivitamin Tablet PO 1 tab DAILY BLAIRE Administration Spironolactone 25 mg 03/21/25 18:15 03/26/25 09:55 Spironolactone 25 Mg Tablet PO 25 mg DAILY BLAIRE Administration Protocol Vitamin D 25 mcg 03/21/25 18:15 03/26/25 08:38 Cholecalciferol (Vitamin D3) 25 Mcg Tablet PO 25 mcg DAILY BLAIRE Administration Warfarin Sodium 5 mg 03/23/25 18:00 03/23/25 20:42 Warfarin Sodium 5 Mg Tablet PO 5 mg [id number] [facility] Administration Warfarin Sodium 2.5 mg 03/22/25 18:00 03/25/25 18:25 Warfarin Sodium 2.5 Mg Tablet PO 2.5 mg [email or web address] BLAIRE Administration Discontinued Medications Generic Name Dose Route Start Last Admin Trade Name Freq PRN Reason Stop Dose Admin Non-Formulary Medication 1 cap 03/21/25 18:15 03/21/25 19:18 Lactobacillus Rhamnosus Gg PO Not Given DAILY [facility] Medical Decision Making Medical Decision Making MDM Narrative: Patient presented after a fall, we will obtain a head CT and C-spine baseline blood work 13:30 CTA head and C-spine negative labs okay we will consult geriatric case manager PT the patient does not want to take him back home Differential Diagnosis Differential Diagnoses: The differential diagnosis associated with the presentation includes Subdural hematoma epidural hematoma Admission/Observation Consideration of admission/observation: Escalation of care including admission/observation considered Lab Data 03/21/25 11:34 03/21/25 11:34 Labs: Lab Results 03/21/25 03/21/25 03/22/25 Range/Units 11:34 18:39 13:07 WBC 10.1 (4.8-10.8) X10*3/uL RBC 4.10 L (4.20-5.50) X10*6/uL Hgb 13.8 (12.0-16.0) g/dl Hct 41.5 (37.0-47.0) % MCV 101.2 H (80.0-98.0) fL MCH 33.7 H (27.0-33.0) pg MCHC 33.3 (31.0-35.0) g/dl RDW 12.6 (11.0-16.0) % Plt Count 292 D (160-400) X10*3/uL MPV 10.4 (9.4-12.3) fL Immature Gran % (Auto) 0.6 H (0.0-0.4) % Neut % (Auto) 76.9 H (45-73) % Lymph % (Auto) 15.9 L (20-40) % Price % (Auto) 5.0 (2-11) % Eos % (Auto) 1.0 (0-4) % Baso % (Auto) 0.6 (0-2) % Lymph # (Auto) 1.6 (1.2-4.9) X10*3/uL Price # (Auto) 0.5 (0.1-1.2) X10*3/uL Eos # (Auto) 0.1 (0.0-0.4) X10*3/uL Baso # (Auto) 0.1 (0.0-0.2) X10*3/uL Abs Immat Gran (auto) 0.06 H (0.00-0.03) X10*3/uL Absolute Neuts (auto) 7.7 (2.0-8.3) x10*3/uL Absolute Nucleated RBC 0.000 (0.0-0.012) X10*3/uL Nucleated RBC % (auto) 0.0 (0.0-0.2) /100WBC PT 38.8 H 34.6 H (11.2-13.5) SEC INR 3.3 H 2.9 H (0.9-1.1) Sodium 142 (135-145) mmol/L Potassium 4.1 (3.3-5.1) mmol/L Chloride 109 H (96-108) mmol/L Carbon Dioxide 24 (22-29) mmol/L Anion Gap 13 (12-20) BUN 14 (9-16) mg/dL Creatinine 0.78 (0.5-1.4) mg/dL Estim Creat Clear Calc 56.0 Estimated GFR > 60 Random Glucose 114 (60-115) mg/dL Calcium 9.3 (8.4-10.2) mg/dL Total Bilirubin 0.3 (0.0-1.0) mg/dL AST 29 (5-31) U/L ALT 23 (0-31) U/L Alkaline Phosphatase 90 (39-117) U/L Troponin I High Sens 5.7 (<3.5-17.0) ng/L Total Protein 6.7 (6.5-8.0) g/dL Albumin 4.0 (3.5-5.0) g/dL Urine Color Yellow Urine Appearance Clear Urine pH 6.0 (5.0-9.0) Ur Specific Hobbs 1.025 (1.005-1.025) Urine Protein 30 (1+) H (Neg-Trace) mg/dL Urine Glucose (UA) Negative (Negative) mg/dL Urine Ketones Negative (Negative) mg/dL Urine Blood Trace H (Negative) Urine Nitrite Negative (Negative) Ur Leukocyte Esterase Moderate (2+) H (Negative) Urine RBC 0-2 (0-2) /HPF Urine WBC 6-10 (0-5) /HPF Ur Squamous Epith Cells 6-10 (0-2) /HPF Urine Bacteria 2+ (None Seen) Hyaline Casts 0-2 (0-2) /LPF COVID-19 (ABHINAV) (Negative) COVID-19 Clin Com 03/23/25 03/23/25 03/24/25 Range/Units 05:52 08:22 13:09 WBC (4.8-10.8) X10*3/uL RBC (4.20-5.50) X10*6/uL Hgb (12.0-16.0) g/dl Hct (37.0-47.0) % MCV (80.0-98.0) fL MCH (27.0-33.0) pg MCHC (31.0-35.0) g/dl RDW (11.0-16.0) % Plt Count (160-400) X10*3/uL MPV (9.4-12.3) fL Immature Gran % (Auto) (0.0-0.4) % Neut % (Auto) (45-73) % Lymph % (Auto) (20-40) % Price % (Auto) (2-11) % Eos % (Auto) (0-4) % Baso % (Auto) (0-2) % Lymph # (Auto) (1.2-4.9) X10*3/uL Price # (Auto) (0.1-1.2) X10*3/uL Eos # (Auto) (0.0-0.4) X10*3/uL Baso # (Auto) (0.0-0.2) X10*3/uL Abs Immat Gran (auto) (0.00-0.03) X10*3/uL Absolute Neuts (auto) (2.0-8.3) x10*3/uL Absolute Nucleated RBC (0.0-0.012) X10*3/uL Nucleated RBC % (auto) (0.0-0.2) /100WBC PT 31.4 H 33.1 H (11.2-13.5) SEC INR 2.6 H 2.8 H (0.9-1.1) Sodium (135-145) mmol/L Potassium (3.3-5.1) mmol/L Chloride (96-108) mmol/L Carbon Dioxide (22-29) mmol/L Anion Gap (12-20) BUN (9-16) mg/dL Creatinine (0.5-1.4) mg/dL Estim Creat Clear Calc Estimated GFR Random Glucose (60-115) mg/dL Calcium (8.4-10.2) mg/dL Total Bilirubin (0.0-1.0) mg/dL AST (5-31) U/L ALT (0-31) U/L Alkaline Phosphatase (39-117) U/L Troponin I High Sens (<3.5-17.0) ng/L Total Protein (6.5-8.0) g/dL Albumin (3.5-5.0) g/dL Urine Color Urine Appearance Urine pH (5.0-9.0) Ur Specific Hobbs (1.005-1.025) Urine Protein (Neg-Trace) mg/dL Urine Glucose (UA) (Negative) mg/dL Urine Ketones (Negative) mg/dL Urine Blood (Negative) Urine Nitrite (Negative) Ur Leukocyte Esterase (Negative) Urine RBC (0-2) /HPF Urine WBC (0-5) /HPF Ur Squamous Epith Cells (0-2) /HPF Urine Bacteria (None Seen) Hyaline Casts (0-2) /LPF COVID-19 (ABHINAV) Negative (Negative) COVID-19 Clin Com See Note 03/25/25 Range/Units 11:42 WBC (4.8-10.8) X10*3/uL RBC (4.20-5.50) X10*6/uL Hgb (12.0-16.0) g/dl Hct (37.0-47.0) % MCV (80.0-98.0) fL MCH (27.0-33.0) pg MCHC (31.0-35.0) g/dl RDW (11.0-16.0) % Plt Count (160-400) X10*3/uL MPV (9.4-12.3) fL Immature Gran % (Auto) (0.0-0.4) % Neut % (Auto) (45-73) % Lymph % (Auto) (20-40) % Price % (Auto) (2-11) % Eos % (Auto) (0-4) % Baso % (Auto) (0-2) % Lymph # (Auto) (1.2-4.9) X10*3/uL Price # (Auto) (0.1-1.2) X10*3/uL Eos # (Auto) (0.0-0.4) X10*3/uL Baso # (Auto) (0.0-0.2) X10*3/uL Abs Immat Gran (auto) (0.00-0.03) X10*3/uL Absolute Neuts (auto) (2.0-8.3) x10*3/uL Absolute Nucleated RBC (0.0-0.012) X10*3/uL Nucleated RBC % (auto) (0.0-0.2) /100WBC PT 36.4 H (11.2-13.5) SEC INR 3.1 H (0.9-1.1) Sodium (135-145) mmol/L Potassium (3.3-5.1) mmol/L Chloride (96-108) mmol/L Carbon Dioxide (22-29) mmol/L Anion Gap (12-20) BUN (9-16) mg/dL Creatinine (0.5-1.4) mg/dL Estim Creat Clear Calc Estimated GFR Random Glucose (60-115) mg/dL Calcium (8.4-10.2) mg/dL Total Bilirubin (0.0-1.0) mg/dL AST (5-31) U/L ALT (0-31) U/L Alkaline Phosphatase (39-117) U/L Troponin I High Sens (<3.5-17.0) ng/L Total Protein (6.5-8.0) g/dL Albumin (3.5-5.0) g/dL Urine Color Urine Appearance Urine pH (5.0-9.0) Ur Specific Hobbs (1.005-1.025) Urine Protein (Neg-Trace) mg/dL Urine Glucose (UA) (Negative) mg/dL Urine Ketones (Negative) mg/dL Urine Blood (Negative) Urine Nitrite (Negative) Ur Leukocyte Esterase (Negative) Urine RBC (0-2) /HPF Urine WBC (0-5) /HPF Ur Squamous Epith Cells (0-2) /HPF Urine Bacteria (None Seen) Hyaline Casts (0-2) /LPF COVID-19 (ABHINAV) (Negative) COVID-19 Clin Com Discharge Plan Discharge Clinical Impression: Fall in elderly patient, Dementia, Gait instability Patient Disposition: Xfer SNF Transfer Details: [facility] Instructions: Fall Prevention (ED) Prescriptions: No Action atorvastatin 40 mg Tablet 40 mg PO BEDTIME cyanocobalamin (vitamin B-12) 1,000 mcg Tablet 1,000 mcg PO DAILY Lactobacillus rhamnosus GG 10 billion cell Capsule 1 cap PO DAILY cholecalciferol (vitamin D3) [Vitamin D3] 25 mcg (1,000 unit) Capsule 25 mcg PO DAILY metoprolol succinate 50 mg Tablet Extended Release 24 Hr 50 mg PO DAILY spironolactone 25 mg Tablet 25 mg PO DAILY warfarin 5 mg Tablet 5 mg PO MOFR@1800 famotidine 20 mg Tablet 20 mg PO DAILY acetaminophen 325 mg Tablet 650 mg PO Q6H PRN (Reason: Pain) aspirin [Aspir-81] 81 mg Tablet,Delayed Release (Dr/Ec) 81 mg PO DAILY warfarin 5 mg tablet 2.5 mg PO SUTUWETHSA@1800 PlaceVine [id number] mg Capsule 1 cap PO BID Referrals: [facility] [Outside] Referral Note: [phone] Mani Nation MD [Primary Care Provider, Medical] Print Language: Estonian
[2025-03-21 11:39] LABS: MANUAL DIFF FLAG NO
[2025-03-21 11:41] LABS: Hematocrit 41.5 % (37.0-47.0); Hemoglobin 13.8 g/dl (12.0-16.0); Imm Gran Abs Auto 0.06 X10*3/uL (0.00-0.03); Imm Gran Pct Auto 0.6 % (0.0-0.4); Lymphocytes Absolute Auto 1.6 X10*3/uL (1.2-4.9); Mean Corpuscular HGB Conc 33.3 g/dl (31.0-35.0); Mean Corpuscular Hemoglobin 33.7 pg (27.0-33.0); Mean Corpuscular Volume 101.2 fL (80.0-98.0); NRBC Abs Auto 0.000 X10*3/uL (0.0-0.012); NRBC Pct Auto 0.0 /100WBC (0.0-0.2); Platelet Count 292 X10*3/uL (160-400); Red Blood Count 4.10 X10*6/uL (4.20-5.50); White Blood Count 10.1 X10*3/uL (4.8-10.8)
[2025-03-21 11:49] LABS: INTERNATIONAL NORM RATIO 3.3 (0.9-1.1); Prothrombin Time 38.8 SEC (11.2-13.5)
[2025-03-21 11:57] LABS: Alanine Aminotransferase 23 U/L (0-31); Albumin Level 4.0 g/dL (3.5-5.0); Alkaline Phosphatase 90 U/L (39-117); Anion Gap 13 (12-20); Aspartate Amino Transferase 29 U/L (5-31); Blood Urea Nitrogen 14 mg/dL (9-16); Calcium 9.3 mg/dL (8.4-10.2); Carbon Dioxide 24 mmol/L (22-29); Chloride 109 mmol/L (96-108); Creatinine Clr Calc Pharmacy 56.0; Estimated Glomerular Filt Rate > 60; Potassium 4.1 mmol/L (3.3-5.1); Sodium 142 mmol/L (135-145); Total Protein 6.7 g/dL (6.5-8.0)
[2025-03-21 12:04] LABS: Troponin-I High Sensitivity 5.7 ng/L (<3.5-17.0)
[2025-03-21 12:14] VITALS: BP 119/52; PULSE 69; RESP 15; TEMP 36.4; O2SAT 98
--- OUTSIDE RECORDS SUMMARY | 2025-03-21 12:37 | XMS_ITS | Encounter Summary ---
Author Organization [facility] Address [address] [place] [address] Care Team Providers Care Retirement Plan Specialist Name Role Phone Mani Nation MD Primary Care Provider [phone] Encounter Details Date Type Department Care Team (Late Contact Info) Description 11/03/2021 Telephone [facility] [address] [place] [address] Shasta Pedraza DO [address] [place] [address] [phone] Social History Tobacco Use Types Packs/Day Years [...] PM EST documented as of this encounter Functional Status documented as of this encounter Plan of Treatment Upcoming Encounters Date Type Department Care Team (Late Contact Info) Description 05/08/2025 2:15 PM EST Appointment [facility] [address] [place] [phone] Wing Jeffery MD PhD [address] [place] [address] Scheduled Procedures Name Priority Associated Diagnoses Date/Ti [...] documented as of this encounter Care Teams Retirement Plan Specialist Relationship Specialty Start Date End Date Mani Nation MD [address] [place] [address], [address] [place], [place] [id number] PCP - General 11/09/16 documented as of this encounter
--- OUTSIDE RECORDS SUMMARY | 2025-03-21 12:37 | XMS_ITS | Encounter Summary ---
Author Organization [facility] Address [address] [address] Phone Care Team Providers Care Director Of Corporate Strategy Name Role Phone Mani Nation MD Primary Care Provider [phone] Vero Marshall RN Unavailable [email or web address] Mirian Locke RN Unavailable [phone] Vanessa Malik Unavailable [email or web address] Naila Brandt RN Unavailable [phone] Encounter Details Date Type Department Care Team (Late st Contact Info) Description 07/18/2023 Procedure Pass [facility], Ct Scan - [address] [address] Social History Tobacco Use Types Packs/Day Years [...] 1:00 AM EDT Ariadne Wolf RN * [place] Suicide Severity Rating Scale (Screener/Recent Self-Report) Question [...] as of this encounter Care Teams Director Of Corporate Strategy Relationship Specialty Start Date End Date Mani Nation MD [address] [place] [address], [address] [place] [address] PCP - General 02/08/17 Vero Marshall, RN [address] [facility], [address] [place] [address] [email or web address] [employer] Online Merchandising Manager 04/09/19 Mirian Locke RN [address] [place] [address] [email or web address] Registered Nurse 10/16/22 Vanessa Malik [address] [place] [phone] [email or web address] Claims Processor 06/12/24 06/12/24 Naila Brandt, FLORES [address] [place] [address] [phone] [employer] Online Merchandising ManagerClockmaker Apprentice 12/25/24 02/08/25 documented as of this encounter Additional Source Comments The information contained in this document represents components of the legal health record. It is not the complete legal health record.[facility]
--- OUTSIDE RECORDS SUMMARY | 2025-03-21 12:37 | XMS_ITS | Encounter Summary ---
Author Organization [facility] Address [address] [address] Phone Care Team Providers Care Platform Power Technician Name Role Phone Mani Nation MD Primary Care Provider [phone] Vero Marshall RN Unavailable [email or web address] Mirian Locke RN Unavailable [phone] Vanessa Malik Unavailable [email or web address] Naila Brandt RN Unavailable [phone] Encounter Details Date Type Department Care Team (Latest Contact Info) Description 01/23/2023 Transcribe Orders [facility] Phleb Main [address] [place] [address] Oly Cali, CRISTOPHER [address] [place] [address] [phone] Paroxysmal atrial fibrillation (Primary Dx); Acute heart [...] EDT) WBC 8.06 4.00 - 11.00 K/uL [facility] RBC 4.55 3.72 - 5.30 M/uL [facility] HGB 14.5 11.4 - 15.9 g/dL [facility] HCT 44.7 34.2 - 46.8 % [facility] PLT 208 140 - 430 K/uL [facility] MCV 98.2(H) 78.0 - 97.0 fL [facility] MCH 31.9 25.0 - 33.0 pg [facility] MCHC 32.4 32.0 - 36.0 g/dL [facility] RDW 14.4 11.0 - 16.0 % [facility] MPV 11.9 8.4 - 12.8 [facility] Blood 01/23/2023 2:08 PM EDT 01/23/2023 2:13 PM EDT us Oly Cali PAYMENT MANAGER LAB BLOOD BKR ORDERABLES Fi nal Result [address] [address] * (ABNORMAL) Basic metabolic panel (01/23/2023 2:08 PM EDT) SODIUM 142 133 - 146 mmol/L [facility] CHLORIDE 101 96 - 108 mmol/L [facility] POTASSIUM 4.2 3.3 - 5.1 mmol/L [facility] CO2 30 21 - 35 mmol/L [facility] BUN 20(H) 6 - 19 mg/dL [facility] CREATININE 0.80 0.5 - 1.5 mg/dL [facility] GLUCOSE 82 70 - 99 mg/dL [facility] CALCIUM 9.7 8.4 - 10.3 mg/dL [facility] EGFR 74 >59 mL/min/1.7 3m2 [facility] Comment:Estimated glomerular filtration rate calculated using the CKD-EPI refit equation. ANION GAP 15 10 - 20 mmol/L [facility] Blood 01/23/2023 2:08 PM EDT 01/23/2023 2:13 PM EDT us Oly Cali PAYMENT MANAGER LAB BLOOD BKR ORDERABLES Fi nal Result Performing Organization Address City/State/[facility] Co de Phone Number [facility] [address] [place] [address] documented in this encounter Visit Diagnoses Diagnosis [...] documented as of this encounter Care Teams Platform Power Technician Relationship Specialty Start Date End Date Mani Nation MD 22 [facility], [address] [place] [address] [email or web address] PCP - General 02/08/17 Vero Marshall, FLORES 22 [facility], [address] [place] [address] [email or web address] PHCM Label Folder 04/09/19 Mirian Locke RN 30 [place] [address] Registered Nurse 10/16/22 Vanessa Malik [address] [place] [address] [email or web address] PHCM Community Sharepoint Designer Developer 06/12/24 06/12/24 Naila Brandt, FLORES [address] [place] [address] [phone] [email or web address] PHCM Label FolderTaxicab Driver 12/25/24 02/08/25 documented as of this encounter Additional Source Comments The information contained in this document represents components of the legal health record. It is not the complete legal health record.[facility]
--- OUTSIDE RECORDS SUMMARY | 2025-03-21 12:37 | XMS_ITS | Encounter Summary ---
Author Organization [facility] Address 399 [facility] [address] [place] [address] Phone Care Team Providers Care Library Specialist Name Role Phone Mani Nation MD Primary Care Provider [phone] Mirian Locke RN Unavailable [phone] Naila Brandt RN Unavailable [phone] Reason for Visit * Reason Onset Date Comments Forms & Paperwork 01/06/2025 Home Health Re ferral Caretenders Encounter Details Date Type Department Care Team (Late st Contact Info) Description 01/06/2025 Telephone [facility] Family Medicine 22 [place] [address] Darlene Naranjo MA 22 [place] [address] [email or web address] Forms & Paperwork (Home Health Referral Caretenders) [...] Progress Notes * Darlene Naranjo MA - 03/18/2025 8:44 AM EST Received order [id number]. Placed in provider basket for signature * Darlene Naranjo MA - 02/25/2025 4:50 PM EST Faxed signed order [id number]. Placed in scan bin to be scanned into chart. * Darlene Naranjo MA - 02/24/2025 2:13 PM EST Received order # [id number]. Placed in provider basket for signature. * Darlene Naranjo MA - 02/18/2025 12:51 PM EDT Faxed signed order [id number]. Placed in scan bin to be scanned into chart. * Darlene Naranjo MA - 02/17/2025 3:16 PM EDT Faxed signed order # [id number]. Placed in scan bin to be scanned into chart. * Darlene Naranjo MA - 02/16/2025 1:25 PM EDT Received order # [id number]. Placed in provider basket for signature. * Darlene Naranjo MA - 02/16/2025 1:22 PM EDT Received order # [id number]. Placed in provider basket for signature. * Darlene Naranjo MA - 01/22/2025 9:42 AM EDT Faxed signed order # [id number]. Placed in scan bin to be scanned into chart. * Darlene Naranjo MA - 01/21/2025 3:37 PM EDT Received order # [id number]. Placed in provider basket for signature. * Darlene Naranjo MA - 01/16/2025 10:38 AM EDT Received order # [id number]. Placed in provider basket for signature. * Darlene Naranjo MA - 01/13/2025 3:46 PM EDT Received order # [id number]. Placed in provider basket for signature. * Jessica Talamantes - 01/06/2025 1:00 PM EDT Care tenders call said pt is already on service. Central Support Commercial Print Salesman (Please do not reply to this user; this inbox is not monitored.) Thank you. * Darlene Naranjo MA - 01/06/2025 12:38 PM EDT Received forms from home health care tenders rapid referral for PT [...] as of this encounter Care Teams Library Specialist Relationship Specialty Start Date End Date Mani Nation MD [address] [place] [address], [address] [place] [address] PCP - General 02/08/17 Mirian Locke RN 30 [place] [address] Registered Nurse 10/16/22 Naila Brandt, FLORES [address] [place] [address] PHCM Silk Screen CutterIt Technical Specialist 12/25/24 02/08/25 documented as of this encounter Additional Source Comments The information contained in this document represents components of the legal health record. It is not the complete legal health record.[facility]
--- OUTSIDE RECORDS SUMMARY | 2025-03-21 12:37 | XMS_ITS | Encounter Summary ---
Author Organization [facility] Address [address] [address] Phone Care Team Providers Care Clinical Practice Consultant Name Role Phone Mani Nation MD Primary Care Provider [phone] Mani Nation MD Unavailable [phone] Vero Marshall RN Unavailable [email or web address] Savannah Fontana Unavailable [phone] Mirian Locke RN Unavailable Vanessa Malik Unavailable [email or web address] Naila Brandt RN Unavailable [phone] Encounter Details Date Type Department Care Team (Latest Contact Info) Description 10/09/2017 Transcribe Orders [facility] Specimen Processing 30 [place] [address] Sreedhar Mcmanus MD 22 [facility] Floor 1 [place] [address] [email or web address] Urinary frequency (Primary Dx) Social History Tobacco [...] Specimen Source/ Description URINE CLEAN CATCH URINE [facility] Special Requests None [facility] GRAM STAIN NO ORGANISMS SEEN [facility] Culture/Test 10,000 to 100,000 colony forming units per ml MIXED GIORGIO (3 OR MORE COLONY TYPES) Culture indicates contamination . Please resubmit if necessary. [facility] Report Status 10/11/2017 FINAL [facility] Urine (Urine) 10/09/2017 6:3 4 PM EDT 10/09/2017 6:45 PM EDT us Sreedhar Mcmanus MD LAB MICROBIOLOGY CULT URE ORDERABLES Final Result Performing Organization Address City/State/[facility] Co de Phone Number [address] [address] documented in this encounter Visit Diagnoses Diagnosis [...] documented as of this encounter Care Teams Clinical Practice Consultant Relationship Specialty Start Date End Date Mani Nation MD [address] [place] [address], [address] [place] [address] PCP - General 02/08/17 Mani Nation MD [address] [place] [address], [address] [place] [address] Insurance Assigned Provider 07/21/1701/01 Vero Marshall, FLORES [address] [place] [address], [address] [place] [address] [email or web address] PHCM Surgical Territory Manager 04/09/19 Savannah Fontana [address] [place] [address] PHCM Community Health Worker 06/30/20 07/11/20 Mirian Locke RN [address] [place] [address] Registered Nurse 10/16/22 Vanessa Malik [address] [place] [address] [email or web address] PHCM Community Idea Man 06/12/24 06/12/24 Naila Brandt, RN [address] [place] [address] [phone] PHCM Surgical Territory ManagerMountain Guide 12/25/24 02/08/25 documented as of this encounter Additional Source Comments The information contained in this document represents components of the legal health record. It is not the complete legal health record.[facility]
--- OUTSIDE RECORDS SUMMARY | 2025-03-21 12:37 | XMS_ITS | Encounter Summary ---
Author Organization [facility] Address [address] [place] [address] Care Team Providers Care Tray Setter Name Role Phone Huang Oviedo MD Primary Care Provider [phone] Encounter Details Date Type Department Care Team (Late st Contact Info) Description 02/27/2024 Lab Requisition [facility] - Main Lab [address] [facility] [place] [address] Huang Oviedo MD [address] [place] [address] Unspecified atrial fibrillation (CMS/HCC V24, CMS/HCC V28) [...] V28) documented in this encounter Care Teams Tray Setter Relationship Specialty Start Date End Date Huang Oviedo MD [address] [place] [address] PCP - General Internal Medicine 03/10/24 documented as of this encounter
--- OUTSIDE RECORDS SUMMARY | 2025-03-21 12:37 | XMS_ITS | Encounter Summary ---
Author Organization [facility] Address [address] [place] [address] Care Team Providers Care Reed Dipper Name Role Phone Mani Nation MD Primary Care Provider [phone] Encounter Details Date Type Department Care Team (Late Contact Info) Description 05/17/2022 myChart Message [facility] Heart and Vascular Interventional Lab 55 [place] [address] Wing Jeffery MD PhD 55 [place] [address] Your Recent Visit Social History Tobacco Use [...] Info) Description 05/08/2025 2:15 PM EST Appointment [facility] Heart Station [address] [place] [address] Wing Jeffery MD PhD [address] [place] [address] Scheduled Procedures Name Priority Associated Diagnoses Date/Ti me COLONOSCOPY SCREENING, HIGH RISK WITH POSSIBLE MODERATE SEDATION Diarrhea, unspecified type documented as of this encounter Visit Diagnoses Not on filedocumented in this encounter Additional Health Concerns Infection Onset Date Last Indicated Resolved Time COVID-19 - Suspected infection 2022 2022 2022 9:55 PM EDT documented as of this encounter Care Teams Reed Dipper Relationship Specialty Start Date End Date Mani Nation MD [address] [place] [address], [address] [place] [address] PCP - General 11/09/16 documented as of this encounter
--- OUTSIDE RECORDS SUMMARY | 2025-03-21 12:37 | XMS_ITS | Encounter Summary ---
Author Organization [facility] Address [address] [place] [address] Care Team Providers Care Property Valuer Name Role Phone Mani Nation MD Primary Care Provider [phone] Encounter Details Date Type Department Care Team (Late Contact Info) Description 04/19/2022 myChart Message [facility] Heart and Vascular Interventional Lab 55 [place] [address] Wing Jeffery MD PhD [address] [place] [address] Your Recent Visit Social History Tobacco Use [...] Appointment [facility] Heart Station [address] [place] [address] Wing Jeffery MD PhD [address] [place] [address] Scheduled Procedures Name Priority Associated Diagnoses Date/Ti me COLONOSCOPY SCREENING, HIGH RISK WITH POSSIBLE MODERATE SEDATION Diarrhea, unspecified type documented as of this encounter Visit Diagnoses Not on filedocumented in this encounter Additional Health Concerns Infection Onset Date Last Indicated Resolved Time COVID-19 - Suspected infection 2022 2022 2022 9:55 PM EDT documented as of this encounter Care Teams Property Valuer Relationship Specialty Start Date End Date Mani Nation MD [address] [place] [address], [address] [place] [address] PCP - General 11/09/16 documented as of this encounter
--- OUTSIDE RECORDS SUMMARY | 2025-03-21 12:37 | XMS_ITS | Encounter Summary ---
Author Organization [facility] Address [address] [place] [address] Care Team Providers Care Log Chipper Operator Name Role Phone Huang Oviedo MD Primary Care Provider Encounter Details Date Type Department Care Team (Late st Contact Info) Description 02/23/2024 Lab Requisition [facility] - Main Lab [address] [place] [address] Huang Oviedo MD [address] [place] [address] [phone] Unspecified atrial fibrillation (CMS/HCC V24, CMS/HCC V28) [...] LAB COAGULATION METHOD 02/25/2024 10:[address] [facility] INR 2.0 LAB COAGULATION METHOD 02/25/2024 10:40 AM EST [facility] Blood Venous blood specimen / Unknown Venipuncture / Unknown 02/25/2024 5:38 AM EST 02/25/2024 10:40 AM EST Huang Oviedo MD LAB BLOOD ORDERABLES Final Res ult [facility] LAB [address] [place] [address], documented in this encounter Visit Diagnoses Diagnosis Unspecified atrial fibrillation (CMS/HCC V24, CMS/HCC V28) documented in this encounter Care Teams Log Chipper Operator Relationship Specialty Start Date End Date Huang Oviedo MD [address] [place] [address] PCP - General Internal Medicine 03/10/24 documented as of this encounter
--- OUTSIDE RECORDS SUMMARY | 2025-03-21 12:37 | XMS_ITS | Encounter Summary ---
Author Organization [facility] Address [address] [place] [address] Care Team Providers Care Restoration Technician Name Role Phone Mani Nation MD Primary Care Provider [phone] Encounter Details Date Type Department Care Team (Late Contact Info) Description 05/19/2022 myChart Message [facility] Heart and Vascular Interventional Lab 55 [place] [address] Wing Jeffery MD PhD 55 [place] [address] Your Recent Visit Social History Tobacco Use [...] Info) Description 05/08/2025 2:15 PM EST Appointment [facility] Heart Station [address] [place] [address] Wing Jeffery MD PhD 55 [place] [address] Scheduled Procedures Name Priority Associated Diagnoses Date/Ti me COLONOSCOPY SCREENING, HIGH RISK WITH POSSIBLE MODERATE SEDATION Diarrhea, unspecified type documented as of this encounter Visit Diagnoses Not on filedocumented in this encounter Additional Health Concerns Infection Onset Date Last Indicated Resolved Time COVID-19 - Suspected infection 2022 2022 2022 9:55 PM EDT documented as of this encounter Care Teams Restoration Technician Relationship Specialty Start Date End Date Mani Nation MD [address] [place] [address], [address] [place] [address] PCP - General 11/09/16 documented as of this encounter
--- OUTSIDE RECORDS SUMMARY | 2025-03-21 12:37 | XMS_ITS | Encounter Summary ---
Author Organization [facility] Address [address] [address] Phone Care Team Providers Care Cardiology Physician Assistant Name Role Phone Mani Nation MD Primary Care Provider [phone] Vero Marshall RN Unavailable [email or web address] Mirian Locke RN Unavailable [phone] Vanessa Malik Unavailable [email or web address] Naila Brandt RN Unavailable [phone] Encounter Details Date Type Department Care Team (Late st Contact Info) Description 07/18/2023 Procedure Pass [facility], Ct Scan - [address] [address] Social History Tobacco Use Types Packs/Day Years [...] 1:00 AM EDT Ariadne Wolf RN * [place] Suicide Severity Rating Scale (Screener/Recent Self-Report) Question [...] documented as of this encounter Care Teams Cardiology Physician Assistant Relationship Specialty Start Date End Date Mani Nation MD [address] [place] [address], [address] [place] [address] PCP - General 02/08/17 Vero Marshall, RN 22 [facility], [address] [place] [address] [email or web address] PHCM Motor Block Mechanic 04/09/19 Mirian Locke RN 30 [place] [address] Registered Nurse 10/16/22 Vanessa Malik [address] [place] [address] [email or web address] PHCM Community [employer]ance [employer] Officer 06/12/24 06/12/24 Naila Brandt, FLORES [address] [place] [address] [phone] PHCM Motor Block MechanicOil Well Cable Tool Operator 12/25/24 02/08/25 documented as of this encounter Additional Source Comments The information contained in this document represents components of the legal health record. It is not the complete legal health record.[facility]
--- OUTSIDE RECORDS SUMMARY | 2025-03-21 12:37 | XMS_ITS | Encounter Summary ---
Author Organization [facility] Address 399 [facility] [address] [place] [address] Phone Care Team Providers Care Onshore Diver Name Role Phone Mani Nation MD Primary Care Provider [phone] Vero Marshall RN Unavailable [email or web address] Mirian Locke RN Unavailable Vanessa Malik Unavailable [email or web address] Naila Brandt RN Unavailable Reason for Visit * Reason Onset Date Comments Breathing Problem 12/20/2022 Encounter Details Date Type Department Care Team (Late st Contact Info) Description 12/20/2022 Nurse Triage [address] [address] Mani Nation MD 22 [facility], [address] [place] [address] [email or web address] Breathing Problem Social History Tobacco Use Types [...] Pt verbalized understanding, will transport her to [facility] ED, emergency expect note sent. Nurse Triage Encounter Note Reason for Triage Lita Salinas contacted office for Breathing Problem Call Disposition Go To Ed Now Patient/caregiver understands and will follow disposition: Yes Patient/caregiver understands and will follow care advice: Yes, Plans To Follow Advice Disposition Comments: Protocols used: Breathing Yfrrkvrzlb-Kzgdj-Ck Initial Symptom Screening and Assessment IA None Care Advice Given Care Advice Patient/Caregiver understands and will follow care advice?: Yes, plans to follow advice GO TO ED NOW: * You need to be seen in the Emergency Department. * Go to the ED at [facility]. * Leave now. Drive carefully. [...] the right beat for CPR. * The [employer] provides a 1-minute instructional video on Hands-Only CPR at: https://cpr.heart.org/en/. Be prepared. Watch it now, before you need it! * The [employer] provides a free Hands-Only CPR Efraín for the iPhone, PalmPre, and Android. * You are strongly encouraged to get training in CPR from the [employer] or the [employer]. 'It is critical for community [...] Call 911. * Perform chest compressions and vqklp-qh-adrnt breathing in cycles of 30 compressions and [...] pressure. IF THE ADULT PASSES OUT, give erbll-fm-hkfqb breathing. * Quickly open the mouth and look inside to see if there is any object that can be removed with a sweep of your finger (usually there is not). Avoid 'blind' sweeps. * Then begin resuscitation. Air can usually be forced past the foreign object temporarily until help arrives. * If ifuev-lj-pmdnf breathing doesn't move the chest, repeat the [...] either acetaminophen or ibuprofen. * They are olfv-bml-xkvqfgz (OTC) drugs that help treat both fever [...] acetaminophen overdose can hurt the liver. * [employer], the company that makes Tylenol, has different dosage instructions for Tylenol in [place] and the [place]. In [place], the maximum recommended dose per day is 4,000 mg or twelve Regular-Strength (325 mg) pills. In the [place], [employer] recommends a maximum dose of ten Regular-Strength [...] or worse than normal Protocols used: BREATHING [id number]-[id number] * Prema Trejo - 12/20/2022 10:06 AM [...] documented as of this encounter Care Teams Onshore Diver Relationship Specialty Start Date End Date Mani Nation MD 22 [facility], [address] [place] [address] PCP - General 02/08/17 Vero Marshall, FLORES 22 [facility], [address] [place] [address] [email or web address] PHCM Pharmacy Stock Clerk 04/09/19 Mirian Locke RN 30 [place] [address] Registered Nurse 10/16/22 Vanessa Malik [address] [place] [address] [email or web address] PHCM Community Tire Molder 06/12/24 06/12/24 Naila Brandt, FLORES [address] [place] [address] [phone] [email or web address] PHCM Pharmacy Stock ClerkFloor Installation Mechanic 12/25/24 02/08/25 documented as of this encounter Additional Source Comments The information contained in this document represents components of the legal health record. It is not the complete legal health record.[facility]
--- OUTSIDE RECORDS SUMMARY | 2025-03-21 12:37 | XMS_ITS | Encounter Summary ---
Author Organization [facility] Address [address] [place] [address] Phone Care Team Providers Care Review Manager Name Role Phone Mani Nation MD Primary Care Provider [phone] Mani Nation MD Unavailable [phone] Vero Marshall RN Unavailable [email or web address] Savannah Fontana Unavailable [phone] Mirian Locke RN Unavailable [phone] Vanessa Malik Unavailable [email or web address] Naila Brandt RN Unavailable [phone] Encounter Details Date Type Department Care Team (Late st Contact Info) Description 12/17/2017 Procedure Pass [facility], Ct Scan - [address] [address] Social History Tobacco Use Types Packs/Day Years [...] documented as of this encounter Care Teams Review Manager Relationship Specialty Start Date End Date Mani Nation MD [address] [place] [address], [address] [place] [address] [email or web address] PCP - General 02/08/17 Mani Nation MD [address] [place] [address], [address] [place] [address] [email or web address] Insurance Assigned Provider 07/21/1701/01 Vero Marshall, FLORES [address] [place] [address], [address] [address] [email or web address] PHCM Bow Tacker 04/09/19 Savannah Fontana [address] [place] [address] PHCM Community Health Worker 06/30/20 07/11/20 Mirian Locke RN 30 [place] [address] Registered Nurse 10/16/22 Vanessa Malik [address] [place] [address] [email or web address] PHCM Community Shine Worker 06/12/24 06/12/24 Naila Brandt, RN [address] [place] [address] PHCM Bow TackerAutomotive Internet Sales Manager 12/25/24 02/08/25 documented as of this encounter Additional Source Comments The information contained in this document represents components of the legal health record. It is not the complete legal health record.[facility]
--- OUTSIDE RECORDS SUMMARY | 2025-03-21 12:37 | XMS_ITS | Encounter Summary ---
Author Organization [facility] Address [address] [place] [address] Care Team Providers Care Janitorial Services Supervisor Name Role Phone Mani Nation MD Primary Care Provider [phone] Encounter Details Date Type Department Care Team (Late st Contact Info) Description 02/21/2021 Orders Only [facility] Pulmonary Function Lab [address] [place] [address] May, Russel Montalvo RRT SOB (shortness of [...] Info) Description 05/08/2025 2:15 PM EST Appointment [facility] Building Heart Station [address] [place] [address] Wing Jeffery MD PhD [address] [place] [address] Scheduled Procedures Name Priority Associated Diagnoses Date/Ti [...] documented as of this encounter Care Teams Janitorial Services Supervisor Relationship Specialty Start Date End Date Mani Nation MD [address] [place] [address], [address] [place] [address] PCP - General 11/09/16 documented as of this encounter
--- OUTSIDE RECORDS SUMMARY | 2025-03-21 12:37 | XMS_ITS | Encounter Summary ---
Author Organization [facility] Address [address] [place] [address] Care Team Providers Care Curator Medical Museum Name Role Phone Mani Nation MD Primary Care Provider [phone] Encounter Details Date Type Department Care Team (Late Contact Info) Description 05/17/2022 myChart Message [facility] and Vascular Interventional Lab [address] [place] [address] Wing Jeffery MD PhD [address] [place] [address] Your Recent Visit Social History Tobacco Use [...] Info) Description 05/08/2025 2:15 PM EST Appointment [facility] Heart Station [address] [place] [address] Wing Jeffery MD PhD [address] [place] [address] Scheduled Procedures Name Priority Associated Diagnoses Date/Ti me COLONOSCOPY SCREENING, HIGH RISK WITH POSSIBLE MODERATE SEDATION Diarrhea, unspecified type documented as of this encounter Visit Diagnoses Not on filedocumented in this encounter Additional Health Concerns Infection Onset Date Last Indicated Resolved Time COVID-19 - Suspected infection 2022 2022 2022 9:55 PM EDT documented as of this encounter Care Teams Curator Medical Museum Relationship Specialty Start Date End Date Mani Nation MD [address] [place] [address], [address] [place] [address] PCP - General 11/09/16 documented as of this encounter
--- OUTSIDE RECORDS SUMMARY | 2025-03-21 12:37 | XMS_ITS | Encounter Summary ---
Author Organization [facility] Address [address] [place] [address] Care Team Providers Care Electrotype Molder Name Role Phone Mani Nation MD Primary Care Provider [phone] Encounter Details Date Type Department Care Team (Late Contact Info) Description 05/02/2022 myChart Message [facility] Heart and Vascular Interventional Lab [address] [place] [address] Wing Jeffery MD PhD [address] [place] [address] Your Recent Visit Social History Tobacco Use [...] Info) Description 05/08/2025 2:15 PM EST Appointment [facility] Heart Station [address] [place] [address] Wing Jeffery MD PhD [address] [place] [address] Scheduled Procedures Name Priority Associated Diagnoses Date/Ti me COLONOSCOPY SCREENING, HIGH RISK WITH POSSIBLE MODERATE SEDATION Diarrhea, unspecified type documented as of this encounter Visit Diagnoses Not on filedocumented in this encounter Additional Health Concerns Infection Onset Date Last Indicated Resolved Time COVID-19 - Suspected infection 2022 2022 2022 9:55 PM EDT documented as of this encounter Care Teams Electrotype Molder Relationship Specialty Start Date End Date Mani Nation MD [address] [place] [address], [address] [place] [address] PCP - General 11/09/16 documented as of this encounter
--- OUTSIDE RECORDS SUMMARY | 2025-03-21 12:37 | XMS_ITS | Clinical Summary ---
Author Organization [address] Address [address] [place] [address] Phone Care Team Providers Care Barrel Finisher Name Role Phone Huang Oviedo MD Primary Care Provider [phone] Encounters Date Type Department Care Team Description 03/13/2025 Lab Requisition [facility] Lab [address] [place] [phone] Yola Linares MD Anemia, unspecified; Vitamin D deficiency, unspecified; Essential (primary) hypertension; Chronic embolism and thrombosis of unspecified vein; Altered mental status, unspecified 03/06/2025 Lab Requisition [facility] Lab [address] [place] [phone] Yola Linares MD Anemia, unspecified; Vitamin D deficiency, unspecified; Essential (primary) hypertension; Chronic embolism and thrombosis of unspecified vein; Altered mental status, unspecified; Unspecified atrial flutter (CMS/HCC V24, CMS/HCC V28) 02/27/2025 Lab Requisition [facility] Lab [address] [place] [phone] Yola Linaers MD Altered mental status, unspecified; Essential (primary) hypertension; Anemia, unspecified; Chronic embolism and thrombosis of unspecified vein; Vitamin D deficiency, unspecified 02/27/2025 Lab Requisition [facility] Lab [address] [place] [phone] Yola Linares MD Chronic embolism and thrombosis of unspecified deep veins of unspecified lower extremity (CMS/HCC V24, CMS/HCC V28) 02/25/2025 Lab Requisition [facility] Lab [address] [facility] [address] Yola Lniares MD Unspecified atrial fibrillation (CMS/HCC V24, CMS/HCC V28) 02/23/2025 Lab Requisition [facility] Lab [address] [facility] [place] [address] Yola Linares MD Essential (primary) hypertension; Altered mental status, unspecified; Anemia, unspecified; Vitamin D deficiency, unspecified; Chronic embolism and thrombosis of unspecified vein from Last 3 Months Social History Tobacco [...] 08/30/2021, 06/24/2020, 06/02/2020 Influenza Vaccine (#1) 2024 , 03/17/2022, 03/14/2021, Additional history exists Hypertension/CHF/CAD Annual BMP Blood Test 03/09/2026 03/09/2025, 03/02/2025, 02/23/2025, Additional history exists DTaP,Tdap,and Td Vaccines (2 [...] Diagnosis Comments PROTHROMBIN TIME WITH INR Routine 03/09/2025 8:50 AM EST Anemia, unspecified Vitamin D deficiency, unspecified Essential (primary) hypertension Chronic embolism and thrombosis of unspecified vein Altered mental status, unspecified Unspecified atrial flutter (CMS/HCC V24, CMS/HCC V28) BASIC METABOLIC PANEL Routine 03/09/2025 8:50 AM EST Anemia, unspecified Vitamin D deficiency, unspecified Essential (primary) hypertension Chronic embolism and thrombosis of unspecified vein Altered mental status, unspecified Unspecified atrial flutter (CMS/HCC V24, CMS/HCC V28) COMPLETE BLOOD COUNT Routine 03/09/2025 8:50 AM EST Anemia, unspecified Vitamin D deficiency, unspecified Essential (primary) hypertension Chronic embolism and thrombosis of unspecified vein Altered mental status, unspecified Unspecified atrial flutter (CMS/HCC V24, CMS/HCC V28) PROTHROMBIN TIME WITH INR Routine 03/02/2025 5:56 AM EST Altered mental status, unspecified Essential (primary) hypertension Anemia, unspecified Chronic embolism and thrombosis of unspecified vein Vitamin D deficiency, unspecified BASIC METABOLIC PANEL Routine 03/02/2025 5:56 AM EST Altered mental status, unspecified Essential (primary) hypertension Anemia, unspecified Chronic embolism and thrombosis of unspecified vein Vitamin D deficiency, unspecified COMPLETE BLOOD COUNT Routine 03/02/2025 5:56 AM EST Altered mental status, unspecified Essential (primary) hypertension Anemia, unspecified Chronic embolism and thrombosis of unspecified vein Vitamin D deficiency, unspecified PROTHROMBIN TIME WITH INR Routine 02/27/2025 4:58 AM EST Chronic embolism and thrombosis of unspecified deep veins of unspecified lower extremity ([facility] V24, [facility] V28) PROTHROMBIN TIME WITH INR Routine 02/25/2025 6:33 AM EST Unspecified atrial fibrillation (CMS/[facility] V24, [facility] V28) VITAMIN B12 Routine 02/23/2025 5:55 AM EST Essential (primary) hypertension Altered mental status, unspecified Anemia, unspecified Vitamin D deficiency, unspecified Chronic embolism and thrombosis of unspecified vein MAGNESIUM Routine 02/23/2025 5:55 AM EST Essential (primary) hypertension Altered mental status, unspecified Anemia, unspecified Vitamin D deficiency, unspecified Chronic embolism and thrombosis of unspecified vein FERRITIN Routine 02/23/2025 5:55 AM EST Essential (primary) hypertension Altered mental status, unspecified Anemia, unspecified Vitamin D deficiency, unspecified Chronic embolism and thrombosis of unspecified vein FOLATE Routine 02/23/2025 5:55 AM EST Essential (primary) hypertension Altered mental status, unspecified Anemia, unspecified Vitamin D deficiency, unspecified Chronic embolism and thrombosis of unspecified vein IRON AND TIBC Routine 02/23/2025 5:55 AM EST Essential (primary) hypertension Altered mental status, unspecified Anemia, unspecified Vitamin D deficiency, unspecified Chronic embolism and thrombosis of unspecified vein PROTHROMBIN TIME WITH INR Routine 02/23/2025 5:55 AM EST Essential (primary) hypertension Altered mental status, unspecified Anemia, unspecified Vitamin D deficiency, unspecified Chronic embolism and thrombosis of unspecified vein BASIC METABOLIC PANEL Routine 02/23/2025 5:55 AM EST Essential (primary) hypertension Altered mental status, unspecified Anemia, unspecified Vitamin D deficiency, unspecified Chronic embolism and thrombosis of unspecified vein COMPLETE BLOOD COUNT Routine 02/23/2025 5:55 AM EST Essential (primary) hypertension Altered mental status, unspecified Anemia, unspecified Vitamin D deficiency, unspecified Chronic embolism and thrombosis of unspecified vein LIPID PANEL WITH REFLEX TO DIRECT LDL Routine 11/04/2024 7:04 AM EDT Unspecified atrial fibrillation ([facility] V24, [facility]/HCC V28) Hyperlipidemia, unspecified Vitamin D deficiency, unspecified from Last 3 Months or Most Recently Relevant to Health Maintenance Results * (ABNORMAL) Prothrombin time with INR (03/09/2025 8:50 AM EST) Only the most recent of5 resultswithin the time period is included. Protime 27.1(H) 10.6 - 13.9 sec LAB COAGULATION METHOD 03/09/2025 10:54 AM EST [facility] INR 2.2 LAB COAGULATION METHOD 03/09/2025 10:54 AM EST [facility] Blood Venous blood specimen / Unknown Venipuncture / Unknown 03/09/2025 8:50 AM EST 03/09/2025 10:33 AM EST us Yola Linares MD LAB BLOOD ORDERABLES Final Resul t [facility] [address] [place] [address], * (ABNORMAL) Complete blood count (03/09/2025 8:50 AM EST) Only the most recent of3 resultswithin the time period is included. WBC 11.4(H) 4.8 - 10.8 K/mcL LAB HEMETOLOGY METHOD 03/09/2025 11:19 AM [facility] RBC 4.40 3.80 - 4.80 M/mcL LAB HEMETOLOGY METHOD 03/09/2025 11:19 AM [facility] Hemoglobin 15.0 11.5 - 16.0 g/dL LAB HEMETOLOGY METHOD 03/09/2025 11:19 AM [facility] Hematocrit 44.9 35.0 - 47.0 % LAB HEMETOLOGY METHOD 03/09/2025 11:19 AM [facility] MCV 102.3(H) 79.0 - 98.0 FL LAB HEMETOLOGY METHOD 03/09/2025 11:19 AM [facility] MCH 34.2(H) 27.0 - 32.0 pcg LAB HEMETOLOGY METHOD 03/09/2025 11:19 AM [facility] MCHC 33.4 32.0 - 37.0 g/dL LAB HEMETOLOGY METHOD 03/09/2025 11:19 AM [facility] RDW 12.9 11.0 - 15.0 % LAB HEMETOLOGY METHOD 03/09/2025 11:19 AM [facility] Platelets 248 130 - 400 K/mcL LAB HEMETOLOGY METHOD 03/09/2025 11:19 AM [facility] MPV 11.2(H) 7.0 - 11.0 FL LAB HEMETOLOGY METHOD 03/09/2025 11:19 AM [facility] NRBC 0.0 <1.0 % LAB HEMETOLOGY METHOD 03/09/2025 11:19 AM [facility] NRBC Absolute 0.00 <0.10 K/mcL LAB HEMETOLOGY METHOD 03/09/2025 11:19 AM [facility] Blood Venous blood specimen / Unknown Venipuncture / Unknown 03/09/2025 8:50 AM EST 03/09/2025 10:33 AM EST us Yola Linares MD LAB BLOOD ORDERABLES Final Resul t [facility] [address] [place] [address], [place] [phone] * (ABNORMAL) Basic metabolic panel (03/09/2025 8:50 AM EST) Only the most recent of3 resultswithin the time period is included. Sodium 137 133 - 145 mmol/L LAB CHEMISTRY METHOD 03/09/2025 11:44 AM [facility] Potassium 4.6 3.5 - 5.5 mmol/L LAB CHEMISTRY METHOD 03/09/2025 11:44 AM [facility] Chloride 103 96 - 110 mmol/L LAB CHEMISTRY METHOD 03/09/2025 11:44 AM [facility] CO2 27 21 - 32 mmol/L LAB CHEMISTRY METHOD 03/09/2025 11:44 AM [facility] Anion Gap 7 3 - 11 LAB CHEMISTRY METHOD 03/09/2025 11:44 AM [facility] Glucose 107(H) 70 - 100 mg/dL LAB CHEMISTRY METHOD 03/09/2025 11:44 AM [facility] BUN 15 5 - 25 mg/dL LAB CHEMISTRY METHOD 03/09/2025 11:44 AM [facility] Creatinine 0.90 0.50 - 1.10 mg/dL LAB CHEMISTRY METHOD 03/09/2025 11:44 AM [facility] eGFR 64 >=60 mL/min/1. 73m2 LAB CHEMISTRY METHOD 03/09/2025 11:44 AM [facility] Comment:Calculation based on the Chronic Kidney Disease Epidemiology Collaboration (CKD-EPI) equation refit without adjustment for race. BUN/Creatinine Ratio 16.7 LAB CHEMISTRY METHOD 03/09/2025 11:44 AM [facility] Calcium 9.0 8.5 - 10.5 mg/dL LAB CHEMISTRY METHOD 03/09/2025 11:44 AM EST [facility] Blood Venous blood specimen / Unknown Venipuncture / Unknown 03/09/2025 8:50 AM EST 03/09/2025 10:33 AM EST us Yola Linares MD LAB BLOOD ORDERABLES Final Resul t Performing Organization Address City/[facility]/ZIP Co de Phone Number [facility] [address] [place] [address], [place] [phone] * Iron and TIBC (02/23/2025 5:55 AM EST) Iron 66 40 - 150 mcg/dL LAB CHEMISTRY METHOD 02/23/2025 1:39 PM EST [facility] TIBC 263 250 - 450 mcg/dL LAB CHEMISTRY METHOD 02/23/2025 1:39 PM EST [facility] Iron Saturation 25 15 - 50 % LAB CHEMISTRY METHOD 02/23/2025 1:39 PM EST [facility] Blood Venous blood specimen / Unknown Venipuncture / Unknown 02/23/2025 5:55 AM EST 02/23/2025 10:48 AM EST us Yola Linares MD LAB BLOOD ORDERABLES Final Resul t Performing Organization Address City/[facility]/ZIP Co de Phone Number [facility] [address] [place] [address], [place] [phone] * Magnesium (02/23/2025 5:55 AM EST) Magnesium 2.0 1.9 - 2.6 mg/dL LAB CHEMISTRY METHOD 02/23/2025 12:16 PM EST [facility] Blood Venous blood specimen / Unknown Venipuncture / Unknown 02/23/2025 5:55 AM EST 02/23/2025 10:48 AM EST us Yola Linares MD LAB BLOOD ORDERABLES Final Resul t Performing Organization Address City/[facility]/ZIP Co de Phone Number [facility] [address] [place] [address], [place] [phone] * Folate (02/23/2025 5:55 AM EST) Pathologist [facility] Folate 8.9 2.8 - 17.0 ng/ml LAB CHEMISTRY METHOD 02/23/2025 1:39 PM EST [facility] Blood Venous blood specimen / Unknown Venipuncture / Unknown 02/23/2025 5:55 AM EST 02/23/2025 10:48 AM EST us Yola Linares MD LAB BLOOD ORDERABLES Final Resul t Performing Organization Address [facility] Co de Phone Number [facility] [address] [place] [address], [place] [phone] * Ferritin (02/23/2025 5:55 AM EST) [facility] Ferritin 96 8 - 252 ng/mL LAB CHEMISTRY METHOD 02/23/2025 1:39 PM EST [facility] Blood Venous blood specimen / Unknown Venipuncture / Unknown 02/23/2025 5:55 AM EST 02/23/2025 10:48 AM EST us Yola Linares MD LAB BLOOD ORDERABLES Final Resul t Performing Organization Address City/[facility]/ZIP Co de Phone Number [facility] [address] [place] [address], [place] [phone] * (ABNORMAL) Vitamin B12 (02/23/2025 5:55 AM EST) [facility] Vitamin B-12 1,057(H) 250 - 900 pcg/mL LAB CHEMISTRY METHOD 02/23/2025 1:39 PM EST [facility] Blood Venous blood specimen / Unknown Venipuncture / Unknown 02/23/2025 5:55 AM EST 02/23/2025 10:48 AM EST us Yola Linares MD LAB BLOOD ORDERABLES Final Resul t Performing Organization Address City/[facility]/ZIP Co de Phone Number [facility] [address] [place] [address], [place] [phone] * (ABNORMAL) Lipid panel with reflex to direct LDL (11/04/2024 7:04 AM EDT) Cholesterol 141 0 - 200 mg/dL LAB CHEMISTRY METHOD 11/04/2024 1:45 PM EDT [facility] Triglycerides 160(H) 0 - 150 mg/dL LAB CHEMISTRY METHOD 11/04/2024 1:45 PM EDT [facility] HDL 35(L) >=40 mg/dL LAB CHEMISTRY METHOD 11/04/2024 1:45 PM EDT [facility] LDL Calculated 74 0 - 100 mg/dL LAB CHEMISTRY METHOD 11/04/2024 1:45 PM EDT [facility] VLDL Cholesterol Rupesh 32 mg/dL LAB CHEMISTRY METHOD 11/04/2024 1:45 PM EDT [facility] Non HDL Chol. (LDL+VLDL) 106 <145 mg/dL LAB CHEMISTRY METHOD 11/04/2024 1:45 PM EDT [facility] Chol/HDL Ratio 4.0 0.0 - 4.4 LAB CHEMISTRY METHOD 11/04/2024 1:45 PM EDT [facility] Blood Venous blood specimen / Unknown Venipuncture / Unknown 11/04/2024 7:04 AM EDT 11/04/2024 11:12 AM EDT us Yola Linares MD LAB BLOOD ORDERABLES Final Resul t [facility] [address] [place] [address], from Last 3 Months or Most Recently Relevant to Health Maintenance Insurance [employer]AGE Care Teams Barrel Finisher Relationship Specialty Start Date End Date Huang Oviedo MD [address] [place] [phone] PCP - General Internal Medicine 03/10/24
--- OUTSIDE RECORDS SUMMARY | 2025-03-21 12:37 | XMS_ITS | Encounter Summary ---
Author Organization [facility] Address [address] [place] [address] Care Team Providers Care Premium Service Representative Name Role Phone Mani Nation MD Primary Care Provider [phone] Encounter Details Date Type Department Care Team (Late st Contact Info) Description 01/28/[address] [facility] Heart Station [address] [place], [place] [phone] Abbe Batres MD [address] [place] [address] [phone] Social History Tobacco Use Types Packs/Day Years [...] - 01/28/2025 8:20 AM EDT Alert from [employer] received 01/28/25- Possible OptiVol fluid accumulation: 17-Jan-2025 -- ongoing. A PDF copy of this result has been uploaded to [email or web address]. documented in this encounter Plan of Treatment Upcoming Encounters Date Type Department Care Team (Late st Contact Info) Description 05/08/2025 2:15 PM EST Appointment [facility] Heart Station [address] [place] [address] Wing Jeffery MD PhD [address] [place] [id number] Scheduled Procedures Name Priority Associated Diagnoses Date/Ti me COLONOSCOPY SCREENING, HIGH RISK WITH POSSIBLE MODERATE SEDATION Diarrhea, unspecified type documented as of this encounter Visit Diagnoses Not on filedocumented in this encounter Care Teams Premium Service Representative Relationship Specialty Start Date End Date Mani Nation MD [address] [place] [address], [address] [place] [address] PCP - General 11/09/16 documented as of this encounter
--- OUTSIDE RECORDS SUMMARY | 2025-03-21 12:37 | XMS_ITS | Encounter Summary ---
Author Organization [facility] Address [address] [place] [address] Care Team Providers Care Mental Health Tech Name Role Phone Mani Nation MD Primary Care Provider [phone] Encounter Details Date Type Department Care Team (Late st Contact Info) Description 02/11/2025 Telephone [facility] Heart Station [address] [place], [place] [phone] Crys Madsen NP [address] [place], [place] [phone] Social History Tobacco Use Types Packs/Day Years [...] High Opti-Vol Fluid - ongoing. Sent to [employer]. documented in this encounter Plan of Treatment Upcoming Encounters Date Type Department Care Team (Late st Contact Info) Description 05/08/2025 2:15 PM EST Appointment [facility] Heart Station [address] [place] [address] Wing Jeffery MD PhD [address] [place] [phone] Scheduled Procedures Name Priority Associated Diagnoses Date/Ti me COLONOSCOPY SCREENING, HIGH RISK WITH POSSIBLE MODERATE SEDATION Diarrhea, unspecified type documented as of this encounter Visit Diagnoses Not on filedocumented in this encounter Care Teams Mental Health Tech Relationship Specialty Start Date End Date Mani Nation MD [address] [place] [address], [address] [place] [address] PCP - General 11/09/16 documented as of this encounter
--- OUTSIDE RECORDS SUMMARY | 2025-03-21 12:38 | XMS_ITS | Encounter Summary ---
Author Organization [facility] Address [address] [place] [address] Phone Care Team Providers Care Lighthouse Keeper Name Role Phone Mani Nation MD Primary Care Provider [phone] Mirian Locke RN Unavailable [phone] Reason for Visit * Reason Onset Date Comments UTI 03/20/2025 Encounter Details Date Type Department Care Team (Late st Contact Info) Description 03/20/2025 Telephone [employer] [facility] [address] [place] [address] Mani Nation MD [address] [facility] [place] [address] [email or web address] UTI Social History Tobacco Use Types Packs/Day Years [...] as of this encounter Progress Notes * Sierra Mcconnell RN - 03/20/2025 4:00 PM EST VNA RN Darlene contacted and advised pt needs UC or ER assessment. She will contact [facility] to let him know to bring her in for assessment * Jean Marie Hyman MD - 03/20/2025 3:15 PM EST She needs office or ER evaluation. Not appropriate to just treat for possible uti. To ER * Sondra Chatman RN - 03/20/2025 2:38 PM EST Spoke to A nurse, Gordy, regarding patient symptoms and that we do not offer prophylactic treatment with antibiotics without any analysis, they did not get a positive dip stick screen, they are going by her behaviors. Gordy states that it is near impossible to obtain a urine sample, she is incontinent but also adamantly refusing to participate in any care today, will not sit up and will nottry to void on commode. She seems slightly more confused, urine malodorous, afebrile, no complaintsof pain or dysuria, but seems that her behaviors and declining participation are somewhat sudden aswell. No virtual or office visits are available. Routed to DOD for advice, and PCP as FYI. Gordy would like call with conclusion if possible. * Sabina Iverson - 03/20/2025 12:34 PM EST Darlene called back and is looking for an update on this, please call [phone] * Sondra Chatman RN - 03/20/2025 11:23 AM EST does not provide prophylactic antibiotics per request. UTI screening available via Home services, however, further evaluation is required by our office. Outreach attempted, however outgoing message did not specify anyone and not staff that initiated outreach. Would like appropriate assessment details and caller credentials should they call back. Will reach out to patient's spouse with update as well. * Priyanka King - 03/20/2025 9:55 AM EST Gordy from [facility] called in to follow up on this. Caller stated pt has a UTI and an antibiotic is needed. Please contact and advise. Central Support Safety And Security Manager (Please do not reply to this user; this inbox is not monitored.) Thank you. * Cass Faust - 03/20/2025 8:42 AM EST For : OFFICE From : DARLENE OAKES Tel # : [phone] / Alt Tel # : Patient Name : LITA GARRETT Patient : [address] : [phone] Message : DEMENTIA PATIENT HAS A UTI,UNABLE TO GET A URINE SAMPLE,NEED Message : TO START HER ON PROPHYLACTIC ANTIBIOTIC TODAY. PLEASE CALL. Message : Message : Caller ID / Calling Republican: [phone] / BEATA MOJICA CSN: [id number] Taken By : HOMA 03/18/2025 02:57 PM Delivered By : SYS! 03/18/2025 03:03 PM CSS Agent (Please do not reply to this user, as this inbox is not monitored. Thank you.) Thank you. documented in this encounter Plan of Treatment Not on file documented as of this encounter Visit Diagnoses Not on filedocumented in this encounter Additional Health Concerns Assessment Noted Time PHQ-2 Depression Total Score: 0 12/14/19 11:15 AM EDT documented as of this encounter Care Teams Lighthouse Keeper Relationship Specialty Start Date End Date Mani Nation MD [address] [place] [address], [address] [place] [address] [email or web address] PCP - General 02/08/17 Mirian Locke, RN [address] [place] [address] [email or web address] Registered Nurse 10/16/22 documented as of this encounter Additional Source Comments The information contained in this document represents components of the legal health record. It is not the complete legal health record.[facility]
--- OUTSIDE RECORDS SUMMARY | 2025-03-21 12:38 | XMS_ITS | Encounter Summary ---
Author Organization [facility] Address [address] [place] [address] Care Team Providers Care Surfacer Operator Name Role Phone Huang Oviedo MD Primary Care Provider [phone] Encounter Details Date Type Department Care Team (Late st Contact Info) Description 07/09/2024 Lab Requisition [facility] - Main Lab [address] [facility] [place] [address] Yola Linares MD [address] [place], [place] [phone] Unspecified atrial fibrillation (CMS/HCC V24, CMS/HCC V28) [...] sec LAB COAGULATION METHOD 07/09/2024 11:46 AM T [facility] LAB INR 3.2 LAB COAGULATION METHOD 07/09/2024 11:46 AM T [facility] LAB Blood Venous blood specimen / Unknown Venipuncture / Unknown 07/09/2024 6:23 AM EDT 07/09/2024 10:37 AM EDT us Yola Linares MD LAB BLOOD ORDERABLES Final Resul t [facility] ([facility]) [facility] LAB [address] [place] [address], documented in this encounter Visit Diagnoses Diagnosis Unspecified atrial fibrillation (CMS/HCC V24, CMS/HCC V28) documented in this encounter Care Teams Surfacer Operator Relationship Specialty Start Date End Date Huang Oviedo MD [address] [place] [id number] PCP - General Internal Medicine 03/10/24 documented as of this encounter
--- OUTSIDE RECORDS SUMMARY | 2025-03-21 12:38 | XMS_ITS | Encounter Summary ---
Author Organization [facility] Address [address] [place] [address] Care Team Providers Care Chemistry Account Manager Name Role Phone Huang Oviedo MD Primary Care Provider [phone] Encounter Details Date Type Department Care Team (Late st Contact Info) Description 07/14/2024 Lab Requisition [facility] - Main Lab [address] [facility] [place] [address] Yola Linares MD [address] [place], [place] [phone] Unspecified atrial fibrillation (CMS/HCC V24, CMS/HCC V28) [...] sec LAB COAGULATION METHOD 07/14/2024 11:33 AM [facility] LAB INR 2.3 LAB COAGULATION METHOD 07/14/2024 11:33 AM [facility] LAB Blood Venous blood specimen / Unknown Venipuncture / Unknown 07/14/2024 7:42 AM EDT 07/14/2024 10:41 AM EDT us Yola Linares MD LAB BLOOD ORDERABLES Final Resul t [facility] ([facility]) [facility] LAB [address] [place] [address], documented in this encounter Visit Diagnoses Diagnosis Unspecified atrial fibrillation (CMS/HCC V24, CMS/HCC V28) documented in this encounter Care Teams Chemistry Account Manager Relationship Specialty Start Date End Date Huang Oviedo MD [address] [place] [id number] PCP - General Internal Medicine 03/10/24 documented as of this encounter
--- OUTSIDE RECORDS SUMMARY | 2025-03-21 12:38 | XMS_ITS | Encounter Summary ---
Author Organization [facility] Address [address] [place] [address] Care Team Providers Care Silo Worker Name Role Phone Huang Oviedo MD Primary Care Provider [phone] Encounter Details Date Type Department Care Team (Late st Contact Info) Description 02/27/2025 Lab Requisition [facility] - Main Lab [address] [facility] [place] [address] Yola Linares MD [address] [place], [place] [phone] Altered mental status, unspecified; Essential (primary) hypertension; Anemia, unspecified; Chronic embolism and thrombosis of unspecified vein; Vitamin D deficiency, unspecified Social History Tobacco [...] Diagnosis Comments PROTHROMBIN TIME WITH INR Routine 03/02/2025 5:56 [...] of unspecified vein Vitamin D deficiency, unspecified documented in this encounter Results * (ABNORMAL) Prothrombin time with INR (03/02/2025 5:56 AM EST) Protime 30.4(H) 10.6 - 13.9 sec LAB COAGULATION METHOD 03/02/2025 12:13 PM EST [facility] LAB INR 2.5 LAB COAGULATION METHOD 03/02/2025 12:13 PM [facility] LAB Blood Venous blood specimen / Unknown Venipuncture / Unknown 03/02/2025 5:56 AM EST 03/02/2025 11:35 AM EST Yola Linares MD LAB BLOOD ORDERABLES Final Resul t [facility] LAB [address] [place] [address], * Basic metabolic panel (03/02/2025 5:56 AM EST) Pathologist [facility] Sodium 141 133 - 145 mmol/L LAB CHEMISTRY METHOD 03/02/2025 1:15 PM [facility] LAB Potassium 4.7 3.5 - 5.5 mmol/L LAB CHEMISTRY METHOD 03/02/2025 1:15 PM [facility] Chloride 109 96 - 110 mmol/L LAB CHEMISTRY METHOD 03/02/2025 1:15 PM [facility] CO2 21 21 - 32 mmol/L LAB CHEMISTRY METHOD 03/02/2025 1:15 PM [facility] LAB Anion Gap 11 3 - 11 LAB CHEMISTRY METHOD 03/02/2025 1:15 PM [facility] LAB Glucose 85 70 - 100 mg/dL LAB CHEMISTRY METHOD 03/02/2025 1:15 PM [facility] BUN 15 5 - 25 mg/dL LAB CHEMISTRY METHOD 03/02/2025 1:15 PM [facility] Creatinine 0.70 0.50 - 1.10 mg/dL LAB CHEMISTRY METHOD 03/02/2025 1:15 PM EST [facility] LAB eGFR 86 >=60 mL/min/1. 73m2 LAB CHEMISTRY METHOD 03/02/2025 1:15 PM [facility] LAB Comment:Calculation based on the Chronic Kidney Disease Epidemiology Collaboration (CKD-EPI) equation refit without adjustment for race. BUN/Creatinine Ratio 21.4 LAB CHEMISTRY METHOD 03/02/2025 1:15 PM [facility] LAB Calcium 8.9 8.5 - 10.5 mg/dL LAB CHEMISTRY METHOD 03/02/2025 1:15 PM [facility] LAB Blood Venous blood specimen / Unknown Venipuncture / Unknown 03/02/2025 5:56 AM EST 03/02/2025 11:35 AM EST us Yola Linares MD LAB BLOOD ORDERABLES Final Resul t [facility] LAB [address] [place] [address], * (ABNORMAL) Complete blood count (03/02/2025 5:56 AM EST) WBC 8.2 4.8 - 10.8 K/mcL LAB HEMETOLOGY METHOD 03/02/2025 12:21 PM [facility] RBC 4.20 3.80 - 4.80 M/mcL LAB HEMETOLOGY METHOD 03/02/2025 12:21 PM [facility] Hemoglobin 13.9 11.5 - 16.0 g/dL LAB HEMETOLOGY METHOD 03/02/2025 12:21 PM [facility] Hematocrit 43.0 35.0 - 47.0 % LAB HEMETOLOGY METHOD 03/02/2025 12:21 PM [facility] MCV 103.6(H) 79.0 - 98.0 FL LAB HEMETOLOGY METHOD 03/02/2025 12:21 PM EST [facility] LAB MCH 33.5(H) 27.0 - 32.0 pcg LAB HEMETOLOGY METHOD 03/02/2025 12:21 PM [facility] MCHC 32.3 32.0 - 37.0 g/dL LAB HEMETOLOGY METHOD 03/02/2025 12:21 PM [facility] RDW 13.0 11.0 - 15.0 % LAB HEMETOLOGY METHOD 03/02/2025 12:21 PM [facility] Platelets 239 130 - 400 K/mcL LAB HEMETOLOGY METHOD 03/02/2025 12:21 PM [facility] MPV 11.5(H) 7.0 - 11.0 FL LAB HEMETOLOGY METHOD 03/02/2025 12:21 PM [facility] NRBC 0.0 <1.0 % LAB HEMETOLOGY METHOD 03/02/2025 12:21 PM [facility] NRBC Absolute 0.00 <0.10 K/mcL LAB HEMETOLOGY METHOD 03/02/2025 12:21 PM [facility] Blood Venous blood specimen / Unknown Venipuncture / Unknown 03/02/2025 5:56 AM EST 03/02/2025 11:35 AM EST us Yola Linares MD LAB BLOOD ORDERABLES Final Resul t [facility] LAB [address] [place] [address], documented in this encounter Visit Diagnoses Diagnosis Altered mental status, unspecified Essential (primary) hypertension Unspecified essential hypertension Anemia, unspecified Chronic embolism and thrombosis of unspecified vein Vitamin D deficiency, unspecified documented in this encounter Care Teams Silo Worker Relationship Specialty Start Date End Date Huang Oviedo MD [address] [place] [address] PCP - General Internal Medicine 03/10/24 documented as of this encounter
--- OUTSIDE RECORDS SUMMARY | 2025-03-21 12:38 | XMS_ITS | Encounter Summary ---
Author Organization [facility] Address [address] [place] [address] Care Team Providers Care Electrical Timing Device Calibrator Name Role Phone Huang Oviedo MD Primary Care Provider [phone] Encounter Details Date Type Department Care Team (Late st Contact Info) Description 07/04/[address] [facility] - Main Lab [address] [facility] [place] [address] Yola Linares MD [address] [place], [place] [phone] Essential (primary) hypertension; Unspecified atrial fibrillation (CMS/HCC [...] CBC auto differential (07/04/2024 6:26 AM EDT) [facility] WBC 6.4 4.8 - 10.8 K/[facility] LAB HEMETOLOGY METHOD 07/04/2024 11:10 AM EDT [facility] LAB RBC 3.90 3.80 - 4.80 M/[facility] LAB HEMETOLOGY METHOD 07/04/2024 11:10 AM [facility] LAB Hemoglobin 13.3 11.5 - 16.0 g/dL LAB HEMETOLOGY METHOD 07/04/2024 11:10 AM [facility] LAB Hematocrit 40.8 35.0 - 47.0 % LAB HEMETOLOGY METHOD 07/04/2024 11:10 AM [facility] LAB MCV 104.3(H) 79.0 - 98.0 FL LAB HEMETOLOGY METHOD 07/04/2024 11:10 AM [facility] LAB MCH 34.0(H) 27.0 - 32.0 pcg LAB HEMETOLOGY METHOD 07/04/2024 11:10 AM [facility] LAB MCHC 32.6 32.0 - 37.0 g/dL LAB HEMETOLOGY METHOD 07/04/2024 11:10 AM [facility] LAB RDW 13.4 11.0 - 15.0 % LAB HEMETOLOGY METHOD 07/04/2024 11:10 AM [facility] LAB Platelets 211 130 - 400 K/mcL LAB HEMETOLOGY METHOD 07/04/2024 11:10 AM [facility] LAB MPV 11.7(H) 7.0 - 11.0 FL LAB HEMETOLOGY METHOD 07/04/2024 11:10 AM [facility] LAB NRBC 0.0 <1.0 % LAB HEMETOLOGY METHOD 07/04/2024 11:10 AM [facility] LAB NRBC Absolute 0.00 <0.10 K/mcL LAB HEMETOLOGY METHOD 07/04/2024 11:10 AM [facility] LAB Neutrophils Relative 55.2 % LAB HEMETOLOGY METHOD 07/04/2024 11:10 AM [facility] Lymphocytes Relative 33.2 % LAB [facility]OLOG[facility]24 [facility] Monocytes Relative 7.0 % LAB HEMETOLOGY METHOD 07/04/2024 11:10 AM EDT [facility] Eosinophils Relative 3.6 % LAB HEMETOLOGY METHOD 07/04/2024 11:10 AM [facility] Basophils Relative 0.8 % LAB HEMETOLOGY METHOD 07/04/2024 11:[facility] Immature Granulocytes Relative 0.2 % LAB HEMETOLOGY METHOD 07/04/2024 11:10 [facility] Neutrophils Absolute 3.55 1.50 - 7.00 K/mcL LAB HEMETOLOGY METHOD 07/04/2024 11:10 AM [facility] Lymphocytes Absolute 2.13 1.00 - 5.00 K/mcL LAB HEMETOLOGY METHOD 07/04/2024 11:10 AM [facility] Monocytes Absolute 0.45 0.20 - 1.00 K/mcL LAB HEMETOLOGY METHOD 07/04/2024 11:10 AM [facility] Eosinophils Absolute 0.23 0.00 - 0.50 K/mcL LAB HEMETOLOGY METHOD 07/04/2024 11:10 AM [facility] Basophils Absolute 0.05 0.00 - 0.20 K/mcL LAB HEMETOLOGY METHOD 07/04/2024 11:10 AM [facility] LAB Immature Granulocytes Absolute 0.01 0.00 - 0.03 K/mcL LAB HEMETOLOGY METHOD 07/04/2024 11:10 AM [facility] LAB Blood Venous blood specimen / Unknown Venipuncture / Unknown 07/04/2024 6:26 AM EDT 07/04/2024 10:49 AM EDT Yola Linares MD LAB BLOOD ORDERABLES Final Resul t [facility] LAB [address] [place] [address], [place] [phone] * Folate (07/04/2024 6:26 AM EDT) Folate 9.9 2.8 - 17.0 ng/ml LAB CHEMISTRY METHOD 07/04/2024 12:01 PM EDT [facility] Blood Venous blood specimen / Unknown Venipuncture / Unknown 07/04/2024 6:26 AM EDT 07/04/2024 10:49 AM EDT us Yola Linares MD LAB BLOOD ORDERABLES Final Resul t Performing Organization Address [facility] Co de Phone Number [facility] [address] [place] [address], [place] [phone] * Vitamin D 25 hydroxy (07/04/2024 6:26 AM EDT) Pathologist [facility] Vit D, 25-Hydroxy 30.6 30.0 - 80.0 ng/mL LAB CHEMISTRY METHOD 07/04/2024 11:48 AM EDT [facility] Blood Venous blood specimen / Unknown Venipuncture / Unknown 07/04/2024 6:26 AM EDT 07/04/2024 10:49 AM EDT us Yola Linares MD LAB BLOOD ORDERABLES Final Resul t Performing Organization Address City/[facility]/ZIP Co de Phone Number [facility] [address] [place] [address], [place] [phone] * Vitamin B12 (07/04/2024 6:26 AM EDT) Pathologist [facility] Vitamin B-12 785 250 - 900 pcg/mL LAB CHEMISTRY METHOD 07/04/2024 12:01 PM EDT [facility] Blood Venous blood specimen / Unknown Venipuncture / Unknown 07/04/2024 6:26 AM EDT 07/04/2024 10:49 AM EDT us Yola Linares MD LAB BLOOD ORDERABLES Final Resul t Performing Organization Address City/[facility]/ZIP Co de Phone Number [facility] [address] [place] [address], [place] [phone] * (ABNORMAL) Lipid panel with reflex to direct LDL (07/04/2024 6:26 AM EDT) Cholesterol 161 0 - 200 mg/dL LAB CHEMISTRY METHOD 07/04/2024 11:40 AM EDT [facility] Triglycerides 217(H) 0 - 150 mg/dL LAB CHEMISTRY METHOD 07/04/2024 11:40 AM EDT [facility] HDL 31(L) >=40 mg/dL LAB CHEMISTRY METHOD 07/04/2024 11:40 AM EDT [facility] LDL Calculated 87 0 - 100 mg/dL LAB CHEMISTRY METHOD 07/04/2024 11:40 AM EDT [facility] VLDL Cholesterol Rupesh 43.4 mg/dL LAB CHEMISTRY METHOD 07/04/2024 11:40 AM T [facility] Non HDL Chol. (LDL+VLDL) 130 <145 mg/dL LAB CHEMISTRY METHOD 07/04/2024 11:40 AM EDT [facility] Chol/HDL Ratio 5.2(H) 0.0 - 4.4 LAB CHEMISTRY METHOD 07/04/2024 11:40 AM T [facility] Blood Venous blood specimen / Unknown Venipuncture / Unknown 07/04/2024 6:26 AM EDT 07/04/2024 10:49 AM EDT us Yola Linares MD LAB BLOOD ORDERABLES Final Resul t [facility] [address] [place] [address], [place] [phone] * Comprehensive metabolic panel (07/04/2024 6:26 AM EDT) Sodium 141 133 - 145 mmol/L LAB CHEMISTRY METHOD 07/04/2024 11:40 AM [facility] Potassium 4.2 3.5 - 5.5 mmol/L LAB CHEMISTRY METHOD 07/04/2024 11:40 AM [facility] Chloride 108 96 - 110 mmol/L LAB CHEMISTRY METHOD 07/04/2024 11:40 AM [facility] CO2 26 21 - 32 mmol/L LAB CHEMISTRY METHOD 07/04/2024 11:40 AM [facility] Anion Gap 7 3 - 11 LAB CHEMISTRY METHOD 07/04/2024 11:40 AM [facility] Glucose 92 70 - 100 mg/dL LAB CHEMISTRY METHOD 07/04/2024 11:40 AM [facility] BUN 13 5 - 25 mg/dL LAB CHEMISTRY METHOD 07/04/2024 11:40 AM [facility] Creatinine 0.76 0.50 - 1.10 mg/dL LAB CHEMISTRY METHOD 07/04/2024 11:40 AM [facility] LAB eGFR 79 >=60 mL/min/1. 73m2 LAB CHEMISTRY METHOD 07/04/2024 11:40 AM [facility] Comment:Calculation based on the Chronic Kidney Disease Epidemiology Collaboration (CKD-EPI) equation refit without adjustment for race. BUN/Creatinine Ratio 17.1 LAB CHEMISTRY METHOD 07/04/2024 11:40 AM [facility] Calcium 9.0 8.5 - 10.5 mg/dL LAB CHEMISTRY METHOD 07/04/2024 11:40 AM [facility] AST (SGOT) 20 10 - 42 unit/L LAB CHEMISTRY METHOD 07/04/2024 11:40 AM [facility] ALT (SGPT) 23 10 - 60 unit/L LAB CHEMISTRY METHOD 07/04/2024 11:40 AM EDT [facility] Alkaline Phosphatase 77 42 - 121 unit/L LAB CHEMISTRY METHOD 07/04/2024 11:40 AM EDT [facility] Total Protein 6.1 6.0 - 8.0 g/dL LAB CHEMISTRY METHOD 07/04/2024 11:40 AM EDT [facility] Albumin 3.3 3.2 - 5.0 g/dL LAB CHEMISTRY METHOD 07/04/2024 11:40 AM EDT [facility] Total Bilirubin 0.5 0.0 - 1.4 mg/dL LAB CHEMISTRY METHOD 07/04/2024 11:40 AM EDT [facility] Blood Venous blood specimen / Unknown Venipuncture / Unknown 07/04/2024 6:26 AM EDT 07/04/2024 10:49 AM EDT us Yola Linares MD LAB BLOOD ORDERABLES Final Resul t Performing Organization Address City/[facility]/ZIP Co de Phone Number [facility] [address] [place] [address], [place] [phone] * Prothrombin time with INR (07/04/2024 6:26 AM EDT) Protime 13.6 10.6 - 13.9 sec LAB COAGULATION METHOD 07/04/2024 11:22 AM EDT [facility] INR 1.1 LAB COAGULATION METHOD 07/04/2024 11:22 AM EDT [facility] Blood Venous blood specimen / Unknown Venipuncture / Unknown 07/04/2024 6:26 AM EDT 07/04/2024 10:49 AM EDT us Yola Linares MD LAB BLOOD ORDERABLES Final Resul t [facility] LAB [address] [place] [address], documented in this encounter Visit Diagnoses Diagnosis Essential (primary) hypertension Unspecified essential hypertension Unspecified atrial fibrillation (CMS/HCC V24, CMS/[facility] V28) Vitamin D deficiency, unspecified Weakness Other malaise and fatigue Hyperlipidemia, unspecified Vitamin B12 deficiency anemia, unspecified documented in this encounter Care Teams Electrical Timing Device Calibrator Relationship Specialty Start Date End Date Huang Oviedo MD [address] [place] [address] PCP - General Internal Medicine 03/10/24 documented as of this encounter
--- OUTSIDE RECORDS SUMMARY | 2025-03-21 12:38 | XMS_ITS | Encounter Summary ---
Author Organization [facility] Address [address] [place] [address] Care Team Providers Care Front Clerk Name Role Phone Mani Nation MD Primary Care Provider [phone] Reason for Visit * Reason Onset Date Comments new issue 08/02/2020 Encounter Details Date Type Department Care Team (Late st Contact Info) Description 08/02/2020 Telephone [facility] [address] [place] [address] Telephone Intake, Staff new issue Social History [...] EDT Patient seen by Dr. Brooks at [address] [place] [address] previously for tremors. Patient now calling to schedule an appt for limb numbness/neuropathy. Says sometimes she feels like her leg is not there, and alsoher arm. Per DT new issue send TE. Patient cbr at [phone]. documented in this encounter Plan of Treatment Upcoming Encounters Date Type Department Care Team (Late st Contact Info) Description 05/08/2025 2:15 PM EST Appointment [facility] [address] [place] [address] Wing Jeffery MD PhD [address] [place] [address] Scheduled Procedures Name Priority Associated Diagnoses Date/Ti [...] documented as of this encounter Care Teams Front Clerk Relationship Specialty Start Date End Date Mani Nation MD [address] [place] [address], [address] [place] [address] PCP - General 11/09/16 documented as of this encounter
--- OUTSIDE RECORDS SUMMARY | 2025-03-21 12:38 | XMS_ITS | Encounter Summary ---
Author Organization [facility] Address [address] [place] [address] Care Team Providers Care Mail Delivery Supervisor Name Role Phone Huang Oviedo MD Primary Care Provider [phone] Encounter Details Date Type Department Care Team (Late st Contact Info) Description 11/15/2024 Lab Requisition [facility] - Main Lab [address] [facility] [place] [address] Yola Linares MD [address] [place], [place] [phone] Unspecified atrial fibrillation (CMS/HCC V24, CMS/HCC V28) [...] sec LAB COAGULATION METHOD 11/17/2024 11:04 AM [facility] LAB INR 1.8 LAB COAGULATION METHOD 11/17/2024 11:04 AM [facility] LAB Blood Venous blood specimen / Unknown Venipuncture / Unknown 11/17/2024 6:11 AM EDT 11/17/2024 10:14 AM EDT Yola Linares MD LAB BLOOD ORDERABLES Final Resul t Performing Organization Address City/[facility]/ZIP Co de Phone Number [facility] ([facility]) [facility] LAB [address] [place] [address], documented in this encounter Visit Diagnoses Diagnosis Unspecified atrial fibrillation (CMS/HCC V24, CMS/HCC V28) documented in this encounter Care Teams Mail Delivery Supervisor Relationship Specialty Start Date End Date Huang Oviedo MD [address] [place] [address] PCP - General Internal Medicine 03/10/24 documented as of this encounter
--- OUTSIDE RECORDS SUMMARY | 2025-03-21 12:38 | XMS_ITS | Encounter Summary ---
Author Organization [facility] Address [address] [place] [address] Phone Care Team Providers Care Mail Processor Name Role Phone Mani Nation MD Primary Care Provider [phone] Vero Marshall RN Unavailable [email or web address] Mirian Locke RN Unavailable Vanessa Malik Unavailable [email or web address] Naila Brandt RN Unavailable [phone] Encounter Details Date Type Department Care Team (Latest Contact Info) Description 02/20/2022 Transcribe Orders [facility] Main [address] [place] [address] Yeni Rosen MD [address] [place] [address] Diarrhea, unspecified type (Primary Dx) Social History [...] documented as of this encounter Care Teams Mail Processor Relationship Specialty Start Date End Date Mani Nation MD [address] [facility], [address] [place] [address] [email or web address] PCP - General 02/08/17 Vero Marshall, FLORES [address] [place] [address], [address] [place] [address] [email or web address] PHCM Private Tutors And Teachers 04/09/19 Mirian Locke RN [address] [place] [address] Registered Nurse 10/16/22 Vanessa Malik [address] [place] [address] [email or web address] PHCM Community Engine Lathe Set Up Operator 06/12/24 06/12/24 Naila Brandt, FLORES [address] [place] [address] [phone] PHCM Private Tutors And TeachersAmbulance Mechanic 12/25/24 02/08/25 documented as of this encounter Additional Source Comments The information contained in this document represents components of the legal health record. It is not the complete legal health record.[facility]
--- OUTSIDE RECORDS SUMMARY | 2025-03-21 12:38 | XMS_ITS | Encounter Summary ---
Author Organization [facility] Address [address] [place] [address] Care Team Providers Care Parimutuel Cashier Name Role Phone Mani Nation MD Primary Care Provider [phone] Encounter Details Date Type Department Care Team (Late Contact Info) Description 01/16/2023 myChart Message [facility] Interventional Lab [address] [place] [address] Wing Jeffery MD PhD [address] [place] [address] Your Recent Visit Social History Tobacco Use [...] Info) Description 05/08/2025 2:15 PM EST Appointment [facility] Heart Station [address] [place] [address] Wing Jeffery MD PhD [address] [place] [address] Scheduled Procedures Name Priority Associated Diagnoses Date/Ti me COLONOSCOPY SCREENING, HIGH RISK WITH POSSIBLE MODERATE SEDATION Diarrhea, unspecified type documented as of this encounter Visit Diagnoses Not on filedocumented in this encounter Care Teams Parimutuel Cashier Relationship Specialty Start Date End Date Mani Nation MD [address] [place] [address], [address] [place] [address] PCP - General 11/09/16 documented as of this encounter
--- OUTSIDE RECORDS SUMMARY | 2025-03-21 12:38 | XMS_ITS | Encounter Summary ---
Author Organization [facility] Address [address] [facility] [address] [place] [address] Phone Care Team Providers Care Guide Dog Trainer Name Role Phone Mani Nation MD Primary Care Provider [phone] Mirian Locke RN Unavailable [phone] Reason for Visit * Reason Onset Date Comments TCM Visit 03/13/2025 Encounter Details Date Type Department Care Team (Late st Contact Info) Description 03/13/2025 Telephone [facility] [address] [place] [address] Sierra Mcconnell, FLORES [address] [place] [address] [email or web address] TCM Visit Social History Tobacco Use Types Packs/Day [...] as of this encounter Progress Notes * Karely Stockton LPN - 03/16/2025 11:05 AM EST Pt s/p weakness and bi-lat hip pain. Pt's spouse reports Rita can not come to the phone and he had just had dental surgery and could not speak (inaudible) requests call back later to schedule TCM, and do med rec. * Sierra Mcconnell RN - 03/13/2025 12:30 PM EST Mckenna TANNER from [facility] requesting and given verbal ok to resume in home nursing PT, and OT services She was in rehab from 02/20 until d/c'd home yesterday. She will need to be scheduled for a TCM, to supervisor steno pool for set up documented in this encounter Plan of Treatment Not on file documented as of this encounter Visit Diagnoses Not on filedocumented in this encounter Additional Health Concerns Assessment Noted Time PHQ-2 Depression Total Score: 0 12/14/19 22 11:15 AM EDT documented as of this encounter Care Teams Guide Dog Trainer Relationship Specialty Start Date End Date Mani Nation MD [address] [place] [address], [address] [id number] [email or web address] PCP - General 02/08/17 Mirian Locke RN [address] [place] [address] [email or web address] Registered Nurse 10/16/22 documented as of this encounter Additional Source Comments The information contained in this document represents components of the legal health record. It is not the complete legal health record.[facility]
--- OUTSIDE RECORDS SUMMARY | 2025-03-21 12:38 | XMS_ITS | Encounter Summary ---
Author Organization [facility] Address [address] [place] [address] Care Team Providers Care Electronic Die Maker Name Role Phone Mani Nation MD Primary Care Provider [phone] Encounter Details Date Type Department Care Team (Late Contact Info) Description 04/09/2023 [employer] Message [facility] [employer] [address] [place] [address] JEDI MIND, Generic Provider [address] [place], [place] [id number] Payment Agreement Social History Tobacco Use Types [...] Info) Description 05/08/2025 2:15 PM EST Appointment [facility] Heart Station [address] [place] [address] Wing Jeffery MD PhD 55 [place] [address] Scheduled Procedures Name Priority Associated Diagnoses Date/Ti me COLONOSCOPY SCREENING, HIGH RISK WITH POSSIBLE MODERATE SEDATION Diarrhea, unspecified type documented as of this encounter Visit Diagnoses Not on filedocumented in this encounter Care Teams Electronic Die Maker Relationship Specialty Start Date End Date Mani Nation MD [address] [place] [address], [address] [place] [address] PCP - General 11/09/16 documented as of this encounter
--- OUTSIDE RECORDS SUMMARY | 2025-03-21 12:38 | XMS_ITS | Encounter Summary ---
Author Organization [facility] Address [address] [place] [address] Care Team Providers Care Asbestos Cement Sheet Supervisor Name Role Phone Mani Nation MD Primary Care Provider [phone] Encounter Details Date Type Department Care Team (Late Contact Info) Description 09/05/2023 [employer] Message [facility] - Actionable Findings [address] [place] [address] Spectraseis, Generic Provider [phone] Follow Up CT Incidental Finding Social History [...] Info) Description 05/08/2025 2:15 PM EST Appointment [facility] Heart Station [address] [place] [address] Wing Jeffery MD PhD [address] [place] [address] Scheduled Procedures Name Priority Associated Diagnoses Date/Ti me COLONOSCOPY SCREENING, HIGH RISK WITH POSSIBLE MODERATE SEDATION Diarrhea, unspecified type documented as of this encounter Visit Diagnoses Not on filedocumented in this encounter Care Teams Asbestos Cement Sheet Supervisor Relationship Specialty Start Date End Date Mani Nation MD [address] [place] [address], [address] [place] [address] PCP - General 11/09/16 documented as of this encounter
--- OUTSIDE RECORDS SUMMARY | 2025-03-21 12:38 | XMS_ITS | Encounter Summary ---
Author Organization [facility] Address [address] [place] [address] Care Team Providers Care Nail Sticker Name Role Phone Huang Oviedo MD Primary Care Provider [phone] Encounter Details Date Type Department Care Team (Late st Contact Info) Description 07/16/2024 Lab Requisition [facility] - Main Lab [address] [facility] [place] [address] Yola Linares MD [address] [place], [place] [phone] Unspecified atrial fibrillation (CMS/HCC V24, CMS/HCC V28) [...] sec LAB COAGULATION METHOD 07/16/2024 10:24 AM [facility] LAB INR 1.7 LAB COAGULATION METHOD 07/16/2024 10:24 AM [facility] LAB Blood Venous blood specimen / Unknown Venipuncture / Unknown 07/16/2024 6:25 AM EDT 07/16/2024 9:44 AM EDT us Yola Linares MD LAB BLOOD ORDERABLES Final Resul t [facility] ([facility]) [facility] [address] [place] [address], documented in this encounter Visit Diagnoses Diagnosis Unspecified atrial fibrillation (CMS/HCC V24, CMS/HCC V28) documented in this encounter Care Teams Nail Sticker Relationship Specialty Start Date End Date Huang Oviedo MD [address] [place] [address] PCP - General Internal Medicine 03/10/24 documented as of this encounter
--- OUTSIDE RECORDS SUMMARY | 2025-03-21 12:38 | XMS_ITS | Encounter Summary ---
Author Organization [facility] Address [address] [place] [address] Care Team Providers Care Overhead Garage Door Hanger Name Role Phone Huang Oviedo MD Primary Care Provider [phone] Encounter Details Date Type Department Care Team (Late st Contact Info) Description 11/21/2024 Lab Requisition [facility] - Main Lab 299 [facility] [place] [address] Yola Linares MD [address] [place], [place] [phone] shelter (current) use of anticoagulants Social History Tobacco [...] WITH INR Routine 11/21/2024 6:03 AM EDT remote computer terminal operator (current) use of anticoagulants documented in this encounter Results * (ABNORMAL) Prothrombin time with INR (11/21/2024 6:03 AM EDT) Protime 14.5(H) 10.6 - 13.9 sec LAB COAGULATION METHOD 11/21/2024 11:58 AM EDT [facility] LAB INR 1.2 LAB COAGULATION METHOD 11/21/2024 11:58 AM T [facility] LAB Blood Venous blood specimen / Unknown Venipuncture / Unknown 11/21/2024 6:03 AM EDT 11/21/2024 10:52 AM EDT us Yola Linares MD LAB BLOOD ORDERABLES Final Resul t [facility] ([facility]) [facility] LAB [address] [place] [address], [place] [phone] documented in this encounter Visit Diagnoses Diagnosis shelter (current) use of anticoagulants Long-term (current) use of anticoagulants documented in this encounter Care Teams Overhead Garage Door Hanger Relationship Specialty Start Date End Date Huang Oviedo MD [address] [place] [address] PCP - General Internal Medicine 03/10/24 documented as of this encounter
--- OUTSIDE RECORDS SUMMARY | 2025-03-21 12:38 | XMS_ITS | Encounter Summary ---
Author Organization [facility] Address [address] [place] [address] Care Team Providers Care Fish Cutter Name Role Phone Huang Oviedo MD Primary Care Provider Encounter Details Date Type Department Care Team (Late st Contact Info) Description 11/04/2024 Lab Requisition [facility] - Main Lab [address] [facility] [place] [address] Yola Linares MD [address] [place], [place] [phone] Unspecified atrial fibrillation (CMS/HCC V24, CMS/HCC V28) [...] sec LAB COAGULATION METHOD 11/05/2024 9:25 AM [facility] LAB INR 1.3 LAB COAGULATION METHOD 11/05/2024 9:25 AM [facility] LAB Blood Venous blood specimen / Unknown Venipuncture / Unknown 11/05/2024 6:44 AM EDT 11/05/2024 9:02 AM EDT Yola Linares MD LAB BLOOD ORDERABLES Final Resul t Performing Organization Address City/[facility]/ZIP Co de Phone Number [facility] ([facility]) [facility] LAB [address] [place] [address], documented in this encounter Visit Diagnoses Diagnosis Unspecified atrial fibrillation (CMS/HCC V24, CMS/HCC V28) documented in this encounter Care Teams Fish Cutter Relationship Specialty Start Date End Date Huang Oviedo MD [address] [place] [address] PCP - General Internal Medicine 03/10/24 documented as of this encounter
--- OUTSIDE RECORDS SUMMARY | 2025-03-21 12:38 | XMS_ITS | Encounter Summary ---
Author Organization [facility] Address [address] [facility] [address] [place] [address] Phone Care Team Providers Care Colorer Hides And Skins Name Role Phone Mani Nation MD Primary Care Provider Mirian Locke RN Unavailable [phone] Encounter Details Date Type Department Care Team (Late st Contact Info) Description 03/18/2025 Telephone [facility] [address] [place] [address] [place] [address] Mirian Locke RN [address] [place], [place] [phone] [email or web address] Social History Tobacco Use Types Packs/Day Years [...] as of this encounter Progress Notes * Mirian Locke RN - 03/18/2025 2:08 PM EST Phone call to Jose Armando reminding him Serjio is due for INR testing. Jose Armando is overwhelmed caring for Serjio. He will test early next week. documented in this encounter Plan of Treatment Not on file documented as of this encounter Visit Diagnoses Diagnosis Atrial fibrillation- Primary documented in this encounter Additional Health Concerns Assessment Noted Time PHQ-2 Depression Total Score: 0 12/14/19 22 11:15 AM EDT documented as of this encounter Care Teams Colorer Hides And Skins Relationship Specialty Start Date End Date Mani Nation MD [address] [place] [address], [address] [place] [address] PCP - General 02/08/17 Mirian Locke RN [address] [place] [address] Registered Nurse 10/16/22 documented as of this encounter Additional Source Comments The information contained in this document represents components of the legal health record. It is not the complete legal health record.[facility]
--- OUTSIDE RECORDS SUMMARY | 2025-03-21 12:38 | XMS_ITS | Encounter Summary ---
Author Organization [facility] Address [address] [place] [address] Care Team Providers Care Supervisor Residential Name Role Phone Huang Oviedo MD Primary Care Provider [phone] Encounter Details Date Type Department Care Team (Late st Contact Info) Description 11/24/2024 Lab Requisition [facility] - Main Lab [address] [facility] [place] [address] Yola Linares MD [address] [place], [place] [phone] Unspecified atrial fibrillation (CMS/HCC V24, CMS/HCC V28) [...] sec LAB COAGULATION METHOD 11/24/2024 12:00 PM [facility] LAB INR 1.2 LAB COAGULATION METHOD 11/24/2024 12:00 PM [facility] LAB Blood Venous blood specimen / Unknown Venipuncture / Unknown 11/24/2024 10:24 AM EDT 11/24/2024 11:29 AM EDT Yola Linares MD LAB BLOOD ORDERABLES Final Resul t Performing Organization Address City/[facility]/ZIP Co de Phone Number [facility] ([facility]) [facility] LAB [address] [place] [address], documented in this encounter Visit Diagnoses Diagnosis Unspecified atrial fibrillation (CMS/HCC V24, CMS/HCC V28) documented in this encounter Care Teams Supervisor Residential Relationship Specialty Start Date End Date Huang Oviedo MD [address] [place] [address] PCP - General Internal Medicine 03/10/24 documented as of this encounter
--- OUTSIDE RECORDS SUMMARY | 2025-03-21 12:38 | XMS_ITS | Encounter Summary ---
Author Organization [facility] Address [address] [place] [address] Care Team Providers Care Coater Slate Name Role Phone Mani Nation MD Primary Care Provider [phone] Reason for Visit * Reason Onset Date Comments Needs f/u with Dr Fox after PFT 01/25/2021 Encounter Details Date Type Department Care Team (Late st Contact Info) Description 01/25/2021 Telephone [facility] Central Scheduling Department [address] [place] [address] Telephone Intake, Staff Needs f/u with Dr [...] not populate. She can be reached at [phone] documented in this encounter Plan of Treatment Upcoming Encounters Date Type Department Care Team (Late st Contact Info) Description 05/08/2025 2:15 PM EST Appointment [facility] Heart Station [address] [place] [address] Wing Jeffery MD PhD [address] [place] [address] Scheduled Procedures Name Priority Associated Diagnoses Date/Ti [...] documented as of this encounter Care Teams Coater Slate Relationship Specialty Start Date End Date Mani Nation MD [address] [place] [address], [address] [place] [address] PCP - General 11/09/16 documented as of this encounter
--- OUTSIDE RECORDS SUMMARY | 2025-03-21 12:38 | XMS_ITS | Encounter Summary ---
Author Organization [facility] Address [address] [facility] [address] [place] [address] Phone Care Team Providers Care Regional Owner Operator Truck Driver Name Role Phone Mani Nation MD Primary Care Provider [phone] Mirian Locke RN Unavailable [phone] Encounter Details Date Type Department Care Team (Late st Contact Info) Description 03/17/2025 Telephone [facility] [address] [place] [address] Mirian Locke RN 30 [place] [address] [email or web address] Social History Tobacco Use Types Packs/Day Years [...] Progress Notes * Mirian Locke RN - 03/17/2025 2:22 PM EST Phone call to Serjio's to remind him Serjio is due for INR testing. No answer and no voice mail. I will try again tomorrow. documented in this encounter Plan of Treatment Not on file documented as of this encounter Visit Diagnoses Diagnosis Atrial fibrillation- Primary documented in this encounter Additional Health Concerns Assessment Noted Time PHQ-2 Depression Total Score: 0 12/14/19 22 11:15 AM EDT documented as of this encounter Care Teams Regional Owner Operator Truck Driver Relationship Specialty Start Date End Date Mani Nation MD [address] [place] [address], [address] [place] [address] PCP - General 02/08/17 Mirian Locke RN [address] [place] [address] Registered Nurse 10/16/22 documented as of this encounter Additional Source Comments The information contained in this document represents components of the legal health record. It is not the complete legal health record.[facility]
--- OUTSIDE RECORDS SUMMARY | 2025-03-21 12:38 | XMS_ITS | Encounter Summary ---
Author Organization [facility] Address [address] [facility] [address] [place] [address] Phone Care Team Providers Care Marketing Proposal Coordinator Name Role Phone Mani Nation MD Primary Care Provider [phone] Mirian Locke RN Unavailable [phone] Encounter Details Date Type Department Care Team (Late st Contact Info) Description 02/19/2025 Orders Only [facility] [address] [place] [address] Provider, MD Tricia [address] [place] [address] Social History Tobacco Use Types Packs/Day Years [...] Procedure Name Priority Date/Time Associated Diagnosis Comments OUTSIDE IMAGING Routine 02/18/2025 2:30 PM EDT OUTSIDE IMAGING Routine 02/18/2025 2:29 PM EDT documented in this encounter Results * Outside Imaging Report Only (02/18/2025 2:30 PM EDT) Historical Provider MD NIEVES XR CHEST Edited Re sult - Final * Outside Imaging Report Only (02/18/2025 2:29 PM EDT) us Historical Provider MD NIEVES XR CHEST Edited Re sult - Final documented in this encounter Visit Diagnoses Not on filedocumented in this encounter Additional Health Concerns Assessment Noted Time PHQ-2 Depression Total Score: 0 12/14/19 22 11:15 AM EDT documented as of this encounter Care Teams Marketing Proposal Coordinator Relationship Specialty Start Date End Date Mani Nation MD [address] [place] [address], [address] [place] [address] PCP - General 02/08/17 Mirian Locke RN [address] [place] [address] Registered Nurse 10/16/22 documented as of this encounter Additional Source Comments The information contained in this document represents components of the legal health record. It is not the complete legal health record.[facility]
--- OUTSIDE RECORDS SUMMARY | 2025-03-21 12:38 | XMS_ITS | Encounter Summary ---
Author Organization [facility] Address [address] [place] [address] Care Team Providers Care Harvesting Supervisor Name Role Phone Huang Oviedo MD Primary Care Provider [phone] Encounter Details Date Type Department Care Team (Late st Contact Info) Description 07/17/2024 Lab Requisition [facility] - Main Lab [address] [facility] [place] [address] Yola Linares MD [address] [place], [place] [phone] Weakness; Unspecified atrial fibrillation (CMS/HCC V24, CMS/HCC [...] LAB COAGULATION METHOD 07/18/2024 11:11 AM EDT [facility] LAB INR 1.9 LAB COAGULATION METHOD 07/18/2024 11:11 AM EDT [facility] LAB Blood Venous blood specimen / Unknown Venipuncture / Unknown 07/18/2024 5:16 AM EDT 07/18/2024 10:29 AM EDT us Yola Linares MD LAB BLOOD ORDERABLES Final Resul t [facility] LAB [address] [place] [address], documented in this encounter Visit Diagnoses Diagnosis Weakness Other malaise and fatigue Unspecified atrial fibrillation (CMS/HCC V24, CMS/HCC V28) Unspecified dementia, unspecified severity, without behavioral disturbance, psychotic disturbance, mood disturbance, and anxiety (CMS/HCC V24, CMS/HCC V28) documented in this encounter Care Teams Harvesting Supervisor Relationship Specialty Start Date End Date Huang Oviedo MD [address] [place] [address] PCP - General Internal Medicine 03/10/24 documented as of this encounter
--- OUTSIDE RECORDS SUMMARY | 2025-03-21 12:38 | XMS_ITS | Encounter Summary ---
Author Organization [facility] Address [address] [place] [address] Care Team Providers Care Nurse Clinical Name Role Phone Huang Oviedo MD Primary Care Provider [phone] Encounter Details Date Type Department Care Team (Late st Contact Info) Description 07/19/2024 Lab Requisition [facility] - Main Lab [address] [facility] [place] [address] Yola Linares MD [address] [place], [place] [id number] Weakness; Unspecified atrial fibrillation (CMS/HCC V24, CMS/HCC [...] V28) documented in this encounter Care Teams Nurse Clinical Relationship Specialty Start Date End Date Huang Oviedo MD [address] [place] [address] PCP - General Internal Medicine 03/10/24 documented as of this encounter
--- OUTSIDE RECORDS SUMMARY | 2025-03-21 12:38 | XMS_ITS | Encounter Summary ---
Author Organization [facility] Address [address] [place] [address] Care Team Providers Care Special Education Paraprofessional Name Role Phone Huang Oviedo MD Primary Care Provider [phone] Encounter Details Date Type Department Care Team (Late st Contact Info) Description 07/10/2024 Lab Requisition [facility] - Main Lab 299 [facility] [place] [address] Yola Linares MD [address] [place], [place] [phone] Weakness; Unspecified atrial fibrillation (CMS/HCC V24, CMS/HCC [...] LAB COAGULATION METHOD 07/11/2024 10:06 AM EDT [facility] INR 4.0 LAB COAGULATION METHOD 07/11/2024 10:06 AM [facility] Blood Venous blood specimen / Unknown Venipuncture / Unknown 07/11/2024 8:21 AM EDT 07/11/2024 9:52 AM EDT Yola Linares MD LAB BLOOD ORDERABLES Final Resul t [facility] [address] [place] [address], * (ABNORMAL) Basic metabolic panel (07/11/2024 8:21 AM EDT) Sodium 141 133 - 145 mmol/L LAB CHEMISTRY METHOD 07/11/2024 11:14 AM [facility] Potassium 4.0 3.5 - 5.5 mmol/L LAB CHEMISTRY METHOD 07/11/2024 11:14 AM [facility] Chloride 109 96 - 110 mmol/L LAB CHEMISTRY METHOD 07/11/2024 11:14 AM [facility] CO2 26 21 - 32 mmol/L LAB CHEMISTRY METHOD 07/11/2024 11:14 AM [facility] Anion Gap 6 3 - 11 LAB CHEMISTRY METHOD 07/11/2024 11:14 AM [facility] Glucose 102(H) 70 - 100 mg/dL LAB CHEMISTRY METHOD 07/11/2024 11:14 AM EDT [facility] BUN 14 5 - 25 mg/dL LAB CHEMISTRY METHOD 07/11/2024 11:14 AM EDT [facility] Creatinine 0.80 0.50 - 1.10 mg/dL LAB CHEMISTRY METHOD 07/11/2024 11:14 AM T [facility] eGFR 74 >=60 mL/min/1. 73m2 LAB CHEMISTRY METHOD 07/11/2024 11:14 AM EDT [facility] Comment:Calculation based on the Chronic Kidney Disease Epidemiology Collaboration (CKD-EPI) equation refit without adjustment for race. BUN/Creatinine Ratio 17.5 LAB CHEMISTRY METHOD 07/11/2024 11:14 AM [facility] Calcium 8.8 8.5 - 10.5 mg/dL LAB CHEMISTRY METHOD 07/11/2024 11:14 AM [facility] Blood Venous blood specimen / Unknown Venipuncture / Unknown 07/11/2024 8:21 AM EDT 07/11/2024 9:52 AM EDT us Yola Linares MD LAB BLOOD ORDERABLES Final Resul t [facility] [address] [place] [address], * (ABNORMAL) Complete blood count (07/11/2024 8:21 AM EDT) WBC 6.3 4.8 - 10.8 K/mcL LAB HEMETOLOGY METHOD 07/11/2024 10:05 AM EDT [facility] RBC 3.80 3.80 - 4.80 M/mcL LAB HEMETOLOGY METHOD 07/11/2024 10:05 AM T [facility] Hemoglobin 13.1 11.5 - 16.0 g/dL LAB HEMETOLOGY METHOD 07/11/2024 10:05 AM EDT [facility] Hematocrit 39.9 35.0 - 47.0 % LAB HEMETOLOGY METHOD 07/11/2024 10:05 AM EDT [facility] MCV 104.2(H) 79.0 - 98.0 FL LAB HEMETOLOGY METHOD 07/11/2024 10:05 AM [facility] MCH 34.2(H) 27.0 - 32.0 pcg LAB HEMETOLOGY METHOD 07/11/2024 10:05 AM EDT [facility] MCHC 32.8 32.0 - 37.0 g/dL LAB HEMETOLOGY METHOD 07/11/2024 10:05 AM [facility] RDW 13.3 11.0 - 15.0 % LAB HEMETOLOGY METHOD 07/11/2024 10:05 AM [facility] Platelets 214 130 - 400 K/mcL LAB HEMETOLOGY METHOD 07/11/2024 10:05 AM [facility] MPV 11.7(H) 7.0 - 11.0 FL LAB HEMETOLOGY METHOD 07/11/2024 10:05 AM [facility] NRBC 0.0 <1.0 % LAB HEMETOLOGY METHOD 07/11/2024 10:05 AM [facility] NRBC Absolute 0.00 <0.10 K/mcL LAB HEMETOLOGY METHOD 07/11/2024 10:05 AM [facility] Blood Venous blood specimen / Unknown Venipuncture / Unknown 07/11/2024 8:21 AM EDT 07/11/2024 9:52 AM EDT us Yola Linares MD LAB BLOOD ORDERABLES Final Resul t [facility] [address] [place] [address], [place] [phone] documented in this encounter Visit Diagnoses Diagnosis Weakness Other malaise and fatigue Unspecified atrial fibrillation ([facility] V24, [facility] V28) Unspecified dementia, unspecified severity, without behavioral disturbance, psychotic disturbance, mood disturbance, and anxiety ([facility] V24, [facility] V28) documented in this encounter Care Teams Special Education Paraprofessional Relationship Specialty Start Date End Date Huang Oviedo MD [address] [place] [id number] PCP - General Internal Medicine 03/10/24 documented as of this encounter
--- OUTSIDE RECORDS SUMMARY | 2025-03-21 12:38 | XMS_ITS | Encounter Summary ---
Author Organization [facility] Address [address] [address] Phone Care Team Providers Care Vulcanized Fiber Unit Operator Name Role Phone Mani Nation MD Primary Care Provider Mani Nation MD Unavailable [phone] Vero Marshall RN Unavailable [email or web address] Savannah Fontana Unavailable Mirian Locke RN Unavailable Vanessa Malik Unavailable [email or web address] Naila Brandt RN Unavailable [phone] Encounter Details Date Type Department Care Team (Latest Contact Info) Description 06/20/2017 Transcribe Orders [facility] Main [address] [place] [address] Ben Toth MD [address] [place] [phone] Normal pressure hydrocephalus (Primary Dx); Personal history [...] EST) PT 11.9 10.2 - 12.9 sec [facility] INR 1.0 0.9 - 1.1 [facility] Comment:Therapeutic range fo r oral Vitamin K antagonists: 2.0-3.5 Blood 06/20/2017 3:40 PM EST 06/20/2017 3:45 PM EST us Ben Toth MD LAB BLOOD BKR ORDERABLES Final Result Performing Organization Address City/[facility]/ZIP Co de Phone Number [address] [address] * (ABNORMAL) CBC (06/20/2017 3:40 PM EST) WBC 8.25 3.40 - 11.20 K/uL [facility] RBC 4.24 3.80 - 4.80 M/uL [facility] HGB 14.2 12.0 - 15.0 g/dL [facility] HCT 42.8 36.0 - 46.0 % [facility] PLT 227 130 - 400 K/uL [facility] MCV 100.9(H) 79.0 - 98.0 fL [facility] MCH 33.5 27.0 - 34.8 pg [facility] MCHC 33.2 31.5 - 36.0 g/dL [facility] RDW 13.2 10.8 - 14.6 % [facility] MPV 10.5 9.4 - 12.4 fl [facility] NRBC 0.00 /100 WBCs [facility] ABSOLUTE NRBC 0.00 K/uL [facility] Blood 06/20/2017 3:40 PM EST 06/20/2017 3:45 PM EST us Ben Toth MD LAB BLOOD BKR ORDERABLES Final Result Performing Organization Address City/[facility]/ZIP Co de Phone Number [address] [address] * PTT (06/20/2017 3:40 PM EST) APTT 29.3 25.1 - 36.5 sec [facility] Comment:APTT response to unf ractionated heparin concentrations between 0.3 and 0.7 IU/mL is typically 54.0-94.0 seconds in uncomplicated cases. The Anti-Xa assay is the preferred method. Blood 06/20/2017 3:40 PM EST 06/20/2017 3:45 PM EST us Ben Toth MD LAB BLOOD BKR ORDERABLES Final Result [facility] [address] [place] [address] documented in this encounter Visit Diagnoses Diagnosis [...] documented as of this encounter Care Teams Vulcanized Fiber Unit Operator Relationship Specialty Start Date End Date Mani Nation MD [address] [place] [address], [address] [place] [address] [email or web address] PCP - General 02/08/17 Mani Nation MD [address] [facility], [address] [place] [address] Insurance Assigned Provider 07/21/1701/01 Vero Marshall RN [address] [facility] [place] [address] [email or web address] PHCM Shrimp Trawler Captain 04/09/19 Savannah Fontana [address] [place] [address] PHCM Community Health Worker 06/30/20 07/11/20 Mirian Locke RN [address] [place] [address] Registered Nurse 10/16/22 Vanessa Malik [address] [place] [address] [email or web address] PHCM Community Supervisor Counseling And Guidance 06/12/24 06/12/24 Naila Brandt, RN [address] [place] [address] [phone] [email or web address] PHCM Shrimp Trawler CaptainProfessor Of Industrial Technology 12/25/24 02/08/25 documented as of this encounter Additional Source Comments The information contained in this document represents components of the legal health record. It is not the complete legal health record.[facility]
--- OUTSIDE RECORDS SUMMARY | 2025-03-21 12:38 | XMS_ITS | Encounter Summary ---
Author Organization [facility] Address [address] [facility] [address] [place] [address] Phone Care Team Providers Care Laborer Tanbark Name Role Phone Mani Nation MD Primary Care Provider [phone] Mirian Locke RN Unavailable [phone] Encounter Details Date Type Department Care Team (Late st Contact Info) Description 03/20/2025 Telephone [facility] [address] [place] [address] Mani Nation MD [address] [facility], [address] [place] [address] [email or web address] Social History Tobacco Use Types Packs/Day Years [...] documented as of this encounter Care Teams Laborer Tanbark Relationship Specialty Start Date End Date Mani Nation MD [address] [place] [address], [address] [place] [address] PCP - General 02/08/17 Mirian Locke RN [address] [place] [address] Registered Nurse 10/16/22 documented as of this encounter Additional Source Comments The information contained in this document represents components of the legal health record. It is not the complete legal health record.[facility]
--- OUTSIDE RECORDS SUMMARY | 2025-03-21 12:38 | XMS_ITS | Encounter Summary ---
Author Organization [facility] Address [address] [place] [address] Care Team Providers Care Nremt Name Role Phone Huang Oviedo MD Primary Care Provider [phone] Encounter Details Date Type Department Care Team (Late st Contact Info) Description 11/07/2024 Lab Requisition [facility] - Main Lab [address] [facility] [place] [address] Yola Linares MD [address] [place], [place] [phone] Unspecified atrial fibrillation (CMS/HCC V24, CMS/HCC V28) [...] sec LAB COAGULATION METHOD 11/07/2024 10:10 AM [facility] INR 2.0 LAB COAGULATION METHOD 11/07/2024 10:10 AM [facility] Blood Venous blood specimen / Unknown Venipuncture / Unknown 11/07/2024 6:52 AM EDT 11/07/2024 8:55 AM EDT Yola Linares MD LAB BLOOD ORDERABLES Final Resul t Performing Organization Address City/[facility]/ZIP Co de Phone Number [facility] [address] [place] [address], documented in this encounter Visit Diagnoses Diagnosis Unspecified atrial fibrillation (CMS/HCC V24, CMS/HCC V28) documented in this encounter Care Teams Nremt Relationship Specialty Start Date End Date Huang Oviedo MD [address] [place] [id number] PCP - General Internal Medicine 03/10/24 documented as of this encounter
--- OUTSIDE RECORDS SUMMARY | 2025-03-21 12:38 | XMS_ITS | Encounter Summary ---
Author Organization [facility] Address [address] [place] [address] Care Team Providers Care Inspector Cold Working Name Role Phone Huang Oviedo MD Primary Care Provider [phone] Encounter Details Date Type Department Care Team (Late st Contact Info) Description 11/04/2024 Lab Requisition [facility] - Main Lab 299 [facility] [place] [address] Yola Linares MD [address] [place], [place] [phone] Unspecified atrial fibrillation (CMS/HCC V24, CMS/HCC V28); [...] LAB CHEMISTRY METHOD 11/04/2024 2:12 PM EDT [facility] Blood Venous blood specimen / Unknown Venipuncture / Unknown 11/04/2024 7:04 AM EDT 11/04/2024 11:12 AM EDT us Yola Linares MD LAB BLOOD ORDERABLES Final Resul t [facility]) [facility] LAB [address] [place] [address], [place] [phone] * Magnesium (11/04/2024 7:04 AM EDT) Pathologist [facility] Magnesium 2.3 1.9 - 2.6 mg/dL LAB CHEMISTRY METHOD 11/04/2024 1:45 PM EDT [facility] Blood Venous blood specimen / Unknown Venipuncture / Unknown 11/04/2024 7:04 AM EDT 11/04/2024 11:12 AM EDT us Yola Linares MD LAB BLOOD ORDERABLES Final Resul t Performing Organization Address [facility]/ZIP Co de Phone Number [facility] LAB [address] [place] [address], [place] [phone] * Iron and TIBC (11/04/2024 7:04 AM EDT) [facility] Iron 83 40 - 150 mcg/dL LAB CHEMISTRY METHOD 11/04/2024 1:45 PM EDT [facility] TIBC 271 250 - 450 mcg/dL LAB CHEMISTRY METHOD 11/04/2024 1:45 PM EDT [facility] Iron Saturation 31 15 - 50 % LAB CHEMISTRY METHOD 11/04/2024 1:45 PM EDT [facility] Blood Venous blood specimen / Unknown Venipuncture / Unknown 11/04/2024 7:04 AM EDT 11/04/2024 11:12 AM EDT us Yola Linares MD LAB BLOOD ORDERABLES Final Resul t [facility] LAB [address] [place] [address], [place] [phone] * Folate (11/04/2024 7:04 AM EDT) Folate 11.8 2.8 - 17.0 ng/ml LAB CHEMISTRY METHOD 11/04/2024 2:12 PM EDT [facility] Blood Venous blood specimen / Unknown Venipuncture / Unknown 11/04/2024 7:04 AM EDT 11/04/2024 11:12 AM EDT us Yola Linares MD LAB BLOOD ORDERABLES Final Resul t Performing Organization Address City/[facility]/ZIP Co de Phone Number [facility] LAB [address] [place] [address], [place] [phone] * Vitamin D 25 hydroxy (11/04/2024 7:04 AM EDT) Pathologist [facility] Vit D, 25-Hydroxy 40.4 30.0 - 80.0 ng/mL LAB CHEMISTRY METHOD 11/04/2024 3:16 PM EDT [facility] Blood Venous blood specimen / Unknown Venipuncture / Unknown 11/04/2024 7:04 AM EDT 11/04/2024 11:12 AM EDT us Yola Linares MD LAB BLOOD ORDERABLES Final Resul t Performing Organization Address [facility] de Phone Number [facility] LAB [address] [place] [address], [place] [phone] * (ABNORMAL) Vitamin B12 (11/04/2024 7:04 AM EDT) Pathologist [facility] Vitamin B-12 1,098(H) 250 - 900 pcg/mL LAB CHEMISTRY METHOD 11/04/2024 2:12 PM EDT [facility] Blood Venous blood specimen / Unknown Venipuncture / Unknown 11/04/2024 7:04 AM EDT 11/04/2024 11:12 AM EDT us Yola Lniares MD LAB BLOOD ORDERABLES Final Resul t Performing Organization Address City/[facility]/ZIP Co de Phone Number [facility] LAB [address] [place] [address], [place] [phone] * (ABNORMAL) Lipid panel with reflex to direct LDL (11/04/2024 7:04 AM EDT) Cholesterol 141 0 - 200 mg/dL LAB CHEMISTRY METHOD 11/04/2024 1:45 PM EDT [facility] Triglycerides 160(H) 0 - 150 mg/dL LAB CHEMISTRY METHOD 11/04/2024 1:45 PM EDT [facility] HDL 35(L) >=40 mg/dL LAB CHEMISTRY METHOD 11/04/2024 1:45 PM EDT [facility] LDL Calculated 74 0 - 100 mg/dL LAB CHEMISTRY METHOD 11/04/2024 1:45 PM EDT [facility] VLDL Cholesterol Rupesh 32 mg/dL LAB CHEMISTRY METHOD 11/04/2024 1:45 PM EDT [facility] Non HDL Chol. (LDL+VLDL) 106 <145 mg/dL LAB CHEMISTRY METHOD 11/04/2024 1:45 PM EDT [facility] Chol/HDL Ratio 4.0 0.0 - 4.4 LAB CHEMISTRY METHOD 11/04/2024 1:45 PM EDT [facility] Blood Venous blood specimen / Unknown Venipuncture / Unknown 11/04/2024 7:04 AM EDT 11/04/2024 11:12 AM EDT Yloa Linares MD LAB BLOOD ORDERABLES Final Resul t [facility] LAB [address] [place] [address], [place] [phone] * (ABNORMAL) Comprehensive metabolic panel (11/04/2024 7:04 AM EDT) Sodium 139 133 - 145 mmol/L LAB CHEMISTRY METHOD 11/04/2024 2:12 PM EDT [facility] Potassium 4.6 3.5 - 5.5 mmol/L LAB CHEMISTRY METHOD 11/04/2024 2:12 PM [facility] Chloride 106 96 - 110 mmol/L LAB CHEMISTRY METHOD 11/04/2024 2:12 PM [facility] CO2 27 21 - 32 mmol/L LAB CHEMISTRY METHOD 11/04/2024 2:12 PM [facility] LAB Anion Gap 6 3 - 11 LAB CHEMISTRY METHOD 11/04/2024 2:12 PM [facility] LAB Glucose 85 70 - 100 mg/dL LAB CHEMISTRY METHOD 11/04/2024 2:12 PM [facility] BUN 17 5 - 25 mg/dL LAB CHEMISTRY METHOD 11/04/2024 2:12 PM [facility] Creatinine 0.82 0.50 - 1.10 mg/dL LAB CHEMISTRY METHOD 11/04/2024 2:12 PM [facility] LAB eGFR 72 >=60 mL/min/1. 73m2 LAB CHEMISTRY METHOD 11/04/2024 2:12 PM [facility] Comment:Calculation based on the Chronic Kidney Disease Epidemiology Collaboration (CKD-EPI) equation refit without adjustment for race. BUN/Creatinine Ratio 20.7 LAB CHEMISTRY METHOD 11/04/2024 2:12 PM [facility] Calcium 9.5 8.5 - 10.5 mg/dL LAB CHEMISTRY METHOD 11/04/2024 2:12 PM [facility] AST (SGOT) 37 10 - 42 unit/L LAB CHEMISTRY METHOD 11/04/2024 2:12 PM [facility] ALT (SGPT) 61(H) 10 - 60 unit/L LAB CHEMISTRY METHOD 11/04/2024 2:12 PM [facility] Alkaline Phosphatase 100 42 - 121 unit/L LAB CHEMISTRY METHOD 11/04/2024 2:12 PM [facility] Total Protein 6.7 6.0 - 8.0 g/dL LAB CHEMISTRY METHOD 11/04/2024 2:12 PM EDT [facility] Albumin 3.6 3.2 - 5.0 g/dL LAB CHEMISTRY METHOD 11/04/2024 2:12 PM EDT [facility] Total Bilirubin 0.5 0.0 - 1.4 mg/dL LAB CHEMISTRY METHOD 11/04/2024 2:12 PM EDT [facility] Blood Venous blood specimen / Unknown Venipuncture / Unknown 11/04/2024 7:04 AM EDT 11/04/2024 11:12 AM EDT Yola Linares MD LAB BLOOD ORDERABLES Final Resul t [facility] [address] [place] [address], * (ABNORMAL) Complete blood count (11/04/2024 7:04 AM EDT) WBC 8.5 4.8 - 10.8 K/mcL LAB HEMETOLOGY METHOD 11/04/2024 12:22 PM EDT [facility] RBC 4.40 3.80 - 4.80 M/mcL LAB HEMETOLOGY METHOD 11/04/2024 12:22 PM EDT [facility] Hemoglobin 14.4 11.5 - 16.0 g/dL LAB HEMETOLOGY METHOD 11/04/2024 12:22 PM EDT [facility] Hematocrit 45.5 35.0 - 47.0 % LAB HEMETOLOGY METHOD 11/04/2024 12:22 PM EDT [facility] MCV 104.6(H) 79.0 - 98.0 FL LAB HEMETOLOGY METHOD 11/04/2024 [facility] MCH 33.1(H) 27.0 - 32.0 pcg LAB HEMETOLOGY METHOD 11/04/2024 12:22 PM EDT [facility] MCHC 31.6(L) 32.0 - 37.0 g/dL LAB HEMETOLOGY METHOD 11/04/2024 12:22 PM EDT [facility] RDW 13.4 11.0 - 15.0 % LAB HEMETOLOGY METHOD 11/04/2024 12:22 PM EDT [facility] Platelets 227 130 - 400 K/mcL LAB HEMETOLOGY METHOD 11/04/2024 12:22 PM EDT [facility] MPV 11.9(H) 7.0 - 11.0 FL LAB HEMETOLOGY METHOD 11/04/2024 12:22 PM EDT [facility] NRBC 0.0 <1.0 % LAB HEMETOLOGY METHOD 11/04/2024 12:22 PM EDT [facility] NRBC Absolute 0.00 <0.10 K/mcL LAB HEMETOLOGY METHOD 11/04/2024 12:22 PM EDT [facility] Blood Venous blood specimen / Unknown Venipuncture / Unknown 11/04/2024 7:04 AM EDT 11/04/2024 11:12 AM EDT us Yola Linares MD LAB BLOOD ORDERABLES Final Resul t [facility] [address] [place] [address], [place] [phone] documented in this encounter Visit Diagnoses Diagnosis Unspecified atrial fibrillation (CMS/HCC V24, CMS/HCC V28) Hyperlipidemia, unspecified Vitamin D deficiency, unspecified documented in this encounter Care Teams Inspector Cold Working Relationship Specialty Start Date End Date Huang Oviedo MD [address] [place] [id number] PCP - General Internal Medicine 03/10/24 documented as of this encounter
--- OUTSIDE RECORDS SUMMARY | 2025-03-21 12:38 | XMS_ITS | Encounter Summary ---
Author Organization [facility] Address [address] [place] [address] Care Team Providers Care Die Out Worker Name Role Phone Huang Oviedo MD Primary Care Provider [phone] Encounter Details Date Type Department Care Team (Late st Contact Info) Description 03/13/2025 Lab Requisition [facility] - Main Lab 299 [facility] [place] [address] Yola Linares MD [address] [place] [address] Anemia, unspecified; Vitamin D deficiency, unspecified; Essential (primary) hypertension; Chronic embolism and thrombosis of unspecified vein; Altered mental status, unspecified Social History Tobacco Use Types Packs/Day [...] as of this encounter Visit Diagnoses Diagnosis Anemia, unspecified Vitamin D deficiency, unspecified Essential (primary) hypertension Unspecified essential hypertension Chronic embolism and thrombosis of unspecified vein Altered mental status, unspecified documented in this encounter Care Teams Die Out Worker Relationship Specialty Start Date End Date Huang Oviedo MD [address] [place] [address] [phone] PCP - General Internal Medicine 03/10/24 documented as of this encounter
--- OUTSIDE RECORDS SUMMARY | 2025-03-21 12:38 | XMS_ITS | Encounter Summary ---
Author Organization [facility] Address [address] [address] Phone Care Team Providers Care Metallurgical Inspector Name Role Phone Mani Nation MD Primary Care Provider [phone] Mani Nation MD Unavailable [phone] Vero Marshall RN Unavailable [email or web address] Mirian Locke RN Unavailable [phone] Vanessa Malik Unavailable [email or web address] Naila Brandt RN Unavailable [phone] Reason for Referral * Physical Therapy (Routine) - Closed Specialty Diagnoses / Procedures Referred By Ant finn Referred To Contact Physical Therapy Diagnoses Encounter for rehabilitation Austin Mckeon MD Phone: tel: fax: [facility] [address] [place] [address] Phone: tel: Referral ID Status Reason Start Date Expiration Date Visits Re quested Visits Authorized [id number] Closed 12/30/2020 12/30/2021 1 1 Encounter Details Date Type Department Care Team (Latest Contact Info) Description 12/30/2020 Transcribe Orders [facility] [address] [place] [address] Austin Mckeon MD [address] [place] [address] Encounter for rehabilitation (Primary Dx) Social History [...] Diagnoses Orde r Schedule Ambulatory referral to [facility] Physical Therapy Outpatient Referral Routine Encounter for [...] documented as of this encounter Care Teams Metallurgical Inspector Relationship Specialty Start Date End Date Mani Nation MD [address] [place] [address], [address] [place] [address] [email or web address] PCP - General 02/08/17 Mani Nation MD [address] [place] [address], [address] [place] [address] [email or web address] Insurance Assigned Provider 07/21/1701/01 Vero Marshall, FLORES [address] [place] [address], [address] [place] [address] [email or web address] PHCM Instructional Systems Specialist 04/09/19 Mirian Locke RN [address] [place], [place] [phone] Registered Nurse 10/16/22 Vanessa Malik [address] [place] [id number] [email or web address] PHCM Community Test Designer 06/12/24 06/12/24 Naila Brandt, FLORES [address] [place] [address] [phone] [email or web address] PHCM Instructional Systems SpecialistEducational Technologist 12/25/24 02/08/25 documented as of this encounter Additional Source Comments The information contained in this document represents components of the legal health record. It is not the complete legal health record.[facility]
--- OUTSIDE RECORDS SUMMARY | 2025-03-21 12:38 | XMS_ITS | Encounter Summary ---
Author Organization [facility] Address [address] [place] [address] Care Team Providers Care Manager Multicultural Name Role Phone Huang Oviedo MD Primary Care Provider Encounter Details Date Type Department Care Team (Late st Contact Info) Description 11/10/2024 Lab Requisition [facility] - Main Lab [address] [facility] [place] [address] Yola Linares MD [address] [place], [place] [phone] Unspecified atrial fibrillation (CMS/HCC V24, CMS/HCC V28) [...] sec LAB COAGULATION METHOD 11/10/2024 10:37 AM [facility] INR 1.6 LAB COAGULATION METHOD 11/10/2024 10:37 AM [facility] Blood Venous blood specimen / Unknown Venipuncture / Unknown 11/10/2024 6:28 AM EDT 11/10/2024 9:41 AM EDT Yola Linares MD LAB BLOOD ORDERABLES Final Resul t Performing Organization Address City/[facility]/ZIP Co de Phone Number [facility] [address] [place] [address], documented in this encounter Visit Diagnoses Diagnosis Unspecified atrial fibrillation (CMS/HCC V24, CMS/HCC V28) documented in this encounter Care Teams Manager Multicultural Relationship Specialty Start Date End Date Huang Oviedo MD [address] [place] [address] PCP - General Internal Medicine 03/10/24 documented as of this encounter
--- OUTSIDE RECORDS SUMMARY | 2025-03-21 12:38 | XMS_ITS | Encounter Summary ---
Author Organization [facility] Address [address] [place] [address] Care Team Providers Care Logistics Administrator Name Role Phone Huang Oviedo MD Primary Care Provider [phone] Encounter Details Date Type Department Care Team (Late st Contact Info) Description 11/26/2024 Lab Requisition [facility] - Main Lab [address] [facility] [place] [address] Yola Linares MD [address] [place], [place] [phone] Unspecified atrial fibrillation (CMS/HCC V24, CMS/HCC V28) [...] sec LAB COAGULATION METHOD 11/26/2024 10:53 AM [facility] INR 2.5 LAB COAGULATION METHOD 11/26/2024 10:53 AM [facility] Blood Venous blood specimen / Unknown Venipuncture / Unknown 11/26/2024 6:51 AM EDT 11/26/2024 10:03 AM EDT Yola Linares MD LAB BLOOD ORDERABLES Final Resul t Performing Organization Address City/[facility]/ZIP Co de Phone Number [facility] [address] [place] [address], documented in this encounter Visit Diagnoses Diagnosis Unspecified atrial fibrillation (CMS/HCC V24, CMS/HCC V28) documented in this encounter Care Teams Logistics Administrator Relationship Specialty Start Date End Date Huang Oviedo MD [address] [place] [address] PCP - General Internal Medicine 03/10/24 documented as of this encounter
--- OUTSIDE RECORDS SUMMARY | 2025-03-21 12:38 | XMS_ITS | Clinical Summary ---
Author Organization [facility] Address [address] [employer] [address] [address] Phone Care Team Providers Care Air Conditioning Installer Name Role Phone Mani Nation MD Primary Care Provider [phone] Mirian Locke RN Unavailable [phone] Allergies Active Allergy Reactions Criticality Noted Date [...] to 35% since her echocardiogram 12/2022 at [facility], also has pacemaker -Appears euvolemic at the [...] warfarin September 2022 Pacemaker 11/20/2022 Overview (11/20/2022): [facility] Dr atkins Pacemaker started after unsuccessful [...] hypertension 02/17/2019 Overview (12/10/2020): Restarted metoprolol at [facility] January 2019. F/u BPs normal after dc. Amlodipine added by [facility] cardiology, Dr. Batres in February 2018. Apr 2019: Doing well, tolerate systolic 130-140 Chronic constipation 01/10/2019 Overview (01/13/2022): Dt Scleroderma Last Assessment & Plan: Likely related to scleroderma. Doing well with Miralax. Reassured by normal Cologuard. 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 1. Continue reflux measures. 2. Consider EGD if sx recurrent or dysphagia. Left thyroid nodule 06/21/2017 Overview (10/03/2018): Normal thyroid per pt on w/u at [facility] Endo. Osteopenia of multiple sites 06/21/2017 Overview (12/10/2020): Last Assessment & Plan: Reports DXA in the last 2-3 years with osteopenia. No significant steroids and no fractures. Vit D 43 in May 2019. -can discuss timing of future DXA with PCP in time Pulmonary HTN 06/21/2017 Sjogren's syndrome 06/21/2017 Asthma 06/21/2017 Overview (11/20/2022): Mgmt by Dr Collado at [facility] Had PFTs reportedly showing typical prolonged exp Now on Flovent Assessment & Plan (07/18/2023 10:36 PM EDT): Not in exacerbation, no significant wheezing Continue fluticasone daily Atrial fibrillation 06/21/2017 Overview (01/13/2022): Refractory to simple ablation. Is followed by [facility] cardiology. Will have AV chucky ablation and pacemaker at [facility] the last week of December. Assessment & Plan (11/10/2023 12:40 PM EDT): -History of AV chucky ablation at [facility] with subsequent pacemaker placement 05/24/2022 -On [...] Overview: Added automatically from request for surgery [id number] She recently underwent evaluation at [facility], and has a therapeutic and diagnostic lumbar puncture planned for the middle of June,. She had shunt placement August 2017 at [facility] Followed by neurology Added automatically from request for surgery [id number] Assessment & Plan (09/10/2017 5:15 PM EDT): Suture removal later this week. She is doing great. Hyperlipidemia 09/01/2016 Non-toxic nodular goiter 10/10/2013 Scleroderma 07/28/2013 Overview (12/13/2021): Followed at [facility], Pulm, Gen Surg, GI, Rheum Last [...] it to us Dr Austin Mckeon at [facility] Assessment & Plan (07/22/2024 2:48 PM EDT): No longer being followed at [facility], not on active treatments. Assessment & [...] EF 30 to 35% December 2022 at [facility]. Admitted for CHF symptoms. Cardiac cath showed [...] Normal thyroid per pt on w/u at [facility] Endo. Partial tear of rotator cuff 02/25/2015 07/18/2023 Left shoulder pain 02/18/2015 4 Encounters Date Type Department Care Team Description 03/20/2025 Telephone [facility] [address] [place] [address] Mani Nation MD 03/20/2025 Telephone [facility] [address] [place] [address] Mani Nation MD UTI 03/18/2025 Telephone [facility] [address] [place] [address] [place] [address] Mirian Locke, RN 03/17/2025 Telephone [facility] [address] [place] [address] Mirian Locke RN 03/13/2025 Telephone [facility] [address] [place] [address] Sierra Mcconnell, FLORES TCM Visit 02/24/2025 Telephone [facility] [address] [place] [address] Mirian Locke, FLORES 02/19/2025 Orders Only [address] [address] ProviderTricia MD 02/10/2025 Telephone [facility] [address] [place] [address] Mirian Locke RN INR Check (/) 02/09/2025 Episode Documentatio n Update [address] [address] 02/09/2025 Patient Outreach [address] [address] Naila Brandt, FLORES Program Discharge (Discharge) 01/27/[address] [place] [address] Mani Nation MD Request For Order(s) 01/27/2025 Telephone [facility] [address] [place] [address] Mirian Locke RN INR Check (/) 01/20/2025 Telephone [facility] [address] [place] [address] Mirian Locke RN INR Check (/) 01/20/2025 Telephone [facility] [address] [place] [address] Mirian Locke, RN 01/19/2025 Enrollment [facility] Primary [address] [address] 01/13/2025 1:00 PM EDT Telemedicine - audio only [address] [place] [address] Mani Nation MD Dementia without behavioral disturbance (Primary Dx); Physical deconditioning; DNR (do not resuscitate); Atrial fibrillation, unspecified type 01/13/[address] [place] [place] [address] Mani Nation MD Triage ([facility] Verbal orders) 01/13/2025 Telephone [facility] [address] [place] [address] Mirian Locke, RN INR Check (/) 01/08/2025 Telephone [facility] [address] [place] [address] Mirian Locke RN INR Check (/) 01/07/[address] [place] [place] [address] Mani Nation MD VNA Update 01/06/[address] [place] [address] Darlene Naranjo [place] Forms & Paperwork (Home Health Referral Caretenders) 01/06/[address] [place] [address] Mani Nation MD TCM Visit from Last 3 Months Immunizations Immunization Administration Dates Next Due COVID-19 (Pre-02/12) Pfizer Vaccine, mRNA, PF 06/24/2020,06/02/2020 COVID-19 (Pre-02/12) Pfizer Vaccine, mRNA, judith-sucrose, PF 08/30/2021 [id number] FORMULATION 04/30/2009 INFLUENZA, SPLIT VIRUS, TRIV ALENT [...] OUTSIDE IMAGING Routine 02/18/2025 2:29 PM EDT PT-INR Routine 02/10/2025 PT-INR Routine 01/27/2025 PT-INR Routine 01/20/2025 PT-INR Routine 01/13/2025 PT-INR Routine 01/08/2025 BASIC METABOLIC PANEL (BMP) Routine 11/10/2023 6:40 AM EDT HM DEXA SCAN Routine 09/28/2021 from Last 3 Months or Most Recently Relevant to Health Maintenance Results * Outside Imaging Report Only (02/18/2025 2:30 PM EDT) Historical Provider MD NIEVES XR CHEST Edited Re sult - Final * Outside Imaging Report Only (02/18/2025 2:29 PM EDT) Historical Provider MD NIEVES XR CHEST Edited Re sult - Final * PT-INR (02/10/2025) Only the most recent of5 resultswithin the time period is included. External Or Transcribed PT-INR 2.3 Historical Provider LAB BLOOD BKR ORDERABLES Edited Result - Final * (ABNORMAL) Basic metabolic panel (11/10/2023 6:40 AM EDT) SODIUM 139 133 - 146 mmol/L [facility] CHLORIDE 105 96 - 108 mmol/L [facility] POTASSIUM 4.7 3.3 - 5.1 mmol/L [facility] CO2 24 21 - 35 mmol/L [facility] BUN 15 6 - 19 mg/dL [facility] CREATININE 0.70 0.5 - 1.5 mg/dL [facility] GLUCOSE 105(H) 70 - 99 mg/dL [facility] CALCIUM 9.0 8.4 - 10.3 mg/dL [facility] EGFR 87 >59 mL/min/1.7 3m2 [facility] Comment:Estimated glomerular filtration rate calculated using the CKD-EPI refit equation. ANION GAP 15 10 - 20 mmol/L [facility] Blood 11/10/2023 6:40 AM EDT 11/10/2023 6:50 AM EDT Result [facility] Giovanna CHRIS LAB BLOOD BKR ORDERABLES Maria A crespo Result [facility] [address] [place] [address] * HM DEXA SCAN (09/28/2021) us Historical Provider HEALTH MAINTENANCE Edited Result - Final from Last 3 Months or Most Recently Relevant to Health Maintenance Insurance [facility] & [facility] & [facility] MEDICARE PART A & B Member Subscriber Plan / Payer ( fective 2007-) Name:Lita Garrett Member ID:[id number] Relation to Subscriber:Self Name:Lita Garrett Subscriber ID:[id number] Payer ID:[id number] Group ID:Not on file Type:Medicare Address: [employer] [address] [facility] RE[facility] MEDICARE PART A & B [facility] MEDICARE REPLACEMENT MEDICARE PART A & B Member Subscriber Plan / Payer (Ef fective 2007-Present) Name:Lita Garrett Member ID:[id number] Relation to Subscriber:Self Name:Tami Lita Vazquez Subscriber ID:[id number] Payer ID:[id number] Group ID:Not on file Type:Medicare Address: [employer] [address] [employer] MEDICARE REPLACEMENT MEDICARE PART A & B [employer] MEDICARE REPLACEMENT MEDICARE PART A & B [facility] MEDICARE REPLACEMENT MEDICARE PART A & B [facility] MEDICARE REPLACEMENT Advance Directives For more information, please contact: [phone] (9AM - 5PM [facility]/[facility], Sunday-Sunday) Documents on File Type Date Recorded Patient Plate Mill Hand Expl anation Healthcare Proxy 11/14/2023 1:40 PM * Full Code (Latest Code Status on File) Date Activated Date Inactivated Comments 11/10/2023 1:43 AM Question Answer Comments Code Status Confirmed With: Patient * Full Code Date Activated Date Inactivated Comments 07/18/2023 8:58 PM 11/10/2023 1:43 AM Question Answer Comments Code Status Confirmed With: Patient Care Teams Air Conditioning Installer Relationship Specialty Start Date End Date Mani Nation MD [address] [place] [address], [address] [place] [address] PCP - General 02/08/17 Mirian Lokce, RN [address] [place], [place] [phone] Registered Nurse 10/16/22 Additional Source Comments The information contained in this document represents components of the legal health record. It is not the complete legal health record.[facility]
--- OUTSIDE RECORDS SUMMARY | 2025-03-21 12:38 | XMS_ITS | Clinical Summary ---
Author Organization [facility] Address [address] [place] [address] Care Team Providers Care Human Projectile Name Role Phone Mani Nation MD Primary Care Provider [phone] Allergies Active Allergy Reactions Criticality Noted Date [...] twice daily, Eliquis 5 mg twice daily. [id number] Score 4 (sex, age, HTN). Followed by [...] syndrome, mild obstructive lung disease, systemic sclerosis DIMMER BOARD OPERATOR shunt for NPH, pulm htn that presents [...] intermittent abdominal pain. She does have a DIMMER BOARD OPERATOR shunt placed in 2018 that had been thought to be irritating her abdominal viscera. She was previously evaluated by neurosurgery for this. She was recently seen in the emergency room on November [address] scan at the time showed looping of the DIMMER BOARD OPERATOR shunt catheter in the anterior subcutaneous region of the RUQ just with entry into the peritoneal cavity. She has an upcoming appointment with neurosurgery on 12/27 for evaluation of DIMMER BOARD OPERATOR shunt. Also has a history of GERD and scleroderma. Recently started Benefiber which has improved her symptoms. Abdomen is soft, nontender, nondistended on exam. 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 Recent abdominal CT showing DIMMER BOARD OPERATOR catheter within anterior subcutaneous region of the RUQ. Follows with Dr. Toth in neurosurgery. Missed neurosurgery appointment 12/27 for evaluation of DIMMER BOARD OPERATOR shunt - neurosurgery consulted - XR DIMMER BOARD OPERATOR shunt series - neurosurgery to coordinate outpatient [...] second diagonal branch. Nuclear perfusion study at [facility] in December 2018 showed no perfusion [...] NSTEMI in 2008. Nuclear perfusion study at [facility] in 2019 showed no perfusion abnormalities. [...] Type Department Care Team Description 02/11/2025 Telephone [facility] [address] [place] [address] Crys Madsen NP 01/28/2025 Telephone [facility] [address] [place] [address] Abbe Batres MD from Last 3 Months Immunizations Immunization Administration Dates Next Due Covid-19, Pfizer, mRNA, Miner valent, PF 30 mcg/0.3 mL dose (for ages 12 and older) 06/24/2020,06/02/2020 Covid-19, Pfizer, mRNA, Miner valent, PF, 30 mcg/0.3 mL dose, judith-sucrose (COMIRNATY)(for ages 12 and older) 08/30/2021 Influenza Virus Vaccine, Uns pecified Formulation 02/01/2019,01/27/2010,02/18/2009 Influenza, High Dose Seasona l, Preservative Free (FLUZONE HIGH-DOSE) 03/05/2015 Influenza, Injectable, Quadr ivalent Preservative Free 03/14/2021,01/07/2020 Influenza, Injectable, Quadr ivalent, Preservative Free 01/30/2018 Influenza, Trivalent, Adjuva nted, PF (FLUAD) 01/30/2018,01/05/2017,02/04/2016 Influenza, Trivalent, MDV, Injectable 01/05/2017 Novel [id number], All Formulations 2009 Pneumococcal Conjugate Vaccine, 13 [...] Info) Description 05/08/2025 2:15 PM EST Appointment [facility] [address] [place] [address] Wing Jeffery MD PhD [address] [place] [id number] Scheduled Procedures Name Priority Associated Diagnoses Date/Ti me COLONOSCOPY SCREENING, HIGH RISK WITH POSSIBLE MODERATE SEDATION Diarrhea, unspecified type Health Maintenance Due Date Last Done Comments Zoster Vaccines (1 of 2) 1992 RSV Vaccine (60+ years old and patients) (1 - 1-dose 75+ series) 2017 Alcohol/Substance Use Screening 04/23/2024 Depression Screening and Follow-Up 04/23/2024 Fall Risk Screening 04/23/2024 Health Care Proxy Review 04/23/2024 Social Drivers of Health Annual Screening 04/23/2024 Basic Metabolic Panel 11/09/2024 11/10/2023 , 07/19/2023, 07/18/2023, Additional history exists Influenza Vaccine (#1) 2024 , 03/17/2022, 03/14/2021, Additional history exists COVID-19 Vaccine ( season) 2024 01/23/2023, 03/30/2022, 08/30/2021, Additional history exists DTaP,Tdap,and Td Vaccines (2 - Td or Tdap) 11/07/2027 11/06/2017 Pneumococcal Vaccine: 50+ Years Completed 12/10/2020, 02/04/2016 Osteoporosis Screening Completed 09/28/2021 Hepatitis B Vaccines Aged Out No long er eligible based on patient's age to complete this topic Medical Devices Implanted Type Area Cryogenics Engineer Device Identifier Shelf Expiration Date Model / Serial / Lot Shunt Valve Programmable - [id number] Implanted:Qty: 1 on 08/29/2017 by Ben Toth MD at [facility] Implant Right: Brain CODMAN 04/22/2022 [id number] / / [id number] System Closure And Repair Suture-Mediated Perclose Prostyle - S0 - [id number] Implanted:Qty: 1 on 05/24/2022 by Wing Jeffery MD PhD at [facility] Implant Right: Groin [employer] [id number] 02/21/2024 22979-07 System Closure And Repair Suture-Mediated Perclose Prostyle - S0 - [id number] Implanted:Qty: 1 on 05/24/2022 by Wing Jeffery MD PhD at [facility] Implant Right: Groin [employer] [id number] 02/21/2024 Lead Pacing Bipolare Straight 6fr 52cm Capsurefix Novus - [id number] - [id number] Implanted:Qty: 1 on 02/15/2023 by Wing Jeffery MD PhD at [facility] Lead Left: Right Ventricle Medtronic [id number] 10/16/2024 5076-52 / [id number] V / Lead Left Ventricular Quadripolar 88cm 5.3fr Attain Performa Mri Surescan - [id number] - [id number] Implanted:Qty: 1 on 02/15/2023 by Wing Jeffery MD PhD at [facility] Lead Left: Right Ventricle Medtronic [id number] 08/08/2024 [id number] / [id number] V / Transcatheter Pacing System Medtronic Micra Vr - [id number] - [id number] Implanted:Qty: 1 on 05/24/2022 by Wing Jeffery MD PhD at [facility] Pacemaker Right: Groin Medtronic [id number] 04/19/2023 [id number] / [id number] S / 0 1080 [id number] Micra Vr Tcp [id number] Implanted: 023 (Quantity not on file) Pacemaker Medtronic [id number] MICRA VR TCP / [id number] S / Pacemaker Mri Surescan Dual Chamber Resynchronization 63irg12.5mm Percepta Quad - [id number] - [id number] Implanted:Qty: 1 on 02/15/2023 by Wing Jeffery MD PhD at [facility] Pacemaker Left: Chest Medtronic [id number] 06/20/2024 [id number] / [id number] S / Description:MICRA DEVICE SET TO VVI @30 6-74 Percepta Quad Wafer Slicer-P [id number] [id number] Implanted: 023 (Quantity not on file) Pacemaker Medtronic PERCEPTA QUAD CATTLE TRADER-P [id number] / [id number] S / Procedures * Due to [place] Roundrate law, this organization might not be sharing [...] to Health Maintenance Results * Due to [place] Roundrate law, this organization might not be sharing negative HIV tests. * Pacemaker remote analysis (UNV) (01/28/2025 1:20 AM EDT) Date Time Interrogation Session [id number] [facility] Type Interrogation Session Remote [facility] Implantable Pulse Generator Cryogenics Engineer MDT [facility] Implantable Pulse Generator Type Cardiac Resynchronization Therapy - Pacemaker [facility] Implantable Pulse Generator Model Percepta Quad CATTLE TRADER-P [id number] [facility] Implantable Pulse Generator Serial Number [id number] [facility] Implantable Pulse Generator Implant Date [id number] [facility] Battery Remaining Longevity 111.0 [facility] Battery Voltage 3.010 [facility] Battery CONSERVATION ENFORCEMENT OFFICER TrIgGer 2.595 [facility] Battery Status OK [facility] Nathan Statistic RA Percent Paced 0.00 [facility] Lead Channel Impedance Value 3,401 [facility] Lead Channel Sensing Intrinsic Amplitude 13.000 [facility] Lead Channel Setting Sensing Sensitivity 2.80 [facility] Lead Channel Impedance Value 399 [facility] Lead Channel Pacing Threshold Amplitude 0.625 [facility] Lead Channel Pacing Threshold Pulse Width 0.4 [facility] Lead Channel Measurements Date and Time 20250127 [facility] Lead Channel Setting Pacing Amplitude 2.000 [facility] Lead Channel Setting Pacing Pulse Width 0.4 [facility] Lead Channel Impedance Value 532 [facility] Lead Channel Pacing Threshold Amplitude 0.875 [facility] Lead Channel Pacing Threshold Pulse Width 0.4 [facility] Lead Channel Measurements Date and Time 20250127 [facility] Lead Channel Setting Pacing Amplitude 1.500 [facility] Lead Channel Setting Pacing Pulse Width 0.4 [facility] Nathan Setting Mode (NBG Code) VVIR [facility] Ventricular chambers paced during CATTLE TRADER pacing. BiV [facility] Nathan Setting Lower Rate Limit 70 [facility] Nathan Setting Maximum Sensor Rate 120 [facility] CATTLE TRADER LV-RV Delay 20 [facility] Zone Setting Type Category VT [facility] Rate 1 150 [facility] Zone Setting Status ENABLED [facility] Zone Identifier 6 [facility] 01/28/2025 1:20 AM EDT Impressions [facility] - 02/11/2025 8:35 AM EDT Docket Date: 2025-01-28 Title: Normal Remote: No Events * Normal VVIR-BIV Device Function * Alerts or events: None * Battery: OK, 9.25 yrs *Opti-Vol high (ongoing) reported to Dr. Batres on 01/28/25 * Biventricular pacing 94.4% * No significant changes noted Narrative [facility] - 02/11/2025 8:35 AM EDT This report includes 1 transmission that was received on 2025-01-28. Battery was reviewed. Procedure Note Scott Martinez MD - 02/20/2025 This report includes 1 transmission that was received on 2025-01-28.Battery was reviewed. IMPRESSION: Docket Date: 2025-01-28 Title: Normal Remote: No Events * Normal VVIR-BIV Device Function * Alerts or events: None * Battery: OK, 9.25 yrs *Opti-Vol high (ongoing) reported to Dr. Batres on 01/28/25 * Biventricular pacing 94.4% * No significant changes noted us Wing Jeffery MD PhD CV CARDIAC SERVI REJI PROCEDURES Final Result [facility] * Basic Metabolic Panel (12/30/2022 7:07 AM EDT) NA 140 135 - 145 mmol/L 12/30/2022 8:22 AM EDT [facility] K 3.9 3.5 - 5.3 mmol/L 12/30/2022 8:22 AM EDT [facility] Cl 104 97 - 110 mmol/L 12/30/2022 8:22 AM EDT [facility] CO2 26 24 - 32 mmol/L 12/30/2022 8:22 AM EDT [facility] BUN 22 7 - 23 mg/dL 12/30/2022 8:22 AM EDT [facility] Creatinine 0.65 0.50 - 1.20 mg/dL 12/30/2022 8:22 AM EDT [facility] Glucose 96 70 - 99 mg/dL 12/30/2022 8:22 AM EDT [facility] Calcium 9.6 8.7 - 10.7 mg/dL 12/30/2022 8:22 AM EDT [facility] Anion Gap 10 5 - 15 12/30/2022 8:22 AM EDT [facility] eGFR 89 >=60 mL/min/1. 73m2 12/30/2022 8:22 AM EDT [facility] Comment:The estimated glomer ular filtration rate (eGFR) is calculated using a new formula developed by the NKF-ASN task force to eliminate race-based correction factors. The new formula uses serum/plasma creatinine, age, and gender to determine eGFR. A value below 60mls/min might indicate kidney disease and will be flagged. For additional information, see Rebecca moscoso al, Am J Kidney Dis. 2021;79(2):268- 288, A Unifying Approach for GFR estimation: Recommendations of the NKF-ASN Task Force on Reassessing the Inclusion of Race in Diagnosing Kidney Disease . Blood Structure of peripheral vein / Unknown Venipuncture / Unknown 12/30/2022 7:07 AM EDT 12/30/2022 7:27 AM EDT us Shannon Santos MD LAB BLOOD ORDERABLES Final Res ult [facility] [facility] [address] [place] [address], [place] * DEXA Bone Density Axial (09/28/2021 [...] to obtain the completed interpretation. Workstation ID: [id number] Narrative 09/28/2021 10:49 PM EDT EXAM: BONE MINERAL DENSITY INDICATION: osteopenia M85.89 - I10 - Other specified disorders of bone density and structure, multiple sites PROCEDURE: The bone mineral density (BMD) of the spine and proximal right femur was determined using an external X-ray source([facility]). SITE: [facility] FINDINGS: L1-L4: BMD 0.76gm/cm2 T-Score -2.6 Z-score: [...] help protect against falls. Resulting Agency Comment [id number] Procedure Note Julio Cesar Gordon MD - 09/28/2021 EXAM: BONE MINERAL DENSITY INDICATION: osteopenia M85.89 - I10 - Other specified disorders of bonedensity and structure, multiple sites PROCEDURE: The bone mineral density (BMD) of the spine and proximal rightfemur was determined using an external X-ray source([facility]). SITE: [facility] FINDINGS: L1-L4: BMD 0.76gm/cm2 T-Score -2.6 Z-score: [...] possible to obtain thecompleted interpretation. Workstation ID: [id number] us Austin Mckeon MD IMG DXA PROCEDURES Final Re sult from Last 3 Months or Most Recently Relevant to Health Maintenance Insurance [employer] MCR Advance Directives Documents on File Type Date Recorded Patient Inventory And Pricing Associate Expl anation Health Care Proxy 05/30/2022 10:08 [...] Health Care Agent Yeni Garrett Relative Alternate a lth Care Agent [email or web address] Care Teams Human Projectile Relationship Specialty Start Date End Date Mani Nation MD [address] [place] [address], [address] [place] [address] PCP - General 11/09/16
--- OUTSIDE RECORDS SUMMARY | 2025-03-21 12:39 | XMS_ITS | Encounter Summary ---
Author Organization [facility] Address [address] [place] [address] Care Team Providers Care Diplomatic Interpreter Name Role Phone Huang Oviedo MD Primary Care Provider Encounter Details Date Type Department Care Team (Late st Contact Info) Description 02/27/[address] [facility] Lab [address] [facility] [place] [address] Yola Linares MD [address] [place], [place] [id number] Chronic embolism and thrombosis of unspecified deep veins of unspecified lower extremity (CMS/HCC V24, CMS/HCC V28) Social History Tobacco [...] Diagnosis Comments PROTHROMBIN TIME WITH INR Routine 02/27/2025 4:58 AM EST Chronic embolism and thrombosis of unspecified deep veins of unspecified lower extremity (CMS/HCC V24, CMS/HCC V28) documented in this encounter Results * (ABNORMAL) Prothrombin time with INR (02/27/2025 4:58 AM EST) Protime 26.6(H) 10.6 - 13.9 sec LAB COAGULATION METHOD 02/27/2025 11:03 AM EST [facility] INR 2.2 LAB COAGULATION METHOD 02/27/2025 11:03 AM EST [facility] Blood Venous blood specimen / Unknown Venipuncture / Unknown 02/27/2025 4:58 AM EST 02/27/2025 10:36 AM EST Yola Linares MD LAB BLOOD ORDERABLES Final Resul t [facility] [address] [place] [address], documented in this encounter Visit Diagnoses Diagnosis Chronic embolism and thrombosis of unspecified deep veins of unspecified lower extremity (CMS/HCC V24, CMS/HCC V28) documented in this encounter Care Teams Diplomatic Interpreter Relationship Specialty Start Date End Date Huang Oviedo MD [address] [place] [id number] PCP - General Internal Medicine 03/10/24 documented as of this encounter
--- OUTSIDE RECORDS SUMMARY | 2025-03-21 12:39 | XMS_ITS | Encounter Summary ---
Author Organization [facility] Address [address] [place] [address] Care Team Providers Care Flight Surveyor Name Role Phone Huang Oviedo MD Primary Care Provider [phone] Encounter Details Date Type Department Care Team (Late st Contact Info) Description 02/23/[address] [facility] - Main Lab [address] [facility] [place] [address] Yola Linares MD [address] [place], [place] [id number] Essential (primary) hypertension; Altered mental status, unspecified; Anemia, unspecified; Vitamin D deficiency, unspecified; Chronic embolism and thrombosis of unspecified vein Social History Tobacco Use Types Packs/Day Years [...] Procedure Name Priority Date/Time Associated Diagnosis Comments IRON AND TIBC Routine 02/23/2025 5:55 AM [...] Chronic embolism and thrombosis of unspecified vein VITAMIN B12 Routine 02/23/2025 5:55 AM EST Essential (primary) hypertension Altered mental status, unspecified Anemia, unspecified Vitamin D deficiency, unspecified Chronic embolism and thrombosis of unspecified vein BASIC METABOLIC PANEL Routine 02/23/2025 5:55 AM EST Essential (primary) hypertension Altered mental status, unspecified Anemia, unspecified Vitamin D deficiency, unspecified Chronic embolism and thrombosis of unspecified vein documented in this encounter Results * (ABNORMAL) Vitamin B12 (02/23/2025 5:55 AM EST) [facility] Vitamin B-12 1,057(H) 250 - 900 pcg/mL LAB CHEMISTRY METHOD 02/23/2025 1:39 PM EST [facility] Blood Venous blood specimen / Unknown Venipuncture / Unknown 02/23/2025 5:55 AM EST 02/23/2025 10:48 AM EST us Yola Linares MD LAB BLOOD ORDERABLES Final Resul t [facility] [address] [place] [address], * Magnesium (02/23/2025 5:55 AM EST) Magnesium 2.0 1.9 - 2.6 mg/dL LAB CHEMISTRY METHOD 02/23/2025 12:16 PM EST [facility] Blood Venous blood specimen / Unknown Venipuncture / Unknown 02/23/2025 5:55 AM EST 02/23/2025 10:48 AM EST us Yola Linares MD LAB BLOOD ORDERABLES Final Resul t Performing Organization Address City/[facility]/ZIP Co de Phone Number [facility] [address] [place] [address], [place] [phone] * Ferritin (02/23/2025 5:55 AM EST) [facility] Ferritin 96 8 - 252 ng/mL LAB CHEMISTRY METHOD 02/23/2025 1:39 PM EST [facility] Blood Venous blood specimen / Unknown Venipuncture / Unknown 02/23/2025 5:55 AM EST 02/23/2025 10:48 AM EST us Yola Linares MD LAB BLOOD ORDERABLES Final Resul t Performing Organization Address [facility] de Phone Number [facility] [address] [place] [address], [place] [phone] * Folate (02/23/2025 5:55 AM EST) Pathologist [facility] Folate 8.9 2.8 - 17.0 ng/ml LAB CHEMISTRY METHOD 02/23/2025 1:39 PM EST [facility] Blood Venous blood specimen / Unknown Venipuncture / Unknown 02/23/2025 5:55 AM EST 02/23/2025 10:48 AM EST us Yola Linares MD LAB BLOOD ORDERABLES Final Resul t Performing Organization Address City/[facility]/ZIP Co de Phone Number [facility] [address] [place] [address], [place] [phone] * Iron and TIBC (02/23/2025 5:55 AM EST) Iron 66 40 - 150 mcg/dL LAB CHEMISTRY METHOD 02/23/2025 1:39 PM EST [facility] TIBC 263 250 - 450 mcg/dL LAB CHEMISTRY METHOD 02/23/2025 1:39 PM EST [facility] Iron Saturation 25 15 - 50 % LAB CHEMISTRY METHOD 02/23/2025 1:39 PM EST [facility] Blood Venous blood specimen / Unknown Venipuncture / Unknown 02/23/2025 5:55 AM EST 02/23/2025 10:48 AM EST us Yola Linares MD LAB BLOOD ORDERABLES Final Resul t Performing Organization Address City/[facility]/ZIP Co de Phone Number [facility] [address] [place] [address], [place] [phone] * (ABNORMAL) Prothrombin time with INR (02/23/2025 5:55 AM EST) [facility] Protime 23.6(H) 10.6 - 13.9 sec LAB COAGULATION METHOD 02/23/2025 11:37 AM EST [facility] INR 1.9 LAB COAGULATION METHOD 02/23/2025 11:37 AM EST [facility] Blood Venous blood specimen / Unknown Venipuncture / Unknown 02/23/2025 5:55 AM EST 02/23/2025 10:48 AM EST us Yola Linares MD LAB BLOOD ORDERABLES Final Resul t [facility] [address] [place] [address], [place] [phone] * Basic metabolic panel (02/23/2025 5:55 AM EST) Sodium 141 133 - 145 mmol/L LAB CHEMISTRY METHOD 02/23/2025 1:39 PM [facility] Potassium 4.8 3.5 - 5.5 mmol/L LAB CHEMISTRY METHOD 02/23/2025 1:39 PM [facility] Chloride 108 96 - 110 mmol/L LAB CHEMISTRY METHOD 02/23/2025 1:39 PM [facility] CO2 24 21 - 32 mmol/L LAB CHEMISTRY METHOD 02/23/2025 1:39 PM [facility] Anion Gap 9 3 - 11 LAB CHEMISTRY METHOD 02/23/2025 1:39 PM [facility] Glucose 96 70 - 100 mg/dL LAB CHEMISTRY METHOD 02/23/2025 1:39 PM [facility] BUN 15 5 - 25 mg/dL LAB CHEMISTRY METHOD 02/23/2025 1:39 PM [facility] Creatinine 0.75 0.50 - 1.10 mg/dL LAB CHEMISTRY METHOD 02/23/2025 1:39 PM [facility] eGFR 80 >=60 mL/min/1. 73m2 LAB CHEMISTRY METHOD 02/23/2025 1:39 PM [facility] Comment:Calculation based on the Chronic Kidney Disease Epidemiology Collaboration (CKD-EPI) equation refit without adjustment for race. BUN/Creatinine Ratio 20.0 LAB CHEMISTRY METHOD 02/23/2025 1:39 PM [facility] Calcium 9.4 8.5 - 10.5 mg/dL LAB CHEMISTRY METHOD 02/23/2025 1:39 PM [facility] Blood Venous blood specimen / Unknown Venipuncture / Unknown 02/23/2025 5:55 AM EST 02/23/2025 10:48 AM EST us Yola Linares MD LAB BLOOD ORDERABLES Final Resul t [facility] [address] [place] [address], [place] [phone] * (ABNORMAL) Complete blood count (02/23/2025 5:55 AM EST) [facility] Signature WBC 7.8 4.8 - 10.8 K/mcL LAB HEMETOLOGY METHOD 02/23/2025 11:35 AM EST [facility] RBC 4.10 3.80 - 4.80 M/mcL LAB HEMETOLOGY METHOD 02/23/2025 11:35 AM [facility] Hemoglobin 13.7 11.5 - 16.0 g/dL LAB HEMETOLOGY METHOD 02/23/2025 11:35 AM [facility] Hematocrit 42.9 35.0 - 47.0 % LAB HEMETOLOGY METHOD 02/23/2025 11:35 AM [facility] MCV 104.4(H) 79.0 - 98.0 FL LAB HEMETOLOGY METHOD 02/23/2025 11:35 AM [facility] MCH 33.3(H) 27.0 - 32.0 pcg LAB HEMETOLOGY METHOD 02/23/2025 11:35 AM [facility] MCHC 31.9(L) 32.0 - 37.0 g/dL LAB HEMETOLOGY METHOD 02/23/2025 11:35 AM [facility] RDW 13.1 11.0 - 15.0 % LAB HEMETOLOGY METHOD 02/23/2025 11:35 AM [facility] Platelets 255 130 - 400 K/mcL LAB HEMETOLOGY METHOD 02/23/2025 11:35 AM [facility] MPV 11.9(H) 7.0 - 11.0 FL LAB HEMETOLOGY METHOD 02/23/2025 11:35 AM [facility] NRBC 0.0 <1.0 % LAB HEMETOLOGY METHOD 02/23/2025 11:35 AM EST [facility] NRBC Absolute 0.00 <0.10 K/mcL LAB HEMETOLOGY METHOD 02/23/2025 11:35 AM EST [facility] Blood Venous blood specimen / Unknown Venipuncture / Unknown 02/23/2025 5:55 AM EST 02/23/2025 10:48 AM EST us Yola Linares MD LAB BLOOD ORDERABLES Final Resul t [facility] [address] [place] [address], documented in this encounter Visit Diagnoses Diagnosis Essential (primary) hypertension Unspecified essential hypertension Altered mental status, unspecified Anemia, unspecified Vitamin D deficiency, unspecified Chronic embolism and thrombosis of unspecified vein documented in this encounter Care Teams Flight Surveyor Relationship Specialty Start Date End Date Huang Oviedo MD [address] [place] [id number] PCP - General Internal Medicine 03/10/24 documented as of this encounter
--- OUTSIDE RECORDS SUMMARY | 2025-03-21 12:39 | XMS_ITS | Encounter Summary ---
Author Organization [facility] Address [address] [place] [address] Phone Care Team Providers Care Occupational Therapist Name Role Phone Mani Nation MD Primary Care Provider [phone] Mani Nation MD Unavailable [phone] Vero Marshall RN Unavailable [email or web address] Savannah Fontana Unavailable [phone] Mirian Locke RN Unavailable Vanessa Malik Unavailable [email or web address] Naila Brandt RN Unavailable [phone] Encounter Details Date Type Department Care Team (Late st Contact Info) Description 11/19/2018 Transcribe Orders Virtual Department [address] [place] [address] Che Collado MD [address] [place] [address] [phone] Choking, initial encounter (Primary Dx) Social History [...] EDT COMPARISON: None. MODIFIED BARIUM SWALLOW FINDINGS: E Commerce Architect lateral neck radiograph was obtained. Bones and soft tissues are within normal limits. A modified barium swallow was performed with speech therapy. Patient ingested multiple consistencies of barium. Swallowing is within normal limits. Procedure Note Elle Galvez MD - 12/03/2018 COMPARISON: None. MODIFIED BARIUM SWALLOW FINDINGS: E Commerce Architect lateral neck radiograph was obtained. Bones and [...] documented as of this encounter Care Teams Occupational Therapist Relationship Specialty Start Date End Date Mani Nation MD [address] [place] [address], [address] [place] [address] PCP - General 02/08/17 Mani Nation MD [address] [place] [address], [address] [place] [address] Insurance Assigned Provider 07/21/1701/01 Vero Marshall, FLORES [address] [place] [address], [address] [place] [address] [email or web address] PHCM Adjunct Physics Instructor 04/09/19 Savannah Fontana [address] [place] [phone] PHCM Community Health Worker 06/30/20 07/11/20 Mirian Locke RN [address] [place] [address] Registered Nurse 10/16/22 Vanessa Malik [address] [place] [address] [email or web address] PHCM Community Mold Maker Helper 06/12/24 06/12/24 Naila Brandt, RN [address] [place] [phone] PHCM Adjunct Physics InstructorBlast Furnace Blower 12/25/24 02/08/25 documented as of this encounter Additional Source Comments The information contained in this document represents components of the legal health record. It is not the complete legal health record.[facility]
--- OUTSIDE RECORDS SUMMARY | 2025-03-21 12:39 | XMS_ITS | Encounter Summary ---
Author Organization [facility] Address [address] [place] [address] Care Team Providers Care Cartridge Maker Name Role Phone Huang Oviedo MD Primary Care Provider [phone] Encounter Details Date Type Department Care Team (Late st Contact Info) Description 02/25/2025 Lab Requisition [facility] - Main Lab [address] [facility] [place] [address] Yola Linares MD [address] [place], [place] [phone] Unspecified atrial fibrillation (CMS/HCC V24, CMS/HCC V28) [...] Diagnosis Comments PROTHROMBIN TIME WITH INR Routine 02/25/2025 6:33 AM EST Unspecified atrial fibrillation (CMS/HCC V24, CMS/HCC V28) documented in this encounter Results * (ABNORMAL) Prothrombin time with INR (02/25/2025 6:33 AM EST) Protime 27.8(H) 10.6 - 13.9 sec LAB COAGULATION METHOD 02/25/2025 9:56 AM EST [facility] LAB INR 2.3 LAB COAGULATION METHOD 02/25/2025 9:56 AM [facility] LAB Blood Venous blood specimen / Unknown Venipuncture / Unknown 02/25/2025 6:33 AM EST 02/25/2025 9:17 AM EST us Yola Linares MD LAB BLOOD ORDERABLES Final Resul t [facility]) [facility] [address] [place] [address], documented in this encounter Visit Diagnoses Diagnosis Unspecified atrial fibrillation (CMS/HCC V24, CMS/HCC V28) documented in this encounter Care Teams Cartridge Maker Relationship Specialty Start Date End Date Huang Oviedo MD [address] [place] [phone] PCP - General Internal Medicine 03/10/24 documented as of this encounter
--- OUTSIDE RECORDS SUMMARY | 2025-03-21 12:39 | XMS_ITS | Encounter Summary ---
Author Organization [facility] Address [address] [address] Phone Care Team Providers Care Weapons And Tactics Instructor Name Role Phone Mani Nation MD Primary Care Provider [phone] Vero Marshall RN Unavailable [email or web address] Mirian Locke RN Unavailable [phone] Vanessa Malik Unavailable [email or web address] Naila Brandt RN Unavailable [phone] Encounter Details Date Type Department Care Team (Late st Contact Info) Description 11/21/2022 Procedure Pass [facility], Ct Scan - [address] [address] Social History Tobacco Use Types Packs/Day Years [...] 10:25 PM EDT Silvana Borrego, FLORES * [place] Suicide Severity Rating Scale (Screener/Recent Self-Report) Question [...] documented as of this encounter Care Teams Weapons And Tactics Instructor Relationship Specialty Start Date End Date Mani Nation MD [address] [facility], [address] [place] [address] [email or web address] PCP - General 02/08/17 Vero Marshall, FLORES [address] [facility] [place] [address] [email or web address] PHCM Supervisor Carbon Electrodes 04/09/19 Mirian Locke RN [address] [place] [address] Registered Nurse 10/16/22 Vanessa Malik [address] [place] [address] [email or web address] PHCM Community Consumer Services Advisor 06/12/24 06/12/24 Naila Brandt, FLORES [address] [place] [address] [phone] [email or web address] PHCM Supervisor Carbon ElectrodesConstruction Checker 12/25/24 02/08/25 documented as of this encounter Additional Source Comments The information contained in this document represents components of the legal health record. It is not the complete legal health record.[facility]
--- OUTSIDE RECORDS SUMMARY | 2025-03-21 12:39 | XMS_ITS | Encounter Summary ---
Author Organization [facility] Address [address] [place] [address] Care Team Providers Care Grinder Set Up Operator Jig Name Role Phone Huang Oviedo MD Primary Care Provider [phone] Encounter Details Date Type Department Care Team (Late st Contact Info) Description 03/06/2025 Lab Requisition [facility] - Main Lab [address] [facility] [place] [address] Yola Linares MD [address] [place], [place] [phone] Anemia, unspecified; Vitamin D deficiency, unspecified; Essential (primary) hypertension; Chronic embolism and thrombosis of unspecified vein; Altered mental status, unspecified; Unspecified atrial flutter (CMS/HCC V24, CMS/HCC V28) Social History Tobacco [...] Altered mental status, unspecified Unspecified atrial flutter ([facility] V24, [facility] V28) documented in this encounter Results * (ABNORMAL) Prothrombin time with INR (03/09/2025 8:50 AM EST) Pathologist [facility] Protime 27.1(H) 10.6 - 13.9 sec LAB COAGULATION METHOD 03/09/2025 10:54 AM EST [facility] LAB INR 2.2 LAB COAGULATION METHOD 03/09/2025 10:54 AM [facility] LAB Blood Venous blood specimen / Unknown Venipuncture / Unknown 03/09/2025 8:50 AM EST 03/09/2025 10:33 AM EST us Yola Linares MD LAB BLOOD ORDERABLES Final Resul t [facility] LAB [address] [place] [address], * (ABNORMAL) Basic metabolic panel (03/09/2025 8:50 AM EST) [facility] Sodium 137 133 - 145 mmol/L LAB CHEMISTRY METHOD 03/09/2025 11:44 AM EST [facility] Potassium 4.6 3.5 - 5.5 mmol/L LAB CHEMISTRY METHOD 03/09/2025 11:44 AM [facility] Chloride 103 96 - 110 mmol/L LAB CHEMISTRY METHOD 03/09/2025 11:44 AM [facility] CO2 27 21 - 32 mmol/L LAB CHEMISTRY METHOD 03/09/2025 11:44 AM EST [facility] Anion Gap 7 3 - 11 LAB CHEMISTRY METHOD 03/09/2025 11:44 AM [facility] Glucose 107(H) 70 - 100 mg/dL LAB CHEMISTRY METHOD 03/09/2025 11:44 AM [facility] BUN 15 5 - 25 mg/dL LAB CHEMISTRY METHOD 03/09/2025 11:44 AM [facility] Creatinine 0.90 0.50 - 1.10 mg/dL LAB CHEMISTRY METHOD 03/09/2025 11:44 AM [facility] LAB eGFR 64 >=60 mL/min/1. 73m2 LAB CHEMISTRY METHOD 03/09/2025 11:44 AM [facility] LAB Comment:Calculation based on the Chronic Kidney Disease Epidemiology Collaboration (CKD-EPI) equation refit without adjustment for race. BUN/Creatinine Ratio 16.7 LAB CHEMISTRY METHOD 03/09/2025 11:44 AM [facility] Calcium 9.0 8.5 - 10.5 mg/dL LAB CHEMISTRY METHOD 03/09/2025 11:44 AM [facility] LAB Blood Venous blood specimen / Unknown Venipuncture / Unknown 03/09/2025 8:50 AM EST 03/09/2025 10:33 AM EST us Yola Linares MD LAB BLOOD ORDERABLES Final Resul t [facility] [address] [place] [address], * (ABNORMAL) Complete blood count (03/09/2025 8:50 AM EST) WBC 11.4(H) 4.8 - 10.8 K/mcL LAB HEMETOLOGY METHOD 03/09/2025 11:19 AM [facility] RBC 4.40 3.80 - 4.80 M/mcL LAB HEMETOLOGY METHOD 03/09/2025 11:19 AM [facility] Hemoglobin 15.0 11.5 - 16.0 g/dL LAB HEMETOLOGY METHOD 03/09/2025 11:19 AM [facility] LAB Hematocrit 44.9 35.0 - 47.0 % LAB HEMETOLOGY METHOD 03/09/2025 11:19 AM [facility] MCV 102.3(H) 79.0 - 98.0 FL LAB HEMETOLOGY METHOD 03/09/2025 11:19 AM [facility] MCH 34.2(H) 27.0 - 32.0 pcg LAB HEMETOLOGY METHOD 03/09/2025 11:19 AM [facility] LAB MCHC 33.4 32.0 - 37.0 g/dL LAB HEMETOLOGY METHOD 03/09/2025 11:19 AM [facility] RDW 12.9 11.0 - 15.0 % LAB HEMETOLOGY METHOD 03/09/2025 11:19 AM [facility] Platelets 248 130 - 400 K/mcL LAB HEMETOLOGY METHOD 03/09/2025 11:19 AM [facility] MPV 11.2(H) 7.0 - 11.0 FL LAB HEMETOLOGY METHOD 03/09/2025 11:19 AM [facility] LAB NRBC 0.0 <1.0 % LAB HEMETOLOGY METHOD 03/09/2025 11:19 AM EST [facility] NRBC Absolute 0.00 <0.10 K/mcL LAB HEMETOLOGY METHOD 03/09/2025 11:19 AM [facility] Blood Venous blood specimen / Unknown Venipuncture / Unknown 03/09/2025 8:50 AM EST 03/09/2025 10:33 AM EST us Yola Linares MD LAB BLOOD ORDERABLES Final Resul t [facility] [address] [place] [address], [place] [phone] documented in this encounter Visit Diagnoses Diagnosis Anemia, unspecified Vitamin D deficiency, unspecified Essential (primary) hypertension Unspecified essential hypertension Chronic embolism and thrombosis of unspecified vein Altered mental status, unspecified Unspecified atrial flutter (CMS/[facility] V24, CMS/[facility] V28) documented in this encounter Care Teams Grinder Set Up Operator Jig Relationship Specialty Start Date End Date Huang Oviedo MD [address] [place] [id number] PCP - General Internal Medicine 03/10/24 documented as of this encounter
--- NOTE | 2025-03-21 13:59 | MHC.CM.PN ---
Addendum entered by Darlene Milian 03/21/25 15:35: P.T. REC TRIAL OF STR, REFERRALS SENT WITH [facility] BE[facility] FIRST CHOICE. CM CONTINUES TO FOLLOW. Original Note: CM RECEIVED ED CM CONSULT. CM MET WITH PT WHO IS [facility] AND REQUESTS I SPEAK WITH HER /HCP YSABEL. CM SPOKE WITH SPOUSE VIA TELEPHONE. PT LIVES WITH SPOUSE AND GRANDDAUGHTER WHO ASSIST WITH PT'S CARE. PT [facility] AND PER SPOUSE, SHE WOULD LIKE TO RETURN FOR MORE STR. PT USES W/C FOR MAJOR MOBILITY AND REQUIRES ASSIST WITH ADL'S. PT USES A BEDSIDE COMMODE . PT IS CURRENTLY ACTIVE WITH [facility] AND SPOUSE IS WORKING TO GET MORE HELP IN THE HOME VIA [facility]. HCP ON FILE AND VERIFIED. PCP DR. BETTINA MAKI. DP: PT WILL HAVE A P.T. EVAL TO DETERMINE NEEDS. RETURN REFERRAL TO BE SENT TO [facility]. CM WILL CONTINUE TO FOLLOW FOR PLAN.
[2025-03-21 15:19] VITALS: BP 124/55; PULSE 75; RESP 19; TEMP 36.4; O2SAT 99
--- NOTE | 2025-03-21 15:37 | PC.NURSE ---
Med rec done using a list from facility that EMS brought. Pt confused, not a reliable historian
--- NOTE | 2025-03-21 16:10 | PC.NURSE ---
Pt presented to ED via EMS from home after a slip and fall out of bed onto floor, EMS reporting bed is only 1-2 feet off the ground. Family member heard the noise and found her right away, pt was reporting mid back pain (bruise noted in that area on arrival). Pt has dementia, very confused and baseline and very hard of hearing. Alert, breathing even and unlabored. Plan for PT/CM. Pt resting comfortable in bed
[2025-03-21 18:45] LABS: Appearance Urine Clear; Glucose Urine UA Negative (Negative); PH 6.0 (5.0-9.0); Specific Gravity - Urine 1.025 (1.005-1.025); UMIC TRIGGER UACC YES
[2025-03-21 19:05] LABS: UACC Culture Trigger YES
--- NOTE | 2025-03-21 19:11 | PC.NURSE ---
Addendum entered by Andressa Tomlinson RN 03/21/25 21:02: pt transferred from stretcher to hospital bed for comfort. pt resting comfortably in bed watching tv, call ramirez is within reach. plan of care ongoing Original Note: assumed care for pt at this time.pt awake and alert, confused. when asked pts name and pt points to her bracelet states thats me . pt medicated per jun, pt swallowed pills whole one at a time. VSS. call ramirez within reach
[2025-03-21 19:16] VITALS: BP 109/42; PULSE 69
[2025-03-21] MEDS: Metoprolol Succinate ER 50 MG TAB.ER.24H PO (19:16)
[2025-03-21] MEDS: Aspirin Enteric Coated 81 MG TABLET.DR PO (19:16)
[2025-03-21 19:21] VITALS: BP 109/42; PULSE 70; RESP 16; TEMP 36.9; O2SAT 98
--- NOTE | 2025-03-22 08:47 | PHA.MEDREC ---
Pharmacy Consult ? Medication Reconciliation Pharmacy has reviewed the medication reconciliation completed by nursing. Warfarin 5mg on Mo & Fri, 2.5mg all other days per list from Bryn castillo [place] ([phone])
[2025-03-22 09:33] VITALS: BP 131/52; PULSE 70
[2025-03-22] MEDS: Metoprolol Succinate ER 50 MG TAB.ER.24H PO (09:33)
[2025-03-22] MEDS: Aspirin Enteric Coated 81 MG TABLET.DR PO (09:33)
[2025-03-22 09:34] VITALS: BP 131/52
[2025-03-22 09:36] VITALS: BP 131/52; PULSE 72; RESP 15; O2SAT 96
[2025-03-22 13:26] LABS: INTERNATIONAL NORM RATIO 2.9 (0.9-1.1); Prothrombin Time 34.6 SEC (11.2-13.5)
[2025-03-22 20:19] VITALS: BP 134/50; PULSE 69; RESP 14; TEMP 36.8; O2SAT 98
[2025-03-22 22:53] VITALS: BP 139/70; PULSE 69; TEMP 36.9; O2SAT 98
[2025-03-23 06:10] LABS: INTERNATIONAL NORM RATIO 2.6 (0.9-1.1); Prothrombin Time 31.4 SEC (11.2-13.5)
[2025-03-23 08:23] VITALS: BP 134/58; PULSE 71; RESP 16; O2SAT 98
[2025-03-23 08:25] VITALS: BP 134/58; PULSE 71
[2025-03-23] MEDS: Aspirin Enteric Coated 81 MG TABLET.DR PO (08:25)
[2025-03-23] MEDS: Metoprolol Succinate ER 50 MG TAB.ER.24H PO (08:25)
[2025-03-23 08:43] LABS: COVID-19 Test Negative (Negative); IDNOW Serial# 58CA691E
--- NOTE | 2025-03-23 09:46 | MHC.CM.ED ---
Patient remains in ER. [facility] is able to offer a bed on their 1st floor. Patient has been on their dementia unit in the past. Spoke with patient's , Davon. Davon agreeable to bed on 1st floor. [facility] has been asked to obtain ins auth. Continue to monitor for d/c needs.
[2025-03-23 14:00] VITALS: BP 119/70; PULSE 79; RESP 16; TEMP 36.9; O2SAT 95
--- NOTE | 2025-03-23 18:33 | PC.NURSE ---
Medication requested from pharmacy. Warfarin 5mg unavailable in ED Overflow Pyxis. Patient watching TV, no needs at this time.
--- NOTE | 2025-03-23 18:45 | PC.NURSE ---
Patient had bowel movement, incontinent. Patient removed the purewick. Linens changed, incontinent of urine & stool. Hygiene care provided, barrier cream applied for redness to groin, no open areas noted. Patient has dementia, very hard of hearing, needs reminders. Bed alarm in place. New purewick placed, connected/draining to wall suction. Denies other needs at this time. Care ongoing by this RN.
--- NOTE | 2025-03-23 19:19 | PC.NURSE ---
Continue to await medication receipt from pharmacy. Spoke with staff member Helena.
--- NOTE | 2025-03-23 19:36 | PC.NURSE ---
Spoke with Spencer Lopez in pharmacy regarding delayed med, requested over 1 hour ago. Spencer to bring requested medication to ED Overflow. To be administered upon receipt.
--- NOTE | 2025-03-23 20:42 | PC.NURSE ---
Warfarin 5mg administered as ordered at this time. Delayed due to medication not being available on unit's pyxis. Administered upon receipt from pharmacy.
--- NOTE | 2025-03-23 21:29 | PC.NURSE ---
Took over care from FLORES Dinero at 21:00, pt in bed resting with fall precaution in place.
--- NOTE | 2025-03-24 05:23 | PC.NURSE ---
pt incontinent of urine, radha -care completed, protective cream applied and pt repositioned.
[2025-03-24 05:37] VITALS: BP 130/56; PULSE 69; RESP 14; TEMP 36.8; O2SAT 97
[2025-03-24 08:17] VITALS: BP 126/60; PULSE 64
[2025-03-24] MEDS: Metoprolol Succinate ER 50 MG TAB.ER.24H PO (08:17)
[2025-03-24 08:20] VITALS: BP 126/60
[2025-03-24] MEDS: Aspirin Enteric Coated 81 MG TABLET.DR PO (08:20)
[2025-03-24 08:22] VITALS: BP 126/60; PULSE 64; RESP 16
--- NOTE | 2025-03-24 09:19 | PC.NURSE ---
Assumed care of pt at 0700. Pt resting in bed quietly, respirations even and unlabored, no increased wob/sob noted. Denies pain at this time. Pt repositioned- sitting upright in bed eating breakfast, able to feed self. Medicated per MAR with morning medications- swallows pills whole with water. Pt checked for incontinence- purewick applied, linens dry and intact. Call ramirez within reach, all needs met at this time.
--- NOTE | 2025-03-24 12:35 | MHC.CM.ED ---
Patient remains in ER overflow. [facility] is in the process of obtaining ins auth. Continue to monitor for d/c needs.
[2025-03-24 13:25] LABS: INTERNATIONAL NORM RATIO 2.8 (0.9-1.1); Prothrombin Time 33.1 SEC (11.2-13.5)
[2025-03-24 13:53] VITALS: BP 130/63; PULSE 67; RESP 18; TEMP 36.3; O2SAT 96
[2025-03-24 19:41] VITALS: BP 127/61; PULSE 69; RESP 18; TEMP 36.5; O2SAT 97
[2025-03-25 05:15] VITALS: PULSE 72; RESP 16; TEMP 36.6; O2SAT 95
--- NOTE | 2025-03-25 06:34 | PC.NURSE ---
Assumed care of pt at 1900 03/24/25. PT a/ox1, dementia a baseline unable to make needs known,and is KIANA. PT needing prompting and assistance to reposition self. Skin noted to be intact. VSS. Full private branch exchange service adviser completed through fawn was functioning. PT medicated as per mar- took pill whole with water with no issues. Safety precautions in place plan of care ongoing
[2025-03-25] MEDS: Aspirin Enteric Coated 81 MG TABLET.DR PO (08:26)
[2025-03-25] MEDS: Metoprolol Succinate ER 50 MG TAB.ER.24H PO (08:26)
[2025-03-25 12:03] LABS: INTERNATIONAL NORM RATIO 3.1 (0.9-1.1); Prothrombin Time 36.4 SEC (11.2-13.5)
[2025-03-25 14:00] VITALS: BP 124/60; PULSE 70; RESP 16; TEMP 36.6; O2SAT 98
--- NOTE | 2025-03-25 15:58 | PC.NURSE ---
Patient asked for assistance in going to the bedside commode, per PT's note patient was unable to stand up and move, patient was encouraged to use bedpan instead but declined and insisted on getting up. Patient was helped to the bedside commode, 2 max assist. Patient was able to lift up with the help of walker but unable to move her feet. Unable to have BM, patient was helped back to bed, radha care given, barrier cream applied, purewick back in place, call ramirez within reach, visitor at bedside.
--- NOTE | 2025-03-25 16:46 | HO.WOUND ---
Over Flow Rounding completed 84yr old female present in [facility] ED / OverFlow area - See ED notes for detailed history.? Inpatient Skin Integrity Maintenance Rounding. Patient agreeable to assessment and skin assessment. Brief chart review completed.? Bilateral Heels assessed for blanchable redness, remain intact and floated off of bed surface with pillows. Recommend Foam application and off loading. Buttock, Sacrum and Coccyx assessed - noted to be intact, pink and hyperpigmented Mild MASD noted however remains blanchable. Recommend barrier cream. May use preventative foam dressing application to protect from friction and injury development.? Patient on Hospital bed at this time recommend applying low air loss pump to mattress if available.? Recommend SIPP Activation. Buttock and Perineal - Off Load Pressure with Q2 hr turns and use of pillows - Cleanse with PH balance spray or wipes, pat dry. ?Apply thin layer of barrier cream to affected area.? Apply twice daily and Reapply thin layer PRN after each episode of incontinence. Bilateral Heels? - Elevate heels off of bed surface with pillows.? Float heels off of pillows.? Apply skin prep allow to dry.? Apply heel foam dressings, peel back and assess Q shift and change every 5-7 days and PRN.
[2025-03-25 19:34] VITALS: BP 125/60; PULSE 60; RESP 16; TEMP 36.1; O2SAT 97
[2025-03-26 06:00] VITALS: BP 139/67; PULSE 73; RESP 16; TEMP 36.2; O2SAT 98
[2025-03-26] MEDS: Aspirin Enteric Coated 81 MG TABLET.DR PO (08:39)
[2025-03-26] MEDS: Metoprolol Succinate ER 50 MG TAB.ER.24H PO (08:39)
--- NOTE | 2025-03-26 09:10 | PC.NURSE ---
Report received from Leah TANNER. Requested Spironolactone from pharmacy, unavailable in Pyxis. Care ongoing by this RN.
[2025-03-26 09:55] VITALS: BP 139/67
--- NOTE | 2025-03-26 12:27 | MHC.CM.ED ---
Patient remains in ER overflow. Peer to peer completed between Kylie CHRIS and Jaylon. [employer] approved STR. [facility] aware. Nanci AMOR booked for 230pm. Med [facility] with chart. Patient, Rosette Mays RN and Kylie CHRIS aware. Continue to monitor for d/c needs.
--- NOTE | 2025-03-26 13:59 | PC.NURSE ---
PT/INR drawn and sent for analysis. Results pending. Plan for discharge to [facility] around 2:30pm today by EMS. Care ongoing by this RN.
[2025-03-26 14:00] VITALS: BP 126/59; PULSE 69; RESP 18; TEMP 36.4; O2SAT 96
[2025-03-26 14:15] LABS: INTERNATIONAL NORM RATIO 2.4 (0.9-1.1); Prothrombin Time 29.1 SEC (11.2-13.5)
[2025-03-26 14:43] VITALS: BP 126/59; PULSE 69; RESP 18; TEMP 36.4; O2SAT 96
== END 2025-03-26 14:43 | disposition skilled nursing facility (03) ==
PROVIDERS: Registered Nurse Emergency; Emergency Provider Emergency Medicine; PCP Internal Medicine
DX: F03.911 Unspecified dementia, unspecified severity, with agitation (principal); S09.90XA Unspecified injury of head, initial encounter; I48.91 Unspecified atrial fibrillation; R26.81 Unsteadiness on feet; M54.2 Cervicalgia; R51.9 Headache, unspecified; W19.XXXA Unspecified fall, initial encounter; Y93.9 Activity, unspecified; Y92.9 Unspecified place or not applicable; Y99.8 Other external cause status; Z91.81 History of falling; Z79.01 Long term (current) use of anticoagulants; Z79.899 Other long term (current) drug therapy; Z11.52 Encounter for screening for COVID-19
CPT/HCPCS: 36415; 70450; 71046; 72125; 80053; 81001; 84484; 85025; 85610; 87086; 87635; 93005; 97162; 97530; 99285

== ENCOUNTER → 2025-03-21 10:41 | Outpatient (BNV) | payer MEDICARE, SELFPAY | PROVIDERS: Emergency Provider Emergency Medicine; Visit Provider Radiology Vascular & Interventional Radiology | DX: Z04.3 Encounter for examination and observation following other accident (principal) | CPT/HCPCS: 70450; 71046; 72125 ==

== ENCOUNTER → 2025-03-21 10:41 | Outpatient (BNV) | payer MEDICARE, SELFPAY | PROVIDERS: Emergency Provider Emergency Medicine; Visit Provider Internal Medicine | DX: R94.31 Abnormal electrocardiogram [ECG] [EKG] (principal); Z95.0 Presence of cardiac pacemaker | CPT/HCPCS: 93010 ==